=== PATIENT | female | born 1990 | race Caucasian/White ===

== ENCOUNTER 2023-12-28 07:05 | Inpatient (IN) ==
--- NOTE | 2023-12-26 11:31 | Anesthesiology Consultation ---
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 Chart Review Chart Review: diversified crops farmworker initiated History Surgery Operation Date: 12/28/23 08:50 Proposed Procedures p Primary Section - Andrew Chavez MD Height/Weight Height: 5 ft 5 in Weight: 122.47 kg Allergies Allergy/AdvReac Type Severity Reaction Status Date / Time azithromycin [From Zithromax] Allergy Unknown Difficulty Verified 12/26/23 10:53 Breathing Penicillins Allergy Unknown Difficulty Verified 12/26/23 10:53 Breathing Medications Home Medications Medication Instructions Recorded Confirmed Last Taken 1 tab PO QAM 12/26/23 12/26/23 Unknown Probiotic 1 tab PO QAM 12/26/23 12/26/23 Unknown aspirin 81 mg capsule 81 mg PO DAILY 12/26/23 12/26/23 Unknown docusate sodium 50 mg capsule 50 mg PO DAILY PRN Constipation 12/26/23 12/26/23 Unknown iron,carbonyl 65 mg-vitamin C 125 1 tab PO BID 12/26/23 12/26/23 Unknown mg tablet,delayed release (Vitron-C) magnesium 200 mg tablet 400 mg PO DAILY 12/26/23 12/26/23 Unknown propranolol 20 mg tablet 20 mg PO BID 12/26/23 12/26/23 Unknown riboflavin (vitamin B2) 400 mg 400 mg PO QAM 12/26/23 12/26/23 Unknown tablet sertraline 25 mg tablet 75 mg PO QAM 12/26/23 12/26/23 Unknown Past Medical History Medical History (Updated 12/26/23 @ 11:30 by Shantel Marie PA-C) ADHD Anxiety 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, sports induced Depression History of COVID-19 (05/2023) no hosp; resolved Migraines OCD (obsessive compulsive disorder) Sleep apnea CPAP Slow to wake up after anesthesia after D&C Past Family History Family History Other No family history of adverse response to anesthesia Past Surgical History Surgical History Hx of dilation and curettage polyp removed from uterus Hx of tonsillectomy Hx of wisdom tooth extraction Social History Smoking Status: Never smoker Do You Dip or Chew Tobacco: No Hx Alcohol Use: No Hx Substance Use: No substance use type: does not use
--- OUTSIDE RECORDS SUMMARY | 2023-12-28 07:13 | External Medical Summary | Summary of Care ---
Author Name Unknown Organization [facility] Address [address] [place] [address] Phone [phone] Care Team Providers Care Landscape Nurseryman Name Role Phone Ford Devine MD Primary Care Provider [phone] Encounter Details Date Type Department Care Team (Late st Contact Info) Description 12/19/2023 Telephone Gynecology/Obstetrics [facility] [address] [place] [address] Maria Esther Isbell, [facility] [address] [place] [address] Allergies Active Allergy Reactions Criticality Noted Date Comments Penicillins Edema face/lips/tongue High 08/29/2001 Azithromycin Dihydrate Edema airway,Othe r (Please comment) High 11/24/2013 Trouble breathing documented as of this encounter (statuses as of 12/19/2023) Medications Medication Sig Dispensed Refills Start Date End Date Status CPAP every night at bedtime. Auto 5-20 cm Active Magnesium 200 MG Oral Tablet Take 1 Tablet by mouth in the morning. Active Vitamin and Mineral 28-0.8 MG Oral TabletIndications :Inability to conceive, female Take by mouth. Acti ve Propranolol HCl 20 MG Oral Tablet (Inderal) Take 1 Tablet by mouth in the morning and 1 Tablet before bedtime. 60 Tablet 2 05/04/2023 Active Riboflavin 100 MG Oral Capsule Take 1 Capsule by mouth in the morning. Active Probiotic 250 MG Oral Capsule Take by mouth. Active Sertraline HCl 50 MG Oral Tablet (Zoloft)Indicatio ns:Anxiety state,Moderate episode of recurrent major depressive disorder (HCC) Take 1 Tablet by mouth in the morning. 30 Tablet 5 07/04/2023 Active Aspirin 81 MG Oral Tablet Delayed Release (Aspirin Adult Low Dose) Take 1 Tablet by mouth in the morning. Active Sertraline HCl 25 MG Oral Tablet (Zoloft)Indicatio ns:Depression affecting in first trimester, antepartum Take 1 Tablet by mouth in the morning. With 50 mg tablet for a total of 75 mg daily.. 30 Tablet 6 07/30/2023 Active ProAir HFA 108 (90 Base) MCG/ACT Inhalation Aerosol SolutionIndicatio ns:Mild intermittent asthma without complication Inhale 2 Puffs by mouth every 4 hours as needed for Shortness of Breath or Wheezing. 18 g 10/09/2023 Active Breast PumpIndications:B reast feeding status of mother Z39.1 status of mother CAROL: 01/03/2024 1 Each 10/11/2023 Active Iron-Vitamin C 65-125 MG Oral Tablet (Vitron C)Indications:Ant epartum anemia complicating Take 1 Tablet by mouth in the morning and 1 Tablet before bedtime. 60 Tablet 3 10/15/2023 Active Docusate Sodium 100 MG Oral Capsule (Colace)Indicatio ns:Antepartum anemia complicating Take 1 Capsule by mouth 2 times a day as needed for Constipation. 60 Capsule 5 10/15/2023 Active Hydrocortisone Acetate 25 MG Rectal Suppository (Anusol HC)Indications:He morrhoids without complication Administer 1 Suppository into the rectum 2 times a day in the morning and at bedtime as needed for Hemorrhoids. 28 Suppository 12/09/2023 Active documented as of this encounter (statuses as of 12/19/2023) Active Problems Problem Noted Date Diagnosed Date Excessive growth affec ting management of in third trimester 11/01/2023 Last Assessment & Plan: CONSIDERATIONS: Reviewed that weight greater than 90%ile is considered "large for gestational age" (LGA). LGA may be related to constitutional factors (e.g., male gender, ethnicity), environmental factors (maternal diabetes/obesity/weight gain), or genetic conditions. Discussed the limitations of ultrasound in predicting weight, especially at later gestational ages. RECOMMENDATIONS: Recommend delivery without trial of labor for estimated weight greater than 5000 gm (in the non-diabetic woman) OR greater than 4500 gm (in the diabetic woman). Concern for macrosomia/LGA is NOT an indication for induction of labor. The patient should discuss further management and delivery plan with her primary OB provider. Polyhydramnios in third trimester 11/01/2023 Last Assessment & Plan: CONSIDERATIONS: Polyhydramnios is the presence of elevated levels of amniotic fluid index (LUDMILA) greater than or equal to 24 cm or a maximum of vertical pocket (MVP) greater than or equal to 8 cm. Polyhydramnios is categorized as: Mild LUDMILA of 24.0-29.9 cm Moderate LUDMILA of 30.0-34.9 cm Severe LUDMILA of greater than or equal to 35 cm We discussed potential etiologies and complications associated with polyhydramnios. Mild polyhydramnios often resolves spontaneously without negative effects on the . The prevalence of an identifiable etiology increases with severity of polyhydramnios. RECOMMENDATIONS: Perform MFM (Maternal- Medicine) ultrasound in 4 weeks for assessment of growth and fluid. Recommend delivery at 39 weeks if findings persist. Amnioreduction is an option to decrease severe maternal discomfort, dyspnea, or both. It is not indicated at this time. Antepartum anemia complicating 024 Supervision of high-risk , unspecified trimester 06/28/2023 BMI 40.0-44.9, adult 06/28/2023 Anxiety during , antepartum 06/28/2023 Overview: Follows with Psychiatry for medication management for anxiety, depression, OCD and ADHD. Currently managing with sertraline 75 mg daily and propanolol 20 mg BID. No current counseling. Denies suicidal or homicidal ideation. Last Assessment & Plan: ANXIETY AND DEPRESSION CONSIDERATIONS: Untreated maternal anxiety and depression may be associated with an increased risk of multiple poor obstetrical outcomes including miscarriages, low weight, and delivery. Women with a history of anxiety or depression are at risk for recurrence both during and/or the period. Studies of first-trimester SSRI exposure do not demonstrate consistent data to support an increased risk for structural malformations. Anti-anxiety or depression medications have been associated with transient effects (withdrawal syndrome). RECOMMENDATIONS: Mental illness can and should be treated during when the benefits of treatment outweigh potential risks. Referral to behavioral health services as clinically indicated. Propranolol. Propranolol has been reported to cause intrauterine growth retardation and bradycardia and hypoglycemia, especially at daily doses greater than 160 mg. Additionally, small placentas and congenital abnormalities have occurred in neonates whose mothers received propranolol during . When administered during labor, respiratory depression has also been reported. Therefore, if propranolol must be used in a women, it is recommended that the infants be monitored for bradycardia, respiratory depression, and hypoglycemia. Fluoxetine (Prozac). Human studies linking the use of fluoxetine with defects are not available. Fluoxetine does cross the placenta. Although some isolated studies suggest an association between fluoxetine in the first trimester and cardiovascular malformations, meta-analysis reviews have not proven any relationship between fluoxetine use and congenital malformations. It is important for mothers to continue using their antidepressant medication since there seems to be an association between depression in and depression. Sertraline (Zoloft). Discussed that although there have been reports in the past regarding anti-depressant therapy and abnormalities or complications, research has not confirmed or supported this claim. Explained that anti- depressants such as the SSRI's and TCA's do not appear to increase the incidence of complications or malformations (with the exception of Paxil). Anti- depressants have been associated with transient effects (withdrawal syndrome). Use sertraline cautiously during , considering both the potential risk of taking sertraline, along with the established benefits of treating depression. Obstructive sleep apnea of adult 06/28/2023 Overview: NICA diagnosed in 2019. Patient reports compliance with CPAP; awaiting new mask to arrive from [employer]. Last Assessment & Plan: Considerations: Obstructive sleep apnea increases the risk of early loss, growth restriction, hypertensive disease of , pulmonary embolism, and maternal cardiomyopathy. Recommendations: Attend follow-up with Sleep Medicine; Continue and achieve consistent compliance with continuous positive airway (CPAP) pressure therapy. While sleeping, consider the lateral recumbent or head elevated position. Target weight gain in will be 11-20 lbs Consider an echocardiogram to screen for right heart pathology and refer to cardiology if indicated. Avoid Provigil (modafinil) in and in . Asthma during 06/28/2023 Overview: Patient reports exercise-induced asthma in childhood and adolescence. At time of initial MFM consult, she states that she has not required albuterol inhaler in years. Last Assessment & Plan: CONSIDERATIONS: Asthma symptoms may improve, worsen or remain unchanged in severity in . Asthma is generally managed the same in as in the non- patient, as asthma-control medications are considered safe in . If asthma is well-controlled with medications prior to , it is recommended to continue the same medication regimen during . A patient should seek medical care immediately if an asthma flare does not respond to therapy. Mild and well-controlled moderate asthma can be associated with excellent maternal and outcomes. Severe and poorly controlled asthma may be associated with increased morbidity and mortality. Asthma management includes monitoring of lung function with pulmonary function testing (when indicated), avoidance of triggers (such as tobacco smoke, mold, dust mite exposure, animal dander and cockroaches), and a step-care approach to pharmacologic therapy based on the severity of the patient's asthma. RECOMMENDATIONS: Inhaled corticosteroids are the mainstay of therapy for all patients except those with intermittent asthma. If patients are routinely requiring rescue inhaler (such as albuterol, Ventolin, ProAir, Atrovent, or Proventil) use more than twice weekly, we recommend adding a low-dose inhaled corticosteroid. [Pulmicort (budesonide) is preferred to use in .] If patients are routinely requiring rescue inhaler use daily, we recommend adding a combined low-dose inhaled corticosteroid/long-acting beta-agonist [such as Advair (fluticasone/salmeterol) or Symbicort (budesonide/formoterol)] or a medium dose inhaled corticosteroid. Patient should discuss these treatment options with her primary OB provider or PCP. Typically, patients do not need stress dose steroids as long as they continue their usual dose perioperatively (or during labor) and do not have primary renal failure or other problems with the pituitary axis. Medications such as prostaglandin F2a (including Hemabate), ergonovine, and indomethacin (in patients who are aspirin allergic) should be used with caution. Patients with moderate or severe persistent asthma should have Maternal- Medicine ultrasound for anatomy at 19-20 weeks. surveillance with growth ultrasounds and non-stress tests should be considered starting at 32 weeks. Elevated blood pressure read ing without diagnosis of hypertension 06/28/2023 Overview: Elevated blood pressures documented early in (April 2023). Patient states that her BP spiked after she was instructed by her psychiatrist to stop anxiety medication "cold turkey," including propanolol. Since that time, she was prescribed sertraline by her PCP and has also resumed propanolol. More recent blood pressures have been WNL. Several elevations noted in early 2022. Discussed potential for chronic hypertension in ; recommend continued monitoring of blood pressures. Recommend bASA 81 mg daily. BP Readings from Last 10 Encounters: 06/11/23 110/78 05/16/23 122/82 05/08/23 126/76 05/04/23 130/79 12/23/22 123/81 12/23/22 124/84 12/11/22 112/80 10/03/22 118/94 05/31/22 120/92 05/11/22 140/95 Baseline Preeclampsia Labs Lab Results Component Value Date/Time CREATININE - [facility] 0.6 06/11/2023 04:09 PM AST - [facility] 15 06/11/2023 04:09 PM ALT - [facility] 21 06/11/2023 04:09 PM PROTEIN/ CREATININE RATIO, URINE - [facility] 211 (H) 06/11/2023 04:09 PM Last Assessment & Plan: Continue routine monitoring of blood pressures. Obesity during 06/11/2023 Overview: Pre-gravid BMI 38.79 (#230, 5'4") Current BMI 40.37 Early 1 hour GCT 120 mg/dL Last Assessment & Plan: She presents for follow-up of growth secondary to class 2 obesity, anxiety and depression, asthma, and sleep apnea. LGA and mild polyhydramnios have been noted previously. Today's ultrasound notes the following: The estimated weight is appropriate for gestational age in the 87th percentile. The visualized anatomy is unremarkable in appearance. The LUDMILA is normal. Binge eating disorder 06/14/2022 Major depressive disorder, recurrent, unspecifie d 01/23/2019 Anxiety state 05/31/2014 Chronic migraine without aura 05/31/2014 Depression affecting pregnan cy in first trimester, antepartum 05/31/2014 Headache 05/31/2014 Overview: ICD-10 update of inactive term Hair loss 05/31/2014 Estimated Date of Delivery Comme nts Yes 01/03/2024 Based on last me nstrual period of 03/29/2023 (Exact Date) documented as of this encounter (statuses as of 12/19/2023) Resolved Problems Problem Noted Date Diagnosed Date Resolved Date Class 2 obesity 06/28/2023 10/31/2023 Encounter for supervision of normal first in first trimester 06/11/2023 10/31/2023 Abnormal uterine bleeding 05/13/2018 Status post hysteroscopy 05/13/2018 S/P dilatation and curettage 05/13/2018 06/11/2023 Endometrial polyp 05/13/2018 06/11/2023 documented as of this encounter (statuses as of 12/19/2023) Immunizations Name Administration Dates Next Due COVID-19 mRNA, LNP-s, No Pre serve, 2-Dose Series (uBank) 09/04/2020,08/14/2020 COVID-19, LNP-s, No Preserve , Mk-sucrose, Ages 12+ (uBank) 03/18/2021 DTaP Dipth/Tet/Acell Pertussis (Infanrix), Peds 11/21/1995,04/12/1992,01/24/1991,12/09,1990 HIB PRP-T, 4 Dose, PF, IM (H iberix, ActHib) 11/20/1991,01/24/1991,1990,09/30 HPV Vaccine, 4-Valent 04/29/2014,01/29/2012 HPV Vaccine, 9-Valent 01/26/2015 Hepatitis B, 0-19 yrs 11/22/1998,06/07/1998,04/17 IPV - Polio Virus Vaccine (Inact) 1995,04/12/1992,1990,09/30 MMR - Measles/Mumps/Rubella Vaccine 11/21/1995,0 11/20/1991 Meningococcal Conjugate Vacc ine (Menactra/Menveo) 04/02/2008 Seasonal Influenza, PF, 6 M & above, IM , (FluLaval or Fluzone) 07/13/2023,06/21/2021 Seasonal Influenza, Trivalen t, (IIV3), with Preserv, (Fluzone) 01/29/2012 TDAP (age 10 and older)(Boostrix) 10/11/2023 TDAP, Age 7 and older, IM (Adacel) 01/29/2012 Tetanus Toxid Adsorbed 07/27/2004 documented as of this encounter Social History Tobacco Use Types Packs/Day Years Used Date Smoking Tobacco: Never Smokeless Tobacco: Never Alcohol Use Standard Drinks/Week Comments Not Currently 0 (1 standard drink = 0.6 oz pur e alcohol) occasionally AUDIT-C Answer Date Recorded Frequency of Alcohol Consumption 2-4 times a sun01/23/2019 Average Number of Drinks 3 or 4 019 Frequency of Binge Drinking Less than monthly PHQ-2 Answer Date Recorded PHQ Adult Total Score 0 10/09/2023 Hunger Vital Sign Answer Date Recorded Within the past 12 months, y ou worried that your food would run out before you got the money to buy more. Never true 12/12/19 23 Within the past 12 months, t he food you bought just didn't last and you didn't have money to get more. Never true 12/11/2022 Melrose Depression Scale Answer Date Recorded Melrose Depression Scale Total 6 11/23/2023 The thought of harming myself has occurred to me . Never 11/23/2023 Childcare Answer Date Recorded Do you feel overwhelmed with taking care of a child, family member or friend? No 12/11/2022 Does your family need help f inding childcare? (Household - for ages 0-17 years) Not on file 12/11/2022 Clothing Answer Date Recorded Have you been unable to get clothing when it was really needed? No 12/11/2022 Is your family able to get c lothes or diapers when needed? (Household - for ages 0-17 years) Not on file 12/11/2022 Personal Safety Answer Date Recorded Do you feel unsafe or have concerns for your saf ety? No 12/11/2022 Do you have concerns for you r family's safety? (Household - for ages 0-17 years) Not on file 12/11/2022 Utilities Answer Date Recorded Do you have trouble paying y our heating, water, or electric bill? (Adult - for ages 18 years and over) Not on file 12/12/2023 Is your family able to pay t he heat, water, or electric bill? (Household - for ages 0-17 years) Not on file 12/12/2023 Does your family have access to good internet? (Household - for ages 0-17 years) Not on file 12/12/2023 Employment Status Answer Date Recorded Are you unemployed or without regular income? No 12/11/2022 Does the household have a re lar source of income? (Household - for ages 0-17 years) Not on file 12/11/2022 Social Connections Answer Date Recorded How often do you feel lonely or isolated from those around you? (Adult - for ages 18 years and over) Not on file 12/12/2023 Financial Resource Strain Answer Date R ecorded Do you have any trouble payi ng for your medications, or do you think you might in the future? No 12/11/2022 Does your family have troubl e paying for medicine? (Household - for ages 0-17 years) Not on file 12/11/2022 Transportation Needs Answer Date Record ed READ ONLY Do you have troubl e getting a ride to medical visits or work? Never True 12/11/2022 Does your family have a hard time getting a ride to doctors visits? (Household - for ages 0-17 years) Not on file 12/11/2022 Has lack of transportation k ept you from medical appointments, meetings, work, or from getting things needed for daily living? Check all that apply. (Adult - for ages 18 years and over) Not on file 12/11/2022 Do you (or your family) have trouble finding or paying for a ride (transportation)? (Household - for ages 0-17 years) Not on file 12/11/2022 Housing Stability Answer Date Recorded Do you currently live in a s helter or have no steady place to sleep at night? No 12/11/2022 READ ONLY Do you think you a re at risk of becoming homeless? No 12/11/2022 Does your family worry about paying for your home or becoming homeless? (Household - for ages 0-17 years) Not on file 0 12/11/2022 Are you homeless or worried that you might be in the future? (Adult - for ages 18 years and over) Not on file Are you (or your family) blake eless or worried that you might be in the future? (Household - for ages 0-17 years) Not on file Food Insecurity Answer Date Recorded Do you need food for this week? No 12/11/2022 Are you able to get enough f ood for your family? (Household - for ages 0-17 years) Not on file 12/11/2022 Does your family need food t his week? (Household - for ages 0-17 years) Not on file 12/11/2022 Do you always have enough fo od for your family? (Household - for ages 0-17 years) Not on file 12/11/2022 Estimated Date of Delivery Comme nts Yes 01/03/2024 Based on last me nstrual period of 03/29/2023 (Exact Date) Sex and Gender Information Value Date Recorded Sex Assigned at Female 01/23/2019 7:58 AM EDT Gender Identity Female 01/23/2019 7:58 AM EDT Sexual Orientation Straight 01/23/2019 7: 58 AM EDT Job Start Date Occupation Industry Not on file Not on file Not on file documented as of this encounter Miscellaneous Notes * Telephone Encounter - Olga Castelan LPN - 12/19/2023 4:50 PM EDT Pt aware. * Telephone Encounter - Petty Miranda RN - 12/19/2023 4:11 PM EDT Appt made for 12/23 at 10.30 via telemed. LM for pt to call office. * Telephone Encounter - Vicky Olvera LPN - 12/19/2023 2:49 PM EDT Jayden only in office Saturday 12/23 with a full schedule. Please advise. * Telephone Encounter - Vicky Olvera LPN - 12/19/2023 2:20 PM EDT TC from patient. Says she was to be scheduled with a delivering physician at but hasn't heard anything. Currently scheduled for elective 39w IOL dt size and SPD. Us 87% 11/29/23. Has repeat growth scheduled 12/20. Per dr pérez OV note she recommended vaginal delivery unless weight over 5000gmas macrosomia is not an indication for primary csection. Patient feels she would rather discuss this with a provider at [facility] who might actually deliver and would be willing to listen to her. Wants to just talk to a delivery physician in the office. advised she would need an appt for this regardless and currently there are no openings this week as jayden is not in the office again until next week. I advised to first have growth completed to see most recent efw and then go from there. She doesn'twant to see another physician in [facility] as she feels it is just a bunch of back and forth. Oriented ptto physician coverage at [facility]. Patient would be okay keeping KARLENE at [facility] next week but meeting with Dr Chavez for telemed early next week to discuss us and delivery plan. Advised we would have to look at his schedule as he is only in the office a very limited number of hours. Will reach back out to pt. documented in this encounter Plan of Treatment Upcoming Encounters Date Type Department Care Team (Late st Contact Info) Description 12/21/2023 3:00 PM EDT Office Visit Gynecology/Obstetrics, [place] [address] [address] Steffany Feliz PA-C [address] [address] Evy, Non Stress Test [address] [address] 12/21/2023 3:30 PM EDT Imaging Gynecology/Obstetrics [place] [facility] [address] [address] 12/24/2023 10:30 AM EDT Telemedicine Gynecology/Obstetrics [facility] [address] [id number] Andrew Chavez MD [address] [place] [address] 02/13/2024 8:40 AM EDT Office Visit [place]ology, [place] [address] [address] Luna New PA-C [address] [address] 10/20/2024 8:00 AM EDT Office Visit Family [facility] [place] [address] [phone] Ford Devine MD [address] [id number] Health Maintenance Due Date Last Done Comments Pneumococcal Vaccine: Pediat rics (0 to 5 Years) and At-Risk Patients (6 to 64 Years) (1 of 2 - PCV) 1996 HPV/Co-Test 2020 *SPIROMETRY ONCE FOR ASTHMA-ADULT 06/30/2023 COVID-19 Vaccine (2022-2 4 season) 2023 03/18/2021, 09/04/2020, 08/14/2020 Influenza Vaccine (FLU shot) (#1) 2023 07/13/2023, 06/21/2021, 01/29/2012 Depression Monitoring 10/08/2024 10/09/2023 Cervical Cancer Screening 03/25/2026 Pap Smear 03/25/2026 03/25/2021, 03/16, 01/29/2012, Additional history exists DTap/Tdap Vaccines (8 - Td o r Tdap) 10/10/2033 10/11/2023, 01/29/2012, 11/21/1995, Additional history exists Hepatitis B Vaccine Completed 11/22/1998, 06/07/1998, 05/10/1998 MENINGOCOCCAL (MENACTRA/MENVEO) Completed 8 HPV (Gardasil) Vaccine Completed , 04/29/2014, 01/29/2012 documented as of this encounter Medical Devices Not on filedocumented as of this encounter Advance Directives * Full Code (Latest Code Status on File) Date Activated Date Inactivated Comments 05/13/2018 8:55 AM 05/13/2018 2:15 PM This order r eflects the patients wishes and were consensually agreed upon. Care Teams Landscape Nurseryman Relationship Specialty Start Date End Date Ford Devine MD [address] [id number] PCP - General Family Medicine 10/03/22 documented as of this encounter
--- OUTSIDE RECORDS SUMMARY | 2023-12-28 07:13 | External Medical Summary | Summary of Care ---
Author Name Unknown Organization [facility] Address [address] [address] Phone [phone] Care Team Providers Care Seed District Sales Manager Name Role Phone Ford Devine MD Primary Care Provider [phone] [phone] Reason for Visit * Reason Onset Date Comments Advice 12/26/2023 Encounter Details Date Type Department Care Team (Late st Contact Info) Description 12/26/2023 Telephone Gynecology/Obstetrics [facility] [address] [place] [address] Andrew Chavez MD [address] [place] [address] Advice Allergies Active Allergy Reactions Criticality Noted Date Comments Penicillins Edema face/lips/tongue High 08/29/2001 Azithromycin Dihydrate Edema airway,Othe r (Please comment) High 11/24/2013 Trouble breathing documented as of this encounter (statuses as of 12/27/2023) Medications Medication Sig Dispensed Refills Start Date [...] MG Oral Capsule Take by mouth. Active Aspirin 81 MG Oral Tablet Delayed [...] Active Docusate Sodium 100 MG Oral Capsule (Colace)Nolatio ns:Antepartum anemia complicating Take 1 Capsule by mouth 2 times a day as needed for Constipation. 60 Capsule 5 10/15/2023 Active Hydrocortisone Acetate 25 MG Rectal Suppository (Anusol HC)Indications:He morrhoids without complication Administer 1 Suppository into the rectum 2 times a day in the morning and at bedtime as needed for Hemorrhoids. 28 Suppository 12/09/2023 Active Sertraline HCl 50 MG Oral Tablet (Zoloft)Carieo ns:Anxiety state,Moderate episode of recurrent major depressive disorder (HCC) Take 1 Tablet by mouth in the morning. 30 Tablet 5 12/23/2023 Active documented as of this encounter (statuses as of 12/27/2023) Active Problems Problem Noted Date Diagnosed Date [...] CPAP; awaiting new mask to arrive from [facility]. Last Assessment & Plan: Considerations: Obstructive sleep [...] as of this encounter (statuses as of 12/27/2023) Resolved Problems Problem Noted Date Diagnosed Date Resolved Date Class 2 obesity 06/28/2023 10/31/2023 Encounter for supervision of normal first in first trimester 06/11/2023 10/31/2023 Abnormal uterine bleeding 05/13/2018 Status post hysteroscopy 05/13/2018 S/P dilatation and curettage 05/13/2018 06/11/2023 Endometrial polyp 05/13/2018 06/11/2023 documented as of this encounter (statuses as of 12/27/2023) Immunizations Name Administration Dates Next Due COVID-19 mRNA, LNP-s, No Pre serve, 2-Dose Series ([employer]) 09/04/2020,08/14/2020 COVID-19, LNP-s, No Preserve , Mk-sucrose, Ages 12+ ([employer]) 03/18/2021 DTaP Dipth/Tet/Acell Pertussis ([employer]), Peds 11/21/1995,04/12/1992,01/24/1991,12/09,1990 [...] money to get more. Never true 12/11/2022 [place] Depression Scale Answer Date Recorded [place] Depression Scale Total 6 11/23/2023 The thought [...] No 12/11/2022 Does the household have a [facility] source [facility]? (Household - for ages [...] encounter Miscellaneous Notes * Telephone Encounter - Vandana Pascual LPN - 12/26/2023 3:38 PM EDT Patient notified to stop now * Telephone Encounter - Claudine Leary OSA - 12/26/2023 2:37 PM EDT Pt has c/section scheduled for 12/[address] Chavez. Pt was talking to preanesthesia from [facility] and they questioned her about when Dr Chavez would want her to stop taking her baby aspirin. Please advise. documented in this encounter Plan of Treatment Upcoming Encounters Date Type Department Care Team (Late st Contact Info) Description 02/13/2024 8:40 AM EDT Office Visit Dermatology, [place] [address] [place] [address] Luna New PA-C [address] [place] [place] [address] 10/20/2024 8:00 AM EDT Office Visit Family [facility] [place] [address] [phone] Ford Devine MD [address] [phone] Health Maintenance Due Date Last Done Comments Pneumococcal Vaccine: Pediat rics (0 to 5 Years) and At-Risk Patients (6 to 64 Years) (1 of 2 - PCV) 1996 HPV/Co-Test 2020 *SPIROMETRY ONCE FOR ASTHMA-ADULT 06/30/2023 COVID-19 Vaccine (4 - 2023-2 5 season) 2023 03/18/2021, 09/04/2020, 08/14/2020 Influenza Vaccine [...] and were consensually agreed upon. Care Teams Seed District Sales Manager Relationship Specialty Start Date End Date Ford Devine MD [address] [address] PCP - General Family Medicine 10/03/22 documented as of this encounter
--- OUTSIDE RECORDS SUMMARY | 2023-12-28 07:13 | External Medical Summary | Summary of Care ---
Author Name Unknown Organization [facility] Address [address] [facility] [place] [address] Phone [phone] Care Team Providers Care Senior Electrical Controls Engineer Name Role Phone Ford Devine MD Primary Care Provider [phone] [phone] Reason for Visit * Reason Comments Advice Encounter Details Date Type Department Care Team (Late st Contact Info) Description 12/24/2023 10:30 AM EDT Telemedicine [facility] [address] [place] [address] Andrew Chavez MD [address] [place] [address] Obesity in , antepartum* Allergies Active Allergy Reactions Criticality Noted Date Comments Penicillins Edema face/lips/tongue High 08/29/2001 Azithromycin Dihydrate Edema airway,Othe r (Please comment) High 11/24/2013 Trouble breathing documented as of this encounter (statuses as of 12/24/2023) Medications Medication Sig Dispensed Refills Start Date [...] Active Sertraline HCl 50 MG Oral Tablet (Zoloft)Nolatio ns:Anxiety state,Moderate episode of recurrent major depressive disorder (HCC) Take 1 Tablet by mouth in the morning. 30 Tablet 5 12/23/2023 Active documented as of this encounter (statuses as of 12/24/2023) Active Problems Problem Noted Date Diagnosed Date [...] CPAP; awaiting new mask to arrive from [facility]. Last Assessment & Plan: Considerations: Obstructive sleep [...] as of this encounter (statuses as of 12/24/2023) Resolved Problems Problem Noted Date Diagnosed Date Resolved Date Class 2 obesity 06/28/2023 10/31/2023 Encounter for supervision of normal first in first trimester 06/11/2023 10/31/2023 Abnormal uterine bleeding 05/13/2018 Status post hysteroscopy 05/13/2018 S/P dilatation and curettage 05/13/2018 06/11/2023 Endometrial polyp 05/13/2018 06/11/2023 documented as of this encounter (statuses as of 12/24/2023) Immunizations Name Administration Dates Next Due COVID-19 mRNA, LNP-s, No Pre serve, 2-Dose Series ([employer]) 09/04/2020,08/14/2020 COVID-19, LNP-s, No Preserve , Mk-sucrose, Ages 12+ ([employer]) 03/18/2021 DTaP Dipth/Tet/Acell Pertussis (Infanrix), Peds 11/21/1995,04/12/1992,01/24/1991,12/09,1990 [...] money to get more. Never true 12/11/2022 [place] Depression Scale Answer Date Recorded [place] Depression Scale Total 6 11/23/2023 The thought [...] on file documented as of this encounter Progress Notes * Andrew Chvaez MD - 12/24/2023 10:52 AM EDT Patient location: HOME. I was in a hospital or clinic location. After connecting through televideo,patient was verified with two unique identifiers. Patient (or authorized legal parts representative) was then informed that this was a Telemedicine visit and being conducted confidentially over secure lines. Methods to assure confidentiality were taken. Patient acknowledged consent and understanding of pr ivacy and security of the Telemedicine visit. The patient agreed to participate. Patient is a 33-year-old at 38 weeks gestation. Patient's has been unremarkable her ultrasound consistently showed fetus was in the 89th percentile. Last ultrasound done 12/21/2023 at 30 8+ weeks showed EFW of 37 100+ grams. Patient wants primary elective section because she is worried about worsening of her pubicsymphysis pain. Discussed risks of elective surgery versus section . I have made patient aware that it is true her pubic symphysis pain my worsen after vaginal delivery however the risks of including infection bleeding prolonged Wound Care and other complications has been discussed with patient. Patient wants to discuss it with the .My impression from the conversation is that she is considering section. Therefore sent paperwork [facility] Andrew Chavez MD 12/24/2023 10:58 AM documented in this encounter Plan of Treatment Upcoming Encounters Date Type Department Care Team (Late st Contact Info) Description 12/28/2023 2:15 PM EDT Office Visit Gynecology/Obstetrics [facility] [address] [address] Andrew Chavez MD [address] [place] [address] 02/13/2024 8:40 AM EDT Office Visit Dermatology, Evy Sales [address] [facility] [address] [place] [address] Luna New PA-C [address] [place] [address] 10/20/2024 8:00 AM EDT [facility] [address] [phone] Ford Devine MD [address] [address] Health Maintenance Due Date Last Done Comments Pneumococcal Vaccine: Pediat rics (0 to 5 Years) and At-Risk Patients (6 to 64 Years) (1 of 2 - PCV) 1996 HPV/Co-Test 2020 *SPIROMETRY ONCE FOR ASTHMA-ADULT 06/30/2023 COVID-19 Vaccine (4 - 2022-2 4 season) 2023 03/18/2021, 09/04/2020, 08/14/2020 Influenza [...] Not on filedocumented as of this encounter Visit Diagnoses Diagnosis Obesity in , antepartum- Primary Obesity complicating , childbirth, or the puerperium, antepartum condition or complication documented in this encounter Advance Directives * Full Code (Latest Code Status on File) Date Activated Date Inactivated Comments 05/13/2018 8:55 AM 05/13/2018 2:15 PM This order r eflects the patients wishes and were consensually agreed upon. Care Teams Senior Electrical Controls Engineer Relationship Specialty Start Date End Date Ford Devine MD [address] [place] [address] PCP - General Family Medicine 10/03/22 documented as of this encounter
--- OUTSIDE RECORDS SUMMARY | 2023-12-28 07:13 | External Medical Summary | Summary of Care ---
Author Name Unknown Organization [facility] Address [address] [facility] [address] Phone [phone] Care Team Providers Care Stage Hand Name Role Phone Ford Devine MD Primary Care Provider [phone] [phone] Reason for Visit * Reason Onset Date Comments Advice 12/26/2023 Encounter Details Date Type Department Care Team (Late st Contact Info) Description 12/26/2023 Telephone Gynecology/Obstetrics [facility] [address] [place] [address] Andrew Chavez MD [address] [place] [address] Advice Allergies Active Allergy Reactions Criticality Noted Date Comments Penicillins Edema face/lips/tongue High 08/29/2001 Azithromycin Dihydrate Edema airway,Othe r (Please comment) High 11/24/2013 Trouble breathing documented as of this encounter (statuses as of 12/26/2023) Medications Medication Sig Dispensed Refills Start Date [...] as of this encounter (statuses as of 12/26/2023) Active Problems Problem Noted Date Diagnosed Date [...] CPAP; awaiting new mask to arrive from [employer]. Last Assessment & Plan: Considerations: Obstructive sleep [...] as of this encounter (statuses as of 12/26/2023) Resolved Problems Problem Noted Date Diagnosed Date Resolved Date Class 2 obesity 06/28/2023 10/31/2023 Encounter for supervision of normal first in first trimester 06/11/2023 10/31/2023 Abnormal uterine bleeding 05/13/2018 Status post hysteroscopy 05/13/2018 S/P dilatation and curettage 05/13/2018 06/11/2023 Endometrial polyp 05/13/2018 06/11/2023 documented as of this encounter (statuses as of 12/26/2023) Immunizations Name Administration Dates Next Due COVID-19 mRNA, LNP-s, No Pre serve, 2-Dose Series ([employer]) 09/04/2020,08/14/2020 COVID-19, LNP-s, No Preserve , Mk-sucrose, Ages 12+ ([employer]) 03/18/2021 DTaP Dipth/Tet/Acell Pertussis (Infanrix), Peds 11/21/1995,04/12/1992,01/24/1991,12/09,1990 [...] money to get more. Never true 12/11/2022 [place] Depression Scale Answer Date Recorded [place] Depression Scale Total 6 11/23/2023 The thought [...] No 12/11/2022 Does the household have a [facility] source [facility] income? (Household - for [...] Chavez. Pt was talking to preanesthesia from [facility] and they questioned her about when Dr Chavez would want her to stop taking her baby aspirin. Please advise. documented in this encounter Plan of Treatment Upcoming Encounters Date Type Department Care Team (Late st Contact Info) Description 02/13/2024 8:40 AM EDT Office Visit Dermatology, [place] [address] [place] [address] Luna New PA-C [address] [place] [address] 10/20/2024 8:00 AM EDT Office Visit Family [facility] [place] [address] [phone] Ford Devine MD [address] [phone] Health Maintenance Due Date Last Done Comments [...] and were consensually agreed upon. Care Teams Stage Hand Relationship Specialty Start Date End Date Ford Devine MD [address] [address] PCP - General Family Medicine 10/03/22 documented as of this encounter
--- OUTSIDE RECORDS SUMMARY | 2023-12-28 07:13 | External Medical Summary | Summary of Care ---
Author Name Unknown Organization [facility] Address [address] [facility] [address] Phone [phone] Care Team Providers Care Scagliola Mechanic Name Role Phone Tanner Lauren MD Primary Care Provider [phone] [phone] Reason for Visit * Reason Comments eRx-Medication Refill Encounter Details Date Type Department Care Team (Late st Contact Info) Description 12/20/2023 Refill [facility] [address] [facility] [place] [phone] Tanner Lauren MD [address] [facility] [place] [phone] Anxiety state; Moderate episode of recurrent major depressive disorder (HCC) Allergies Active Allergy Reactions Criticality Noted Date Comments Penicillins Edema face/lips/tongue High 08/29/2001 Azithromycin Dihydrate Edema airway,Othe r (Please comment) High 11/24/2013 Trouble breathing documented as of this encounter (statuses as of 12/23/2023) Medications Medication Sig Dispensed Refills Start Date End Date Status CPAP every night at bedtime. Auto 5-20 cm Active Magnesium 200 MG Oral Tablet Take 1 Tablet by mouth in the morning. Active Vitamin and Mineral 28-0.8 MG Oral TabletIndication s:Inability to conceive, female Take by mouth. Acti ve Propranolol HCl 20 MG Oral Tablet (Inderal) Take 1 Tablet by mouth in the morning and 1 Tablet before bedtime. 60 Tablet 2 4 Active Riboflavin 100 MG Oral Capsule Take 1 Capsule by mouth in the morning. Active Probiotic 250 MG Oral Capsule Take by mouth. Active Aspirin 81 MG Oral Tablet Delayed Release (Aspirin Adult Low Dose) Take 1 Tablet by mouth in the morning. Active Sertraline HCl 25 MG Oral Tablet (Zoloft)Indicati ons:Depression affecting in first trimester, antepartum Take 1 Tablet by mouth in the morning. With 50 mg tablet for a total of 75 mg daily.. 30 Tablet 6 4 Active ProAir HFA 108 (90 Base) MCG/ACT Inhalation Aerosol SolutionIndicati ons:Mild intermittent asthma without complication Inhale 2 Puffs by mouth every 4 hours as needed for Shortness of Breath or Wheezing. 18 g 4 Active Breast PumpIndications: Breast feeding status of mother Z39.1 status of mother CAROL: 01/03/2024 1 Each 4 Active Iron-Vitamin C 65-125 MG Oral Tablet (Vitron C)Indications:An tepartum anemia complicating Take 1 Tablet by mouth in the morning and 1 Tablet before bedtime. 60 Tablet 3 4 Active Docusate Sodium 100 MG Oral Capsule (Colace)Indicati ons:Antepartum anemia complicating Take 1 Capsule by mouth 2 times a day as needed for Constipation. 60 Capsule 5 4 Active Hydrocortisone Acetate 25 MG Rectal Suppository (Anusol HC)Indications:H emorrhoids without complication Administer 1 Suppository into the rectum 2 times a day in the morning and at bedtime as needed for Hemorrhoids. 28 Suppository 4 Active Sertraline HCl 50 MG Oral Tablet (Zoloft)Indicati ons:Anxiety state,Moderate episode of recurrent major depressive disorder (HCC) Take 1 Tablet by mouth in the morning. 30 Tablet 5 4 Active Sertraline HCl 50 MG Oral Tablet (Zoloft)Indicati ons:Anxiety state,Moderate episode of recurrent major depressive disorder (HCC) Take 1 Tablet by mouth in the morning. 30 Tablet 5 4 024 Discontinued documented as of this encounter (statuses as of 12/23/2023) Active Problems Problem Noted Date Diagnosed Date [...] CPAP; awaiting new mask to arrive from [facility]. Last Assessment & Plan: Considerations: Obstructive sleep [...] as of this encounter (statuses as of 12/23/2023) Resolved Problems Problem Noted Date Diagnosed Date Resolved Date Class 2 obesity 06/28/2023 10/31/2023 Encounter for supervision of normal first in first trimester 06/11/2023 10/31/2023 Abnormal uterine bleeding 05/13/2018 Status post hysteroscopy 05/13/2018 S/P dilatation and curettage 05/13/2018 06/11/2023 Endometrial polyp 05/13/2018 06/11/2023 documented as of this encounter (statuses as of 12/23/2023) Immunizations Name Administration Dates Next Due COVID-19 mRNA, LNP-s, No Pre serve, 2-Dose Series ([employer]) 09/04/2020,08/14/2020 COVID-19, LNP-s, No Preserve , Mk-sucrose, Ages 12+ ([employer]) 03/18/2021 DTaP Dipth/Tet/Acell Pertussis (Infanrix), Peds [...] money to get more. Never true 12/11/2022 [place] Depression Scale Answer Date Recorded [place] Depression Scale Total 6 11/23/2023 The thought [...] No 12/11/2022 Does the household have a [facility] source [facility]? (Household - for ages [...] encounter Miscellaneous Notes * Telephone Encounter - Tanner Lauren MD - 12/23/2023 9:35 PM EDTSigned Prescriptions: Disp Refills Sertraline HCl 50 MG Oral Tablet (Zoloft) 30 Tab*5 Sig: Take 1 Tablet by mouth in the morning. Authorizing Provider: TANNER LAUREN * Telephone Encounter - Jose Antonio Fuller [facility] - 12/22/2023 10:45 AM EDT Pending Prescriptions: Disp Refills Sertraline HCl 50 MG Oral Tablet (Zoloft) 30 Tab*5 Sig: Take 1 Tablet by mouth in the morning. * Telephone Encounter - Jose Antonio Fuller [facility] - 12/22/2023 10:44 AM EDT Unable to authorize medication refills for pended medication(s) at this time. Part of the protocol criteria used for refill authorization was not satisfied. Patient is currently . Please approve if appropriate. Thanks, Jose Antonio Fuller, PharmD Clinical Pharmacist [facility]) [phone] 12/22/2023, 10:45 AM documented in this encounter Plan of Treatment Upcoming Encounters Date Type Department Care Team (Late st Contact Info) Description 12/24/2023 10:30 AM EDT Telemedicine Gynecology/Obstetrics [facility] [address] [address] Andrew Chavez MD [address] [place] [place] [address] 02/13/2024 8:40 AM EDT Office Visit Dermatology, [place] [address] [place] [address] Luna New PA-C [address] [place] [phone] 10/20/2024 8:00 AM EDT Office Visit Family Practice, [place] [address] [place] [phone] Tanner Lauren MD [address] [place] [phone] Health Maintenance Due Date Last Done Comments Pneumococcal Vaccine: Pediat rics (0 to 5 Years) and At-Risk Patients (6 to 64 Years) (1 of 2 - PCV) 1996 HPV/Co-Test 2020 *SPIROMETRY ONCE FOR ASTHMA-ADULT 06/30/2023 COVID-19 Vaccine ( - 2022-2 4 season) 2023 03/18/2021, 09/04/2020, [...] (MENACTRA/MENVEO) Completed 8 HPV (Gardasil) Vaccine Completed 5, 04/29/2014, 01/29/2012 documented as of this encounter [employer] Not on filedocumented as of this encounter Visit Diagnoses Diagnosis Anxiety state Anxiety state, unspecified Moderate episode of recurrent major depressive disorder (HCC) documented in this encounter Advance Directives * Full Code (Latest Code Status on File) Date Activated Date Inactivated Comments 05/13/2018 8:55 AM 05/13/2018 2:15 PM This order r eflects the patients wishes and were consensually agreed upon. Care Teams Scagliola Mechanic Relationship Specialty Start Date End Date Tanner Lauren MD [address] [place] [address] PCP - General Family Medicine 10/03/22 documented as of this encounter
--- OUTSIDE RECORDS SUMMARY | 2023-12-28 07:13 | External Medical Summary | Summary of Care ---
Author Name Unknown Organization [facility] Address [address] [place] [address] Phone [phone] Care Team Providers Care Animal Daycare Provider Name Role Phone Ford Devine MD Primary Care Provider [phone] [phone] Reason for Visit * Reason Comments Return Visit 38w1d Non Stress Test Encounter Details Date Type Department Care Team (Late st Contact Info) Description 12/21/2023 3:00 PM EDT Office Visit [facility]necology[facility] [place] [facility] [address] Steffany Feliz PA-C [address] [place] [address] Ev[place] Non Stress Test [facility] [address] Supervision of high-risk , unspecified trimester*; Obesity during ; Depression affecting in first trimester, antepartum; Anxiety during , antepartum; Obstructive sleep apnea of adult; Asthma during ; Antepartum anemia complicating ; Excessive growth affecting management of in third trimester, single or unspecified fetus; Polyhydramnios in third trimester complication, single or unspecified fetus Allergies Active Allergy Reactions Criticality Noted Date Comments Penicillins Edema face/lips/tongue High 08/29/2001 Azithromycin Dihydrate Edema airway,Othe r (Please comment) High 11/24/2013 Trouble breathing documented as of this encounter (statuses as of 12/21/2023) Medications Medication Sig Dispensed Refills Start Date [...] as of this encounter (statuses as of 12/21/2023) Active Problems Problem Noted Date Diagnosed Date [...] CPAP; awaiting new mask to arrive from [facility]. Last Assessment & Plan: Considerations: Obstructive [...] as of this encounter (statuses as of 12/21/2023) Resolved Problems Problem Noted Date Diagnosed Date Resolved Date Class 2 obesity 06/28/2023 10/31/2023 Encounter for supervision of normal first in first trimester 06/11/2023 10/31/2023 Abnormal uterine bleeding 05/13/2018 Status post hysteroscopy 05/13/2018 S/P dilatation and curettage 05/13/2018 06/11/2023 Endometrial polyp 05/13/2018 06/11/2023 documented as of this encounter (statuses as of 12/21/2023) Immunizations Name Administration Dates Next Due COVID-19 mRNA, LNP-s, No Pre serve, 2-Dose Series ([email or web address]) 09/04/2020,08/14/2020 COVID-19, LNP-s, No Preserve , Mk-sucrose, Ages 12+ (Pfizer) 03/18/2021 DTaP Dipth/Tet/Acell Pertussis (Infanrix), Peds 11/21/1995,04/12/1992,01/24/1991,12/09,1990 [...] Date Smoking Tobacco: Never Smokeless Tobacco: Never Tobacco Cessation:Counseling Given: Not Answered Alcohol Use Standard Drinks/Week Comments Not Currently [...] money to get more. Never true 12/11/2022 [place] Depression Scale Answer Date Recorded [place] Depression Scale Total 6 11/23/2023 The thought [...] on file documented as of this encounter Last Filed Vital Signs Vital Sign Reading Time Taken Comments Blood Pressure 128/82 12/21/2023 3:11 PM EDT Pulse - - Temperature 37 C (98.6 F) 12/21/2023 3:11 PM EDT Respiratory Rate - - Oxygen Saturation - - Inhaled Oxygen Concentration - - Weight 121.4 kg (267 lb 9.6 oz) 12/21/2023 3:11 PM EDT Height - - Body Mass Index 45.93 10/09/2023 7:53 AM EDT documented in this encounter Progress Notes * Steffany Feliz PA-C - 12/21/2023 3:15 PM EDT Amelia Millan is a 33 year old female here for her routine OB appointment at 38w1d Her Estimated Date of Delivery: 01/03/24 Has U/S for growth following appointment today. She is reporting some intermittent cramping, but denies any regular or timeable contractions. REVIEW OF SYSTEMS She affirms movement. Denies vaginal bleeding, LOF, regular contractions PHYSICAL EXAM Filed Vitals: 12/21/23 1511 BP: 128/82 Temp: 37 C (98.6 F) Weight: 121.4 kg (267 lb 9.6 oz) +FHT see NST result ASSESSMENT assessment with Non-stress Test completed on 12/21/2023 at 38w1d weeks gestation for indicationof Class 2 obesity. heart baseline: 130 bpm Variability: Moderate Decelerations: absent Accelerations: present Contractions: None NST start time: 1459 NST stop time: 1523 NST strip reviewed, interpreted, and approved by OB provider, Steffany Feliz PA-C. NST strip stored in clinic storage file ASSESSMENT/PLAN Supervision of high-risk , unspecified trimester (Primary) Obesity during Depression affecting in first trimester, antepartum Anxiety during , antepartum Obstructive sleep apnea of adult Asthma during Antepartum anemia complicating Excessive growth affecting management of in third trimester, single or unspecified fetus Polyhydramnios in third trimester complication, single or unspecified fetus Supervision of - labor precautions and kick counts reviewed. L&D phone numbers given. RTO for scheduled appointment 12/23. She is scheduled for IOL 12/29 Steffany Feliz PA-C 12/21/2023 documented in this encounter Nursing Notes * Aniya Tejada CMA - 12/21/2023 3:11 PM EDT Chief Complaint Patient presents with Return Visit 38w1d Non Stress Test documented in this encounter Plan of Treatment Upcoming Encounters Date Type Department Care Team (Late st Contact Info) Description 12/24/2023 10:30 AM EDT Telemedicine Gynecology/Obstetrics [facility] [address] [address] Andrew Chavez MD [address] [place] [place] [address] 02/13/2024 8:40 AM EDT Office Visit Dermatology, [place] [address] [facility] [address] [place] [address] Luna New PA-C [address] [place] [address] 10/20/2024 8:00 AM EDT Office Visit [facility] [place] [address] [phone] Ford Devine MD [address] [address] Health Maintenance Due Date Last Done Comments [...] as of this encounter Visit Diagnoses Diagnosis Supervision of high-risk , unspecified trimester- Primary Obesity during Depression affecting in first trimester, antepartum Anxiety during , antepartum Obstructive sleep apnea of adult Obstructive sleep apnea (adult) (pediatric) Asthma during Antepartum anemia complicating Anemia, antepartum Excessive growth affecting management of in third trimester, single or unspecified fetus Polyhydramnios in third trimester complication, single or unspecified fetus documented in this encounter Advance Directives * Full Code (Latest Code Status on File) Date Activated Date Inactivated Comments 05/13/2018 8:55 AM 05/13/2018 2:15 PM This order r eflects the patients wishes and were consensually agreed upon. Care Teams Animal Daycare Provider Relationship Specialty Start Date End Date Ford Devine MD [address] [phone] PCP - General Family Medicine 10/03/22 documented as of this encounter
--- OUTSIDE RECORDS SUMMARY | 2023-12-28 07:13 | External Medical Summary | Summary of Care ---
Author Name Unknown Organization [facility] Address [address] [place] [address] Phone [phone] Care Team Providers Care Thread Winder Name Role Phone Ford Devine MD Primary Care Provider [phone] [phone] Encounter Details Date Type Department Care Team (Late st Contact Info) Description 12/19/2023 Telephone Gynecology/Obstetrics [facility] [address] [place] [address] Maria Esther Isbell, [facility] [address] [place] [address] Allergies Active Allergy Reactions Criticality [...] CPAP; awaiting new mask to arrive from [facility]. Last Assessment & Plan: Considerations: Obstructive sleep [...] mRNA, LNP-s, No Pre serve, 2-Dose Series ([employer]uel[employer]) 09/04/2020,08/14/2020 COVID-19, LNP-s, No Preserve , Mk-sucrose, Ages 12+ (Venuelabs) 03/18/2021 DTaP Dipth/Tet/Acell Pertussis (Infanrix), Peds 11/21/1995,04/12/1992,01/24/1991,12/09,1990 [...] money to get more. Never true 12/11/2022 [place] Depression Scale Answer Date Recorded [place] Depression Scale Total 6 11/23/2023 The thought [...] encounter Miscellaneous Notes * Telephone Encounter - Petty Miranda RN - 12/19/2023 4:11 PM EDT Appt made for 12/23 at 10.30 via [employer]. for pt to call office. * Telephone [...] rather discuss this with a provider at [facility] who might actually deliver and would be [...] She doesn'twant to see another physician in [facility] as she feels it is just a bunch of back and forth. Oriented ptto physician coverage at [facility]. Patient would be okay keeping KARLENE at [facility] next week but meeting with Dr Chavez [...] 12/21/2023 3:00 PM EDT Office Visit Gynecology/Obstetrics, [place] [address] [address] Steffany Feliz PA-C [address] [address] Rowena [place] Stress Test [address] [place] [address] [place] [address] 12/21/2023 3:30 PM EDT Imaging Gynecology/Obstetrics [place] [address] [place] [address] [place] [place] [address] 12/24/2023 10:30 AM EDT Telemedicine Gynecology/Obstetrics [facility] [address] [place] [address] Andrew Chavez MD [address] [place] [place] [address] 02/13/2024 8:40 AM EDT Office Visit Dermatology, [place] [address] [facility] [place] [address] [place] [address] Luna New PA-C [address] [place] [place] [address] 10/20/2024 8:00 AM EDT Office Visit Family Practice, [place] [address] [phone] Ford Devine MD [address] [address] Health Maintenance Due Date Last Done Comments [...] and were consensually agreed upon. Care Teams Thread Winder Relationship Specialty Start Date End Date Ford Devine MD [address] [address] PCP - General Family Medicine 10/03/22 documented as of this encounter
--- OUTSIDE RECORDS SUMMARY | 2023-12-28 07:13 | External Medical Summary | Summary of Care ---
Author Name Unknown Organization [facility] Address [address] [place] [address] Phone [phone] Care Team Providers Care Rehabilitation Services Manager Name Role Phone Ford Devine MD Primary Care Provider [phone] [phone] Encounter Details Date Type Department Care Team (Late st Contact Info) Description 12/19/2023 Telephone Gynecology/Obstetrics [facility] [address] [place] [address] Maria Esther Isbell, [facility] [address] [place] [address] Allergies Active Allergy Reactions Criticality [...] CPAP; awaiting new mask to arrive from [employer]. Last Assessment & Plan: Considerations: Obstructive sleep [...] mRNA, LNP-s, No Pre serve, 2-Dose Series ([employer]) 09/04/2020,08/14/2020 COVID-19, LNP-s, No Preserve , Mk-sucrose, Ages 12+ ([employer]) 03/18/2021 DTaP Dipth/Tet/Acell Pertussis (Infanrix), Peds 11/21/1995,04/12/1992,01/24/1991,12/09,1990 [...] money to get more. Never true 12/11/2022 [place] Depression Scale Answer Date Recorded [place] Depression Scale Total 6 11/23/2023 The thought [...] encounter Miscellaneous Notes * Telephone Encounter - Vicky Olvera LPN [...] rather discuss this with a provider at [facility] who might actually deliver and would be [...] She doesn'twant to see another physician in [facility] as she feels it is just a bunch of back and forth. Oriented ptto physician coverage at [facility]. Patient would be okay keeping KARLENE at [facility] next week but meeting with Dr [...] 12/21/2023 3:00 PM EDT Office Visit Gynecology/Obstetrics, [place] [address] [address] Steffany Feliz PA-C [address] [address] Rowena [place] Stress Test [address] [address] 12/21/2023 3:30 PM EDT Imaging Gynecology/Obstetrics [place] [address] [address] 02/13/2024 8:40 AM EDT Office Visit Dermatology, [place] [address] [place] [address] [place] [address] Luna New PA-C [address] [place] [address] 10/20/2024 8:00 AM EDT Office Visit Family Practice, [place] [address] [phone] Ford Devine MD [address] [address] Health Maintenance Due Date Last Done Comments [...] and were consensually agreed upon. Care Teams Rehabilitation Services Manager Relationship Specialty Start Date End Date Ford Devine MD [address] [address] PCP - General Family Medicine 10/03/22 documented as of this encounter
--- OUTSIDE RECORDS SUMMARY | 2023-12-28 07:14 | External Medical Summary | Summary of Care ---
Author Name Unknown Organization [facility] Address [address] [place] [address] Phone [phone] Care Team Providers Care Manager Clinical Pharmacy Name Role Phone Ford Devine MD Primary Care Provider +1 [phone] Encounter Details Date Type Department Care Team (Late st Contact Info) Description 12/11/2023 Telephone Gynecology/Obstetrics [facility] [address] [place] [address] Alexa Arthur MD 400 [place] [address] Allergies Active Allergy Reactions Criticality Noted Date Comments Penicillins Edema face/lips/tongue High 08/29/2001 Azithromycin Dihydrate Edema airway,Othe r (Please comment) High 11/24/2013 Trouble breathing documented as of this encounter (statuses as of 12/14/2023) Medications Medication Sig Dispensed Refills Start Date [...] as of this encounter (statuses as of 12/14/2023) Active Problems Problem Noted Date Diagnosed Date [...] CPAP; awaiting new mask to arrive from [employer]. Last Assessment & Plan: Considerations: Obstructive sleep [...] as of this encounter (statuses as of 12/14/2023) Resolved Problems Problem Noted Date Diagnosed Date Resolved Date Class 2 obesity 06/28/2023 10/31/2023 Encounter for supervision of normal first in first trimester 06/11/2023 10/31/2023 Abnormal uterine bleeding 05/13/2018 Status post hysteroscopy 05/13/2018 S/P dilatation and curettage 05/13/2018 06/11/2023 Endometrial polyp 05/13/2018 06/11/2023 documented as of this encounter (statuses as of 12/14/2023) Immunizations Name Administration Dates Next Due COVID-19 mRNA, LNP-s, No Pre serve, 2-Dose Series ([employer]) 09/04/2020,08/14/2020 COVID-19, LNP-s, No Preserve , Mk-sucrose, Ages 12+ ([employer]) 03/18/2021 DTaP Dipth/Tet/Acell Pertussis (Infanrix), Peds 11/21/1995,04/12/1992,01/24/1991,12/09,1990 [...] money to get more. Never true 12/11/2022 [place] Depression Scale Answer Date Recorded [place] Depression Scale Total 6 11/23/2023 The thought [...] encounter Miscellaneous Notes * Telephone Encounter - Kaylie Rodriguez RN - 12/11/2023 10:11 AM EDT Pt returned call. Aware of results. Admits to urinary urgency and frequency. Dr. Arthur, please sign pended urine culture order. * Telephone Encounter - Kristi Escobedo LPN - 12/11/2023 9:12 AM EDT Called pt- left message for pt to return call- please advise pt of the following message from Alexa Arthur MD ----- Message from Alexa Arthur MD sent at 12/10/2023 2:23 PM EDT ----- Please kindly inform patient that her urinalysis showed bacteria. If she she is having UTI symptoms, we will order urine culture. Kristi Escobedo LPN 12/11/2023 9:13 AM documented in this encounter Plan of Treatment Upcoming Encounters Date Type Department Care Team (Late st Contact Info) Description 12/21/2023 8:30 AM EDT Appointment Radiology, [facility] [address] [facility] [place] [address] 02/13/2024 8:40 AM EDT Office Visit Dermatology, [place] [facility] [place] [address] [facility] [address] [place] [address] Luna New PA-C [address] [place] [place] [address] 10/20/2024 8:00 AM EDT Office Visit [facility] [place] [address] [place] [phone] Ford Devine MD 21 [facility] [place] [address] Health Maintenance Due Date Last Done Comments Pneumococcal Vaccine: Pediat rics (0 to 5 Years) and At-Risk Patients (6 to 64 Years) (1 of 2 - PCV) 1996 HPV/Co-Test 2020 COVID-19 Vaccine ( - 2022-2 4 season) 2022 03/18/2021, 09/04/2020, 08/14/2020 *SPIROMETRY ONCE FOR ASTHMA-ADULT 06/30/2023 Influenza Vaccine (FLU shot) (#1) 2023 07/13/2023, [...] Not on filedocumented as of this encounter Results * CULTURE, URINE, QUANTITATIVE (12/11/2023 1:33 PM EDT) Culture Growth No significant growth 12/12/2023 2:19 PM EDT [facility] Urine Urine specimen obtained by clean catch procedure / Unknown Non-blood Collection / Unknown 12/11/2023 1:33 PM EDT 12/11/2023 1:33 PM EDT Alexa Annita Arthur MD LAB MICRO - G ENERAL ORDERABLES [facility] [address] [facility] [place] [address] documented in this encounter Visit Diagnoses Diagnosis UTI symptoms- Primary Other symptoms involving urinary system documented in this encounter Advance Directives * Full Code (Latest Code Status on File) Date Activated Date Inactivated Comments 05/13/2018 8:55 AM 05/13/2018 2:15 PM This order r eflects the patients wishes and were consensually agreed upon. Care Teams Manager Clinical Pharmacy Relationship Specialty Start Date End Date Ford Devine MD [address] [phone] PCP - General Family Medicine 10/03/22 documented as of this encounter
--- OUTSIDE RECORDS SUMMARY | 2023-12-28 07:14 | External Medical Summary ---
Author Name Unknown Address Unknown Organization K01:LABORATORY [facility] - [address] [facility] [address] Laboratory Report Ordering Provider Test Date Status ALLYSON LARSON 12/18/2023 16:29:29 Final Observation Date Value Abnormality Reference (Units ) Status Bacterial vaginosis [Interpretation] in Vaginal fluid Qualitative 12/18/2023 16:29:29 Negative Negative Final Negative for Bacterial Vagin osis. Correlate results with other clinical findings. Sonia sp DNA [Presence] in Vaginal fluid by Probe 12/18/2023 16:29:29 Negative Negative Final No Sonia species group RNA detected. Correlate results with other clinical findings. Sonia glabrata RNA [Presen ce] in Vaginal fluid by JARAD with probe detection 12/18/2023 16:29:29 Negative Negative Final No Sonia glabrata RNA dete cted. Correlate results with other clinical findings. Trichomonas vaginalis DNA [P resence] in Vaginal fluid by Probe 12/18/2023 16:29:29 Negative Negative Final No Trichomonas vaginalis RNA detected. Performing Location LABORATORY [facility] - [address] [facility] [address]
--- OUTSIDE RECORDS SUMMARY | 2023-12-28 07:14 | External Medical Summary | Summary of Care ---
Author Name Unknown Organization [facility] Address [address] [place] [address] Phone [phone] Care Team Providers Care Powder Blender And Pourer Name Role Phone Ford Devine MD Primary Care Provider [phone] [phone] Encounter Details Date Type Department Care Team (Late st Contact Info) Description 12/14/2023 Telephone Gynecology/[facility]stetrics, [place] [facility] [address] Danielle [place] MD [address] [facility] [place] [address] Allergies Active Allergy Reactions Criticality Noted Date Comments Penicillins Edema face/lips/tongue High 08/29/2001 Azithromycin Dihydrate Edema airway,Othe r (Please comment) High 11/24/2013 Trouble breathing documented as of this encounter (statuses as of 12/18/2023) Medications Medication Sig Dispensed Refills Start Date [...] as of this encounter (statuses as of 12/18/2023) Active Problems Problem Noted Date Diagnosed Date [...] CPAP; awaiting new mask to arrive from [facility]. Last Assessment & Plan: Considerations: Obstructive sleep [...] as of this encounter (statuses as of 12/18/2023) Resolved Problems Problem Noted Date Diagnosed Date Resolved Date Class 2 obesity 06/28/2023 10/31/2023 Encounter for supervision of normal first in first trimester 06/11/2023 10/31/2023 Abnormal uterine bleeding 05/13/2018 Status post hysteroscopy 05/13/2018 S/P dilatation and curettage 05/13/2018 06/11/2023 Endometrial polyp 05/13/2018 06/11/2023 documented as of this encounter (statuses as of 12/18/2023) Immunizations Name Administration Dates Next Due COVID-19 mRNA, LNP-s, No Pre serve, 2-Dose Series ([employer]) 09/04/2020,08/14/2020 COVID-19, LNP-s, No Preserve , Mk-sucrose, Ages 12+ ([employer]) 03/18/2021 DTaP Dipth/Tet/Acell Pertussis (Infanrix), Peds 11/21/1995,04/12/1992,01/24/1991,12/09,1990 [...] money to get more. Never true 12/11/2022 [place] Depression Scale Answer Date Recorded [place] Depression Scale Total 6 11/23/2023 The thought [...] encounter Miscellaneous Notes * Telephone Encounter - Claudine Leary OSA - 12/18/2023 11:17 AM EDT Pt is surgery book and epic * Telephone Encounter - Petty Miranda RN - 12/14/2023 3:55 PM EDT Spoke with Kari at L&D at [facility]. Induction scheduled for 12/27 Message to Genny. GARCIA for pt to call office. Pt will need to plan to be at [facility] by 7 am on this day. She will need to call [phone] by 6 am to make sure her bed is available. * Telephone Encounter - Danielle [place] MD - 12/14/2023 10:33 AM EDT Please call Dave Jesús for scheduled induction at 39 weeks for class 2 obesity, patient preference CAROL is 01/03/2024 Thank you documented in this encounter Plan of Treatment Upcoming Encounters Date Type Department Care Team (Late st Contact Info) Description 12/21/2023 3:00 PM EDT Office Visit Gynecology/[facility] [address] [place] [address] Steffany Feliz PA-C [address] [place] [address] Rowena [place] Stress Test [address] [address] 12/21/2023 3:30 PM EDT Imaging Gynecology/Obstetrics [place] [address] [place] [address] 02/13/2024 8:40 AM EDT Office Visit [place] [address] [place] [address] [place] [address] Luna New PA-C [address] [place] [address] 10/20/2024 8:00 AM EDT [facility] [address] [place] [phone] Ford Devine MD [address] [address] Health Maintenance Due Date Last Done Comments [...] and were consensually agreed upon. Care Teams Powder Blender And Pourer Relationship Specialty Start Date End Date Ford Devine MD [address] [address] PCP - General Family Medicine 10/03/22 documented as of this encounter
--- OUTSIDE RECORDS SUMMARY | 2023-12-28 07:14 | External Medical Summary | Summary of Care ---
Author Name Unknown Organization [facility] Address [address] [place] [address] Phone [phone] Care Team Providers Care Etl Programmer Name Role Phone Ford Devine MD Primary Care Provider [phone] [phone] Encounter Details Date Type Department Care Team (Late st Contact Info) Description 12/14/2023 Telephone Gyne[facility]st[facility] [place] [facility] [address] Danielle Hamilton MD 400 [facility] [place] [address] Allergies Active Allergy Reactions Criticality Noted [...] CPAP; awaiting new mask to arrive from [employer]. Last Assessment & Plan: Considerations: Obstructive sleep [...] mRNA, LNP-s, No Pre serve, 2-Dose Series ([employer]) 09/04/2020,08/14/2020 COVID-19, LNP-s, No Preserve , Mk-sucrose, Ages 12+ ([employer]) 03/18/2021 DTaP Dipth/Tet/Acell Pertussis (Infanrix), Peds 11/21/1995,04/12/1992,01/24/1991,12/09,1990 [...] money to get more. Never true 12/11/2022 [place] Depression Scale Answer Date Recorded [place] Depression Scale Total 6 11/23/2023 The thought [...] EDT Spoke with Kari at L&D at [facility]. Induction scheduled for 12/27 Message to Genny. GARCIA for pt to call office. Pt will need to plan to be at [facility] by 7 am on this day. She will need to call [phone] by 6 am to make sure her bed is available. * Telephone Encounter - Danielle Hamilton MD - 12/14/2023 10:33 AM EDT Please call Dave Espinosa for scheduled induction at 39 weeks for class 2 obesity, patient preference CAROL is 01/03/2024 Thank you documented in this encounter Plan of Treatment Upcoming Encounters Date Type Department Care Team (Late st Contact Info) Description 12/21/2023 3:00 PM EDT Office Visit Gynecology/Obstetrics, [place] [address] [place] [address] Steffany Feliz PA-C [address] [place] [address] Rowena Horton Stress Test [address] [place] [address] 12/21/2023 3:30 PM EDT Imaging Gynecology/Obstetrics [place] Evy Trimble [address] [place] [address] 02/13/2024 8:40 AM EDT Office Visit Dermatology, [place] [address] [place] [address] Luna New PA-C 27 [place] [address] 10/20/2024 8:00 AM EDT Office Visit Family [facility], [place] [address] [place] [phone] Ford Devine MD 21 [place] [address] Health Maintenance Due Date Last Done Comments Pneumococcal Vaccine: Pediat rics (0 to 5 Years) and At-Risk Patients (6 to 64 Years) (1 of 2 - PCV) 1996 HPV/Co-Test 2020 COVID-19 Vaccine (4 - 2022-2 4 season) 2022 03/18/2021, 09/04/2020, [...] and were consensually agreed upon. Care Teams Etl Programmer Relationship Specialty Start Date End Date Ford Devine MD 21 [place] [address] PCP - General Family Medicine 10/03/22 documented as of this encounter
--- OUTSIDE RECORDS SUMMARY | 2023-12-28 07:14 | External Medical Summary | Summary of Care ---
Author Name Unknown Organization [facility] Address [address] [place] [address] Phone [phone] Care Team Providers Care Mechanical Artist Name Role Phone Ford Devine MD Primary Care Provider [phone] [phone] Encounter Details Date Type Department Care Team (Late st Contact Info) Description 12/18/2023 Telephone Gynecology/Obstetrics [facility] [address] [place] [address] Danielle Hamilton MD 400 [place] [address] Allergies Active Allergy Reactions Criticality [...] CPAP; awaiting new mask to arrive from [employer]. Last Assessment & Plan: Considerations: Obstructive sleep [...] mRNA, LNP-s, No Pre serve, 2-Dose Series ([employer]) 09/04/2020,08/14/2020 COVID-19, LNP-s, No Preserve , Mk-sucrose, Ages 12+ ([employer]J) 03/18/2021 DTaP Dipth/Tet/Acell Pertussis (Infanrix), Peds 11/21/1995,04/12/1992,01/24/1991,12/09,1990 [...] money to get more. Never true 12/11/2022 [place] Depression Scale Answer Date Recorded [place] Depression Scale Total 6 11/23/2023 The thought [...] encounter Miscellaneous Notes * Telephone Encounter - Maria Esther Isbell CNM - 12/18/2023 3:35 PM EDT Called patient back at 1535. She states she has been leaking urine for the majority of her . She has noticed more leaking over the last few days. She is uncertain if it is urine or dischargeor SROM. Affirms good movement. Denies KERN. Reports occasional vision changes, which is unchanged throughout her . Patient to come to the clinic for rule out rupture. Patient is 5-10 minutes away. Please add patient to my schedule. Thank you! Maria Esther Isbell CNM 12/18/23 3:41 PM * Telephone Encounter - Valerie Vasquez RN - 12/18/2023 3:16 PM EDT Patient is calling 37w5d c/o questioning ROM. Has had bladder leaking throughout but has Noticed increase in fluid leaking over the past couple days.Clear fluid, no large gush. Patient wearing pad today, has been wearing a pad for a couple hours and is wet but not soaked. Clear fluid, unsure if it is just urine or not. Denies regular contractions + FM Denies vaginal bleeding No appts in office today. Please review with oncall and contact patient with recommendations. Patient aware to call back with any changes. Valerie Vasquez RN documented in this encounter Plan of Treatment Upcoming Encounters Date Type Department Care Team (Late st Contact Info) Description 12/21/2023 3:00 PM EDT Office Visit Gynecology/ObstetricsEvy 400 [place] [address] Steffany Feliz PA-C 400 [place] [address] Rowena Ratliff Stress Test 400 [place] [address] 12/21/2023 3:30 PM EDT Imaging Gynecology/Obstetrics Evy Dos Santos 400 [place] [address] 02/13/2024 8:40 AM EDT Office Visit Dermatology, Evy Sales [address] [place] [address] Luna New PA-C [address] [place] [address] 10/20/2024 8:00 AM EDT Office Visit [facility] [place] [address] [place] [phone] Ford Devine MD [address] [place] [address] Health Maintenance Due Date Last Done Comments [...] and were consensually agreed upon. Care Teams Mechanical Artist Relationship Specialty Start Date End Date Ford Devine MD [address] [place] [phone] PCP - General Family Medicine 10/03/22 documented as of this encounter
--- OUTSIDE RECORDS SUMMARY | 2023-12-28 07:14 | External Medical Summary | Summary of Care ---
Author Name Unknown Organization [facility] Address [address] [place] [address] Phone [phone] Care Team Providers Care Geothermal Installer Name Role Phone Ford Devine MD Primary Care Provider +1 [phone] Reason for Visit * Reason Comments Return Visit 37w 5d Encounter Details Date Type Department Care Team (Late st Contact Info) Description 12/18/2023 3:45 PM EDT Office Visit Gynecology/Obstetric Evy lopez 400 [facility] [place] [address] Maria Esther Isbell, [facility] [address] [place] [address] High-risk , third trimester*; Depression affecting in first trimester, antepartum; Obesity during ; BMI 40.0-44.9, adult ([facility]); Anxiety during , antepartum; Obstructive sleep apnea of adult; Asthma during ; Antepartum anemia complicating Allergies Active Allergy Reactions Criticality Noted Date [...] CPAP; awaiting new mask to arrive from [facility]. Last Assessment & Plan: Considerations: Obstructive [...] mRNA, LNP-s, No Pre serve, 2-Dose Series ([employer]) 09/04/2020,08/14/2020 COVID-19, LNP-s, No Preserve , Mk-sucrose, Ages 12+ ([employer]) 03/18/2021 DTaP Dipth/Tet/Acell Pertussis (Infanrix), Peds 11/21/1995,04/12/1992,01/24/1991,12/09,1990 [...] money to get more. Never true 12/11/2022 [place] Depression Scale Answer Date Recorded [place] Depression Scale Total 6 11/23/2023 The thought [...] Sign Reading Time Taken Comments Blood Pressure 122/80 12/18/2023 3:59 PM EDT Pulse - - Temperature - - Respiratory Rate - - Oxygen Saturation - - Inhaled Oxygen Concentration - - Weight 122.6 kg (270 lb 3.2 oz) 12/18/2023 3:59 PM EDT Height - - Body Mass Index 46.38 10/09/2023 7:53 AM EDT documented in this encounter Progress Notes * Maria Esther Isbell CNM - 12/18/2023 3:55 PM EDT Amelia Millan is a 33 year old female here for her an acute OB appointment at 37w5d. Patient is concerned about leakage of fluid. Her Estimated Date of Delivery: 01/03/24 REVIEW OF SYSTEMS: She affirms movement. Denies vaginal bleeding, N/V, and RUQ pain. Has been struggling with leaking urine the entire . States "I think I am losing control ofmy bladder." Reports more leakage of fluid for the last 2 days, mostly yellow in color but sometimes clear. Started wearing a pad today. No odor. Denies concern for STIs. Last intercourse was at timeof conception. Feels cramps once a day. Has been getting headaches, saw some spots earlier today with position changes or rubbing her eyes.Takes propranolol for anxiety as well zoloft. Feels well on these medications. Feels that her feet have been swelling more in the last few days. Some pain on the bottom of her feet. Warmth or redness. PHYSICAL EXAM: Filed Vitals: 12/18/23 1559 BP: 122/80 Weight: 122.6 kg (270 lb 3.2 oz) +FHT 130-140bpm Fundal height: not assessed Sterile speculum exam: no pooling of fluid, small amount of white/yellow thick discharge Extremities: 2+ bilateral pitting edema. No redness, tenderness, or warmth. Vp Site Documentation Provider requested printer slotter operator. Name of printer slotter operator: Kamila Dyer MA ASSESSMENT/PLAN: Supervision of - Membranes appear to be intact -Urine culture collected -Reviewed warning signs of DVT and pre-eclampsia -Vaginosis swab collected - labor precautions and kick counts reviewed - RTO on Sunday Maria Esther Isbell CNM documented in this encounter Nursing Notes * Brandy Hussein LPN - 12/18/2023 4:01 PM EDT Chief Complaint Patient presents with Return Visit 37w 5d Pt reports leaking the past couple of days; more today. Not sure if it's urine or amniotic fluid. documented in this encounter Plan of Treatment Upcoming Encounters Date Type Department Care Team (Late st Contact Info) Description 12/21/2023 3:00 PM EDT Office Visit Gynecology/Obstetrics, [place] [address] [place] [address] Steffany Feliz PA-C [address] [place] [address] Rowena Ratliff Stress Test [address] [place] [place] [address] 12/21/2023 3:30 PM EDT Imaging Gynecology/Obstetrics [place] Evy Trimble [address] [place] [address] 02/13/2024 8:40 AM EDT Office Visit Dermatology, Evy Sales [address] [place] [address] [place] [address] Luna New PA-C [address] [place] [address] 10/20/2024 8:00 AM EDT Office Visit Family [facility], [place] 21 [place] [phone] Ford Devine MD [address] [place] [address] Pending Results Name Type Priority Associated Diagnoses Date /Time VAGINOSIS PANEL, PCR Lab Routine High-risk , third trimester 12/18/2023 4:29 PM EDT CULTURE, URINE, QUANTITATIVE Lab Routine High-risk , third trimester 12/18/2023 4:25 PM EDT Scheduled Orders Name Type Priority Associated Diagnoses Orde r Schedule VAGINOSIS PANEL, PCR Lab Routine High-risk , third trimester Expected: 12/18/2023, Expires: 12/17/2024 Health Maintenance Due Date Last Done Comments [...] as of this encounter Visit Diagnoses Diagnosis High-risk , third trimester- Primary Depression affecting in first trimester, antepartum Obesity during BMI 40.0-44.9, adult (HCC) Body Mass Index 40.0-44.9, adult Anxiety during , antepartum Obstructive sleep apnea of adult Obstructive sleep apnea (adult) (pediatric) Asthma during Antepartum anemia complicating Anemia, antepartum documented in this encounter Advance Directives * Full Code (Latest Code Status on File) Date Activated Date Inactivated Comments 05/13/2018 8:55 AM 05/13/2018 2:15 PM This order r eflects the patients wishes and were consensually agreed upon. Care Teams Geothermal Installer Relationship Specialty Start Date End Date Ford Devine MD [address] [place] [phone] PCP - General Family Medicine 10/03/22 documented as of this encounter
--- OUTSIDE RECORDS SUMMARY | 2023-12-28 07:14 | External Medical Summary | Summary of Care ---
Author Name Unknown Organization [facility] Address [address] [place] [address] Phone [phone] Care Team Providers Care Asset Protection Professional Name Role Phone Ford Devine MD Primary Care Provider [phone] [phone] Encounter Details Date Type Department Care Team (Late st Contact Info) Description 12/14/2023 Telephone Gynecology/Obstetrics, [place] [facility] [address] Danielle Hamilton MD 400 [facility] [place] [address] Allergies Active Allergy Reactions Criticality Noted [...] CPAP; awaiting new mask to arrive from [employer]. Last Assessment & Plan: Considerations: Obstructive sleep [...] mRNA, LNP-s, No Pre serve, 2-Dose Series ([employer]) 09/04/2020,08/14/2020 COVID-19, LNP-s, No Preserve , Mk-sucrose, Ages 12+ ([employer]) 03/18/2021 DTaP Dipth/Tet/Acell Pertussis (Infanrix), Peds 11/21/1995,04/12/1992,01/24/1991,12/09,1990 [...] money to get more. Never true 12/11/2022 [place] Depression Scale Answer Date Recorded [place] Depression Scale Total 6 11/23/2023 The [...] encounter Miscellaneous Notes * Telephone Encounter - Danielle Hamilton MD - 12/14/2023 10:33 AM EDT Please call Dave Espinosa for scheduled induction at 39 weeks for class 2 obesity, patient preference CAROL is 01/03/2024 Thank you documented in this encounter Plan of Treatment Upcoming Encounters Date Type Department Care Team (Late st Contact Info) Description 12/21/2023 8:30 AM EDT Appointment Radiology, [facility] [address] [place] [address] 02/13/2024 8:40 AM EDT Office Visit Dermatology, [place], [place] [address] [place] [address] Luna New PA-C [address] [place] [address] 10/20/2024 8:00 AM EDT Office Visit Family Practice, [place] 21 [facility] [place] [phone] Ford Devine MD 21 [facility] [place] [address] Health Maintenance Due Date Last Done Comments Pneumococcal Vaccine: Pediat rics (0 to 5 Years) and At-Risk Patients (6 to 64 Years) (1 of 2 - PCV) 1996 HPV/Co-Test 2020 COVID-19 Vaccine (2022-2 4 season) 2022 03/18/2021, 09/04/2020, 08/14/2020 *SPIROMETRY [...] and were consensually agreed upon. Care Teams Asset Protection Professional Relationship Specialty Start Date End Date Ford Devine MD [address] [place] [phone] PCP - General Family Medicine 10/03/22 documented as of this encounter
--- OUTSIDE RECORDS SUMMARY | 2023-12-28 07:14 | External Medical Summary | Summary of Care ---
Author Name Unknown Organization [facility] Address [address] [place] [address] Phone [phone] Care Team Providers Care Camera Storage Clerk Name Role Phone Ford Devine MD Primary Care Provider +1 [phone] Encounter Details Date Type Department Care Team (Late st Contact Info) Description 12/14/2023 Telephone Gynecology/Obstetrics, [place] [facility] [address] Danielle Hamilton MD 400 [facility] [place] [address] Allergies Active Allergy Reactions Criticality Noted [...] CPAP; awaiting new mask to arrive from [employer]. Last Assessment & Plan: Considerations: Obstructive sleep [...] mRNA, LNP-s, No Pre serve, 2-Dose Series ([employer]) 09/04/2020,08/14/2020 COVID-19, LNP-s, No Preserve , Mk-sucrose, Ages 12+ ([employer]) 03/18/2021 DTaP Dipth/Tet/Acell Pertussis (Infanrix), Peds 11/21/1995,04/12/1992,01/24/1991,12/09,1990 [...] money to get more. Never true 12/11/2022 [place] Depression Scale Answer Date Recorded [place] Depression Scale Total 6 11/23/2023 The thought [...] 12/21/2023 3:00 PM EDT Office Visit Gynecology/Obstetrics, [place] [address] [place] [address] Steffany Feliz PA-C [address] [place] [address] Evy, Non Stress Test [address] [place] [address] 12/21/2023 3:30 PM EDT Imaging Gynecology/Obstetrics [place] NaiEvy [address] [place] [address] 02/13/2024 8:40 AM EDT Office Visit Dermatology, [place] [address] [place] [address] Luna New PA-C [address] [place] [address] 10/20/2024 8:00 AM EDT Office Visit Family Practice, [place] 21 [place] [phone] Ford Devine MD [address] [place] [address] Health Maintenance Due Date Last Done Comments [...] and were consensually agreed upon. Care Teams Camera Storage Clerk Relationship Specialty Start Date End Date Ford Devine MD [address] [place] [phone] PCP - General Family Medicine 10/03/22 documented as of this encounter
--- OUTSIDE RECORDS SUMMARY | 2023-12-28 07:14 | External Medical Summary ---
Author Name Unknown Address Unknown Organization K01:[facility] - [address] [place] [id number] Laboratory Report Ordering Provider Test Date Status NANETTE LARSONY 12/18/2023 16:25:39 Final Observation Date Value Abnormality Reference (Units) Status Bacteria identified in Specimen by Culture 12/18/2023 16:25:39 No significant growth Final Test: Culture, Urine, Quant itative
Specimen Source: Urine, Clean Catch
Specimen Type: Urine
Specimen Date: 12/18/2023 1625
Result Date: 12/19/2023 1504
Result Status: Final result
Resulting Lab: [facility]
[address]
[place] [address]

CULTURE

No significant growth

null Performing Location [facility] - [address] [facility] [address]
--- OUTSIDE RECORDS SUMMARY | 2023-12-28 07:14 | External Medical Summary | Summary of Care ---
Author Name Unknown Organization [facility] Address [address] [place] [address] Phone [phone] Care Team Providers Care Cd Storage And Materials Make Up Helper Name Role Phone Ford Devine MD Primary Care Provider +1 -[phone] Encounter Details Date Type Department Care Team (Late st Contact Info) Description 12/18/2023 Telephone Gynecology/Obstetrics [facility] [address] [place] [address] Danielle Hamilton MD 400 [place] [address] Allergies Active Allergy Reactions Criticality [...] CPAP; awaiting new mask to arrive from [employer]. Last Assessment & Plan: Considerations: Obstructive sleep [...] mRNA, LNP-s, No Pre serve, 2-Dose Series ([employer]) 09/04/2020,08/14/2020 COVID-19, LNP-s, No Preserve , Mk-sucrose, Ages 12+ ([employer]) 03/18/2021 DTaP Dipth/Tet/Acell Pertussis (Infanrix), Peds 11/21/1995,04/12/1992,01/24/1991,12/09,1990 [...] money to get more. Never true 12/11/2022 [place] Depression Scale Answer Date Recorded [place] Depression Scale Total 6 11/23/2023 The thought [...] encounter Miscellaneous Notes * Telephone Encounter - Valerie Vasquez RN [...] 12/21/2023 3:00 PM EDT Office Visit Gynecology/Obstetrics, [place] [address] [place] [address] Steffany Feliz PA-C [address] [place] [address] Rowena Ratliff Stress Test [address] [place] [address] 12/21/2023 3:30 PM EDT Imaging Gynecology/Obstetrics [place] [address] [place] [address] 02/13/2024 8:40 AM EDT Office Visit Dermatology, Evy Sales [address] [facility] [address] [place] [address] Luna New PA-C [address] [place] [address] 10/20/2024 8:00 AM EDT Office Visit Family [facility], [place] [address] [place] [phone] Ford Devine MD [address] [place] [place] [address] Health Maintenance Due Date Last Done Comments [...] and were consensually agreed upon. Care Teams Cd Storage And Materials Make Up Helper Relationship Specialty Start Date End Date Ford Devine MD [address] [place] [phone] PCP - General Family Medicine 10/03/22 documented as of this encounter
--- OUTSIDE RECORDS SUMMARY | 2023-12-28 07:14 | External Medical Summary | Summary of Care ---
Author Name Unknown Organization [facility] Address [address] [place] [address] Phone [phone] Care Team Providers Care Purse Seiner Name Role Phone Ford Devine MD Primary Care Provider [phone] Reason for Visit * Reason Comments Return Visit 37w1d Non Stress Test Class 2 Encounter Details Date Type Department Care Team (Late st Contact Info) Description 12/14/2023 10:15 AM EDT Office Visit Gynecology/Obstetric [place] [address] [place] [address] Danielle Hamilton MD 400 [place] [address] [place], Non Stress Test [address] [facility] [place] [address] 37 weeks gestation of *; Depression affecting in third trimester, antepartum; Antepartum anemia complicating ; Obstructive sleep apnea of adult; Anxiety during , antepartum; Supervision of high-risk , unspecified trimester; Obesity during ; Asthma during ; Depression affecting in first trimester, antepartum; BMI 40.0-44.9, adult ([facility]); Elevated blood pressure reading without diagnosis of hypertension; Excessive growth affecting management of in third trimester, single or unspecified fetus; Non-reactive NST (non-stress test) Allergies Active Allergy Reactions Criticality Noted Date [...] CPAP; awaiting new mask to arrive from [facility]. Last Assessment & Plan: Considerations: [...] mRNA, LNP-s, No Pre serve, 2-Dose Series ([employer]) 09/04/2020,08/14/2020 COVID-19, LNP-s, No Preserve , Mk-sucrose, [...] money to get more. Never true 12/11/2022 Opal Depression Scale Answer Date Recorded Opal Depression Scale Total 6 11/23/2023 The thought [...] 12/11/2022 Does the household have a re gular source of income? (Household - for ages [...] Sign Reading Time Taken Comments Blood Pressure 128/80 12/14/2023 10:26 AM EDT Pulse - - Temperature - - Respiratory Rate - - Oxygen Saturation - - Inhaled Oxygen Concentration - - Weight 120 kg (264 lb 9.6 oz) 12/14/2023 10:26 A M EDT Height - - Body Mass Index 45.42 10/09/2023 7:53 AM EDT documented in this encounter Progress Notes * Danielle Hamilton MD - 12/14/2023 10:15 AM EDT Patient is 33 year old at 37 1/7 weeks who presents for KARLENE visit Denies contractions, leaking of fluid, or vaginal bleeding. Noted good movement. Has had cramping at time. Denies headache, blurry vision, RUQ or epigastric pain. GBS neg Patient would like to deliver at [facility], as asking for a primary C- section because she is worried about the size of her baby and ending up in a C- section. She voiced concern about distress or coning of baby's head. 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 Problem list reviewed BP 128/80 | Wt 120 kg (264 lb 9.6 oz) | LMP 03/29/2023 (Exact Date) | BMI 45.42 kg/m | BSA 2.33 m ASSESSMENT assessment with Non-stress test completed on 12/14/2023 at 37 1/7 gestation for indication of obesity heart baseline: 145-150 bpm Variability: Moderate Accelerations: absent Decelerations: absent Contractions: Present irritable NST strip reviewed, interpreted, and approved by OB provider, Keon Hamilton. NST strip stored in clinic storage file NST start time: 1020 NST stop time: 1056 Plan: Labor and preeclampsia warnings reviewed Discuss with length that would always attempt a vaginal delivery over a C- section if possible, if appropriate maternal and indications. Macrosomia is not indication for primary unlessestimated weight is over 5000 g. Patient is at increased risk of due to morbid obesity, and weight gain this . But additional risk of C-sections include infection, bleeding, future risk, etc. and due to her sleep apnea she has increased risk to be on the OR table as well. Offered patient induction at 39 weeks at [facility], patient is agreeable and would like to start there, will reach out to nurses to get us scheduled date at [facility] Sent to BPP for non reactive NST RTC 1 week with NST V Joy MALCOLM PhD documented in this encounter Nursing Notes * Karo Vargas LPN - 12/14/2023 10:26 AM EDT Chief Complaint Patient presents with Return Visit 37w1d Non Stress Test Class 2 Pt is with no concerns. GBS neg Karo Vargas LPN documented in this encounter Plan of Treatment Upcoming Encounters Date Type Department Care Team (Late st Contact Info) Description 12/21/2023 8:30 AM EDT Appointment Radiology, [facility] [address] [place] [address] 02/13/2024 8:40 AM EDT Office Visit Dermatology, [place] 27 [facility] [address] [place] [address] Luna New PA-C [address] [place] [address] 10/20/2024 8:00 AM EDT Office Visit [facility] [address] [place] [phone] Ford Devine MD 21 [facility] [place] [address] Pending Results Name Type Priority Associated Diagnoses Date /Time US BPP W/O NON-STRESS TEST Medical Imaging Routine 37 weeks gestation of Non-reactive NST (non-stress test) 12/14/2023 11:04 AM EDT Scheduled Orders Name Type Priority Associated Diagnoses Orde r Schedule US BPP W/O NON-STRESS TEST Medical Imaging Routine 37 weeks gestation of Non-reactive NST (non-stress test) Expected: 12/14/2023, Expires: 01/13/2025 Health Maintenance Due Date Last Done Comments [...] as of this encounter Visit Diagnoses Diagnosis 37 weeks gestation of - Primary state, incidental Depression affecting in third trimester, antepartum Antepartum anemia complicating Anemia, antepartum Obstructive sleep apnea of adult Obstructive sleep apnea (adult) (pediatric) Anxiety during , antepartum Supervision of high-risk , unspecified trimester Obesity during Asthma during Depression affecting in first trimester, antepartum BMI 40.0-44.9, adult (HCC) Body Mass Index 40.0-44.9, adult Elevated blood pressure reading without diagnosis of hypertension Excessive growth affecting management of in third trimester, single or unspecified fetus Non-reactive NST (non-stress test) Abnormal findings on screening documented in this encounter Advance Directives * Full Code (Latest Code Status on File) Date Activated Date Inactivated Comments 05/13/2018 8:55 AM 05/13/2018 2:15 PM This order r eflects the patients wishes and were consensually agreed upon. Care Teams Purse Seiner Relationship Specialty Start Date End Date Ford Devine MD 21 [place] [phone] PCP - General Family Medicine 10/03/22 documented as of this encounter
--- OUTSIDE RECORDS SUMMARY | 2023-12-28 07:14 | External Medical Summary | Summary of Care ---
Author Name Unknown Organization [facility] Address [address] [place] [address] Phone [phone] Care Team Providers Care Fixed Income Manager Name Role Phone Ford Devine MD Primary Care Provider [phone] Reason for Visit * Reason Comments Return Visit 37w 5d Encounter Details Date Type Department Care Team (Late st Contact Info) Description 12/18/2023 3:45 PM EDT Office Visit Gynecology/Obstetric [place] 400 [facility] [place] [address] Maria Esther Isbell, [facility] [address] [place] [address] High-risk , third trimester*; Depression affecting in first trimester, antepartum; Obesity during ; BMI 40.0-44.9, adult ([facility]); Anxiety during , antepartum; Obstructive sleep apnea [...] CPAP; awaiting new mask to arrive from [facility]. Last Assessment & Plan: Considerations: Obstructive sleep [...] mRNA, LNP-s, No Pre serve, 2-Dose Series ([employer]) 09/04/2020,08/14/2020 COVID-19, LNP-s, No Preserve , Mk-sucrose, Ages 12+ ([employer]) 03/18/2021 DTaP Dipth/Tet/Acell Pertussis (Infanrix), Peds 11/21/1995,04/12/1992,01/24/1991,12/09,1990 [...] money to get more. Never true 12/11/2022 [place] Depression Scale Answer Date Recorded [place] Depression Scale Total 6 11/23/2023 The thought [...] pitting edema. No redness, tenderness, or warmth. Director Of Vendor Management Documentation Provider requested physical therapy manager. Name of physical therapy manager: Kamila Dyer MA ASSESSMENT/PLAN: Supervision of - [...] 12/21/2023 3:00 PM EDT Office Visit Gynecology/Obstetrics, [place] [address] [place] [address] Steffany Feliz PA-C [address] [place] [address] Rowena [place] Stress Test [address] [place] [address] 12/21/2023 3:30 PM EDT Imaging Gynecology/Obstetrics [place] [address] [place] [address] 02/13/2024 8:40 AM EDT Office Visit Dermatology, [place] [address] [facility] [address] [place] [address] Luna New PA-C [address] [place] [address] 10/20/2024 8:00 AM EDT Office Visit Family [facility], [place] [address] [place] [phone] Ford Devine MD 21 [place] [address] Pending Results Name Type Priority Associated Diagnoses [...] and were consensually agreed upon. Care Teams Fixed Income Manager Relationship Specialty Start Date End Date Ford Devine MD 21 [place] [phone] PCP - General Family Medicine 10/03/22 documented as of this encounter
--- OUTSIDE RECORDS SUMMARY | 2023-12-28 07:14 | External Medical Summary | Summary of Care ---
Author Name Unknown Organization [facility] Address [address] [place] [address] Phone [phone] Care Team Providers Care Business Banker Name Role Phone Ford Devine MD Primary Care Provider [phone] Reason for Visit * Reason Comments Return Visit 37w 5d Encounter Details Date Type Department Care Team (Late st Contact Info) Description 12/18/2023 3:45 PM EDT Office Visit Gynecology/Obstetric [place] 400 [facility] [place] [address] Maria Esther Isbell, [facility] [address] [place] [address] High-risk , third trimester*; Depression affecting in first trimester, antepartum; Obesity during ; BMI 40.0-44.9, adult ([facility]); Anxiety during , antepartum; Obstructive sleep apnea [...] CPAP; awaiting new mask to arrive from [facility]. Last Assessment & Plan: Considerations: Obstructive sleep [...] mRNA, LNP-s, No Pre serve, 2-Dose Series ([employer]) 09/04/2020,08/14/2020 COVID-19, LNP-s, No Preserve , Mk-sucrose, Ages 12+ ([employer]) 03/18/2021 DTaP Dipth/Tet/Acell Pertussis (Infanrix), Peds 11/21/1995,04/12/1992,01/24/1991,12/09,1990 [...] money to get more. Never true 12/11/2022 Leola Depression Scale Answer Date Recorded [place] Depression Scale Total 6 11/23/2023 The thought [...] pitting edema. No redness, tenderness, or warmth. Educational Resource Coordinator Documentation Provider requested youth program director. Name of youth program director: Kamila Dyer MA ASSESSMENT/PLAN: Supervision of - [...] or amniotic fluid. documented in this encounter Miscellaneous Notes * Addendum Note - Sangita Neri TECH - 12/18/2023 5:17 PM EDTAddended by: SANGITA NERI on: 12/18/2023 05:17 PM Modules accepted: Orders documented in this encounter Plan of Treatment Upcoming Encounters Date Type Department Care Team (Late st Contact Info) Description 12/21/2023 3:00 PM EDT Office Visit Gynecology/ObstetricsEvy [address] [place] [address] Steffany Feliz PA-C [address] [place] [address] Rowena [place] Stress Test 400 [place] [address] 12/21/2023 3:30 PM EDT Imaging Gynecology/Obstetrics [place] [address] [place] [address] 02/13/2024 8:40 AM EDT Office Visit [place] [address] [place] [place] [address] Luna New PA-C 27 [place] [address] 10/20/2024 8:00 AM EDT Office Visit Family [facility], [place] 21 [place] [phone] Ford Cornell MD 21 [place] [address] Pending Results Name Type Priority Associated Diagnoses Date /Time VAGINOSIS PANEL, PCR Lab Routine High-risk , third trimester 12/18/2023 4:29 PM EDT CULTURE, URINE, QUANTITATIVE Lab Routine High-risk , third trimester 12/18/2023 4:25 PM EDT EXTRA TUBES Lab Routine 12/18/2023 4: 25 PM EDT EXTRA URINE Lab Routine 12/18/2023 4: 25 PM EDT Scheduled Orders Name Type Priority [...] and were consensually agreed upon. Care Teams Business Banker Relationship Specialty Start Date End Date Ford Devine MD [address] [place] [phone] PCP - General Family Medicine 10/03/22 documented as of this encounter
--- OUTSIDE RECORDS SUMMARY | 2023-12-28 07:15 | External Medical Summary | Summary of Care ---
Author Name Unknown Organization [facility] Address [address] [place] [address] Phone [phone] Care Team Providers Care Archeology Professor Name Role Phone Ford Devine MD Primary Care Provider [phone] Reason for Visit * Reason Comments Ultrasound Encounter Details Date Type Department Care Team (Late st Contact Info) Description 11/29/2023 9:45 AM EDT Office Visit [employer] Obstetrics Maternal Medicine, [place] [address], [place] [phone] Franck Muñoz, [address], [place] [phone] Obesity during *; Excessive growth affecting management of in third trimester, single or unspecified fetus; Polyhydramnios in third trimester complication, single or unspecified fetus Allergies Active Allergy Reactions Criticality Noted Date Comments Penicillins Edema face/lips/tongue High 08/29/2001 Azithromycin Dihydrate Edema airway,Othe r (Please comment) High 11/24/2013 Trouble breathing documented as of this encounter (statuses as of 11/29/2023) Medications Medication Sig Dispensed Refills Start Date End Date Status CPAP every night at bedtime. Auto 5-20 cm Active Magnesium 200 MG Oral Tablet Take 1 Tablet by mouth in the morning. Active Vitamin and Mineral 28-0.8 MG Oral TabletIndications: Inability to conceive, female Take by mouth. Acti ve Propranolol HCl 20 MG Oral Tablet (Inderal) Take 1 Tablet by mouth in the morning and 1 Tablet before bedtime. 60 Tablet 2 05/04/2023 Active Riboflavin 100 MG Oral Capsule Take 1 Capsule by mouth in the morning. Active Probiotic 250 MG Oral Capsule Take by mouth. Active Sertraline HCl 50 MG Oral Tablet (Zoloft)Indication s:Anxiety state,Moderate episode of recurrent major depressive disorder (HCC) Take 1 Tablet by mouth in the morning. 30 Tablet 5 07/04/2023 Active Aspirin 81 MG Oral Tablet Delayed Release (Aspirin Adult Low Dose) Take 1 Tablet by mouth in the morning. Active Sertraline HCl 25 MG Oral Tablet (Zoloft)Indication s:Depression affecting in first trimester, antepartum Take 1 Tablet by mouth in the morning. With 50 mg tablet for a total of 75 mg daily.. 30 Tablet 6 07/30/2023 Active ProAir HFA 108 (90 Base) MCG/ACT Inhalation Aerosol SolutionIndication s:Mild intermittent asthma without complication Inhale 2 Puffs by mouth every 4 hours as needed for Shortness of Breath or Wheezing. 18 g 10/09/2023 Active Breast PumpIndications:[facility] feeding status of mother Z39.1 status of mother CAROL: 01/03/2024 1 Each 10/11/2023 Active Iron-Vitamin C 65-125 MG Oral Tablet (Vitron C)Indications:Ante anemia complicating Take 1 Tablet by mouth in the morning and 1 Tablet before bedtime. 60 Tablet 3 10/15/2023 Active Docusate Sodium 100 MG Oral Capsule (Colace)Indication s:Antepartum anemia complicating Take 1 Capsule by mouth 2 times a day as needed for Constipation. 60 Capsule 5 10/15/2023 Active documented as of this encounter (statuses as of 11/29/2023) Active Problems Problem Noted Date Diagnosed Date [...] CPAP; awaiting new mask to arrive from [facility]. Last Assessment & Plan: Considerations: [...] as of this encounter (statuses as of 11/29/2023) Resolved Problems Problem Noted Date Diagnosed Date Resolved Date Class 2 obesity 06/28/2023 10/31/2023 Encounter for supervision of normal first in first trimester 06/11/2023 10/31/2023 Abnormal uterine bleeding 05/13/2018 Status post hysteroscopy 05/13/2018 S/P dilatation and curettage 05/13/2018 06/11/2023 Endometrial polyp 05/13/2018 06/11/2023 documented as of this encounter (statuses as of 11/29/2023) Immunizations Name Administration Dates Next Due COVID-19 mRNA, LNP-s, No Pre serve, 2-Dose Series ([employer]) 09/04/2020,08/14/2020 COVID-19, LNP-s, No Preserve , Mk-sucrose, Ages 12+ ([employer]) 03/18/2021 DTaP Dipth/Tet/Acell Pertussis (Infanrix), Peds 11/21/1995,04/12/1992,01/24/1991,12/09,1990 [...] , (FluLaval or Fluzone) 07/13/2023,06/21/2021 Seasonal Influenza, Split, I IV3, With Preserve, Inj 01/29/2012 TDAP (age 10 and older)([employer]) 10/11/2023 [...] money to get more. Never true 12/11/2022 Cumm[place] Depression Scale Answer Date Recorded Cummings Depression Scale Total 6 11/23/2023 The thought [...] y our heating, water, or electric bill? No 12/11/2022 Is your family able to pay t he heat, water, or electric bill? (Household - for ages 0-17 years) Not on file 12/11/2022 Does your family have access to good internet? (Household - for ages 0-17 years) Not on file 12/11/2022 Employment Status Answer Date Recorded Are you unemployed or without regular income? No 12/11/2022 Does the household have a [facility] source of income? (Household - for ages 0-17 years) Not on file 12/11/2022 Social Connections Answer Date Recorded How often do you feel lonely or isolated from th ose around you? Never 12/11/2022 Financial Resource Strain Answer Date R ecorded [...] as of this encounter Progress Notes * Franck Muñoz, DO - 11/29/2023 6:16 PM EDT MATERNAL MEDICINE VISIT Amelia Millan presented today at 35w0d to [facility] for an ultrasound. She is being seen today by Maternal- Medicine for the following reasons: Problem List Items Addressed This Visit Obesity during - Primary She presents for follow-up of growth secondary to class 2 obesity, anxiety and depression, asthma, and sleep apnea. LGA and mild polyhydramnios have been noted previously. Today's ultrasound notes the following: The estimated weight is appropriate for gestational age in the 87th percentile. The visualized anatomy is unremarkable in appearance. The LUDMILA is normal. Excessive growth affecting management of in third trimester Polyhydramnios in third trimester I reviewed the ultrasound images. Amelia Millan was given the opportunity to meet with me if she had any questions. Please refer to the ultrasound report for additional details about today's ultrasound examination. RECOMMENDATIONS: Recommend surveillance starting at 37 weeks secondary to class II obesity. No follow-up with Maternal Medicine is necessary unless further questions or indications arise. Thank you for allowing us to participate in the care of this patient. Please call with any questions. Franck Muñoz DO 11/29/2023 6:16 PM documented in this encounter Miscellaneous Notes * Assessment & Plan Note - Franck Muñoz DO - 11/29/2023 6:14 PM EDT Associated Problem(s): Obesity during She presents for follow-up of growth secondary to class 2 obesity, anxiety and depression, asthma, and sleep apnea. LGA and mild polyhydramnios have been noted previously. Today's ultrasound notes the following: The estimated weight is appropriate for gestational age in the 87th percentile. The visualized anatomy is unremarkable in appearance. The LUDMILA is normal. documented in this encounter Plan of Treatment Upcoming Encounters Date Type Department Care Team (Late st Contact Info) Description 12/07/2023 1:00 PM EDT Office Visit Gynecology/Obstetrics [place] [address] [address] María Salvador PA-C 400 [facility] [place] [address] 02/13/2024 8:40 AM EDT Office Visit [facility] [place] [address] [place] [phone] Luna New PA-C 27 [place] [address] 10/20/2024 8:00 AM EDT Office Visit Family [facility], [place] [address] [place] [phone] Ford Devine MD 21 [place] [phone] Health Maintenance Due Date Last Done Comments [...] 03/25/2026 03/25/2021, 03/16, 01/29/2012, Additional history exists DTaP,Tdap,and Td Vaccines (8 - Td or Tdap) 10/10/2033 10/11/2023, 01/29/2012, 11/21/1995, Additional history exists Hepatitis B Vaccine Completed 11/22/1998, 06/07/1998, 05/10/1998 MENINGOCOCCAL (MENACTRA/MENVEO) Completed 8 HPV (Gardasil) Vaccine Completed , 04/29/2014, 01/29/2012 documented as of this encounter Medical Devices Not on filedocumented as of this encounter Visit Diagnoses Diagnosis Obesity during - Primary Excessive growth affecting management of in third trimester, single or unspecified fetus Polyhydramnios in third trimester complication, single or unspecified fetus documented in this encounter Advance Directives * Full Code (Latest Code Status on File) Date Activated Date Inactivated Comments 05/13/2018 8:55 AM 05/13/2018 2:15 PM This order r eflects the patients wishes and were consensually agreed upon. Care Teams Archeology Professor Relationship Specialty Start Date End Date Ford Devine MD [address] [place] [phone] PCP - General Family Medicine 10/03/22 documented as of this encounter
--- OUTSIDE RECORDS SUMMARY | 2023-12-28 07:15 | External Medical Summary ---
Author Name Unknown Address Unknown Organization [id number][place] [place] [address] [place] [id number] Laboratory Report Ordering Provider Test Date Status ARLYN RUFF 12/11/2023 13:33:33 Final Observation Date Value Abnormality Reference (Units) Status Bacteria identified in Specimen by Culture 12/11/2023 13:33:33 No significant growth Final Test: Culture, Urine, Quanti tative
Specimen Source: Urine, Clean Catch
Specimen Type: Urine
Specimen Date: 12/11/2023 1333
Result Date: 12/12/2023 1419
Result Status: Final result
Resulting Lab: [facility]
[address]
[place] [address]

CULTURE

No significant growth

null Performing Location [facility] [place] [address] [facility] [id number]
--- OUTSIDE RECORDS SUMMARY | 2023-12-28 07:15 | External Medical Summary | Summary of Care ---
Author Name Unknown Organization [facility] Address [address] [place] [address] Phone [phone] Care Team Providers Care Agricultural Consultant Name Role Phone Ford Devine MD Primary Care Provider [phone] Encounter Details Date Type Department Care Team (Late st Contact Info) Description 11/29/2023 Telephone Gynecology/Obstetrics [facility] [address] [place] [address] Lesli Paz CNM [address] [place] [address] Allergies Active Allergy Reactions Criticality [...] or Wheezing. 18 g 10/09/2023 Active Breast PumpIndications:Br east feeding status of mother Z39.1 status of [...] CPAP; awaiting new mask to arrive from [facility] Last Assessment & Plan: Considerations: Obstructive sleep [...] anxiety and depression, asthma, and sleep apnea. Labs reviewed: - GCT normal 123 on 10/11/23 Today's ultrasound notes the following: The estimated weight is large for gestational age in the 94th percentile. The visualized anatomy is unremarkable in appearance. Mild polyhydramnios is noted. Binge eating disorder 06/14/2022 Major depressive disorder, [...] mRNA, LNP-s, No Pre serve, 2-Dose Series (Coupmon) 09/04/2020,08/14/2020 COVID-19, LNP-s, No Preserve , Mk-sucrose, [...] money to get more. Never true 12/11/2022 [place] Depression Scale Answer Date Recorded [place] Depression Scale Total 6 11/23/2023 The thought [...] No 12/11/2022 Does the household have a [facility] source of income? (Household - [...] 18 years and over) Not on file 3 Are you (or your family) blake eless [...] encounter Miscellaneous Notes * Telephone Encounter - Lesli Paz CNM - 11/29/2023 10:39 AM EDT Agree with advice. * Telephone Encounter - Reyna Aguilar LPN - 11/29/2023 10:29 AM EDT Phone call from pt. Pt calling wanting to let the office know she has been having intermittent cramping since Sunday . Rating this 06/23. Pt denies any LOF, vaginal bleeding or DFM. Pt reports generally drinking at least 1 gallon of water daily. Does feel she may have had less than that over the weekend. Pt currently 35 weeks gestation. Pt aware to continue to monitor for now and call office with any changesOscar Ballesteros. Please review and advise further Reyna Aguilar LPN 11/29/2023 10:33 AM documented in this encounter Plan of Treatment Upcoming Encounters Date Type Department Care Team (Late st Contact Info) Description 12/07/2023 1:00 PM EDT Office Visit Gynecology/Obstetrics, [place] [address] [place] [address] María Salvador PA-C [facility] [address] 02/13/2024 8:40 AM EDT Office Visit Dermatology, [place] 27 [facility] [address] [place] [address] Luna New PA-C [address] [place] [address] 10/20/2024 8:00 AM EDT Office Visit Family Practice, [place] [address] [phone] Ford Devine MD [facility] [place] [phone] Health Maintenance Due Date Last Done Comments [...] and were consensually agreed upon. Care Teams Agricultural Consultant Relationship Specialty Start Date End Date Ford Devine MD [address] [place] [place] [id number] PCP - General Family Medicine 10/03/22 documented as of this encounter
--- OUTSIDE RECORDS SUMMARY | 2023-12-28 07:15 | External Medical Summary | Summary of Care ---
Author Name Unknown Organization [facility] Address [address] [place] [address] Phone [phone] Care Team Providers Care Specimen Accessioner Name Role Phone Ford Devine MD Primary Care Provider [phone] Reason for Visit * Reason Comments Outpatient Testing Encounter Details Date Type Department Care Team (Late st Contact Info) Description 12/11/2023 1:40 PM EDT Laboratory Laboratory, [facility] [address] [place] [phone] [facility], Lab [address] [place] [address] UTI symptoms Allergies Active Allergy Reactions Criticality Noted Date Comments Penicillins Edema face/lips/tongue High 08/29/2001 Azithromycin Dihydrate Edema airway,Othe r (Please comment) High 11/24/2013 Trouble breathing documented as of this encounter (statuses as of 12/11/2023) Medications Medication Sig Dispensed Refills Start Date [...] as of this encounter (statuses as of 12/11/2023) Active Problems Problem Noted Date Diagnosed Date [...] CPAP; awaiting new mask to arrive from [facility]. Last Assessment & Plan: Considerations: Obstructive sleep [...] as of this encounter (statuses as of 12/11/2023) Resolved Problems Problem Noted Date Diagnosed Date Resolved Date Class 2 obesity 06/28/2023 10/31/2023 Encounter for supervision of normal first in first trimester 06/11/2023 10/31/2023 Abnormal uterine bleeding 05/13/2018 Status post hysteroscopy 05/13/2018 S/P dilatation and curettage 05/13/2018 06/11/2023 Endometrial polyp 05/13/2018 06/11/2023 documented as of this encounter (statuses as of 12/11/2023) Immunizations Name Administration Dates Next Due COVID-19 mRNA, LNP-s, No Pre serve, 2-Dose Series (Nexmo) 09/04/2020,08/14/2020 COVID-19, LNP-s, No Preserve , Mk-sucrose, Ages 12+ (Nexmo) 03/18/2021 DTaP Dipth/Tet/Acell Pertussis (Infanrix), Peds 11/21/1995,04/12/1992,01/24/1991,12/09,1990 [...] money to get more. Never true 12/11/2022 [place] Depression Scale Answer Date Recorded [place] Depression Scale Total 6 11/23/2023 The thought [...] on file documented as of this encounter Plan of Treatment Upcoming Encounters Date Type Department Care Team (Late st Contact Info) Description 12/14/2023 10:15 AM EDT Office Visit Gynecology/Obstetrics, [place] [address] [place] [address] Danielle Hamilton MD [address] [phone] Rowena [place] Stress Test [address] [place] [phone] 12/21/2023 8:30 AM EDT Appointment Radiology, [facility] [address] [place] [address] 02/13/2024 8:40 AM EDT Office Visit Dermatology, [place] [address] [place] [address] Luna New PA-C [address] [place] [address] 10/20/2024 8:00 AM EDT Office Visit Family Practice, [place] [address] [facility] [place] [phone] Ford Devine MD [address] [facility] [place] [address] Pending Results Name Type Priority Associated Diagnoses Date /Time CULTURE, URINE, QUANTITATIVE Lab Routine UTI symptoms 12/11/2023 1:33 PM EDT Health Maintenance Due Date Last Done Comments [...] as of this encounter Visit Diagnoses Diagnosis UTI symptoms Other symptoms involving urinary system documented in this encounter Advance Directives * Full Code (Latest Code Status on File) Date Activated Date Inactivated Comments 05/13/2018 8:55 AM 05/13/2018 2:15 PM This order r eflects the patients wishes and were consensually agreed upon. Care Teams Specimen Accessioner Relationship Specialty Start Date End Date Ford Devine MD [address] [place] [phone] PCP - General Family Medicine 10/03/22 documented as of this encounter
--- OUTSIDE RECORDS SUMMARY | 2023-12-28 07:15 | External Medical Summary | Summary of Care ---
Author Name Unknown Organization [facility] Address [address] [place] [address] Phone [phone] Care Team Providers Care Tool Supervisor Name Role Phone Ford Devine MD Primary Care Provider [phone] Reason for Visit * Reason Comments Return Visit 36w1d Encounter Details Date Type Department Care Team (Late st Contact Info) Description 12/07/2023 9:00 AM EDT Office Visit Gynecology/Obstetric [place] [address] [place] [address] Alexa Arthur MD 400 [facility] [place] [address] Hemorrhoids without complication*; 36 weeks gestation of ; Depression affecting in third trimester, antepartum; Antepartum anemia complicating ; Obstructive sleep apnea of adult; Anxiety during , antepartum; Obesity during ; Asthma during ; Supervision of high-risk , unspecified trimester; Elevated blood pressure reading without diagnosis of hypertension; Excessive growth affecting management of in third trimester, single or unspecified fetus; Pelvic pain affecting in third trimester, antepartum Allergies Active Allergy Reactions Criticality Noted Date Comments Penicillins Edema face/lips/tongue High 08/29/2001 Azithromycin Dihydrate Edema airway,Othe r (Please comment) High 11/24/2013 Trouble breathing documented as of this encounter (statuses as of 12/10/2023) Medications Medication Sig Dispensed Refills Start Date [...] as of this encounter (statuses as of 12/10/2023) Active Problems Problem Noted Date Diagnosed Date [...] CPAP; awaiting new mask to arrive from [facility]. Last Assessment & Plan: Considerations: Obstructive sleep [...] as of this encounter (statuses as of 12/10/2023) Resolved Problems Problem Noted Date Diagnosed Date Resolved Date Class 2 obesity 06/28/2023 10/31/2023 Encounter for supervision of normal first in first trimester 06/11/2023 10/31/2023 Abnormal uterine bleeding 05/13/2018 Status post hysteroscopy 05/13/2018 S/P dilatation and curettage 05/13/2018 06/11/2023 Endometrial polyp 05/13/2018 06/11/2023 documented as of this encounter (statuses as of 12/10/2023) Immunizations Name Administration Dates Next Due COVID-19 mRNA, LNP-s, No Pre serve, 2-Dose Series (Asker) 09/04/2020,08/14/2020 COVID-19, LNP-s, No Preserve , Mk-sucrose, Ages 12+ (Asker) 03/18/2021 DTaP Dipth/Tet/Acell Pertussis (Infanrix), Peds 11/21/1995,04/12/1992,01/24/1991,12/09,1990 [...] money to get more. Never true 12/11/2022 [place] Depression Scale Answer Date Recorded [place] Depression Scale Total 6 11/23/2023 The thought [...] Sign Reading Time Taken Comments Blood Pressure 128/78 12/07/2023 9:09 AM EDT Pulse - - Temperature 36.8 C (98.3 F) 12/07/2023 9:09 AM ED T Respiratory Rate - - Oxygen Saturation - - Inhaled Oxygen Concentration - - Weight 119.5 kg (263 lb 6.4 oz) 12/07/2023 9:09 AM EDT Height - - Body Mass Index 45.21 10/09/2023 7:53 AM EDT documented in this encounter Progress Notes * Alexa Arthur MD - 12/07/2023 9:16 AM EDT Amelia Millan is a 33 year old female here for her routine OB appointment at 36w1d. Patient complains of having cramping like a. . She has had pubic symphysis dysfunction. She refers that thinks getting worse. She rates the clamp as 6/7 of a 10 intensity. She denies dysuria. Her Estimated Date of Delivery: 01/03/24 REVIEW OF SYSTEMS: She affirms movement. Denies vaginal bleeding, LOF, regular contractions, N/V, headaches [place] Depression Scale: No data recorded [place] suicide question and score: Score of 3 = Yes, quite often. Score of 2 = Sometimes. Score of 1 = Hardly ever No data recorded PHYSICAL EXAM: Filed Vitals: 12/07/23 0909 BP: 128/78 Temp: 36.8 C (98.3 F) Weight: 119.5 kg (263 lb 6.4 oz) +FHT 141 cm Fundal height 46 cm ASSESSMENT/PLAN: (O26.893, R10.2) Pelvic pain affecting in third trimester, antepartum Plan: URINALYSIS WITH MICROSCOPIC EXAM (K64.9) Hemorrhoids without complication (primary encounter diagnosis) Plan: Hydrocortisone Acetate 25 MG Rectal Suppository (Anusol HC) (O99.343, F32.A) Depression affecting in third trimester, antepartum Plan: Patient denies being depressed. (O99.019) Antepartum anemia complicating Plan: Patient is taking Vitron C. (G47.33) Obstructive sleep apnea of adult Plan: Patient wears CPAP at night. (O99.340, F41.9) Anxiety during , antepartum Plan: Patient states that her mood is stable on Zoloft. (O99.210) Obesity during Plan: Weekly NST starting from next week. (O99.519, J45.909) Asthma during Plan: Asthma is sports induced. (O09.90) Supervision of high-risk , unspecified trimester Plan: Patient is being comanaged with MFM. (R03.0) Elevated blood pressure reading without diagnosis of hypertension Plan: Blood pressure is within normal limits today. (O36.63X0) Excessive growth affecting management of in third trimester Plan: OB ultrasound done on 11/29/23 shows that the fetus is at 87 percentile. The patient was advised that if the EFW was 5000g at time of delivery, section will be recommended. (Z3A.36) 36 weeks gestation of (primary encounter diagnosis) Plan: GROUP B STREP CULTURE/PCR - GBS swab collected today Loan Workout Officer Documentation Patient offered environmental health sanitarian and accepted. Name of environmental health sanitarian: Karo Vargas LPN - labor precautions and kick counts reviewed - RTO in 1 week Alexa Arthur MD documented in this encounter Nursing Notes * Karo Vargas LPN - 12/07/2023 9:07 AM EDT Chief Complaint Patient presents with Return Visit 36w1d Pt is with concerns of having period like cramping the last couple of weeks. States she has the pubic symphysis and the walking around and pressure in her vaginal area is getting really bad. States recently seems like things are getting worse. Rates this pain and cramping 6-7/10 and with the publicbone is more of 7-8/10. GBS today. Karo Vargas LPN documented in this encounter Plan of Treatment Upcoming Encounters Date Type Department Care Team (Late st Contact Info) Description 12/14/2023 10:15 AM EDT Office Visit Gynecology/Obstetrics, [place] [address] [address] Danielle Hamilton MD [address] [place] [place] [address] Evy, [place] [facility] [address] [facility] [place] [address] 12/21/2023 8:30 AM EDT Appointment Radiology, [facility] [address] [place] [address] 02/13/2024 8:40 AM EDT Office Visit Dermatology, [place] [address] [place] [address] Luna New PA-C [address] [place] [address] 10/20/2024 8:00 AM EDT Office Visit Family [facility], [place] [address] [facility] [place] [phone] Ford Devine MD [address] [facility] [place] [address] Scheduled Orders Name Type Priority Associated Diagnoses Orde r Schedule US PREG FOLLOW-UP EACH FETUS Medical Imaging Routine Excessive growth affecting management of in third trimester, single or unspecified fetus Expected: 12/21/2023, Expires: 01/06/2025 Health Maintenance Due Date Last Done Comments [...] Not on filedocumented as of this encounter Procedures Procedure Name Priority Date/Time Associated Diagnosis Comments URINALYSIS WITH MICROSCOPIC EXAM Routine 12/07/2023 9:53 AM EDT Pelvic pain affecting in third trimester, antepartum GROUP B STREP CULTURE/PCR Routine 12/07/2023 9:33 AM EDT 36 weeks gestation of documented in this encounter Results * (ABNORMAL) URINALYSIS WITH MICROSCOPIC EXAM (12/07/2023 9:53 AM EDT) Color, Urine Light Yellow Colorless, Light Yellow, Yellow, Dark Yellow 12/07/2023 5:26 PM EDT [facility] Clarity, Urine Clear Clear 12/07/2023 5:26 PM EDT [facility] Glucose, Urine Negative Negative mg/dL 12/07/2023 5:26 PM EDT [facility] Bilirubin, Urine Negative Negative 12/07/2023 5:26 PM EDT [facility] Ketone, Urine Negative Negative mg/dL 12/07/2023 5:26 PM EDT [facility] Specific [place], Urine 1.018 1.003 - 1.030 12/07/2023 5:26 PM EDT LABORATORY C Blood, Urine Negative Negative 12/07/2023 5:26 PM EDT [facility] pH, Urine 7.5 5.0 - 7.5 Units 12/07/2023 5:26 PM EDT [facility] Protein, Urine Trace(A) Negative mg/dL 12/07/2023 5:26 PM EDT [facility] Urobilinogen, Urine Normal Normal mg/dL 12/07/2023 5:26 PM EDT [facility] Nitrite, Urine Negative Negative 12/07/2023 5:26 PM EDT [facility] Esterase, Urine Negative Negative 12/07/2023 5:26 PM EDT [facility] RBC, Urine 0-2 0 - 2 /HPF 12/07/2023 5:26 PM EDT [facility] WBC, Urine 0-2 0 - 2 /HPF 12/07/2023 5:26 PM EDT [facility] Bacteria, Urine 51-100(A) 0 - 25 /HPF 12/07/2023 5:26 PM EDT LABORATORY C Urine Non-blood Collection / Unknown 12/07/2023 9:53 AM EDT 12/07/2023 9:53 AM EDT Alexa Arthur MD LAB URINE ORD ERABLES Performing Organization Address City/[facility]/ZIP Co de Phone Number LABORATORY [facility] [address] [place] [address] * GROUP B STREP CULTURE/PCR (12/07/2023 9:33 AM EDT) Group B Strep PCR Result Negative Negative 12/08/2023 9:00 PM EDT LAB[facility]ORY [facility] Comment:No Group B Streptoco ccus detected by culture-enhanced PCR (amplified probe). GBS GBSCt 0.0 12/08/2023 9:00 PM EDT LAB[facility]ATORY [facility] GBS SPCCt 30.5 12/08/2023 9:00 PM EDT LAB[facility]ORY [facility] Swab Rectum and vagina, CS / Unknown 12/07/2023 9:33 AM EDT 12/07/2023 9:33 AM EDT Alexa Arthur MD LAB MICRO - G ENERAL ORDERABLES Performing Organization Address City/[facility]/ZIP Co de Phone Number LABORATORY [facility] [address] [place] [address] documented in this encounter Visit Diagnoses Diagnosis Hemorrhoids without complication- Primary Unspecified hemorrhoids without mention of complication 36 weeks gestation of state, incidental Depression affecting in third trimester, antepartum Antepartum anemia complicating Anemia, antepartum Obstructive sleep apnea of adult Obstructive sleep apnea (adult) (pediatric) Anxiety during , antepartum Obesity during Asthma during Supervision of high-risk , unspecified trimester Elevated blood pressure reading without diagnosis of hypertension Excessive growth affecting management of in third trimester, single or unspecified fetus Pelvic pain affecting in third trimester, antepartum documented in this encounter Advance Directives * Full Code (Latest Code Status on File) Date Activated Date Inactivated Comments 05/13/2018 8:55 AM 05/13/2018 2:15 PM This order r eflects the patients wishes and were consensually agreed upon. Care Teams Tool Supervisor Relationship Specialty Start Date End Date Ford Devine MD 21 [facility] [place] [phone] PCP - General Family Medicine 10/03/22 documented as of this encounter
--- OUTSIDE RECORDS SUMMARY | 2023-12-28 07:15 | External Medical Summary ---
Author Name Unknown Address Unknown Organization [id number]:LABORATORY [facility] [place] - [address] [place] [address] Laboratory Report Ordering Provider Test Date Status GAGAN WISEMAN 11/14/2023 08:48:38 Final Observation Date Value Abnormality Reference (Units ) Status Folic Acid 11/14/2023 08:48:38 >20.0 >4.5 (ng/ mL) Final Performing Location [facility] - [address] [place] [address]
--- OUTSIDE RECORDS SUMMARY | 2023-12-28 07:15 | External Medical Summary | Summary of Care ---
Author Name Unknown Organization [facility] Address [address] [place] [address] Phone [phone] Care Team Providers Care Medical Clinic Manager Name Role Phone Ford Devine MD Primary Care Provider [phone] [phone] Reason for Visit * Reason Comments Return Visit 34 weeks 1 day Encounter Details Date Type Department Care Team (Late st Contact Info) Description 11/23/2023 1:15 PM EDT Office Visit [facility]necology[facility]st[facility] [place] [facility] [facility] [address] María Salvador PA-C [address] [facility] [place] [address] 34 weeks gestation of *; Polyhydramnios in third trimester complication, single or unspecified fetus; Excessive growth affecting management of in third trimester, single or unspecified fetus; Elevated blood pressure reading without diagnosis of hypertension; Asthma during ; Depression affecting in first trimester, antepartum; Obesity during ; Supervision of high-risk , unspecified trimester; BMI 40.0-44.9, adult ([facility]); Anxiety during , antepartum; Obstructive sleep apnea of adult; Antepartum anemia complicating Allergies Active Allergy Reactions Criticality Noted Date Comments Penicillins Edema face/lips/tongue High 08/29/2001 Azithromycin Dihydrate Edema airway,Othe r (Please comment) High 11/24/2013 Trouble breathing documented as of this encounter (statuses as of 11/23/2023) Medications Medication Sig Dispensed Refills Start Date [...] or Wheezing. 18 g 10/09/2023 Active Breast PumpIndications:[facility] feeding status of mother Z39.1 status [...] as of this encounter (statuses as of 11/23/2023) Active Problems Problem Noted Date Diagnosed Date [...] CPAP; awaiting new mask to arrive from [facility]. Last Assessment & Plan: Considerations: [...] as of this encounter (statuses as of 11/23/2023) Resolved Problems Problem Noted Date Diagnosed Date Resolved Date Class 2 obesity 06/28/2023 10/31/2023 Encounter for supervision of normal first in first trimester 06/11/2023 10/31/2023 Abnormal uterine bleeding 05/13/2018 Status post hysteroscopy 05/13/2018 S/P dilatation and curettage 05/13/2018 06/11/2023 Endometrial polyp 05/13/2018 06/11/2023 documented as of this encounter (statuses as of 11/23/2023) Immunizations Name Administration Dates Next Due COVID-19 mRNA, LNP-s, No Pre serve, 2-Dose Series (Chartboost) 09/04/2020,08/14/2020 COVID-19, LNP-s, No Preserve , Mk-sucrose, Ages 12+ (Chartboost) 03/18/2021 DTaP Dipth/Tet/Acell Pertussis (Infanrix), Peds 11/21/1995,04/12/1992,01/24/1991,12/09,1990 [...] money to get more. Never true 12/11/2022 [place] Depression Scale Answer Date Recorded [place] Depression Scale Total 7 06/11/2023 The thought of harming myself has occurred to me . Never 06/11/2023 Childcare Answer Date Recorded Do you feel [...] Sign Reading Time Taken Comments Blood Pressure 120/82 11/23/2023 1:01 PM EDT Pulse - - Temperature 37.2 C (98.9 F) 11/23/2023 1:01 PM ED T Respiratory Rate - - Oxygen Saturation - - Inhaled Oxygen Concentration - - Weight 118.8 kg (261 lb 12.8 oz) 11/23/2023 1:01 PM EDT Height - - Body Mass Index 44.94 10/09/2023 7:53 AM EDT documented in this encounter Progress Notes * María Salvador PA-C - 11/23/2023 1:15 PM EDT Amelia Millan is a 33 year old female here for her routine OB appointment at 34w1d. Her Estimated Date of Delivery: 01/03/24 REVIEW OF SYSTEMS: She affirms movement. Reports not as strong as kicks now Denies vaginal bleeding, LOF, contractions, N/V, headaches [place] Depression Scale: [place] Depression Scale Total: 6 The thought of harming myself has occurred to me.: 0 - Zoloft 75 mg PO daily PHYSICAL EXAM: Filed Vitals: 11/23/23 1301 BP: 120/82 Temp: 37.2 C (98.9 F) Weight: 118.8 kg (261 lb 12.8 oz) ASSESSMENT/PLAN: (O40.3XX0) Polyhydramnios in third trimester complication, single or unspecified fetus (O36.63X0) Excessive growth affecting management of in third trimester, single or unspecified fetus Plan: MFM follow up 11/29/23 Elevated blood pressure reading without diagnosis of hypertension Asthma during Depression affecting in first trimester, antepartum BMI 40.0-44.9, adult (HCC) Anxiety during , antepartum Obstructive sleep apnea of adult Antepartum anemia complicating -labs 11/13 showed improvement (Z3A.34) 34 weeks gestation of - discussed GBS and to expect swab to be complete at next visit - Reviewed labor precautions, painful contractions (4 contractions/hour or more), severe abdominal pain, loss of fluid, vaginal bleeding, round ligament pain, and encouraged hydration. - RTO in 2 weeks / NST at 37 weeks María Salvador PA-C documented in this encounter Nursing Notes * Reyna Aguilar LPN - 11/23/2023 1:01 PM EDT Chief Complaint Patient presents with Return Visit 34 weeks 1 day Reyna Aguilar LPN 11/23/2023 1:01 PM documented in this encounter Plan of Treatment Upcoming Encounters Date Type Department Care Team (Late st Contact Info) Description 11/29/2023 9:45 AM EDT Office Visit Feller Operator Obstetrics Maternal Medicine, [place] [address] [place] [address] Franck Muñoz, [address] [place] [address] 11/29/2023 9:45 AM EDT [facility] [place] [address] [place] [address] 12/07/2023 1:00 PM EDT Office Visit Gynecology/Obstetrics, [place] [address] [place] [address] María Salvador PA-C [address] [facility] [place] [address] 02/13/2024 8:40 AM EDT Office Visit Dermatology, [place] [address] [facility] [address] [place], [place] [phone] Luna New PA-C [address] [place] [address] 10/20/2024 8:00 AM EDT Office Visit Family Practice, [place] [address] [phone] Ford Devine MD [address] [address] Health Maintenance Due Date Last Done Comments [...] as of this encounter Visit Diagnoses Diagnosis 34 weeks gestation of - Primary state, incidental Polyhydramnios in third trimester complication, single or unspecified fetus Excessive growth affecting management of in third trimester, single or unspecified fetus Elevated blood pressure reading without diagnosis of hypertension Asthma during Depression affecting in first trimester, antepartum Obesity during Supervision of high-risk , unspecified trimester BMI 40.0-44.9, adult (HCC) Body Mass Index 40.0-44.9, adult Anxiety during , antepartum Obstructive sleep apnea of adult Obstructive sleep apnea (adult) (pediatric) Antepartum anemia complicating Anemia, antepartum documented in this encounter Advance Directives * Full Code (Latest Code Status on File) Date Activated Date Inactivated Comments 05/13/2018 8:55 AM 05/13/2018 2:15 PM This order r eflects the patients wishes and were consensually agreed upon. Care Teams Medical Clinic Manager Relationship Specialty Start Date End Date Ford Devine MD [address] [id number] PCP - General Family Medicine 10/03/22 documented as of this encounter
--- OUTSIDE RECORDS SUMMARY | 2023-12-28 07:15 | External Medical Summary ---
Author Name Unknown Address Unknown Organization [id number]:LABORATORY [facility] [place] - [address] [facility] [place] [address] Laboratory Report Ordering Provider Test Date Status GAGAN WISEMAN 11/14/2023 08:48:38 Final Observation Date Value Abnormality Reference (Units ) Status SYNC LEUKOCYTES IN BLOOD BY AUTOMATED COUNT 11/14/2023 08:48:38 8.68 4.00-10.80 (K/uL) Final Segs 11/14/2023 08:48:38 74.0 40.0-75.0 (%) Final Lymphs % 11/14/2023 08:48:38 16.6 Below low normal 18.0-42.0 (%) Final Monos 11/14/2023 08:48:38 7.1 1.0-11.0 (%) Final Eosinophils 11/14/2023 08:48:38 0.5 0.0-6.0 (%) Final Basos 11/14/2023 08:48:38 0.3 0.0-2.0 (%) Final Immature Granulocyte, Percent 11/14/2023 08:48:38 1.5 0.0-2.0 (%) Final Absolute Segs 11/14/2023 08:48:38 6.42 1.80-7.70 (K/uL) Final Lymphs, absolute 11/14/2023 08:48:38 1.44 1.00-4.80 (K/ul) Final Monos, Abs 11/14/2023 08:48:38 0.62 0.00-1.10 (K/uL) Final Eos, Abs 11/14/2023 08:48:38 0.04 0.00-0.70 (K/uL) Final Basos, Abs 11/14/2023 08:48:38 0.03 0.00-0.20 (K/uL) Final Immature Granulocytes, Number 11/14/2023 08:48:38 0.13 0.00-0.20 (K/uL) Final Performing Location LABORATORY [facility] [facility] - [address] [facility] [address]
--- OUTSIDE RECORDS SUMMARY | 2023-12-28 07:15 | External Medical Summary | Summary of Care ---
Author Name Unknown Organization [facility] Address [address] [place] [address] Phone [phone] Care Team Providers Care Window Display Designer Name Role Phone Ford Devine MD Primary Care Provider [phone] [phone] Reason for Visit * Reason Comments Outpatient Testing Encounter Details Date Type Department Care Team (Late st Contact Info) Description 12/07/2023 10:00 AM EDT Laboratory Laboratory, [facility] [address] [place] [phone] Ave, Specimen Drop Off [facility] [address] [place] [address] Arrived Allergies Active Allergy Reactions Criticality Noted Date Comments Penicillins Edema face/lips/tongue High 08/29/2001 Azithromycin Dihydrate Edema airway,Othe r (Please comment) High 11/24/2013 Trouble breathing documented as of this encounter (statuses as of 12/07/2023) Medications Medication Sig Dispensed Refills Start Date [...] or Wheezing. 18 g 10/09/2023 Active Breast PumpIndications: [place] feeding status of mother Z39.1 status [...] as of this encounter (statuses as of 12/07/2023) Active Problems Problem Noted Date Diagnosed Date [...] CPAP; awaiting new mask to arrive from [facility]. Last Assessment & Plan: Considerations: Obstructive [...] as of this encounter (statuses as of 12/07/2023) Resolved Problems Problem Noted Date Diagnosed Date Resolved Date Class 2 obesity 06/28/2023 10/31/2023 Encounter for supervision of normal first in first trimester 06/11/2023 10/31/2023 Abnormal uterine bleeding 05/13/2018 Status post hysteroscopy 05/13/2018 S/P dilatation and curettage 05/13/2018 06/11/2023 Endometrial polyp 05/13/2018 06/11/2023 documented as of this encounter (statuses as of 12/07/2023) Immunizations Name Administration Dates Next Due COVID-19 mRNA, LNP-s, No Pre serve, 2-Dose Series ([employer]) 09/04/2020,08/14/2020 COVID-19, LNP-s, No Preserve , Mk-sucrose, [...] money to get more. Never true 12/11/2022 [place] Depression Scale Answer Date Recorded [place] Depression Scale Total 6 11/23/2023 The thought [...] ages 0-17 years) Not on file 12/11/2022 Are you homeless or worried that [...] 12/14/2023 10:15 AM EDT Office Visit Gynecology/Obstetrics, [place] [address] [place] [address] Danielle Hamilton MD [address] [address] Rowena H[place] Stress Test [address] [address] 12/21/2023 8:30 AM EDT Appointment Radiology, [facility] [address] [place] [address] 02/13/2024 8:40 AM EDT Office Visit Dermatology, [place] [address] [place] [address] Luna New PA-C [address] [place] [address] 10/20/2024 8:00 AM EDT Office Visit Family [facility], [place] [address] [place] [phone] Ford Devine MD [address] [place] [address] Health Maintenance Due Date Last Done Comments [...] and were consensually agreed upon. Care Teams Window Display Designer Relationship Specialty Start Date End Date Ford Devien MD [address] [place] [address] PCP - General Family Medicine 10/03/22 documented as of this encounter
--- OUTSIDE RECORDS SUMMARY | 2023-12-28 07:15 | External Medical Summary | Summary of Care ---
Author Name Unknown Organization [facility] Address [address] [place] [address] Phone [phone] Care Team Providers Care Retail Cosmetics Sales Beauty Advisor Name Role Phone Ford Devine MD Primary Care Provider [phone] [phone] Reason for Visit * Reason Comments Outpatient Testing Encounter Details Date Type Department Care Team (Late st Contact Info) Description 12/11/2023 1:40 PM EDT Laboratory Laboratory, [facility] [address] [place] [phone] [facility], Lab [address] [place] [address] UTI symptoms Allergies Active Allergy [...] CPAP; awaiting new mask to arrive from [facility]. Last Assessment & Plan: Considerations: Obstructive sleep [...] mRNA, LNP-s, No Pre serve, 2-Dose Series ([email or web address]) 09/04/2020,08/14/2020 COVID-19, LNP-s, No Preserve , Mk-sucrose, Ages 12+ ([email or web address]) 03/18/2021 DTaP Dipth/Tet/Acell Pertussis (Infanrix), Peds 11/21/1995,04/12/1992,01/24/1991,12/09,1990 [...] money to get more. Never true 12/11/2022 [place] Depression Scale Answer Date Recorded [place] Depression Scale Total 6 11/23/2023 The thought [...] as of this encounter Miscellaneous Notes * Addendum Note - Sangita Neri TECH - 12/11/2023 2:07 PM EDTAddended by: SANGITA NERI on: 12/11/2023 02:07 PM Modules accepted: Orders documented in this encounter Plan of Treatment Upcoming Encounters Date Type Department Care Team (Late st Contact Info) Description 12/14/2023 10:15 AM EDT Office Visit Gynecology/Obstetrics, [place] [place] [address] Danielle Hamilton MD [address] [facility] [place] [address] [place], Non Stress Test [address] [facility] [place] [address] 12/21/2023 8:30 AM EDT Appointment Radiology, [facility] [address] [facility] [place] [address] 02/13/2024 8:40 AM EDT Office Visit Dermatology, [place] [address] [facility] [address] [place] [place] [address] Luna New PA-C [address] [place] [address] 10/20/2024 8:00 AM EDT Office Visit Family [facility], [place] [address] [facility] [place] [phone] Ford Devine MD [address] [facility] [place] [address] Pending Results Name Type Priority Associated Diagnoses Date /Time CULTURE, URINE, QUANTITATIVE Lab Routine UTI symptoms 12/11/2023 1:33 PM EDT EXTRA TUBES Lab Routine 12/11/2023 1: 33 PM EDT EXTRA URINE Lab Routine 12/11/2023 1: 33 PM EDT Health Maintenance Due Date Last [...] and were consensually agreed upon. Care Teams Retail Cosmetics Sales Beauty Advisor Relationship Specialty Start Date End Date Ford Devine MD [address] [phone] PCP - General Family Medicine 10/03/22 documented as of this encounter
--- OUTSIDE RECORDS SUMMARY | 2023-12-28 07:15 | External Medical Summary ---
Author Name Unknown Address Unknown Organization K01:[facility] [address] [place] [address] Laboratory Report Ordering Provider Test Date Status ARLYN RUFF 12/07/2023 09:33:47 Final Observation Date Value Abnormality Reference (Units ) Status Streptococcus agalactiae DNA [Presence] in Specimen by JARAD with probe detection 12/07/2023 09:33:47 Negative Negative Final No Group B Streptococcus det ected by culture-enhanced PCR (amplified probe). GBS GBSCT - [facility] 12/07/2023 09:33:47 0.0 Final GBS SPCCT - [facility] 12/07/2023 09:33:47 30.5 Final Performing Location [facility] - [address] [place] [address]
--- OUTSIDE RECORDS SUMMARY | 2023-12-28 07:15 | External Medical Summary | Summary of Care ---
Author Name Unknown Organization [facility] Address [address] [place] [address] Phone [phone] Care Team Providers Care Residential Manager Name Role Phone Ford Devine MD Primary Care Provider [phone] [phone] Reason for Visit * Reason Comments Ultrasound Encounter Details Date Type Department Care Team (Late st Contact Info) Description 11/29/2023 9:45 AM EDT Office Visit Truck Despatcher Obstetrics Maternal Medicine, [place] [address] [place], [place] [phone] Franck Muñoz, [address] [place], [place] [phone] Obesity during *; Excessive growth affecting management of in third trimester, single or unspecified fetus; Polyhydramnios in third trimester complication, single or unspecified fetus Allergies Active Allergy Reactions Criticality Noted Date Comments Penicillins Edema face/lips/tongue High 08/29/2001 Azithromycin Dihydrate Edema airway,Othe r (Please comment) High 11/24/2013 Trouble breathing documented as of this encounter (statuses as of 11/30/2023) Medications Medication Sig Dispensed Refills Start Date [...] or Wheezing. 18 g 10/09/2023 Active Breast PumpIndications:[facility] feeding status of mother Z39.1 status of [...] as of this encounter (statuses as of 11/30/2023) Active Problems Problem Noted Date Diagnosed Date [...] CPAP; awaiting new mask to arrive from [facility] [place] [facility]. Last Assessment & Plan: Considerations: Obstructive sleep [...] as of this encounter (statuses as of 11/30/2023) Resolved Problems Problem Noted Date Diagnosed Date Resolved Date Class 2 obesity 06/28/2023 10/31/2023 Encounter for supervision of normal first in first trimester 06/11/2023 10/31/2023 Abnormal uterine bleeding 05/13/2018 Status post hysteroscopy 05/13/2018 S/P dilatation and curettage 05/13/2018 06/11/2023 Endometrial polyp 05/13/2018 06/11/2023 documented as of this encounter (statuses as of 11/30/2023) Immunizations Name Administration Dates Next Due COVID-19 mRNA, LNP-s, No Pre serve, 2-Dose Series (GIGAS) 09/04/2020,08/14/2020 COVID-19, LNP-s, No Preserve , Mk-sucrose, Ages 12+ (GIGAS) 03/18/2021 DTaP Dipth/Tet/Acell Pertussis (Infanrix), Peds 11/21/1995,04/12/1992,01/24/1991,12/09,1990 [...] money to get more. Never true 12/11/2022 [place] Depression Scale Answer Date Recorded [place] Depression Scale Total 6 11/23/2023 The thought [...] No 12/11/2022 Does the household have a new [facility] source of income? (Household - for [...] Amelia Millan presented today at 35w0d to [facility] for an ultrasound. She is being seen [...] 12/07/2023 1:00 PM EDT Office Visit Gynecology/Obstetrics [place] [address] [place] [address] María Salvador PA-C [address] [facility] [place] [address] 02/13/2024 8:40 AM EDT Office Visit DermatologyQ[place]a [place] [address] [place] [phone] Luna New PA-C [address] [place] [address] 10/20/2024 8:00 AM EDT Office Visit Family [facility] [place] [address] [phone] Ford Devine MD [address] [phone] Health Maintenance Due Date Last Done Comments [...] and were consensually agreed upon. Care Teams Residential Manager Relationship Specialty Start Date End Date Ford Devine MD [address] [address] PCP - General Family Medicine 10/03/22 documented as of this encounter
--- OUTSIDE RECORDS SUMMARY | 2023-12-28 07:15 | External Medical Summary ---
Author Name Unknown Address Unknown Organization K01:LABORATORY [facility] - [address] [place] [address] Laboratory Report Ordering Provider Test Date Status GAGAN WISEMAN 11/14/2023 08:48:38 Final Observation Date Value Abnormality Reference (Units ) Status Ferritin 11/14/2023 08:48:38 14 13-150 (ng /mL) Final Performing Location LABORATORY [facility] - [address] [place] [address]
--- OUTSIDE RECORDS SUMMARY | 2023-12-28 07:15 | External Medical Summary ---
Author Name Unknown Address Unknown Organization K01:LABORATORY [facility] [place] - [address] [place] [address] Laboratory Report Ordering Provider Test Date Status GAGAN WISEMAN 11/14/2023 08:48:38 Final Observation Date Value Abnormality Reference (Units ) Status Vitamin B12 11/14/2023 08:48:38 [phone] (pg/mL) Final Performing Location LABORATORY [facility] - [address] [place] [address]
--- OUTSIDE RECORDS SUMMARY | 2023-12-28 07:15 | External Medical Summary ---
Author Name Unknown Address Unknown Organization K01:LABORATORY [facility] [place] - [address] [place] [address] Laboratory Report Ordering Provider Test Date Status GAGAN WISEMAN 11/14/2023 08:48:38 Final Observation Date Value Abnormality Reference (Units ) Status Retic, % (auto) 11/14/2023 08:48:38 2.59 Above high normal 0.80-1.90 (%) Final Reticulocytes, Absolute 11/14/2023 08:48:38 99.7 31.3-100.1 (K/uL) Final Reticulocyte fraction, immature 11/14/2023 08:48:38 27.7 Above high normal 2.5-20.6 (%) Final Reticulocyte HGB 11/14/2023 08:48:38 31.7 29.7-37.4 (pg) Final Performing Location LABORATORY [facility] [place] - [address] [facility] [place] [address]
--- OUTSIDE RECORDS SUMMARY | 2023-12-28 07:15 | External Medical Summary ---
Author Name Unknown Address Unknown Organization K01:LABORATORY [facility] [place] - [address] [place] [address] Laboratory Report Ordering Provider Test Date Status GAGAN WISEMAN 11/14/2023 08:48:38 Final Observation Date Value Abnormality Reference (Units ) Status Iron 11/14/2023 08:48:38 55 33-151 (ug/dL) Final Iron-binding capacity 11/14/2023 08:48:38 441 Above high normal 250-425 (ug/dL) Final Transferrin Sat % 11/14/2023 08:48:38 12 Below low normal 15-55 (%) Final Performing Location LABORATORY [facility] [place] - [address] [place] [address]
--- OUTSIDE RECORDS SUMMARY | 2023-12-28 07:15 | External Medical Summary ---
Author Name Unknown Address Unknown Organization K01:[facility] [place] [address] [facility] [address] Laboratory Report Ordering Provider Test Date Status ARLYN RUFF 12/07/2023 09:53:17 Final Observation Date Value Abnormality Reference (Units ) Status Color of Urine by Auto 12/07/2023 09:53:17 Light Yellow Colorless, Light Yellow, Yellow, Dark Yellow Final Clarity, Urine 12/07/2023 09:53:17 Clear Clear Final Glucose [Mass/volume] in Urine by Automated test strip 12/07/2023 09:53:17 Negative Negative (mg/dL) Final Bilirubin.total [Presence] in Urine by Automated test strip 12/07/2023 09:53:17 Negative Negative Final Ketones [Mass/volume] in Urine by Automated test strip 12/07/2023 09:53:17 Negative Negative (mg/dL) Final Specific gravity, Urine 12/07/2023 09:53:17 1.018 1.003-1.030 Final Hemoglobin [Presence] in Urine by Automated test strip 12/07/2023 09:53:17 Negative Negative Final pH, Urine 12/07/2023 09:53:17 7.5 5.0-7.5 (Units) Final Protein [Mass/volume] in Urine by Automated test strip 12/07/2023 09:53:17 Trace Abnormal Negative (mg/dL) Final Urobilinogen [Mass/volume] in Urine by Automated test strip 12/07/2023 09:53:17 Normal Normal (mg/dL) Final Nitrite [Presence] in Urine by Automated test strip 12/07/2023 09:53:17 Negative Negative Final Leukocyte esterase [Presence] in Urine by Automated test strip 12/07/2023 09:53:17 Negative Negative Final RBC, Urine 12/07/2023 09:53:17 0-2 0-2 (/HPF) Final WBC, Urine 12/07/2023 09:53:17 0-2 0-2 (/HPF) Final Bacteria [#/area] in Urine sediment by Microscopy high power field 12/07/2023 09:53:17 51-100 Abnormal 0-25 (/HPF) Final Performing Location [facility] [place] [address] [facility] [address]
--- OUTSIDE RECORDS SUMMARY | 2023-12-28 07:15 | External Medical Summary | Summary of Care ---
Author Name Unknown Organization [facility] Address [address] [place] [address] Phone [phone] Care Team Providers Care Earring Maker Name Role Phone Ford Devine MD Primary Care Provider [phone] Reason for Visit * Reason Comments Outpatient Testing Encounter Details Date Type Department Care Team (Late st Contact Info) Description 11/14/2023 8:50 AM EDT Laboratory Laboratory, [facility] [address] [place] [phone] [facility], Lab [address] [place] [address] Antepartum anemia complicating Allergies Active Allergy Reactions Criticality Noted Date Comments Penicillins Edema face/lips/tongue High 08/29/2001 Azithromycin Dihydrate Edema airway,Othe r (Please comment) High 11/24/2013 Trouble breathing documented as of this encounter (statuses as of 11/14/2023) Medications Medication Sig Dispensed Refills Start Date [...] as of this encounter (statuses as of 11/14/2023) Active Problems Problem Noted Date Diagnosed Date [...] CPAP; awaiting new mask to arrive from [facility]. Last Assessment & Plan: Considerations: Obstructive [...] as of this encounter (statuses as of 11/14/2023) Resolved Problems Problem Noted Date Diagnosed Date Resolved Date Class 2 obesity 06/28/2023 10/31/2023 Encounter for supervision of normal first in first trimester 06/11/2023 10/31/2023 Abnormal uterine bleeding 05/13/2018 Status post hysteroscopy 05/13/2018 S/P dilatation and curettage 05/13/2018 06/11/2023 Endometrial polyp 05/13/2018 06/11/2023 documented as of this encounter (statuses as of 11/14/2023) Immunizations Name Administration Dates Next Due COVID-19 mRNA, LNP-s, No Pre serve, 2-Dose Series (Nala) 09/04/2020,08/14/2020 COVID-19, LNP-s, No Preserve , Mk-sucrose, [...] money to get more. Never true 12/11/2022 Watkins Depression Scale Answer Date Recorded Watkins Depression Scale Total 7 06/11/2023 The thought [...] Description 11/23/2023 1:15 PM EDT Office Visit Gynecology/Obstetrics, [address] [place] [address] María Salvador PA-C [address] [place] [address] 11/29/2023 9:45 AM EDT Office Visit Administrative Professional Obstetrics Maternal Medicine, [address] [place] [address] Franck Muñoz DO [address] [place] [facility] [place] [address] 11/29/2023 9:45 AM EDT Imaging Radiology [facility], [place] [address] [address] [facility] [place] [address] 02/13/2024 8:40 AM EDT Office Visit Dermatology, [place] [address] [place] [phone] Luna New PA-C [address] [place] [phone] 10/20/2024 8:00 AM EDT Office Visit Family Practice, [place] [address] [phone] Ford Devine MD [address] [id number] Pending Results Name Type Priority Associated Diagnoses Date /Time CBC WITH WBC DIFFERENTIAL AND ANEMIA REFLEX WORKUP Lab Routine Antepartum anemia complicating 11/14/2023 8:48 AM EDT ANEMIA CBC Lab Routine Antepartum anemia complicating 11/14/2023 8:48 AM EDT DIFFERENTIAL, AUTOMATED Lab Routine Antepartum anemia complicating 11/14/2023 8:48 AM EDT ANEMIA REFLEX CHEMISTRY HOLD Lab Routine Antepartum anemia complicating 11/14/2023 8:48 AM EDT Health Maintenance Due Date Last Done [...] HPV (Gardasil) Vaccine Completed 5, 04/29/2014, 01/29/2012 HIV Screening Completed 06/11/2023, 06/21/2021 Hepatitis C Screening Completed 06/11/2023 , 06/11/2023, 06/11/2023, Additional history exists documented as of this encounter Medical Devices Not on filedocumented as of this encounter Visit Diagnoses Diagnosis Antepartum anemia complicating Anemia, antepartum documented in this encounter Advance Directives * Full Code (Latest Code Status on File) Date Activated Date Inactivated Comments 05/13/2018 8:55 AM 05/13/2018 2:15 PM This order r eflects the patients wishes and were consensually agreed upon. Care Teams Earring Maker Relationship Specialty Start Date End Date Ford Devine MD [address] [phone] PCP - General Family Medicine 10/03/22 documented as of this encounter
--- OUTSIDE RECORDS SUMMARY | 2023-12-28 07:16 | External Medical Summary | Summary of Care ---
Author Name Unknown Organization [facility] Address [address] [place] [address] Phone [phone] Care Team Providers Care Occupational Therapy Teacher Name Role Phone Ford Devine MD Primary Care Provider [phone] Encounter Details Date Type Department Care Team (Late st Contact Info) Description 10/15/2023 Orders Only Laboratory, [facility] [address] [facility] [place] [address] María Salvador PA-C [address] [place], [place] [phone] Antepartum anemia complicating * Allergies Active Allergy Reactions Criticality Noted Date Comments Penicillins Edema face/lips/tongue High 08/29/2001 Azithromycin Dihydrate Edema airway,Othe r (Please comment) High 11/24/2013 Trouble breathing documented as of this encounter (statuses as of 10/15/2023) Medications Medication Sig Dispensed Refills Start Date [...] or Wheezing. 18 g 10/09/2023 Active Breast PumpIndications:[facility] feeding status of mother Z39.1 status [...] as of this encounter (statuses as of 10/15/2023) Active Problems Problem Noted Date Diagnosed Date Supervision of high-risk , unspecified trimester 06/28/2023 [...] CPAP; awaiting new mask to arrive from [facility]. Last Assessment & Plan: Considerations: Obstructive sleep [...] Plan: Continue routine monitoring of blood pressures. Class 2 obesity 06/28/2023 Encounter for supervision of normal first in first trimester 06/11/2023 Obesity during 06/11/2023 Overview: Pre-gravid BMI 38.79 (#230, 5'4") Current BMI 40.37 Early 1 hour GCT 120 mg/dL Last Assessment & Plan: She presents for follow-up of growth secondary to class 2 obesity, anxiety and depression, asthma, and sleep apnea. Today's ultrasound notes the following: The estimated weight is appropriate for gestational age in the 77th percentile. The visualized anatomy is unremarkable in [...] as of this encounter (statuses as of 10/15/2023) Resolved Problems Problem Noted Date Diagnosed Date Resolved Date Abnormal uterine bleeding 05/13/2018 Status post hysteroscopy 05/13/2018 S/P dilatation and curettage 05/13/2018 06/11/2023 Endometrial polyp 05/13/2018 06/11/2023 documented as of this encounter (statuses as of 10/15/2023) Immunizations Name Administration Dates Next Due COVID-19 mRNA, LNP-s, No Pre serve, 2-Dose Series (Nexvet) 09/04/2020,08/14/2020 COVID-19, LNP-s, No Preserve , Mk-sucrose, Ages 12+ (Nexvet) 03/18/2021 DTaP Dipth/Tet/Acell Pertussis (Infanrix), Peds 11/21/1995,04/12/1992,01/24/1991,12/09,1990 HIB PRP-T, 4 Dose, PF, IM (Hiberix) 09/1991,01/24/1991,1990,09/30 HPV Vaccine, 4-Valent 04/29/2014,01/29/2012 HPV Vaccine, 9-Valent [...] money to get more. Never true 12/11/2022 [place] Depression Scale Answer Date Recorded [place] Depression Scale Total 7 06/11/2023 The thought [...] Care Team (Late st Contact Info) Description 10/23/2023 3:30 PM EDT Office Visit Gynecology/Obstetrics, [place] [address] [place] [address] María Salvador PA-C [address] [place] [address] 11/01/2023 9:30 AM EDT Office Visit Day Camp Counselor Obstetrics Maternal Medicine, [place] [address] [place] [address] Franck Muñoz, [address] [place] [address] 11/01/2023 9:30 AM EDT Imaging Radiology [address] [address] 11/29/2023 9:45 AM EDT Office Visit Day Camp Counselor Obstetrics Maternal Medicine, [address] [address] Franck Muñoz, [facility] [address] 11/29/2023 9:45 AM EDT Imaging Radiology [address] [address] 02/13/2024 8:40 AM EDT Office Visit Dermatology, [place] [address] [place], [place] [phone] Luna New PA-C [address] [place] [address] 10/20/2024 8:00 AM EDT Office Visit Family [facility], [place] [address] [phone] Ford Devine MD [address] [place] [address] Scheduled Orders Name Type Priority Associated Diagnoses Orde r Schedule CBC WITH WBC DIFFERENTIAL AND ANEMIA REFLEX WORKUP Lab Routine Antepartum anemia complicating Expected: 11/15/2023, Expires: 10/14/2024 Health Maintenance Due Date Last Done Comments [...] 01/29/2012, 11/21/1995, Additional history exists Hepatitis B Completed 11/22/1998, 05/18, 05/10/1998 MENINGOCOCCAL (MENACTRA/MENVEO) Completed 8 GARDASIL-HPV IMMUNIZATION SERIES Completed 01/26/2015, 04/29/2014, 01/29/2012 documented as of this encounter Medical Devices Not on filedocumented as of this encounter Visit Diagnoses Diagnosis Antepartum anemia complicating - Primary Anemia, antepartum documented in this encounter Advance Directives * Full Code (Latest Code Status on File) Date Activated Date Inactivated Comments 05/13/2018 8:55 AM 05/13/2018 2:15 PM This order r eflects the patients wishes and were consensually agreed upon. Care Teams Occupational Therapy Teacher Relationship Specialty Start Date End Date Ford Devine MD [address] [id number] PCP - General Family Medicine 10/03/22 documented as of this encounter
--- OUTSIDE RECORDS SUMMARY | 2023-12-28 07:16 | External Medical Summary | Summary of Care ---
Author Name Unknown Organization [facility] Address [address] [place] [address] Phone [phone] Care Team Providers Care Glass Breaker Name Role Phone Ford Devine MD Primary Care Provider [phone] Encounter Details Date Type Department Care Team (Latest Contact Info) Description 10/12/2023 8:47 AM EDT - 10/12/2023 10:00 AM EDT Hospital Encounter 6OB GL, Obstetrics, [facility] 6th Floor [address] [place] [id number] Danielle Hamilton MD [address] [place] [address] Discharge Disposition: Home - Self Care Allergies Active Allergy Reactions Criticality Noted Date Comments Penicillins Edema face/lips/tongue High 08/29/2001 Azithromycin Dihydrate Edema airway,Othe r (Please comment) High 11/24/2013 Trouble breathing documented as of this encounter (statuses as of 10/12/2023) Medications Medication Sig Dispensed Refills Start Date End Date Status CPAP every night at bedtime. Auto 5-20 cm Active Magnesium 200 MG Oral Tablet Take 1 Tablet by mouth in the morning. Active Vitamin and Mineral 28-0.8 MG Oral TabletIndications:I nability to conceive, female Take by mouth. Acti ve Propranolol HCl 20 MG Oral Tablet (Inderal) Take 1 Tablet by mouth in the morning and 1 Tablet before bedtime. 60 Tablet 2 05/04/2023 Active Riboflavin 100 MG Oral Capsule Take 1 Capsule by mouth in the morning. Active Probiotic 250 MG Oral Capsule Take by mouth. Active Sertraline HCl 50 MG Oral Tablet (Zoloft)Indications :Anxiety state,Moderate episode of recurrent major depressive disorder (HCC) Take 1 Tablet by mouth in the morning. 30 Tablet 5 07/04/2023 Active Aspirin 81 MG Oral Tablet Delayed Release (Aspirin Adult Low Dose) Take 1 Tablet by mouth in the morning. Active Sertraline HCl 25 MG Oral Tablet (Zoloft)Indications :Depression affecting in first trimester, antepartum Take 1 Tablet by mouth in the morning. With 50 mg tablet for a total of 75 mg daily.. 30 Tablet 6 07/30/2023 Active ProAir HFA 108 (90 Base) MCG/ACT Inhalation Aerosol SolutionIndications :Mild intermittent asthma without complication Inhale 2 Puffs by mouth every 4 hours as needed for Shortness of Breath or Wheezing. 18 g 10/09/2023 Active Breast PumpIndications:Aileen ast feeding status of mother Z39.1 status of mother CAROL: 01/03/2024 1 Each 10/11/2023 Active documented as of this encounter (statuses as of 10/12/2023) Active Problems Problem Noted Date Diagnosed Date [...] awaiting new mask to arrive from [facility]. Last Assessment & Plan: Considerations: Obstructive [...] as of this encounter (statuses as of 10/12/2023) Resolved Problems Problem Noted Date Diagnosed Date Resolved Date Abnormal uterine bleeding 05/13/2018 Status post hysteroscopy 05/13/2018 S/P dilatation and curettage 05/13/2018 06/11/2023 Endometrial polyp 05/13/2018 06/11/2023 documented as of this encounter (statuses as of 10/12/2023) Immunizations Name Administration Dates Next Due COVID-19 mRNA, LNP-s, No Pre serve, 2-Dose Series ([employer]) 09/04/2020,08/14/2020 COVID-19, LNP-s, No Preserve , Mk-sucrose, Ages 12+ ([employer]) 03/18/2021 DTaP Dipth/Tet/Acell Pertussis ([employer]), Peds [...] money to get more. Never true 12/11/2022 [place] Depression Scale Answer Date Recorded [place] Depression Scale Total 7 06/11/2023 The thought [...] Sign Reading Time Taken Comments Blood Pressure 132/79 10/12/2023 9:05 AM EDT Pulse 89 10/12/2023 9:05 AM EDT Temperature 37.2 C (99 F) 10/12/2023 9:44 AM EDT Respiratory Rate 18 10/12/2023 9:05 AM EDT Oxygen Saturation - - Inhaled Oxygen Concentration - - Weight - - Height - - Body Mass Index - - documented in this encounter Nursing Notes * Yoselyn Dupont, RN - 10/12/2023 9:38 AM EDT Images from the original note were not included. OB DISCHARGE INSTRUCTIONS [facility] [address] Patient Name: Amelia Millan Discharge Date: 10/12/2023 Check your patient education brochure for further information. You may call [phone] after 5:00P.M. or on the weekend and ask for the physician citrix consultant. The information below provides you with the instructions and the list of medications you need to betaking following discharge from the hospital. If you have any questions, please ask before leaving.Please carry this letter with you when you see your doctor in the clinic. If you have questions, you can reach us at the numbers above. You came to triage with complaint of: decreased movement Your treatment was: NST Allergies: Penicillins and Zithromax [azithromycin dihydrate] Diet: Normal diet Activity: No restrictions and As tolerated Return to triage if you have: 1. Painful contractions, greater than 6 to 8 per hour 2. Severe abdominal pain 3. Vaginal bleeding 4. Leaking of fluid 5. Decreased movement (fewer than 10 movements in a 2 hour period) Do not smoke or use tobacco products in any way! Quit Line: Medications: MEDICATION UPDATES AT DISCHARGE CONTINUE taking these medications but follow up with your Primary Care Physician (PCP). INSTRUCTIONS Aspirin Adult Low Dose 81 MG Tbec Generic drug: aspirin enteric coated Take 1 Tablet by mouth in the morning. Breast Pump [facility] Z39.1 status of mother CAROL: 01/03/2024 CPAP every night at bedtime. Auto 5-20 cm Magnesium 200 MG Tablet Take 1 Tablet by mouth in the morning. Vitamin and Mineral 28-0.8 MG Tabs Take by mouth. ProAir HFA 108 (90 Base) MCG/ACT Aers Inhale 2 Puffs by mouth every 4 hours as needed for Shortness of Breath or Wheezing. Probiotic 250 MG Caps Take by mouth. propranolol 20 MG Tablet Commonly known as: Inderal Take 1 Tablet by mouth in the morning and 1 Tablet before bedtime. Riboflavin 100 MG Capsule Take 1 Capsule by mouth in the morning. * sertraline 50 MG Tablet Commonly known as: Zoloft Take 1 Tablet by mouth in the morning. * sertraline 25 MG Tablet Commonly known as: Zoloft Take 1 Tablet by mouth in the morning. With 50 mg tablet for a total of 75 mg daily.. * This list has 2 medication(s) that are the same as other medications prescribed for you. Read thedirections carefully, and ask your doctor or other care provider to review them with you. Discharge Checklist: Do you have all of your prescriptions or know which pharmacy they have been sent to? Do you have all of your personal belongings? Do you have medications that you brought with you to the hospital (if applicable)? To understand how well we have prepared you (the Patient or Caregiver) for your discharge, can you answer the following teach-back questions? (Excludes patients being discharged to another facility). Why was I in the hospital? What do I need to do to care for myself after discharge? (Example: diet, activity, follow up appointments, medications, when to call the doctor, etc.) Why is this important to my health? Acknowledgement: These discharge instructions and any applicable medication instructions are an important part of your care. You have the right to have these instructions explained to you, to be given a copy, and have a chance to ask questions. If you have any further questions or concerns after these instructions are reviewed, please discuss with your nurse prior to discharge. Please take this form with you: when picking up your medications at the pharmacy to your next visit with your Primary Care Physician Do not smoke or use tobacco products in any way! Quit Line: * Yoselyn Dupont RN - 10/12/2023 9:37 AM EDT 0847 28+1 week patient arrived with c/o DFM since last night. Pt reports that she hasn't felt movements since yesterday. Pt denies any vaginal bleeding, leaking of fluid, or uterine contractions. Pt assisted into 6130 and changed into gown. documented in this encounter Miscellaneous Notes * Progress Notes - Non-Billable - Dakotah Adams CNM - 10/12/2023 9:49 AM EDT TRIAGE ASSESSMENT H&P - Obstetrics [facility] [address] Name: Amelia Millan Location: [facility] [id number] Date: 10/12/2023 Time: 9:50 AM CHIEF COMPLAINT: Decreased movement at 28.1wks gestation. HISTORY OF PRESENT ILLNESS: Amelia Millan is a 33 year old at 28w1d by LMP (03/29/23) and consistent with 1st trimester US (performed 05/28/23), which suggests Estimated Date of Delivery: 01/03/24. The patient called in with c/o decreased movement. She stated she had dried eating, drinking something cold, and laying on her left side. The patient was audibly tearful. She was encouraged to present to labor and delivery for evaluation. She denies VB, LOF and CXNs at this time. The patient denies complication. RISK FACTORS: Class 2- Obesity Anterior Placenta Past Medical History: Diagnosis Date Anxiety state, unspecified Asthma Exercise-induced, albuterol as needed. Obsessive-compulsive personality disorder (HCC) Sleep apnea 2018 CPAP Past Surgical History: Procedure Laterality Date DENTAL SURGERY PROCEDURE NEC Bilateral 2008 wisdom teeth extraction HYSTEROSCOPY W/BIOPSY AND/OR POLYPECTOMY W/WO D&C N/A 05/13/2018 HYSTEROSCOPY WITH BIOPSY AND/OR POLYPECTOMY WITH OR WITHOUT D&C performed by Gypsy Hall MD at OR [facility] REMOVE TONSILS & ADENOIDS, AGE 12+ 2011 Tonsillectomy/Adenoids,12+ Y/O Social History Socioeconomic History Marital status: Spouse name: Faraz Number of children: 1 Years of education: Not on file Highest education level: Not on file Occupational History Occupation: Works full-time at an [employer] Tobacco Use Smoking status: Never Smokeless tobacco: Never Vaping Use Vaping status: Never Used Substance and Sexual Activity Alcohol use: Not Currently Comment: occasionally Drug use: No Sexual activity: Yes Partners: Male Other Topics Concern Not on file Social History Narrative Not on file Social Determinants of Health Financial Resource Strain: Low Risk (12/11/2022) Financial Resource Strain Do you have any trouble paying for your medications, or do you think you might in the future? (Adult - for ages 18 years and over): No Does your family have trouble paying for medicine? (Household - for ages 0-17 years): Not on file Food Insecurity: No Food Insecurity (12/11/2022) Food Insecurity Do you need food for this week? (Adult - for ages 18 years and over): No Are you able to get enough food for your family? (Household - for ages 0-17 years): Not on file Does your family need food this week? (Household - for ages 0-17 years): Not on file Do you always have enough food for your family? (Household - for ages 0-17 years): Not on file Transportation Needs: No Transportation Needs (12/11/2022) Transportation Needs Do you have trouble getting a ride to medical visits or work? (Adult - for ages 18 years and over):Never True Does your family have a hard time getting a ride to doctors visits? (Household - for ages 0-17 years): Not on file Has lack of transportation kept you from medical appointments, meetings, work, or from getting things needed for daily living? Check all that apply. (Adult - for ages 18 years and over): Not on file Do you (or your family) have trouble finding or paying for a ride (transportation)? (Household - for ages 0-17 years): Not on file Social Connections: Socially Integrated (12/11/2022) Social Connections How often do you feel lonely or isolated from those around you? (Adult - for ages 18 years and over): Never Housing Stability: Low Risk (12/11/2022) Housing Stability Do you currently live in a mcfp or have no steady place to sleep at night? (Adult - for ages 18 years and over): No Do you think you are at risk of becoming homeless? (Adult - for ages 18 years and over): No Does your family worry about paying for your home or becoming homeless? (Household - for ages 0-17 years): Not on file Are you homeless or worried that you might be in the future? (Adult - for ages 18 years and over): Not on file Are you (or your family) homeless or worried that you might be in the future? (Household - for ages0-17 years): Not on file Penicillins and Zithromax [azithromycin dihydrate] Labs: HGB (g/dL) Date Value 10/11/2023 11.1 (L) HCT (%) Date Value 10/11/2023 34.9 (L) PLT (K/uL) Date Value 10/11/2023 254 ABO (no units) Date Value 06/11/2023 A Rh (no units) Date Value 06/11/2023 Positive Rubella IgG Antibody (no units) Date Value 06/11/2023 Positive (A) HIV Antigen & Antibody (no units) Date Value 06/11/2023 Negative Hepatitis B Surface Antigen (no units) Date Value 06/11/2023 Negative Hepatitis C Antibody (no units) Date Value 06/11/2023 Negative Syphilis Screen Interpretation (no units) Date Value 06/11/2023 Nonreactive 50-g Gestational Glucose, 1 Hour (mg/dL) Date Value 10/11/2023 123 Chlamydia Trachomatis Result (no units) Date Value 06/11/2023 Negative Neisseria Gonorrhoeae Result (no units) Date Value 06/11/2023 Negative Physical Exam: BP 132/79 | Pulse 89 | Temp 37.2 C (99 F) | Resp 18 | LMP 03/29/2023 (Exact Date) General: NAD, AAO x 3, pleasant Heart: RRR, no murmurs/rubs/gallops, no edema Lungs: CTAB no wheezes/rhonchi/rales. Normal nonlabored breathing. Abd: Soft, gravid, non-tender uterus and abdomen, normoactive bowel sounds MSK: Appropriate ROM, no erythema, or calf tenderness Psych: no acute depression or anxiety SSE: Deferred SVE: Deferred Identity Access Management Architect Documentation Identity Access Management Architect declined at this time. NST Review Indication: Decreased movement NST duration 20 minutes FHT: Baseline 150 bpm, Moderate variability, Positive accelerations, no decelerations. [place]: are no contractions noted Interpretation: reactive Labs: None IMPRESSION Amelia Millan is a 33 year old at 28w1d A + GBS unknown at this time due to gestational age Anterior Placenta Reassuring status at this time PLAN - Patient instructed on comfort measures in - Reactive NST x 20 min - KARLENE scheduled for 2 weeks and patient encouraged to keep this appointment. - Discharge to home --- Given return precautions: return to triage if painful contractions (4 contractions/hour or more), severe abdominal pain, vaginal bleeding, LOF, KERN, RUQ pain, vision changes, or decreased movement (fewer than 10 movements in 2hr period). This patient's history, physical exam, assessment and plan of care were reviewed and discussed withthe OB team. Dakotah Adams CNM 10/12/23 9:50 AM documented in this encounter Plan of Treatment Upcoming Encounters Date Type Department Care Team (Late st Contact Info) Description 10/23/2023 3:30 PM EDT Office Visit Gynecology/Obstetrics, [place] [address] [place] [address] María Salvador PA-C [address] [place] [address] 11/01/2023 9:30 AM EDT Office Visit Distributing Clerk Obstetrics Maternal Medicine, [place] [address] [place] [address] Franck Muñoz DO [address] [place] [address] 11/01/2023 9:30 AM EDT Imaging Radiology [facility] [address] [place] [address] 11/29/2023 9:45 AM EDT Office Visit Distributing Clerk Obstetrics Maternal Medicine, [place] [address] [place] [address] Franck Muñoz DO [address] [place] [address] 11/29/2023 9:45 AM EDT Imaging Radiology [facility], [place] [address] [place] [address] 02/13/2024 8:40 AM EDT Office Visit Dermatology, [place] [address] [place] [address] Luna New PA-C [address] [place] [address] 10/20/2024 8:00 AM EDT Office Visit [facility] [address] [phone] Ford Devine MD [address] [facility] [place] [place], [place] [phone] Scheduled Orders Name Type Priority Associated Diagnoses Orde r Schedule NON-STRESS TEST Procedures Routine One Time for 1 Occurrences starting 10/12/2023 until 10/12/2023 Health Maintenance Due Date Last Done Comments Pneumococcal Vaccine: Pediat rics (0 to 5 Years) and At-Risk Patients (6 to 64 Years) (1 of 2 - PCV) 1996 HPV/Co-Test 2020 COVID-19 Vaccine (4 - 2022-2 4 season) 2022 03/18/2021, 09/04/2020, 08/14/2020 *SPIROMETRY ONCE FOR ASTHMA-ADULT 06/30/2023 Depression Monitoring 10/08/2024 10/09/2023 Cervical Cancer Screening 03/25/2026 Pap Smear 03/25/2026 03/25/2021, 03/16, 01/29/2012, Additional history exists DTaP,Tdap,and Td Vaccines (8 - Td or Tdap) 10/10/2033 10/11/2023, 01/29/2012, 11/21/1995, Additional history exists Hepatitis B Completed 11/22/1998, 05/18, 05/10/1998 MENINGOCOCCAL (MENACTRA/MENVEO) Completed 8 GARDASIL-HPV IMMUNIZATION SERIES Completed 01/26/2015, 04/29/2014, 01/29/2012 Influenza Vaccine (FLU shot) Completed , 06/21/2021, 01/29/2012 documented as of this encounter Medical Devices Not on filedocumented as of this encounter Advance Directives * Full Code (Latest Code Status on File) Date Activated Date Inactivated Comments 05/13/2018 8:55 AM 05/13/2018 2:15 PM This order r eflects the patients wishes and were consensually agreed upon. Care Teams Glass Breaker Relationship Specialty Start Date End Date Ford Devine MD [address] [phone] PCP - General Family Medicine 10/03/22 documented as of this encounter
--- OUTSIDE RECORDS SUMMARY | 2023-12-28 07:16 | External Medical Summary | Summary of Care ---
Author Name Unknown Organization [facility] Address [address] [place] [address] Phone [phone] Care Team Providers Care Snowboard Instructor Name Role Phone Ford Devine MD Primary Care Provider [phone] Reason for Visit * Reason Comments Return Visit 28w0d Encounter Details Date Type Department Care Team (Late st Contact Info) Description 10/11/2023 3:30 PM EDT Office Visit Gynecology/Obstetric Evy lopez [address] [facility] [place] [address] Gale Cedeño [facility] [address] [place] [address] Supervision of high-risk , unspecified trimester*; Depression affecting in first trimester, antepartum; Anxiety during , antepartum; Obstructive sleep apnea of adult; Asthma during ; Elevated blood pressure reading without diagnosis of hypertension; Class 2 obesity; Breast feeding status of mother; Need for dvnwliatcu-siqmvjz-e ertussis (Tdap) vaccine Allergies Active Allergy Reactions Criticality Noted Date Comments Penicillins Edema face/lips/tongue High 08/29/2001 Azithromycin Dihydrate Edema airway,Othe r (Please comment) High 11/24/2013 Trouble breathing documented as of this encounter (statuses as of 10/11/2023) Medications Medication Sig Dispensed Refills Start Date [...] as of this encounter (statuses as of 10/11/2023) Active Problems Problem Noted Date Diagnosed Date [...] CPAP; awaiting new mask to arrive from [facility]. Last Assessment & Plan: Considerations: Obstructive sleep [...] as of this encounter (statuses as of 10/11/2023) Resolved Problems Problem Noted Date Diagnosed Date Resolved Date Abnormal uterine bleeding 05/13/2018 Status post hysteroscopy 05/13/2018 S/P dilatation and curettage 05/13/2018 06/11/2023 Endometrial polyp 05/13/2018 06/11/2023 documented as of this encounter (statuses as of 10/11/2023) Immunizations Name Administration Dates Next Due COVID-19 mRNA, LNP-s, No Pre serve, 2-Dose Series ([employer]) 09/04/2020,08/14/2020 COVID-19, LNP-s, No Preserve , Mk-sucrose, Ages 12+ ([employer]) 03/18/2021 DTaP Dipth/Tet/Acell Pertussis ([employer]), Peds [...] money to get more. Never true 12/11/2022 [place] Depression Scale Answer Date Recorded [place] Depression Scale Total 7 06/11/2023 The thought [...] Sign Reading Time Taken Comments Blood Pressure 118/68 10/11/2023 3:33 PM EDT Pulse - - Temperature 37 C (98.6 F) 10/11/2023 3:33 PM EDT Respiratory Rate - - Oxygen Saturation - - Inhaled Oxygen Concentration - - Weight 116 kg (255 lb 12.8 oz) 10/11/2023 3:33 P M EDT Height - - Body Mass Index 43.91 10/09/2023 7:53 AM EDT documented in this encounter Progress Notes * Aniya Tejada, STAIN MAKER - 10/11/2023 3:31 PM EDT Chief Complaint Patient presents with Return Visit 28w0d Pt reports that she has intermittent "quick" sharp pains bilaterally under her rib cage. Pt states this has happened about 3 times and never lasts long. No other concerns voiced. * Gale Cedeño CNM - 10/11/2023 3:31 PM EDT Amelia Millan is a 33 year old female here for her routine OB appointment at 28w0d Her Estimated Date of Delivery: 01/03/24 REVIEW OF SYSTEMS: She affirms movement. Denies vaginal bleeding, LOF, contractions, N/V, headaches Questions about delivery vs vaginal delivery secondary to her pubic bone issue PHYSICAL EXAM: Filed Vitals: 10/11/23 1533 BP: 118/68 Temp: 37 C (98.6 F) Weight: 116 kg (255 lb 12.8 oz) ASSESSMENT/PLAN: Supervision of high-risk , unspecified trimester (Primary) Depression affecting in first trimester, antepartum Anxiety during , antepartum Obstructive sleep apnea of adult Asthma during Elevated blood pressure reading without diagnosis of hypertension Class 2 obesity -Continue MFM growth scans, next one scheduled in 3 weeks Breast feeding status of mother - Breast Pump; Z39.1 status of mother CAROL: 01/03/2024 Need for rdhqhaoalj-kxztmny-mrtnlcwle (Tdap) vaccine - TDAP (AGE 10 AND OLDER)([employer]X) Supervision of - recommended tdap vaccine - patient agrees and received today - Completed CBC, GTT and other labs - she received her prescription for a breast pump - DWP comfort measures for symphysis diastasis - labor precautions and kick counts reviewed - RTO in 2 weeks Gale Cedeño CNM documented in this encounter Nursing Notes * Kaylie Rodriguez RN - 10/11/2023 4:07 PM EDT Pre-Administration Time Out Procedure Performed: Yes Patient Identified (Ask Name/Date of ): Yes Does the patient have a fever greater than 101 degrees today? No Patient allergic to latex? No Has the patient ever fainted after receiving an injection? No VFC Stock: No Immunization(s) verified: Yes, Immunization Name: Tdap (Boostrix), VIS Sheet(s) given: Yes Verified Side and Site: Yes Verified Shot(s) with Parent(s)/Patient: Yes Kaylie Rodriguez RN * Aniya Tejada CMA - 10/11/2023 3:36 PM EDT Chief Complaint Patient presents with Return Visit 28w0d Pt reports intermittent bilateral "quick" pain under rib cage. Has noticed this about 3 times and always quickly resolves. Pt also notes that she is sometimes getting SOB easier than normal but no struggle to breathe. documented in this encounter Plan of Treatment Upcoming Encounters Date Type Department Care Team (Late st Contact Info) Description 10/23/2023 3:30 PM EDT Office Visit Gynecology/Obstetrics, [place] [address] [place] [address] María Salvador PA-C [address] [place] [address] 11/01/2023 9:30 AM EDT Office Visit Dispatch Machine Runner Obstetrics Maternal Medicine, [address] [address] Franck Muñoz, [address] [place] [address] 11/01/2023 9:30 AM EDT Imaging [facility], [address] [phone] 11/29/2023 9:45 AM EDT Office Visit Dispatch Machine Runner Obstetrics Maternal Medicine, [address] [address] Franck Muñoz, [facility] [place] [address] 11/29/2023 9:45 AM EDT Imaging Radiology [facility], [facility] [address] [facility] [place] [address] 02/13/2024 8:40 AM EDT Office Visit Dermatology, [place] [address] [place] [phone] Luna New PA-C [address] [place] [address] 10/20/2024 8:00 AM EDT Office Visit Family Practice, [place] [address] [place] [phone] Ford Devine MD [address] [place] [phone] Health Maintenance Due Date Last Done Comments [...] Supervision of high-risk , unspecified trimester- Primary Depression affecting in first trimester, antepartum Anxiety during , antepartum Obstructive sleep apnea of adult Obstructive sleep apnea (adult) (pediatric) Asthma during Elevated blood pressure reading without diagnosis of hypertension Class 2 obesity Breast feeding status of mother care and examination of lactating mother Need for bzrhnldsec-mvxabgn-lsldnmfvf (Tdap) vaccine Need for prophylactic vaccination with combined olfzfpmvsx-sqijosn-okkqebljb (DTP) vaccine documented in this encounter Advance Directives * Full Code (Latest Code Status on File) Date Activated Date Inactivated Comments 05/13/2018 8:55 AM 05/13/2018 2:15 PM This order r eflects the patients wishes and were consensually agreed upon. Care Teams Snowboard Instructor Relationship Specialty Start Date End Date Ford Devine MD [address] [place] [address] PCP - General Family Medicine 10/03/22 documented as of this encounter
--- OUTSIDE RECORDS SUMMARY | 2023-12-28 07:16 | External Medical Summary | Summary of Care ---
Author Name Unknown Organization [facility] Address [address] [place] [address] Phone [phone] Care Team Providers Care Speech Language Pathologist Name Role Phone Ford Devine MD Primary Care Provider [phone] Reason for Visit * Reason Comments Return Visit 28w0d Encounter Details Date Type Department Care Team (Late st Contact Info) Description 10/11/2023 3:30 PM EDT Office Visit Gynecology/Obstetric Evy lopez [address] [place] [address] Gale Cedeño [facility] [address] [place] [address] Supervision of high-risk , unspecified trimester*; Depression affecting in first trimester, antepartum; Anxiety during , antepartum; Obstructive sleep apnea of adult; Asthma during ; Elevated blood pressure reading without diagnosis of hypertension; Class 2 obesity; Breast feeding status of mother; Need for pphiawlais-ojxbgwd-n ertussis (Tdap) vaccine Allergies Active Allergy Reactions [...] CPAP; awaiting new mask to arrive from [email or web address]. Last Assessment & Plan: Considerations: Obstructive sleep [...] mRNA, LNP-s, No Pre serve, 2-Dose Series ([employer]) 09/04/2020,08/14/2020 COVID-19, LNP-s, No Preserve , Mk-sucrose, Ages 12+ ([employer]) 03/18/2021 DTaP Dipth/Tet/Acell Pertussis (Infanrix), Peds 11/21/1995,04/12/1992,01/24/1991,12/09,1990 [...] money to get more. Never true 12/11/2022 [place] Depression Scale Answer Date Recorded [place] Depression Scale Total 7 06/11/2023 The thought [...] this encounter Progress Notes * Aniya Tejada, QUICK TECHNICIAN - 10/11/2023 3:31 PM EDT Chief Complaint [...] status of mother CAROL: 01/03/2024 Need for ctxutskorj-fzohrnl-lreymmulm (Tdap) vaccine - TDAP (AGE 10 AND [...] 10/23/2023 3:30 PM EDT Office Visit Gynecology/Obstetrics, [place] [address] [place] [address] María Salvador PA-C [address] [place] [address] 11/01/2023 9:30 AM EDT Office Visit Alignment Mechanic Obstetrics Maternal Medicine, [address] [address] Franck Muñoz, [address] [place] [address] 11/01/2023 9:30 AM EDT Imaging Radiology [facility], [address] [id number] 11/29/2023 9:45 AM EDT Office Visit Alignment Mechanic Obstetrics Maternal Medicine, [address] [address] Franck Muñoz, [facility] [place] [address] 11/29/2023 9:45 AM EDT Imaging Radiology [facility], [place] [address] [facility] [place] [address] 02/13/2024 8:40 AM EDT Office Visit Dermatology, [address] [place] [address] [place] [phone] Luna New PA-C [address] [place] [address] 10/20/2024 8:00 AM EDT Office Visit Family Practice, [place] [address] [place] [address] Ford Devine MD [address] [place] [phone] Health Maintenance Due Date Last Done Comments [...] and examination of lactating mother Need for zhohtjxhcw-biiexbu-aceypfhau (Tdap) vaccine Need for prophylactic vaccination with combined wafmanwmpa-jkvkxec-uhsfetpzy (DTP) vaccine documented in this encounter Advance Directives * Full Code (Latest Code Status on File) Date Activated Date Inactivated Comments 05/13/2018 8:55 AM 05/13/2018 2:15 PM This order r eflects the patients wishes and were consensually agreed upon. Care Teams Speech Language Pathologist Relationship Specialty Start Date End Date Ford Devine MD [address] [place] [address] PCP - General Family Medicine 10/03/22 documented as of this encounter
--- OUTSIDE RECORDS SUMMARY | 2023-12-28 07:16 | External Medical Summary | Summary of Care ---
Author Name Unknown Organization [facility] Address [address] [place] [address] Phone [phone] Care Team Providers Care Back Up Machine Operator Name Role Phone Ford Devine MD Primary Care Provider [phone] Reason for Visit * Reason Comments Return Visit 29w5d Encounter Details Date Type Department Care Team (Late st Contact Info) Description 10/23/2023 3:30 PM EDT Office [facility] [place] [address] María Salvador PA-C [address] [place] [address] 29 weeks gestation of *; Depression affecting in first trimester, antepartum; Obesity during ; Supervision of high-risk , unspecified trimester; Anxiety during , antepartum; Obstructive sleep apnea of adult; Asthma during ; Elevated blood pressure reading without diagnosis of hypertension; Antepartum anemia complicating Allergies Active Allergy Reactions Criticality Noted Date Comments Penicillins Edema face/lips/tongue High 08/29/2001 Azithromycin Dihydrate Edema airway,Othe r (Please comment) High 11/24/2013 Trouble breathing documented as of this encounter (statuses as of 10/23/2023) Medications Medication Sig Dispensed Refills Start Date [...] as of this encounter (statuses as of 10/23/2023) Active Problems Problem Noted Date Diagnosed Date Antepartum anemia complicating 024 Supervision of high-risk [...] awaiting new mask to arrive from [facility]. Last Assessment & Plan: Considerations: [...] as of this encounter (statuses as of 10/23/2023) Resolved Problems Problem Noted Date Diagnosed Date Resolved Date Abnormal uterine bleeding 05/13/2018 Status post hysteroscopy 05/13/2018 S/P dilatation and curettage 05/13/2018 06/11/2023 Endometrial polyp 05/13/2018 06/11/2023 documented as of this encounter (statuses as of 10/23/2023) Immunizations Name Administration Dates Next Due COVID-19 mRNA, LNP-s, No Pre serve, 2-Dose Series ([employer]) 09/04/2020,08/14/2020 COVID-19, LNP-s, No Preserve , Mk-sucrose, Ages 12+ ([employer]) 03/18/2021 DTaP Dipth/Tet/Acell Pertussis (Infanrix), Peds 11/21/1995,04/12/1992,01/24/1991,12/09,1990 [...] money to get more. Never true 12/11/2022 [place] Depression Scale Answer Date Recorded [place] Depression Scale Total 7 06/11/2023 The thought [...] No 12/11/2022 Does the household have a [facility] source [facility] income? (Household - [...] Sign Reading Time Taken Comments Blood Pressure 120/80 10/23/2023 3:28 PM EDT Pulse - - Temperature 36.7 C (98 F) 10/23/2023 3:28 PM EDT Respiratory Rate - - Oxygen Saturation - - Inhaled Oxygen Concentration - - Weight 116 kg (255 lb 12.8 oz) 10/23/2023 3:28 P M EDT Height - - Body Mass Index 43.91 10/09/2023 7:53 AM EDT documented in this encounter Progress Notes * María Salvador PA-C - 10/23/2023 3:30 PM EDT [place] Millan is a 33 year old female here for her routine OB appointment at 29w5d. Her Estimated Date of Delivery: 01/03/24 REVIEW OF SYSTEMS: She affirms movement. Denies vaginal bleeding, LOF, contractions, N/V, headaches On L&D 10/11 for DFM. Continues with pubic pain and low back pain, following with rn acute care,wearing support belt at home, not at work due to sitting most of the day PHYSICAL EXAM: Filed Vitals: 10/23/23 1528 BP: 120/80 Temp: 36.7 C (98 F) Weight: 116 kg (255 lb 12.8 oz) ASSESSMENT/PLAN: Depression affecting in first trimester, antepartum Obesity during - class 2, growth US q4w with MFM - NST weekly at 37 weeks Anxiety during , antepartum Obstructive sleep apnea of adult Asthma during - asthma as child, no recent concerns/use of inhaler Elevated blood pressure reading without diagnosis of hypertension Antepartum anemia complicating - vitron C BID , rechecking labs in 4 weeks 29 weeks gestation of (Primary) - 3rd tri labs reviewed - encouraged birthing classes - Reviewed labor precautions, painful contractions (4 contractions/hour or more), severe abdominal pain, loss of fluid, vaginal bleeding, round ligament pain, and encouraged hydration. - RTO in 2 weeks María Salvador PA-C documented in this encounter Nursing Notes * Karo Vargas LPN - 10/23/2023 3:25 PM EDT Chief Complaint Patient presents with Return Visit 29w5d Tdap given and labs done on 10/11/2023 Karo Vargas LPN documented in this encounter Plan of Treatment Upcoming Encounters Date Type Department Care Team (Late st Contact Info) Description 11/01/2023 9:30 AM EDT Office Visit Working Manager Obstetrics Maternal Medicine, [place] [address] [place] [address] Franck Muñoz, [address] [place] [address] 11/01/2023 9:30 AM EDT Imaging Radiology [address] [address] 11/29/2023 9:45 AM EDT Office Visit Working Manager Obstetrics Maternal Medicine, [place] [address] [place] [address] Franck Muñoz, [address] [place] [address] 11/29/2023 9:45 AM EDT Imaging Radiology [facility], [place] [address] [place] [address] 02/13/2024 8:40 AM EDT Office Visit Dermatology, Juan Alberto Sales[address] [facility] [address] [place], [place] [id number] Luna New PA-C [address] [place] [address] 10/20/2024 8:00 AM EDT Office Visit Family [facility], [place] [address] [place] [phone] Ford Devine MD [address] [phone] Health Maintenance Due Date Last Done Comments [...] as of this encounter Visit Diagnoses Diagnosis 29 weeks gestation of - Primary state, incidental Depression affecting in first trimester, antepartum Obesity during Supervision of high-risk , unspecified trimester Anxiety during , antepartum Obstructive sleep apnea of adult Obstructive sleep apnea (adult) (pediatric) Asthma during Elevated blood pressure reading without diagnosis of hypertension Antepartum anemia complicating Anemia, antepartum documented in this encounter Advance Directives * Full Code (Latest Code Status on File) Date Activated Date Inactivated Comments 05/13/2018 8:55 AM 05/13/2018 2:15 PM This order r eflects the patients wishes and were consensually agreed upon. Care Teams Back Up Machine Operator Relationship Specialty Start Date End Date Ford Devine MD [address] [place] [address] PCP - General Family Medicine 10/03/22 documented as of this encounter
--- OUTSIDE RECORDS SUMMARY | 2023-12-28 07:16 | External Medical Summary | Summary of Care ---
Author Name Unknown Organization [facility] Address [address] [place] [address] Phone [phone] Care Team Providers Care Food Beverage Server Name Role Phone Ford Devine MD Primary Care Provider [phone] Reason for Visit * Reason Comments Return Visit 32w0d Encounter Details Date Type Department Care Team (Late st Contact Info) Description 11/08/2023 9:00 AM EDT Office [facility] [address] María Salvador PA-C [address] [facility] [place] [address] 32 weeks gestation of *; Depression affecting in first trimester, antepartum; Obesity during ; Supervision of high-risk , unspecified trimester; BMI 40.0-44.9, adult ([facility]); Anxiety during , antepartum; Obstructive sleep apnea of adult; Asthma during ; Elevated blood pressure reading without diagnosis of hypertension; Excessive growth affecting management of in third trimester, single or unspecified fetus; Polyhydramnios in third trimester complication, single or unspecified fetus; Antepartum anemia complicating ; Right sided abdominal pain Allergies Active Allergy Reactions Criticality Noted Date Comments Penicillins Edema face/lips/tongue High 08/29/2001 Azithromycin Dihydrate Edema airway,Othe r (Please comment) High 11/24/2013 Trouble breathing documented as of this encounter (statuses as of 11/08/2023) Medications Medication Sig Dispensed Refills Start Date [...] or Wheezing. 18 g 10/09/2023 Active Breast PumpIndications:[facility] feeding status of mother Z39.1 status of [...] as of this encounter (statuses as of 11/08/2023) Active Problems Problem Noted Date Diagnosed Date [...] CPAP; awaiting new mask to arrive from [facility]. Last Assessment & Plan: Considerations: [...] as of this encounter (statuses as of 11/08/2023) Resolved Problems Problem Noted Date Diagnosed Date Resolved Date Class 2 obesity 06/28/2023 10/31/2023 Encounter for supervision of normal first in first trimester 06/11/2023 10/31/2023 Abnormal uterine bleeding 05/13/2018 Status post hysteroscopy 05/13/2018 S/P dilatation and curettage 05/13/2018 06/11/2023 Endometrial polyp 05/13/2018 06/11/2023 documented as of this encounter (statuses as of 11/08/2023) Immunizations Name Administration Dates Next Due COVID-19 mRNA, LNP-s, No Pre serve, 2-Dose Series ([email or web address]) 09/04/2020,08/14/2020 COVID-19, LNP-s, No Preserve , Mk-sucrose, Ages 12+ ([email or web address]) 03/18/2021 DTaP Dipth/Tet/Acell Pertussis (Infanrix), Peds 11/21/1995,04/12/1992,01/24/1991,12/09,1990 [...] money to get more. Never true 12/11/2022 [place] Depression Scale Answer Date Recorded [place] Depression Scale Total 7 06/11/2023 The thought [...] Sign Reading Time Taken Comments Blood Pressure 124/76 11/08/2023 9:09 AM EDT Pulse - - Temperature 36.4 C (97.6 F) 11/08/2023 9:09 AM ED T Respiratory Rate - - Oxygen Saturation - - Inhaled Oxygen Concentration - - Weight 118.5 kg (261 lb 3.2 oz) 024 9:09 AM EDT Height - - Body Mass Index 44.83 10/09/2023 7:53 AM EDT documented in this encounter Progress Notes * María Salvador PA-C - 11/08/2023 9:11 AM EDT [place] Millan is a 33 year old female here for her routine OB appointment at 32w0d. Her Estimated Date of Delivery: 01/03/24 REVIEW OF SYSTEMS: She affirms movement. Denies vaginal bleeding, LOF, contractions, N/V, headaches Sharp/ achy pain intermittently - on right/left ride, sometimes under ribs, some down pelvis and right back. No N/V/ D , pruritus of hands/feet, PHYSICAL EXAM: Filed Vitals: 11/08/23 0909 BP: 124/76 Temp: 36.4 C (97.6 F) Weight: 118.5 kg (261 lb 3.2 oz) ASSESSMENT/PLAN: (O99.341, F32.A) Depression affecting in first trimester, antepartum - zoloft 75 mg (O99.210) Obesity during Plan: 37 weeks NST , growth every 4 weeks (O99.340, F41.9) Anxiety during , antepartum (G47.33) Obstructive sleep apnea of adult (O99.519, J45.909) Asthma during (R03.0) Elevated blood pressure reading without diagnosis of hypertension (O36.63X0) Excessive growth affecting management of in third trimester Plan: US with MFM 10/31 EFW 94% (O40.3XX0) Polyhydramnios in third trimester Plan: mild poly 10/31 with LUDMILA 24.7 cm Antepartum anemia complicating - due for repeat labs next (Z3A.32) 32 weeks gestation of - Reviewed labor precautions, painful contractions (4 contractions/hour or more), severe abdominal pain, loss of fluid, vaginal bleeding, round ligament pain, and encouraged hydration. - RTO in 2 weeks María Salvador PA-C documented in this encounter Nursing Notes * Aniya Tejada CMA - 11/08/2023 9:11 AM EDT Chief Complaint Patient presents with Return Visit 32w0d Pt reports she has noticed intermittent R sided pain under her ribcage and on her side. States it can be sharp and achy, but doesn't last very long. Aniya Tejada CMA 11/08/2023 9:12 AM documented in this encounter Plan of Treatment Upcoming Encounters Date Type Department Care Team (Late st Contact Info) Description 11/23/2023 1:15 PM EDT Office Visit Gynecology/Obstetrics, [place] [address] [place] [place] [address] María Salvador PA-C [facility] [place] [address] 11/29/2023 9:45 AM EDT Office Visit Lye Boiler Obstetrics Maternal Medicine, [place] [address] [place] [address] Franck Muñoz, [address] [place] [address] 11/29/2023 9:45 AM EDT Imaging Radiology [facility] [place], [place] [address] [place] [address] 02/13/2024 8:40 AM EDT Office Visit DermatologyQuita [place] [address] [place] [address] Luna New PA-C [address] [place] [place] [address] 10/20/2024 8:00 AM EDT Office Visit Family [facility], [place] [address] [phone] Ford Devine MD [address] [address] Scheduled Orders Name Type Priority Associated Diagnoses Orde r Schedule COMPREHENSIVE METABOLIC PANEL Lab Routine 32 weeks gestation of Right sided abdominal pain Ordered: 11/08/2023 Health Maintenance Due Date Last Done Comments [...] as of this encounter Visit Diagnoses Diagnosis 32 weeks gestation of - Primary state, incidental [...] third trimester complication, single or unspecified fetus Antepartum anemia complicating Anemia, antepartum Right sided abdominal pain Abdominal pain, unspecified site documented in this encounter Advance Directives * Full Code (Latest Code Status on File) Date Activated Date Inactivated Comments 05/13/2018 8:55 AM 05/13/2018 2:15 PM This order r eflects the patients wishes and were consensually agreed upon. Care Teams Food Beverage Server Relationship Specialty Start Date End Date Ford Devine MD [address] [phone] PCP - General Family Medicine 10/03/22 documented as of this encounter
--- OUTSIDE RECORDS SUMMARY | 2023-12-28 07:16 | External Medical Summary ---
Author Name Unknown Address Unknown Organization K01:LABORATORY [facility] [place] - [address] [facility] [place] [id number] Laboratory Report Ordering Provider Test Date Status GAGAN WISEMAN 11/14/2023 08:48:38 Final Observation Date Value Abnormality Reference (Units ) Status BUN 11/14/2023 08:48:38 6 6-20 (mg/dL) Final Creatinine 11/14/2023 08:48:38 0.6 0.5-1.0 (mg/dL) Final Glomerular filtration rate/1.73 sq M.predicted [Volume Rate/Area] in Serum, Plasma or Blood by Creatinine-based formula (CKD-EPI) 11/14/2023 08:48:38 >90 >=60 (mL/min) Final eGFR is calculated based on the CKD-EPI 2020 equation. Sodium 11/14/2023 08:48:38 136 135-146 (m mol/L) Final Potassium 11/14/2023 08:48:38 4.5 3.5-5.1 (m mol/L) Final Cl 11/14/2023 08:48:38 104 98-107 (mm ol/L) Final CO2 11/14/2023 08:48:38 20 Below low normal 22- 32 (mmol/L) Final Anion gap 11/14/2023 08:48:38 12 7-15 (mmol /L) Final Glucose 11/14/2023 08:48:38 102 70-120 (mg /dL) Final Albumin 11/14/2023 08:48:38 3.5 Below low normal 3.8 -5.0 (g/dL) Final AST (Aspartate aminotransferase) 11/14/2023 08:48:38 16 10-35 (U/L) Fin al Alk Phos 11/14/2023 08:48:38 99 35-130 (U/ L) Final Bilirubin, Total 11/14/2023 08:48:38 <0.2 <=1 .2 (mg/dL) Final Calcium 11/14/2023 08:48:38 8.7 8.4-10.2 ( mg/dL) Final Protein 11/14/2023 08:48:38 5.6 Below low normal 6.0 -8.3 (g/dL) Final ALT (Alanine aminotransferase) 11/14/2023 08:48:38 14 10-35 (U/L) Markie dukes Performing Location LABORATORY [facility] [place] - [address] [facility] [address]
--- OUTSIDE RECORDS SUMMARY | 2023-12-28 07:16 | External Medical Summary | Summary of Care ---
Author Name Unknown Organization [facility] Address [address] [place] [address] Phone [phone] Care Team Providers Care Photoengraving Helper Name Role Phone Ford Devine MD Primary Care Provider [phone] [phone] Reason for Visit * Reason Onset Date Comments Decreased Movement 10/12/2023 Pt has tried hydration, nutrition, walking and resting. Anterior placenta noted. Pt encouraged to come to triage for evaluations Encounter Details Date Type Department Care Team (Late st Contact Info) Description 10/12/2023 Telephone Gynecology/Obstetrics, [place] [address] [place] [address] Danielle Hamilton MD [address] [place] [address] Decreased Movement (Pt has tried hyd... Allergies Active Allergy Reactions Criticality Noted Date [...] awaiting new mask to arrive from [facility]. Last Assessment & Plan: Considerations: Obstructive [...] mRNA, LNP-s, No Pre serve, 2-Dose Series ([employer]) 09/04/2020,08/14/2020 COVID-19, LNP-s, No Preserve , Mk-sucrose, [...] money to get more. Never true 12/11/2022 [place] Depression Scale Answer Date Recorded [place] Depression Scale Total 7 06/11/2023 The thought [...] No 12/11/2022 Does the household have a [facility] source of income? (Household - for [...] encounter Miscellaneous Notes * Telephone Encounter - Dakotah Adams CNM - 10/12/2023 10:28 AM EDT Pt is a G1 at 28w1d called stating that she has felt decreased movement this morning. Has tried hydration, nutrition, and movement/rest. Denies VB, LOF, CXNS. Pt encouraged to come to triage for monitoring. Dakotah Adams CNM * Telephone Encounter - Karo Vargas LPN - 10/12/2023 8:34 AM EDT Patient walked into clinic today (crying and worried) and is 28w1d c/o decreased movement . Patient counseled to lie on left side and drink a large glass of water and do FM count for one hour, pt states she has tried this as well as eating something sugary to see if that helped wake baby up. Pt states she felt baby very little last night and has only felt "gas bubbles" this morning (has been up since 630am) had eggs toast fruit and OJ for breakfast Denies any LOF or vaginal bleeding. Denies any pain at this time. Pt placed on schedule for NST/heart tones with a provider. Karo Vargas LPN documented in this encounter Plan of Treatment Upcoming Encounters Date Type Department Care Team (Late st Contact Info) Description 10/23/2023 3:30 PM EDT Office Visit Gynecology/Obstetrics, [place] [address] [place] [address] María Salvador PA-C [address] [place] [address] 11/01/2023 9:30 AM EDT Office Visit Director Sanitation Bureau Obstetrics Maternal Medicine, [place] [address] [place] [address] Franck Muñoz, [address] [place] [address] 11/01/2023 9:30 AM EDT Imaging Radiology [facility] [address] [place] [address] 11/29/2023 9:45 AM EDT Office Visit Director Sanitation Bureau Obstetrics Maternal Medicine, [place] [address] [place] [address] Franck Muñoz, [address] [place] [address] 11/29/2023 9:45 AM EDT Imaging Radiology [facility] [address] [place] [address] 02/13/2024 8:40 AM EDT Office Visit Dermatology, Evy Sales [address] [place] [address] Luna New PA-C [address] [place] [address] 10/20/2024 8:00 AM EDT Office Visit [facility] [place] [address] [phone] Ford Devine MD [address] [address] Health Maintenance Due Date Last Done Comments [...] and were consensually agreed upon. Care Teams Photoengraving Helper Relationship Specialty Start Date End Date Ford Devine MD [address] [address] PCP - General Family Medicine 10/03/22 documented as of this encounter
--- OUTSIDE RECORDS SUMMARY | 2023-12-28 07:16 | External Medical Summary ---
Author Name Unknown Address Unknown Organization K01:LABORATORY C - [address] [place] [address] Laboratory Report Ordering Provider Test Date Status GAGAN WISEMAN 11/14/2023 08:48:38 Final Observation Date Value Abnormality Reference (Units ) Status TSH 11/14/2023 08:48:38 1.95 0.27-4.20 (uIU/mL) Final Performing Location LABORATORY [facility] - [address] [place] [address]
--- OUTSIDE RECORDS SUMMARY | 2023-12-28 07:16 | External Medical Summary | Summary of Care ---
Author Name Unknown Organization [facility] Address [address] [place] [address] Phone [phone] Care Team Providers Care Eggs Inspector Name Role Phone Ford Devine MD Primary Care Provider [phone] Encounter Details Date Type Department Care Team (Late st Contact Info) Description 11/01/2023 9:30 AM EDT Office Visit Web Content Writer Obstetrics Maternal Medicine, [place] [address], [place] [id number] Franck Muñoz, DO [address] [place] [address] BMI 40.0-44.9, adult (HCC)*; Obesity during ; Supervision of high-risk , unspecified trimester; Encounter for ultrasound to assess growth; 31 weeks gestation of ; Excessive growth affecting management of in third trimester, single or unspecified fetus; Polyhydramnios in third trimester complication, single or unspecified fetus Allergies Active Allergy Reactions Criticality Noted Date Comments Penicillins Edema face/lips/tongue High 08/29/2001 Azithromycin Dihydrate Edema airway,Othe r (Please comment) High 11/24/2013 Trouble breathing documented as of this encounter (statuses as of 11/01/2023) Medications Medication Sig Dispensed Refills Start Date [...] or Wheezing. 18 g 10/09/2023 Active Breast PumpIndications:[facility] feeding status of mother Z39.1 status of mother CRAOL: 01/03/2024 1 Each 10/11/2023 Active Iron-Vitamin C [...] as of this encounter (statuses as of 11/01/2023) Active Problems Problem Noted Date Diagnosed Date [...] CPAP; awaiting new mask to arrive from [employer]. Last Assessment & Plan: Considerations: Obstructive sleep [...] as of this encounter (statuses as of 11/01/2023) Resolved Problems Problem Noted Date Diagnosed Date Resolved Date Class 2 obesity 06/28/2023 10/31/2023 Encounter for supervision of normal first in first trimester 06/11/2023 10/31/2023 Abnormal uterine bleeding 05/13/2018 Status post hysteroscopy 05/13/2018 S/P dilatation and curettage 05/13/2018 06/11/2023 Endometrial polyp 05/13/2018 06/11/2023 documented as of this encounter (statuses as of 11/01/2023) Immunizations Name Administration Dates Next Due COVID-19 mRNA, LNP-s, No Pre serve, 2-Dose Series ([employer]) 09/04/2020,08/14/2020 COVID-19, LNP-s, No Preserve , Mk-sucrose, Ages 12+ ([employer]) 03/18/2021 DTaP Dipth/Tet/Acell Pertussis ([employer]), Peds 11/21/1995,04/12/1992,01/24/1991,12/09,1990 [...] money to get more. Never true 12/11/2022 [place] Depression Scale Answer Date Recorded [place] Depression Scale Total 7 06/11/2023 The thought [...] this encounter Progress Notes * Franck Muñoz, - 11/01/2023 11:15 PM EDT MATERNAL MEDICINE VISIT Amelia Millan is at 31w0d who presents to [facility] for an ultrasound and follow-up of her high risk . She is being seen today by Maternal- Medicine for the following reasons: Problem List Items Addressed This Visit BMI 40.0-44.9, adult (HCC) - Primary (Chronic) Obesity during She presents for follow-up of growth secondary to class 2 obesity, anxiety and depression, asthma, and sleep apnea. Labs reviewed: - GCT normal 123 on 6/27/24 Today's ultrasound notes the following: The estimated weight is large for gestational age in the 94th percentile. The visualized anatomy is unremarkable in appearance. Mild polyhydramnios is noted. Supervision of high-risk , unspecified trimester Excessive growth affecting management of in third trimester CONSIDERATIONS: Reviewed that weight greater than 90%ile is considered "large for gestational age" (LGA). LGA may be related to constitutional factors (e.g., male gender, ethnicity), environmental factors (maternal diabetes/obesity/weight gain), or genetic conditions. Discussed the limitations of ultrasound in predicting weight, especially at later gestationalages. RECOMMENDATIONS: Recommend delivery without trial of labor for estimated weight greater than 5000 gm (in the non-diabetic woman) OR greater than 4500 gm (in the diabetic woman). Concern for macrosomia/LGA is NOT an indication for induction of labor. The patient should discuss further management and delivery plan with her primary OB provider. Polyhydramnios in third trimester CONSIDERATIONS: Polyhydramnios is the presence of elevated [...] It is not indicated at this time. Other Visit Diagnoses Encounter for ultrasound to assess growth 31 weeks gestation of We reviewed today's ultrasound findings. (For full report, please refer to ultrasound report provided separately). Ms. Millan's questions were answered to her satisfaction. RECOMMENDATIONS: Recommend surveillance starting at 37 weeks secondary to class II obesity. Recommend follow up ultrasound with MFM in 4 weeks for growth. Thank you for allowing us to participate in the care of this patient. Please call with any questions. After connecting to the patient via telephone, the patient was identified by name and date of . Patient was then informed that this was a telephone call only visit. The patient agreed to participate. Visit Disposition: Routine follow-up Total call duration was 10 minutes. Franck Muñoz DO 11/01/2023 11:15 PM documented in this encounter Miscellaneous Notes * Assessment & Plan Note - Franck Muñoz DO - 11/01/2023 11:15 PM EDT Associated Problem(s): Excessive growth affecting management of in third trimester CONSIDERATIONS: Reviewed that weight greater than 90%ile is considered "large for gestational age" (LGA). LGA may be related to constitutional factors (e.g., male gender, ethnicity), environmental factors (maternal diabetes/obesity/weight gain), or genetic conditions. Discussed the limitations of ultrasound in predicting weight, especially at later gestationalages. RECOMMENDATIONS: Recommend delivery without trial of labor for estimated weight greater than 5000 gm (in the non-diabetic woman) OR greater than 4500 gm (in the diabetic woman). Concern for macrosomia/LGA is NOT an indication for induction of labor. The patient should discuss further management and delivery plan with her primary OB provider. * Assessment & Plan Note - Franck Muñoz DO - 11/01/2023 11:14 PM EDT Associated Problem(s): Polyhydramnios in third trimester CONSIDERATIONS: Polyhydramnios is the presence of elevated [...] It is not indicated at this time. * Assessment & Plan Note - Antonio Almaguer MD - 10/31/2023 4:47 PM EDTAssociated Problem(s): Obesity during She presents for follow-up of growth secondary to class 2 obesity, anxiety and depression, asthma, and sleep apnea. Labs reviewed: - GCT normal 123 on 10/11/23 Today's ultrasound notes the following: The estimated weight is large for gestational age in the 94th percentile. The visualized anatomy is unremarkable in appearance. Mild polyhydramnios is noted. documented in this encounter Plan of Treatment Upcoming Encounters Date Type Department Care Team (Late st Contact Info) Description 11/08/2023 9:00 AM EDT Office Visit Gynecology/Obstetrics, [place] [address] [place] [address] María Salvador [facility]C [facility] [place] [address] 11/29/2023 9:45 AM EDT Office Visit Web Content Writer Obstetrics Maternal Medicine, [address] [address] Franck Muñoz DO [address] [place] [address] 11/29/2023 9:45 AM EDT [facility] [place] [address] [place] [address] 02/13/2024 8:40 AM EDT Office Visit Dermatology, [place] [address] [place] [address] Luna New PA-C [address] [place] [address] 10/20/2024 8:00 AM EDT Office Visit [facility] [place] [address] [place] [phone] Ford Devine MD [address] [place] [place] [id number] Health Maintenance Due Date Last Done Comments [...] as of this encounter Visit Diagnoses Diagnosis BMI 40.0-44.9, adult (HCC)- Primary Body Mass Index 40.0-44.9, adult Obesity during Supervision of high-risk , unspecified trimester Encounter for ultrasound to assess growth 31 weeks gestation of state, incidental Excessive growth affecting management of in third trimester, single or unspecified fetus Polyhydramnios in third trimester complication, single or unspecified fetus documented in this encounter Advance Directives * Full Code (Latest Code Status on File) Date Activated Date Inactivated Comments 05/13/2018 8:55 AM 05/13/2018 2:15 PM This order r eflects the patients wishes and were consensually agreed upon. Care Teams Eggs Inspector Relationship Specialty Start Date End Date Ford Devine MD [address] [place] [id number] PCP - General Family Medicine 10/03/22 documented as of this encounter
--- OUTSIDE RECORDS SUMMARY | 2023-12-28 07:16 | External Medical Summary ---
Author Name Unknown Address Unknown Organization K01:[facility] - [address] [place] [address] Laboratory Report Ordering Provider Test Date Status GAGAN WISEMAN 11/14/2023 08:48:38 Final Observation Date Value Abnormality Reference (Units ) Status WBC, Total 11/14/2023 08:48:38 8.68 4.00-10.8 0 (K/uL) Final RBC 11/14/2023 08:48:38 3.89 3.85-5.15 (M/uL) Final Hemoglobin 11/14/2023 08:48:38 11.4 Below low normal 12 .0-15.3 (g/dL) Final Anemia reflex testing trigge rs on a HGB < 12.0 for Females and HGB < 13.0 for Males in accordance with the WHO Anemia Guidelines
Anemia reflex testing triggers on a HGB < 12.0 for Females and HGB < 13.0 for Males in accordance with the WHO Anemia Guidelines HCT 11/14/2023 08:48:38 35.9 Below low normal 36. 0-45.2 (%) Final MCV 11/14/2023 08:48:38 92.3 81.5-97.5 (fL) Final MCH 11/14/2023 08:48:38 29.3 27.0-34.0 (pg) Final MCHC 11/14/2023 08:48:38 31.8 32.0-36.0 (g/dL) Final RDW 11/14/2023 08:48:38 13.6 11.5-15.5 (%) Final Platelets 11/14/2023 08:48:38 237 140-400 (K /uL) Final MPV 11/14/2023 08:48:38 9.9 6.6-11.1 ( fL) Final Nucleated erythrocytes/100 leukocytes [Ratio] in Blood by Automated count 11/14/2023 08:48:38 0 <=0 (/100 WBCs) Final Performing Location [facility] - [facility] [address]. [facility] [address]
--- OUTSIDE RECORDS SUMMARY | 2023-12-28 07:16 | External Medical Summary | Summary of Care ---
Author Name Unknown Organization [facility] Address [address] [place] [address] Phone [phone] Care Team Providers Care Workers Compensation Claims Adjuster Name Role Phone Ford Devine MD Primary Care Provider [phone] Encounter Details Date Type Department Care Team (Late st Contact Info) Description 10/15/2023 Telephone Gynecology/Obstetrics [facility] [address] [facility] [place] [address] María Salvador PA-C [address] [place] [address] Allergies Active Allergy Reactions Criticality [...] or Wheezing. 18 g 10/09/2023 Active Breast PumpIndications:[facility] feeding status of mother Z39.1 status of [...] CPAP; awaiting new mask to arrive from [employer]. Last Assessment & Plan: Considerations: Obstructive sleep [...] mRNA, LNP-s, No Pre serve, 2-Dose Series ([employer]) 09/04/2020,08/14/2020 COVID-19, LNP-s, No Preserve , Mk-sucrose, Ages 12+ ([employer]) 03/18/2021 DTaP Dipth/Tet/Acell Pertussis ([employer]), Peds [...] money to get more. Never true 12/11/2022 [place] Depression Scale Answer Date Recorded [place] Depression Scale Total 7 06/11/2023 The thought [...] encounter Miscellaneous Notes * Telephone Encounter - Jordan Way RN - 10/15/2023 1:30 PM EDT T/C to patient, patient aware and verbalizes understanding Jordan Way RN * Telephone Encounter - Jordan Way RN - 10/15/2023 1:21 PM EDT ----- Message from María Salvador sent at 10/15/2023 10:53 AM EDT ----- Please inform patient her CBC shows anemia, would recommend patient start Iron and Vit C BID, RX sent to pharmacy, please ensure she is taking this at least 3 hours away from any sources of calcium, including her vitamin( she may take PNV at HS). It is best taken on an empty stomach with orange juice, if she is able. This can cause dark stools and/or constipation. If she experiences constipation, she can use OTC Colace for relief. We will plan to repeat in 4 weeks (patient needs to fast overnight and hold all iron for 24 hours prior to repeat CBC) She passed her 1 hour glucose, she does not have GDM. Thyroid is normal limit Syphilis negative Vitb12 within normal range documented in this encounter Plan of Treatment Upcoming Encounters Date Type Department Care Team (Late st Contact Info) Description 10/23/2023 3:30 PM EDT Office Visit Gynecology/Obstetrics, [place] [address] [place] [address] María Salvador PA-C [address] [place] [address] 11/01/2023 9:30 AM EDT Office Visit Slab Conditioner Supervisor Obstetrics Maternal Medicine, [address] [address] Franck Muñoz DO [address] [place] [address] 11/01/2023 9:30 AM EDT Imaging Radiology [place] [address] [place] [address] 11/29/2023 9:45 AM EDT Office Visit Slab Conditioner Supervisor Obstetrics Maternal Medicine, [place] [address] [place] [address] Franck Muñoz [address] [place] [address] 11/29/2023 9:45 AM EDT Imaging Radiology [place] [address] [place] [address] 02/13/2024 8:40 AM EDT Office Visit [place] [address] [place] [phone] Luna New PA-C [address] [place] [address] 10/20/2024 8:00 AM EDT Office Visit Family [facility], [place] [address] [phone] Ford Devine MD [address] [place] [address] Health Maintenance Due Date Last Done Comments [...] and were consensually agreed upon. Care Teams Workers Compensation Claims Adjuster Relationship Specialty Start Date End Date Ford Devine MD [address] [place] [phone] PCP - General Family Medicine 10/03/22 documented as of this encounter
--- OUTSIDE RECORDS SUMMARY | 2023-12-28 07:16 | External Medical Summary | Summary of Care ---
Author Name Unknown Organization [facility] Address [address] [place] [address] Phone [phone] Care Team Providers Care [place] Machine Operator Name Role Phone Ford Devine MD Primary Care Provider [phone] Reason for Visit * Reason Comments Return Visit 29w5d Encounter Details Date Type Department Care Team (Late st Contact Info) Description 10/23/2023 3:30 PM EDT Office Visit Gynecology/Obstetric [place] [facility] [place] [address] María Salvador PA-C [address] [facility] [address] 29 weeks gestation of *; [...] CPAP; awaiting new mask to arrive from [facility]. Last Assessment & Plan: Considerations: [...] mRNA, LNP-s, No Pre serve, 2-Dose Series ([employer]) 09/04/2020,08/14/2020 COVID-19, LNP-s, No Preserve , Mk-sucrose, Ages 12+ ([employer]) 03/18/2021 DTaP Dipth/Tet/Acell Pertussis ([employer]), Peds 11/21/1995,04/12/1992,01/24/1991,12/09,1990 [...] money to get more. Never true 12/11/2022 [place] Depression Scale Answer Date Recorded [place] Depression Scale Total 7 06/11/2023 The thought [...] No 12/11/2022 Does the household have a [facility] services[facility] source of income? (Household - for ages [...] pain and low back pain, following with hospice spiritual care coordinator,wearing support belt at home, not at work [...] Description 11/01/2023 9:30 AM EDT Office Visit [place] [place] Obstetrics Maternal Medicine, [address] [address] Franck Muñoz, [facility] [place] [address] 11/01/2023 9:30 AM EDT Imaging Radiology [address] [address] 11/08/2023 9:00 AM EDT Office Visit Gynecology/Obstetrics, [place] [address] [place] [address] María Salvador PA-C [address] [place] [address] 11/29/2023 9:45 AM EDT Office Visit [place] [place] Obstetrics Maternal Medicine, [address] [address] Franck Muñoz, [facility] [place] [address] 11/29/2023 9:45 AM EDT Imaging Radiology [address] [address] 02/13/2024 8:40 AM EDT Office Visit Dermatology, [place] [address] [place], [place] [phone] Luna New PA-C [address] [place] [address] 10/20/2024 8:00 AM EDT Office Visit Family Practice, [place] [address] [place] [phone] Ford Devine MD [address] [place] [address] Health Maintenance Due Date Last Done Comments [...] and were consensually agreed upon. Care Teams [place] Machine Operator Relationship Specialty Start Date End Date Ford Devine MD [address] [place] [phone] PCP - General Family Medicine 10/03/22 documented as of this encounter
--- OUTSIDE RECORDS SUMMARY | 2023-12-28 07:17 | External Medical Summary | Summary of Care ---
Author Name Unknown Organization [facility] Address [address] [facility] [place] [address] Phone [phone] Care Team Providers Care Information Clerk [employer] Name Role Phone Ford Devine MD Primary Care Provider [phone] Reason for Visit * Reason Comments Return Visit 23w 5d Encounter Details Date Type Department Care Team (Late st Contact Info) Description 09/11/2023 3:45 PM EDT Office Visit Gynecology/Obstetric Evy lopez [address] [address] María Salvador PA-C [address] [facility] [place] [address] 23 weeks gestation of *; Depression affecting in first trimester, antepartum; Encounter for supervision of normal first in first trimester; Obesity during ; , supervision, high-risk, first trimester; BMI 40.0-44.9, adult ([facility]); Anxiety during , antepartum; Obstructive sleep apnea of adult; Asthma during ; Elevated blood pressure reading without diagnosis of hypertension; Class 2 obesity; Pubic bone pain; Folliculitis of left axilla Allergies Active Allergy Reactions Criticality Noted Date Comments Penicillins Edema face/lips/tongue High 08/29/2001 Azithromycin Dihydrate Edema airway,Othe r (Please comment) High 11/24/2013 Trouble breathing documented as of this encounter (statuses as of 09/11/2023) Medications Medication Sig Dispensed Refills Start Date End Date Status ProAir HFA 108 (90 Base) MCG/ACT Inhalation Aerosol SolutionIndications :Bronchitis, complicated Inhale by mouth 2 Puffs every 4 hours as needed for Shortness of Breath or Wheezing. 18 g 08/23/2021 Active Additional Information Patient not taking.Reported on 10/03/2022 CPAP every night at bedtime. Auto 5-20 [...] MG Oral Capsule Take by mouth. Active Vitamin B-6 25 MG Oral Tablet Take by mouth. Active Sertraline HCl 50 [...] mg daily.. 30 Tablet 6 07/30/2023 Active documented as of this encounter (statuses as of 09/11/2023) Active Problems Problem Noted Date Diagnosed Date , supervision, high-risk, first trimest er 06/28/2023 BMI 40.0-44.9, adult 06/28/2023 Anxiety during [...] CPAP; awaiting new mask to arrive from [employer]. Last Assessment & Plan: Considerations: Obstructive sleep [...] Plan: She presents for follow-up of growth and completion of anatomy secondary to class 2 obesity, anxiety and depression, asthma, and sleep apnea. Today's ultrasound notes the following: The estimated weight is borderline large for gestational age in the 92nd percentile. The visualized anatomy is unremarkable in appearance. Much of the prior missed anatomy is better visualized, with no abnormalities appreciated. The amniotic fluid amount appears normal. Binge eating disorder 06/14/2022 Major depressive [...] as of this encounter (statuses as of 09/11/2023) Resolved Problems Problem Noted Date Diagnosed Date Resolved Date Abnormal uterine bleeding 05/13/2018 Status post hysteroscopy 05/13/2018 S/P dilatation and curettage 05/13/2018 06/11/2023 Endometrial polyp 05/13/2018 06/11/2023 documented as of this encounter (statuses as of 09/11/2023) Immunizations Name Administration Dates Next Due COVID-19 mRNA, LNP-s, No Pre serve, 2-Dose Series (Mfuse) 09/04/2020,08/14/2020 COVID-19, LNP-s, No Preserve , Mk-sucrose, Ages 12+ (Mfuse) 03/18/2021 DTaP Dipth/Tet/Acell Pertussis (Infanrix), Peds 11/21/1995,04/12/1992,01/24/1991,12/09,1990 HIB PRP-T, 4 dose (ActHib) 11/20/1991,,1990,09/30 HPV Vaccine, 4-Valent 04/29/2014,01/29/2012 HPV Vaccine, 9-Valent 01/26/2015 Hepatitis B, 0-19 yrs 11/22/1998,06/07/1998,04/17 IPV - Polio Virus Vaccine (Inact) 1995,04/12/1992,1990,09/30 MMR - Measles/Mumps/Rubella Vaccine 11/21/1995,0 11/20/1991 Meningococcal Conjugate Vacc ine (Menactra/Menveo) 04/02/2008 Seasonal Influenza, PF, 6 M & above, IM , (FluLaval or Fluzone) 07/13/2023,06/21/2021 Seasonal Influenza, Split, I IV3, With Preserve, Inj 01/29/2012 TDAP (age 11 and older)(Adacel) 01/29/2012 Tetanus Toxid Adsorbed 07/27/2004 documented as [...] Answer Date Recorded PHQ Adult Total Score 12 07/05/2022 Hunger Vital Sign Answer Date Recorded Within the past 12 months, y ou worried that your food would run out before you got the money to buy more. Never true 12/12/19 23 Within the past 12 months, t he food you bought just didn't last and you didn't have money to get more. Never true 12/11/2022 Corning Depression Scale Answer Date Recorded Corning Depression Scale Total 7 06/11/2023 The thought of harming myself has occurred to me . Never 06/11/2023 Estimated Date of Delivery Comme nts Yes [...] Sign Reading Time Taken Comments Blood Pressure 120/76 09/11/2023 3:50 PM EDT Pulse - - Temperature - - Respiratory Rate - - Oxygen Saturation - - Inhaled Oxygen Concentration - - Weight 112.7 kg (248 lb 6.4 oz) 09/11/2023 3:50 PM EDT Height - - Body Mass Index 41.89 06/11/2023 2:47 PM EST documented in this encounter Patient Instructions * Patient Instructions* María Salvador PA-C - 09/11/2023 4:20 PM EDT General Considerations Surrounding Immunization During The [employer] recommends routine assessment of each womans immunization status and administration of indicated immunizations. Importantly, evolving data demonstrate maternal and protection against an increasing number of aggressive pathogens through the use of maternal immunization, suggesting is an optimal time to immunize for disease prevention in women and newborns. There is no evidence of adverse effects from vaccinating women with an inactivated virus or bacterial vaccines or toxoids, and a growing body of robust data demonstrate safety of such use. Concomitant administration of indicated ever ctivated vaccines during (ie, Tdap and influenza) is also acceptable, safe, and may optimize effectiveness of immunization efforts. Furthermore, no evidence exists that suggests that any vaccine is associated with an increased risk of autism or adverse effects due to exposure to traces ofthe mercury- containing preservative thimerosal 23 24 25 26. The Tdap vaccines do not contain thimerosal. The benefits of inactivated vaccines outweigh any unproven potential concerns. It is importantto remember that live attenuated vaccines (eg, mqhbecg-xcyyo-luiuibe [MMR], varicella, and live attenuated influenza vaccine) do pose a theoretical risk (although never documented or proved) to the fetus and generally should be avoided during . The [employer] (ACOG) makes the following recommendations: Obstetric care providers should administer the tetanus toxoid, reduced diphtheria toxoid, and acellular pertussis (Tdap) vaccine to all patients during each , as early in the 49-68-yimaf-of-gestation window as possible. women should be counseled that the administration of the Tdap vaccine during each is safe and important to make sure that each receives the highest possible protection against pertussis at . Partners, family members, and caregivers should be offered the Tdap vaccine if they have notpreviously been vaccinated. Ideally, all family members should be vaccinated at least 2 weeks before coming in contact with the . If not administered during , the Tdap vaccine should be given immediately if the woman has never received a prior dose of Tdap as an adolescent, adult, or during a previous . Adapted from ACOG https://www.acog.org/en/Clinical/Clinical%20Guidance/Committee%20Opinion/Article s//Update%20o n%20Immunization%20and%20Pregnancy%20Tetanus%20Diphtheria%20and%20Pertussis%20Va ccination documented in this encounter Progress Notes * María Salvador PA-C - 09/11/2023 3:57 PM EDT Amelia Millan is a 33 year old female here for her routine OB appointment at 23w5d . Her Estimated Date of Delivery: 01/03/24 REVIEW OF SYSTEMS: She affirms some movement. Denies vaginal bleeding, LOF, N/V, headaches Reports 2 days ago noticed, two painful lumps under her left armpit. Notes they are tender, last shaved today. She reports a lot of pubic bone pain, centralized and sometimes radiating to her vagina, worse whengoing from sitting to standing position. She denies any vaginal discharge, pruritus, irritation, dysuria or hematuria, constipation. Encouraged support belt Schedule with [facility] on Sunday. PHYSICAL EXAM: Filed Vitals: 09/11/23 1550 BP: 120/76 Weight: 112.7 kg (248 lb 6.4 oz) ASSESSMENT/PLAN: (O99.341, F32.A) Depression affecting in first trimester, antepartum (Z68.41) BMI 40.0-44.9, adult (HCC) Plan: following with MFM NST weekly at 37 weeks, growth every 4 weeks (O99.340, F41.9) Anxiety during , antepartum (G47.33) Obstructive sleep apnea of adult (O99.519, J45.909) Asthma during (R03.0) Elevated blood pressure reading without diagnosis of hypertension Pubic bone pain - CULTURE, URINE, QUANTITATIVE - likely pubic symphysis pain due to location , ice to area, encouraged to discuss at her appt Sunday to focus on this area as well as her sciatica Folliculitis of left axilla - encouraged to stop shaving, warm compresses. No concern for cellulitis today. (Z3A.23) 23 weeks gestation of - we reviewed and ordered GTT and CBC for patient to complete between now and her next visit - reviewed recommendation for tdap vaccine at next visit, information given - RTO in 4 weeks María Salvador PA-C documented in this encounter Nursing Notes * Brandy Hussein LPN - 09/11/2023 3:52 PM EDT Chief Complaint Patient presents with Return Visit 23w 5d Reports a lot of pubic bone pain/pressure. About 2 days ago started to notice a lump x 2 in her left axilla area. ? Infection/swollen lymph node. States painful. documented in this encounter Plan of Treatment Upcoming Encounters Date Type Department Care Team (Late st Contact Info) Description 09/27/2023 11:00 AM EDT Telemedicine Nutrition & Weight Management, [facility] [address] [address] Tamie Arriaga PA-C [address] [address] 10/05/2023 3:15 PM EDT Office Visit [facility], [place] [address] [place] [address] Franck Muñoz DO [address] [place] [address] 10/05/2023 3:15 PM EDT Imaging Radiology [address] [address] 10/09/2023 7:40 AM EDT Office Visit [facility] [address] [facility] [place] [address] Ford Devine MD [address] [place] [address] 10/11/2023 3:30 PM EDT Office Visit Gynecology/Obstetrics, [place] [address] [place] [address] María Salvador PA-C [address] [place] [address] 10/23/2023 3:30 PM EDT Office Visit Gynecology/Obstetrics, [place] [address] [place] [address] María Salvador PA-C [address] [place] [address] 11/01/2023 9:45 AM EDT Office Visit [facility], [address] [address] Franck Muñoz DO [facility] [place] [address] 11/01/2023 9:45 AM EDT Imaging Radiology [facility], [address] [address] 11/29/2023 9:45 AM EDT Office Visit [facility], [place] [address] [place] [address] Franck Muñoz DO [address] [place] [address] 11/29/2023 9:45 AM EDT Imaging [facility] [place] [place] [address] [place] [address] 02/13/2024 8:40 AM EDT Office Visit Dermatology, Torie Salesn [address] [place] [address] [address] Luna New PA-C [address] [place] [address] [place] [address] Pending Results Name Type Priority Associated Diagnoses Date /Time CULTURE, URINE, QUANTITATIVE Lab Routine Pubic bone pain 09/11/2023 4:51 PM EDT Scheduled Orders Name Type Priority Associated Diagnoses Order Schedule URINALYSIS OBSTETRICS, POINT OF CARE Point of Care Testing - Unsolicited Results Routine , supervision, high-risk, first trimester Ordered: 09/11/2023 50-G GESTATIONAL GLUCOSE, 1 HOUR Lab Routine , supervision, high-risk, first trimester Expected: 10/12/2023 (Approximate), Expires: 10/11/2024 SYPHILIS ANTIBODY SCREEN WITH REFLEX TO RPR Lab Routine , supervision, high-risk, first trimester Expected: 10/12/2023 (Approximate), Expires: 10/11/2024 CBC WITH WBC DIFFERENTIAL AND ANEMIA REFLEX WORKUP Lab Routine , supervision, high-risk, first trimester Expected: 10/12/2023 (Approximate), Expires: 10/11/2024 Health Maintenance Due Date Last Done Comments Pneumococcal Vaccine: Pediat rics (0 to 5 Years) and At-Risk Patients (6 to 64 Years) (1 of 2 - PCV) 1996 HPV/Co-Test 2020 DTaP,Tdap,and Td Vaccines (7 - Td or Tdap) 01/28/2022 01/29/2012, 11/21/1995, 04/12/1992, Additional history exists Depression, Most Recent Scor e >= 10 (will fire each visit until score < 10) 07/06/2022 07/05/2022 COVID-19 Vaccine (4 - 2022-2 4 season) 2022 03/18/2021, 09/04/2020, 08/14/2020 *SPIROMETRY ONCE FOR ASTHMA-ADULT 06/30/2023 Cervical Cancer Screening 03/25/2024 Pap Smear 03/25/2024 03/25/2021, 03/16, 01/29/2012, Additional history exists Hepatitis B Completed 11/22/1998, 05/18, 05/10/1998 MENINGOCOCCAL (MENACTRA/MENVEO) Completed 8 GARDASIL-HPV IMMUNIZATION SERIES Completed 01/26/2015, 04/29/2014, 01/29/2012 Influenza Vaccine (FLU shot) Completed , 06/21/2021, 01/29/2012 documented as of this encounter Medical Devices Not on filedocumented as of this encounter Visit Diagnoses Diagnosis 23 weeks gestation of - Primary state, incidental Depression affecting in first trimester, antepartum Encounter for supervision of normal first in first trimester Supervision of normal first Obesity during , supervision, high-risk, first trimester BMI 40.0-44.9, adult (HCC) Body Mass Index 40.0-44.9, adult Anxiety during , antepartum Obstructive sleep apnea of adult Obstructive sleep apnea (adult) (pediatric) Asthma during Elevated blood pressure reading without diagnosis of hypertension Class 2 obesity Pubic bone pain Disorder of bone and cartilage, unspecified Folliculitis of left axilla documented in this encounter Advance Directives * Full Code (Latest Code Status on File) Date Activated Date Inactivated Comments 05/13/2018 8:55 AM 05/13/2018 2:15 PM This order r eflects the patients wishes and were consensually agreed upon. Care Teams Information Clerk [employer] Relationship Specialty Start Date End Date Ford Devine MD [address] [address] PCP - General Family Medicine 10/03/22 documented as of this encounter
--- OUTSIDE RECORDS SUMMARY | 2023-12-28 07:17 | External Medical Summary ---
Author Name Unknown Address Unknown Organization [id number][facility] [place] [address] [place] [id number] Laboratory Report Ordering Provider Test Date Status BOWENGAGAN 09/11/2023 16:51:28 Final Observation Date Value Abnormality Reference (Units) Status Bacteria identified in Specimen by Culture 09/11/2023 16:51:28 No significant growth Final Test: Culture, Urine, Quanti tative
Specimen Source: Urine, Clean Catch
Specimen Type: Urine
Specimen Date: 09/11/2023 1651
Result Date: 09/12/2023 1443
Result Status: Final result
Resulting Lab: [facility]
[address]
[facility] [address]

CULTURE

No significant growth

null Performing Location [facility] [place] [address] [facility] [address]
--- OUTSIDE RECORDS SUMMARY | 2023-12-28 07:17 | External Medical Summary ---
Author Name Unknown Address Unknown Organization [id number]:[facility] [place] [address] [place] [address] Laboratory Report Ordering Provider Test Date Status GAGAN WISEMAN 10/11/2023 15:21:59 Final Observation Date Value Abnormality Reference (Units ) Status Folic Acid 10/11/2023 15:21:59 19.1 >4.5 (ng/ mL) Final Performing Location [facility] - [address] [place] [address]
--- OUTSIDE RECORDS SUMMARY | 2023-12-28 07:17 | External Medical Summary ---
Author Name Unknown Address Unknown Organization [id number][facility] [place] [facility] [address] [place] [address] Laboratory Report Ordering Provider Test Date Status GAGAN WISEMNA 10/11/2023 15:21:59 Final Observation Date Value Abnormality Reference (Units ) Status Creatinine 10/11/2023 15:21:59 0.5 0.5-1.0 (mg/dL) Final Glomerular filtration rate/1.73 sq M.predicted [Volume Rate/Area] in Serum, Plasma or Blood by Creatinine-based formula (CKD-EPI) 10/11/2023 15:21:59 >90 >=60 (mL/min) Final eGFR is calculated based on the CKD-EPI 2020 equation Performing Location [facility] [place] [facility] [address] [place] [address]
--- OUTSIDE RECORDS SUMMARY | 2023-12-28 07:17 | External Medical Summary ---
Author Name Unknown Address Unknown Organization K01:[facility] - [address] [place] [address] Laboratory Report Ordering Provider Test Date Status GAGAN WISEMAN 10/11/2023 15:21:59 Final Observation Date Value Abnormality Reference (Units ) Status Ferritin 10/11/2023 15:21:59 12 Below low normal 13- 150 (ng/mL) Final Performing Location [facility] - [address] [place] [address]
--- OUTSIDE RECORDS SUMMARY | 2023-12-28 07:17 | External Medical Summary | Summary of Care ---
Author Name Unknown Organization [facility] Address [address] [place] [facility] [place] [address] Phone [phone] Care Team Providers Care Housing Director Name Role Phone Ford Devine MD Primary Care Provider [phone] Reason for Visit * Reason Comments Return Visit 23w 5d Encounter Details Date Type Department Care Team (Late st Contact Info) Description 09/11/2023 3:45 PM EDT Office Visit Gynecology/Obstetric Evy lopez [address] [place] [address] María Salvador PA-C [address] [facility] [place] [address] 23 weeks gestation of *; Depression affecting in first trimester, antepartum; Encounter for supervision of normal first in first trimester; Obesity during ; , supervision, high-risk, first trimester; BMI 40.0-44.9, adult ([facility]); Anxiety during , antepartum; Obstructive sleep apnea [...] CPAP; awaiting new mask to arrive from [employer]. Last Assessment & Plan: Considerations: Obstructive sleep [...] mRNA, LNP-s, No Pre serve, 2-Dose Series ([place]) 09/04/2020,08/14/2020 COVID-19, LNP-s, No Preserve , Mk-sucrose, Ages 12+ ([employer]) 03/18/2021 DTaP Dipth/Tet/Acell Pertussis (Infanrix), Peds 11/21/1995,04/12/1992,01/24/1991,12/09,1990 [...] money to get more. Never true 12/11/2022 Welch Depression Scale Answer Date Recorded Welch Depression Scale Total 7 06/11/2023 The thought [...] EDT General Considerations Surrounding Immunization During The [employer] recommends routine [...] importantto remember that live attenuated vaccines (eg, svlzfim-uoorq-ccgxplz [MMR], varicella, and live attenuated influenza vaccine) do pose a theoretical risk (although never documented or proved) to the fetus and generally should be avoided during . The [employer] (ACOG) makes the following recommendations: Obstetric care providers should administer the tetanus toxoid, reduced diphtheria toxoid, and acellular pertussis (Tdap) vaccine to all patients during each , as early in the 38-48-qvxjd-of-gestation window as possible. women should be counseled [...] hematuria, constipation. Encouraged support belt Schedule with [facility] on Sunday. PHYSICAL EXAM: Filed Vitals: 09/11/23 [...] AM EDT Telemedicine Nutrition & Weight Management, [facility] [address] [address] Tamie Arriaga PA-C [address] [address] 10/05/2023 3:15 PM EDT Office Visit [facility], [place] [address] [place] [address] Franck Muñoz DO [address] [place] [address] 10/05/2023 3:15 PM EDT Imaging Radiology [address] [address] 10/09/2023 7:40 AM EDT Office Visit [facility] 21 [facility] [place] [place] [address] Ford Devine MD [address] [place] [address] 10/11/2023 3:30 PM EDT Office Visit Gynecology/Obstetrics, [place] [address] [place] [address] María Salvador PA-C [address] [place] [address] 10/23/2023 3:30 PM EDT Office Visit Gynecology/Obstetrics, [place] [address] [place] [address] María Salvador PA-C [address] [place] [address] 11/01/2023 9:45 AM EDT Office Visit [facility], [address] [address] Franck Muñoz DO [facility] [place] [address] 11/01/2023 9:45 AM EDT Imaging Radiology [facility], [address] [address] 11/29/2023 9:45 AM EDT Office Visit [facility], [place] [address] [place] [address] Franck Muñoz DO [address] [place] [address] 11/29/2023 9:45 AM EDT [facility], [place] [address] [place] [address] 02/13/2024 8:40 AM EDT Office Visit Dermatology, Torie Salesn [address] [place] [address] [place] [address] Luna New PA-C [address] [place] [address] [place] [address] Pending Results Name Type Priority Associated Diagnoses [...] and were consensually agreed upon. Care Teams Housing Director Relationship Specialty Start Date End Date Ford Devine MD [address] [address] PCP - General Family Medicine 10/03/22 documented as of this encounter
--- OUTSIDE RECORDS SUMMARY | 2023-12-28 07:17 | External Medical Summary | Summary of Care ---
Author Name Unknown Organization [facility] Address [address] [place] [address] Phone [phone] Care Team Providers Care Corn Sheller Name Role Phone Ford Devine MD Primary Care Provider [phone] Reason for Visit * Reason Onset Date Comments Referral 06/11/2023 Encounter Details Date Type Department Care Team (Late st Contact Info) Description 06/11/2023 Telephone Architectural Practice Manager Obstetrics Maternal Medicine, [place] [address] [place], [place] [phone] [place], Nurse Architectural Practice Manager [facility] [address] [place], [place] [phone] Referral Allergies Active Allergy Reactions Criticality Noted Date Comments Penicillins Edema face/lips/tongue High 08/29/2001 Azithromycin Dihydrate Edema airway,Othe r (Please comment) High 11/24/2013 Trouble breathing documented as of this encounter (statuses as of 09/10/2023) Medications Medication Sig Dispensed Refills Start Date End Date Status ProAir HFA 108 (90 Base) MCG/ACT Inhalation Aerosol SolutionIndicatio ns:Bronchitis, complicated Inhale by mouth 2 Puffs every [...] before bedtime. 60 Tablet 2 05/04/2023 Active Sertraline HCl 50 MG Oral Tablet (Zoloft)Indicatio ns:Anxiety state,Moderate episode of recurrent major depressive disorder (HCC) Take 1 Tablet by mouth in the morning. 30 Tablet 2 05/08/2023 4 Discontinue d(Refill) Sertraline HCl 25 MG Oral Tablet (Zoloft)Indicatio ns:Encounter for supervision of normal first in first trimester Take 1 Tablet by mouth in the morning. Take with (1) 50 mg tablet for a total of 75 mg daily. 30 Tablet 6 06/11/2023 4 Discontinue d(Medicatio n/Dose Changed) documented as of this encounter (statuses as of 09/10/2023) Active Problems Problem Noted Date Diagnosed Date [...] CPAP; awaiting new mask to arrive from [facility]. Last Assessment & Plan: Considerations: [...] as of this encounter (statuses as of 09/10/2023) Resolved Problems Problem Noted Date Diagnosed Date Resolved Date Abnormal uterine bleeding 05/13/2018 Status post hysteroscopy 05/13/2018 S/P dilatation and curettage 05/13/2018 06/11/2023 Endometrial polyp 05/13/2018 06/11/2023 documented as of this encounter (statuses as of 09/10/2023) Immunizations Name Administration Dates Next Due COVID-19 mRNA, LNP-s, No Pre serve, 2-Dose Series (Navendis) 09/04/2020,08/14/2020 COVID-19, LNP-s, No Preserve , Mk-sucrose, [...] & above, IM , (FluLaval or Fluzone) 06/21/2021 Seasonal Influenza, Split, I IV3, With Preserve, [...] money to get more. Never true 12/11/2022 Advance Depression Scale Answer Date Recorded Advance Depression Scale Total 7 06/11/2023 The thought [...] encounter Miscellaneous Notes * Telephone Encounter - Yvonne Villar OSA - 06/13/2023 11:59 AM EST Spoke with Amelia. Appointment scheduled. Patient aware of date, time and location of Maternal Medicine appointment. * Telephone Encounter - Yvonne Villar OSA - 06/12/2023 8:12 AM EST Phone call to patient. Left message on Amelia's voice mail. Encouraged patient to return call to [facility] to assist with scheduling. Sent MyG * Telephone Encounter - Petty Anguiano CCMA - 06/11/2023 4:22 PM EST Estimated Date of Delivery: 01/03/24 Please schedule for 45 MINUTE CONSULT SIMPLE MEDICAL WITH BASEBALL PITCHER, in time frame of next available or atpatient's earliest convenience at location [facility] with the indication of class III obesity. Please schedule anatomy between 19-21 weeks (08/10/23-08/24/23). Referring Provider: María Salvador PA-C documented in this encounter Plan of Treatment Upcoming Encounters Date Type Department Care Team (Late st Contact Info) Description 09/11/2023 3:45 PM EDT Office Visit Gynecology/Obst[facility]s, [place] [facility] [address] María Salvador PA-C [facility] [address] 09/27/2023 11:00 AM EDT Telemedicine Nutrition & Weight Management, [facility] [address] [facility] [place] [address] Tamie Arriaga PA-C [facility] [place] [address] 10/05/2023 3:15 PM EDT Office Visit Architectural Practice Manager Obstetrics Maternal Medicine, [address] [address] Franck Muñoz [address] [place] [address] 10/05/2023 3:15 PM EDT Imaging [facility], [place] [address] 10/09/2023 7:40 AM EDT Office Visit [facility], [place] [address] [place] [phone] Ford Devine MD [address] [place] [address] 10/11/2023 3:30 PM EDT Office Visit Gynecology/Obstetrics, [place] [address] [place] [address] María Salvador PA-C [address] [place] [address] 10/23/2023 3:30 PM EDT Office Visit Gynecology/Obstetrics, [place] [address] [place] [address] María Salvador PA-C [address] [place] [address] 11/01/2023 9:45 AM EDT Office Visit Architectural Practice Manager Obstetrics Maternal Medicine, [address] [address] Franck Muñoz [address] [place] [address] 11/01/2023 9:45 AM EDT Imaging Radiology [address] [address] 11/29/2023 9:45 AM EDT Office Visit Architectural Practice Manager Obstetrics Maternal Medicine, [address] [address] Franck Muñoz [facility] [address] 11/29/2023 9:45 AM EDT Imaging Radiology [address] [address] 02/13/2024 8:40 AM EDT Office Visit Dermatology, [place] [address] [place] [address] [place] [address] Luna New PA-C [address] [address] [place] [address] Health Maintenance Due Date Last Done Comments [...] score < 10) 07/06/2022 07/05/2022 COVID-19 Vaccine (2022-2 4 season) 2022 03/18/2021, [...] and were consensually agreed upon. Care Teams Corn Sheller Relationship Specialty Start Date End Date Ford Devine MD [address] [place] [address] PCP - General Family Medicine 10/03/22 documented as of this encounter
--- OUTSIDE RECORDS SUMMARY | 2023-12-28 07:17 | External Medical Summary ---
Author Name Unknown Address Unknown Organization [id number]:[facility] [place] [address] [facility] [place] [address] Laboratory Report Ordering Provider Test Date Status GAGAN WISEMAN 10/11/2023 15:21:59 Final Observation Date Value Abnormality Reference (Units ) Status WBC, Total 10/11/2023 15:21:59 11.97 Above high normal 4 .00-10.80 (K/uL) Final RBC 10/11/2023 15:21:59 3.74 3.85-5.15 (M/uL) Final Hemoglobin 10/11/2023 15:21:59 11.1 Below low normal 12 .0-15.3 (g/dL) Final Anemia reflex testing trigge rs on a HGB < 12.0 for Females and HGB < 13.0 for Males in accordance with the WHO Anemia Guidelines
Anemia reflex testing triggers on a HGB < 12.0 for Females and HGB < 13.0 for Males in accordance with the WHO Anemia Guidelines HCT 10/11/2023 15:21:59 34.9 Below low normal 36. 0-45.2 (%) Final MCV 10/11/2023 15:21:59 93.3 81.5-97.5 (fL) Final MCH 10/11/2023 15:21:59 29.7 27.0-34.0 (pg) Final MCHC 10/11/2023 15:21:59 31.8 32.0-36.0 (g/dL) Final RDW 10/11/2023 15:21:59 12.9 11.5-15.5 (%) Final Platelets 10/11/2023 15:21:59 254 140-400 (K /uL) Final MPV 10/11/2023 15:21:59 10.0 6.6-11.1 ( fL) Final Nucleated erythrocytes/100 leukocytes [Ratio] in Blood by Automated count 10/11/2023 15:21:59 0 <=0 (/100 WBCs) Final Performing Location [facility] [place] [address] [facility] [address]
--- OUTSIDE RECORDS SUMMARY | 2023-12-28 07:17 | External Medical Summary ---
Author Name Unknown Address Unknown Organization [id number]:[facility] [place] [address] [place] [address] Laboratory Report Ordering Provider Test Date Status GAGAN WISEMAN 10/11/2023 15:21:59 Final Observation Date Value Abnormality Reference (Units ) Status Treponema pallidum Ab [Presence] in Serum by Immunoassay 10/11/2023 15:21:59 Nonreactive Nonreactive Final No serologic evidence of syp hilis. No additional testing clinicially indicated at this time. Consider repeat testing in 2-4 weeks if acute or primary syphilis is suspected. Performing Location [facility] [place] [address] [place] [address]
--- OUTSIDE RECORDS SUMMARY | 2023-12-28 07:17 | External Medical Summary ---
Author Name Unknown Address Unknown Organization [id number]:[facility]ATORY [facility] [place] - [address] [place] [address] [place] [address] Laboratory Report Ordering Provider Test Date Status GAGAN WISEMAN 10/11/2023 15:21:59 Final Observation Date Value Abnormality Reference (Units ) Status Retic, % (auto) 10/11/2023 15:21:59 2.64 Above high normal 0.80-1.90 (%) Final Reticulocytes, Absolute 10/11/2023 15:21:59 100.3 Above high normal 31.3-100.1 (K/uL) Final Reticulocyte fraction, immature 10/11/2023 15:21:59 29.2 Above high normal 2.5-20.6 (%) Final Reticulocyte HGB 10/11/2023 15:21:59 30.7 29.7-37.4 (pg) Final Performing Location LAB[facility]ATORY [facility] [place] - [address] [place] [address]
--- OUTSIDE RECORDS SUMMARY | 2023-12-28 07:17 | External Medical Summary ---
Author Name Unknown Address Unknown Organization [id number]:[facility] [place] [address] [place] [address] Laboratory Report Ordering Provider Test Date Status GAGAN WISEMAN 10/11/2023 15:21:59 Final Observation Date Value Abnormality Reference (Units ) Status SYNC LEUKOCYTES IN BLOOD BY AUTOMATED COUNT 10/11/2023 15:21:59 11.97 Above high normal 4.00-10.80 (K/uL) Final Segs 10/11/2023 15:21:59 73.6 40.0-75.0 (%) Final Lymphs % 10/11/2023 15:21:59 16.0 Below low normal 18.0-42.0 (%) Final Monos 10/11/2023 15:21:59 7.7 1.0-11.0 (%) Final Eosinophils 10/11/2023 15:21:59 0.8 0.0-6.0 (%) Final Basos 10/11/2023 15:21:59 0.3 0.0-2.0 (%) Final Immature Granulocyte, Percent 10/11/2023 15:21:59 1.6 0.0-2.0 (%) Final Absolute Segs 10/11/2023 15:21:59 8.81 Above high normal 1.80-7.70 (K/uL) Final Lymphs, absolute 10/11/2023 15:21:59 1.91 1.00-4.80 (K/ul) Final Monos, Abs 10/11/2023 15:21:59 0.92 0.00-1.10 (K/uL) Final Eos, Abs 10/11/2023 15:21:59 0.10 0.00-0.70 (K/uL) Final Basos, Abs 10/11/2023 15:21:59 0.04 0.00-0.20 (K/uL) Final Immature Granulocytes, Number 10/11/2023 15:21:59 0.19 0.00-0.20 (K/uL) Final Performing Location [facility] [place] - [facility] [address] [facility] [address]
--- OUTSIDE RECORDS SUMMARY | 2023-12-28 07:17 | External Medical Summary ---
Author Name Unknown Address Unknown Organization [id number]:[facility] [place] [address] [place] [address] Laboratory Report Ordering Provider Test Date Status GAGAN WISEMAN 10/11/2023 15:21:59 Final Observation Date Value Abnormality Reference (Units ) Status Vitamin B12 10/11/2023 15:21:59 660 181-3007 (pg/mL) Final Performing Location LABORATORY [facility] - [address] [place] [address]
--- OUTSIDE RECORDS SUMMARY | 2023-12-28 07:17 | External Medical Summary | Summary of Care ---
Author Name Unknown Organization [facility] Address [address] [place] [address] Phone [phone] Care Team Providers Care Meal Miller Name Role Phone Ford Devine MD Primary Care Provider [phone] Reason for Visit * Reason Comments Ultrasound Encounter Details Date Type Department Care Team (Late st Contact Info) Description 10/05/2023 3:15 PM EDT Office Visit Livestock Dealer Obstetrics Maternal Medicine, [place] [address] [place], [place] [phone] Franck Muñoz, DO [address] [place], [place] [phone] Obesity during *; Class 2 obesity; Asthma during ; Obstructive sleep apnea of adult Allergies Active Allergy Reactions Criticality Noted Date Comments Penicillins Edema face/lips/tongue High 08/29/2001 Azithromycin Dihydrate Edema airway,Othe r (Please comment) High 11/24/2013 Trouble breathing documented as of this encounter (statuses as of 10/05/2023) Medications Medication Sig Dispensed Refills Start Date [...] as of this encounter (statuses as of 10/05/2023) Active Problems Problem Noted Date Diagnosed Date [...] CPAP; awaiting new mask to arrive from [facility]. Last Assessment & Plan: Considerations: Obstructive sleep [...] as of this encounter (statuses as of 10/05/2023) Resolved Problems Problem Noted Date Diagnosed Date Resolved Date Abnormal uterine bleeding 05/13/2018 Status post hysteroscopy 05/13/2018 S/P dilatation and curettage 05/13/2018 06/11/2023 Endometrial polyp 05/13/2018 06/11/2023 documented as of this encounter (statuses as of 10/05/2023) Immunizations Name Administration Dates Next Due COVID-19 mRNA, LNP-s, No Pre serve, 2-Dose Series (Wheelz) 09/04/2020,08/14/2020 COVID-19, LNP-s, No Preserve , Mk-sucrose, Ages 12+ (Wheelz) 03/18/2021 DTaP Dipth/Tet/Acell Pertussis (Infanrix), Peds 11/21/1995,04/12/1992,01/24/1991,12/09,1990 [...] Split, I IV3, With Preserve, Inj 01/29/2012 TDAP, Age 7 and older, IM (Adacel) [...] money to get more. Never true 12/11/2022 [place] Depression Scale Answer Date Recorded [place] Depression Scale Total 7 06/11/2023 The thought [...] of this encounter Progress Notes * Franck Muñoz DO - 10/05/2023 3:57 PM EDT MATERNAL MEDICINE VISIT Amelia Millan presented today at 27w1d to [facility] for an ultrasound. She is being seen [...] unremarkable in appearance. The LUDMILA is normal. Obstructive sleep apnea of adult Asthma during Class 2 obesity I reviewed the ultrasound images. Amelia Millan was given the opportunity to meet with me if she had any questions. Please refer to the ultrasound report for additional details about today's ultrasound examination. RECOMMENDATIONS: Recommend surveillance starting at 37 weeks secondary to class II obesity. Recommend follow up ultrasound with [facility] in 4 weeks for growth. Thank you for allowing us to participate in the care of this patient. Please call with any questions. Franck Muñoz DO 10/05/2023 3:57 PM documented in this encounter Miscellaneous Notes * Assessment & Plan Note - Franck Muñoz DO - 10/05/2023 3:49 PM EDT Associated Problem(s): Obesity during She [...] Care Team (Late st Contact Info) Description 10/09/2023 7:40 AM EDT Office Visit [facility] [place] [address] [facility] [place] [address] Ford Devine MD [address] [place] [address] 10/11/2023 3:30 PM EDT Office Visit Gynecology/Obstetrics, [place] [address] [place] [address] Gale Cedeño CNM [address] [place] [address] 10/23/2023 3:30 PM EDT Office Visit Gynecology/Obstetrics, [place] [address] [place] [address] María Salvador PA-C [address] [place], [place] [phone] 11/01/2023 9:30 AM EDT Office Visit Livestock Dealer Obstetrics Maternal Medicine, [place] [address] [place] [address] Franck Muñoz DO [address] [place] [address] 11/01/2023 9:30 AM EDT Imaging Radiology [facility], [place] [address] [place] [address] 11/29/2023 9:45 AM EDT Office Visit Livestock Dealer Obstetrics Maternal Medicine, [place] [address] [place] [address] Franck Muñoz, [address] [place] [address] 11/29/2023 9:45 AM EDT Imaging Radiology [facility], [place] [address] [place] [address] 02/13/2024 8:40 AM EDT Office Visit Dermatology, [place] [address] [place], [place] [phone] Luna New PA-C [address] [place], [place] [phone] Health Maintenance Due Date Last Done Comments Pneumococcal Vaccine: Pediat rics (0 to 5 Years) and At-Risk Patients (6 to 64 Years) (1 of 2 - PCV) 1996 HPV/Co-Test 2020 DTaP,Tdap,and Td Vaccines (7 - Td or Tdap) 01/28/2022 01/29/2012, 11/21/1995, 04/12/1992, Additional history exists COVID-19 Vaccine (4 - 2022-2 4 season) 2022 03/18/2021, 09/04/2020, 08/14/2020 *SPIROMETRY ONCE FOR ASTHMA-ADULT 06/30/2023 Depression Monitoring 07/06/2023 07/05/2022 Cervical Cancer Screening 03/25/2024 Pap Smear 03/25/2024 03/25/2021, 03/16, 01/29/2012, Additional history exists Hepatitis B Completed 11/22/1998, 05/18, 05/10/1998 MENINGOCOCCAL (MENACTRA/MENVEO) Completed 8 GARDASIL-HPV IMMUNIZATION SERIES Completed 01/26/2015, 04/29/2014, 01/29/2012 Influenza Vaccine (FLU shot) Completed , 06/21/2021, 01/29/2012 documented as of this encounter Medical Devices Not on filedocumented as of this encounter Visit Diagnoses Diagnosis Obesity during - Primary Class 2 obesity Asthma during Obstructive sleep apnea of adult Obstructive sleep apnea (adult) (pediatric) documented in this encounter Advance Directives * Full Code (Latest Code Status on File) Date Activated Date Inactivated Comments 05/13/2018 8:55 AM 05/13/2018 2:15 PM This order r eflects the patients wishes and were consensually agreed upon. Care Teams Meal Miller Relationship Specialty Start Date End Date Ford Devine MD [address] [place] [address] PCP - General Family Medicine 10/03/22 documented as of this encounter
--- OUTSIDE RECORDS SUMMARY | 2023-12-28 07:17 | External Medical Summary ---
Author Name Unknown Address Unknown Organization K01:LABORATORY [facility] - [address] [place] [address] Laboratory Report Ordering Provider Test Date Status GAGAN WISEMAN 10/11/2023 15:21:59 Final Observation Date Value Abnormality Reference (Units ) Status TSH 10/11/2023 15:21:59 1.51 0.27-4.20 (uIU/mL) Final Performing Location LABORATORY [facility] - [address] [place] [address]
--- OUTSIDE RECORDS SUMMARY | 2023-12-28 07:17 | External Medical Summary ---
Author Name Unknown Address Unknown Organization K01:[facility] [place] - [address] [place] [address] Laboratory Report Ordering Provider Test Date Status GAGAN WISEMAN 10/11/2023 15:21:59 Final Observation Date Value Abnormality Reference (Units ) Status Iron 10/11/2023 15:21:59 53 33-151 (ug/dL) Final Iron-binding capacity 10/11/2023 15:21:59 427 Above high normal 250-425 (ug/dL) Final Transferrin Sat % 10/11/2023 15:21:59 12 Below low normal 15-55 (%) Final Performing Location LAB[facility]ORY [facility] [place] - [address] [place] [address]
--- OUTSIDE RECORDS SUMMARY | 2023-12-28 07:17 | External Medical Summary | Summary of Care ---
Author Name Unknown Organization [facility] Address [address] [place] [address] Phone [phone] Care Team Providers Care Call Center Operations Manager Name Role Phone Ford Devine MD Primary Care Provider [phone] Reason for Visit * Reason Comments Outpatient Testing Encounter Details Date Type Department Care Team (Late st Contact Info) Description 10/11/2023 2:20 PM EDT Laboratory Laboratory, [facility] [address] [place] [phone] [facility], Lab [address] [place] [address] , supervision, high-risk, first trimester Allergies Active Allergy Reactions Criticality Noted Date [...] Active Vitamin and Mineral 28-0.8 MG Oral TabletIndications:Melba bility to conceive, female Take by mouth. Active Propranolol HCl 20 MG Oral Tablet (Inderal) Take 1 Tablet by mouth in the morning and 1 Tablet before bedtime. 60 Tablet 2 05/04/2023 Active Riboflavin 100 MG Oral Capsule Take 1 Capsule by mouth in the morning. Active Probiotic 250 MG Oral Capsule Take by mouth. Active Sertraline HCl 50 MG Oral Tablet (Zoloft)Indications:A nxiety state,Moderate episode of recurrent major depressive disorder (HCC) Take 1 Tablet by mouth in the morning. 30 Tablet 5 07/04/2023 Active Aspirin 81 MG Oral Tablet Delayed Release (Aspirin Adult Low Dose) Take 1 Tablet by mouth in the morning. Active Sertraline HCl 25 MG Oral Tablet (Zoloft)Indications:D epression affecting in first trimester, antepartum Take 1 Tablet by mouth in the morning. With 50 mg tablet for a total of 75 mg daily.. 30 Tablet 6 07/30/2023 Active ProAir HFA 108 (90 Base) MCG/ACT Inhalation Aerosol SolutionIndications:M ild intermittent asthma without complication Inhale 2 Puffs by mouth every 4 hours as needed for Shortness of Breath or Wheezing. 18 g 10/09/2023 Active documented as of this encounter (statuses [...] CPAP; awaiting new mask to arrive from [facility] [employer]. Last Assessment & Plan: Considerations: Obstructive sleep [...] mRNA, LNP-s, No Pre serve, 2-Dose Series (ADTELLIGENCE) 09/04/2020,08/14/2020 COVID-19, LNP-s, No Preserve , Mk-sucrose, Ages 12+ (ADTELLIGENCE) 03/18/2021 DTaP Dipth/Tet/Acell Pertussis (Infanrix), Peds 11/21/1995,04/12/1992,01/24/1991,12/09,1990 [...] money to get more. Never true 12/11/2022 [place] Depression Scale Answer Date Recorded [place] Depression Scale Total 7 06/11/2023 The thought [...] 10/23/2023 3:30 PM EDT Office Visit Gynecology/Obstetrics, [place] [address] [place] [address] María Salvador PA-C [address] [place] [address] 11/01/2023 9:30 AM EDT Office Visit [facility]of Tiler Obstetrics Maternal Medicine, [address] [address] Franck Muñoz DO [address] [place] [address] 11/01/2023 9:30 AM EDT [facility] [place] [address] [place] [address] 11/29/2023 9:45 AM EDT Office Visit [facility] Obstetrics Maternal Medicine, [place] [address] [place] [address] Franck Muñoz DO [address] [place] [address] 11/29/2023 9:45 AM EDT Imaging Radiology [facility] [place], [place] [address] [place] [facility] [place] [address] 02/13/2024 8:40 AM EDT Office Visit Dermatology, [place] Alberto Saleswn [address] [place] [address] Luna New PA-C [address] [place] [phone] 10/20/2024 8:00 AM EDT Office Visit Family Practice, [place] [address] [place] [address] Ford Devine MD [address] [place] [address] Pending Results Name Type Priority Associated Diagnoses Date /Time 50-G GESTATIONAL GLUCOSE, 1 HOUR Lab Routine , supervision, high-risk, first trimester 10/11/2023 3:21 PM EDT SYPHILIS ANTIBODY SCREEN WITH REFLEX TO RPR Lab Routine , supervision, high-risk, first trimester 10/11/2023 3:21 PM EDT CBC WITH WBC DIFFERENTIAL AND ANEMIA REFLEX WORKUP Lab Routine , supervision, high-risk, first trimester 10/11/2023 3:21 PM EDT SYPHILIS ANTIBODY SCREEN Lab Routine , supervision, high-risk, first trimester 10/11/2023 3:21 PM EDT ANEMIA CBC Lab Routine , supervision, high-risk, first trimester 10/11/2023 3:21 PM EDT DIFFERENTIAL, AUTOMATED Lab Routine , supervision, high-risk, first trimester 10/11/2023 3:21 PM EDT ANEMIA REFLEX CHEMISTRY HOLD Lab Routine , supervision, high-risk, first trimester 10/11/2023 3:21 PM EDT Health Maintenance Due Date Last Done Comments Pneumococcal Vaccine: Pediat rics (0 to 5 Years) and At-Risk Patients (6 to 64 Years) (1 of 2 - PCV) 1996 HPV/Co-Test 2020 DTaP,Tdap,and Td Vaccines (7 - Td or Tdap) 01/28/2022 01/29/2012, 11/21/1995, 04/12/1992, Additional history exists COVID-19 Vaccine ( - 2022-2 4 season) 2022 03/18/2021, 09/04/2020, 08/14/2020 *SPIROMETRY ONCE FOR ASTHMA-ADULT 06/30/2023 Depression Monitoring 10/08/2024 10/09/2023 Cervical Cancer Screening 03/25/2026 Pap Smear 03/25/2026 03/25/2021, 03/16, 01/29/2012, Additional history exists Hepatitis B Completed 11/22/1998, 05/18, 05/10/1998 MENINGOCOCCAL (MENACTRA/MENVEO) Completed GARDASIL-HPV IMMUNIZATION SERIES Completed 01/26/2015, 04/29/2014, 01/29/2012 Influenza Vaccine (FLU shot) Completed , 06/21/2021, 01/29/2012 documented as of this encounter Medical Devices Not on filedocumented as of this encounter Visit Diagnoses Diagnosis , supervision, high-risk, first trimester documented in this encounter Advance Directives * Full Code (Latest Code Status on File) Date Activated Date Inactivated Comments 05/13/2018 8:55 AM 05/13/2018 2:15 PM This order r eflects the patients wishes and were consensually agreed upon. Care Teams Call Center Operations Manager Relationship Specialty Start Date End Date Ford Devine MD [address] [place] [address] PCP - General Family Medicine 10/03/22 documented as of this encounter
--- OUTSIDE RECORDS SUMMARY | 2023-12-28 07:17 | External Medical Summary | Summary of Care ---
Author Name Unknown Organization [facility] Address [address] [facility] [address] Phone [phone] Care Team Providers Care Counter Pocket Trimmer Name Role Phone Ford Devine MD Primary Care Provider [phone] [phone] Reason for Visit * Reason Comments Return Visit 23w 5d Encounter Details Date Type Department Care Team (Late st Contact Info) Description 09/11/2023 3:45 PM EDT Office Visit Gynecology/Obstetric Evy lopez [address] [place] [address] María Salvador PA-C 400 [facility] [place] [address] 23 weeks gestation of *; Depression affecting in first trimester, antepartum; Encounter for supervision of normal first in first trimester; Obesity during ; , supervision, high-risk, first trimester; BMI 40.0-44.9, adult ([facility]); Anxiety during , antepartum; Obstructive sleep [...] CPAP; awaiting new mask to arrive from [employer]. Last Assessment & Plan: Considerations: Obstructive sleep [...] mRNA, LNP-s, No Pre serve, 2-Dose Series ([employer]) 09/04/2020,08/14/2020 COVID-19, LNP-s, No Preserve , Mk-sucrose, Ages 12+ ([employer]) 03/18/2021 DTaP Dipth/Tet/Acell Pertussis (Infanrix), Peds 11/21/1995,04/12/1992,01/24/1991,12/09,1990 [...] money to get more. Never true 12/11/2022 [place] Depression Scale Answer Date Recorded [place] Depression Scale Total 7 06/11/2023 The thought [...] EDT General Considerations Surrounding Immunization During The [employer] recommends routine [...] importantto remember that live attenuated vaccines (eg, wgvvvyx-prvqd-folraqz [MMR], varicella, and live attenuated influenza vaccine) do pose a theoretical risk (although never documented or proved) to the fetus and generally should be avoided during . The [employer] (ACOG) makes the following recommendations: Obstetric care providers should administer the tetanus toxoid, reduced diphtheria toxoid, and acellular pertussis (Tdap) vaccine to all patients during each , as early in the 71-28-xtdso-of-gestation window as possible. women should be counseled [...] hematuria, constipation. Encouraged support belt [facility] PHYSICAL EXAM: Filed Vitals: [...] AM EDT Telemedicine Nutrition & Weight Management, [facility] [address] [address] Tamie Arriaga PA-C [address] [address] 10/05/2023 3:15 PM EDT Office Visit Infrastructure Analyst Obstetrics Maternal Medicine, [place] [address] [place] [address] Franck Muñoz DO [address] [place] [address] 10/05/2023 3:15 PM EDT Imaging Radiology [address] [address] 10/09/2023 7:40 AM EDT Office Visit [facility] 21 [facility] [place] [address] Ford Devine MD [address] [place] [address] 10/11/2023 3:30 PM EDT Office Visit Gynecology/Obstetrics, [place] [address] [place] [address] María Salvador PA-C [address] [place] [address] 10/23/2023 3:30 PM EDT Office Visit Gynecology/Obstetrics, [place] [address] [place] [address] María Salvador PA-C [address] [place] [address] 11/01/2023 9:45 AM EDT Office Visit Infrastructure Analyst Obstetrics Maternal Medicine, [address] [address] Franck Muñoz DO [facility] [place] [address] 11/01/2023 9:45 AM EDT Imaging Radiology [facility], [address] [address] 11/29/2023 9:45 AM EDT Office Visit Infrastructure Analyst Obstetrics Maternal Medicine, [place] [address] [place] [address] Franck Muñoz DO [address] [place] [address] 11/29/2023 9:45 AM EDT [facility], [place] [address] [place] [address] 02/13/2024 8:40 AM EDT Office Visit Dermatology, Torie Salesn [address] [place] [address] [place] [address] Luna New PA-C [address] [place] [address] [place] [address] Pending Results Name Type Priority Associated Diagnoses [...] and were consensually agreed upon. Care Teams Counter Pocket Trimmer Relationship Specialty Start Date End Date Ford Devine MD [address] [address] PCP - General Family Medicine 10/03/22 documented as of this encounter
--- OUTSIDE RECORDS SUMMARY | 2023-12-28 07:17 | External Medical Summary | Summary of Care ---
Author Name Unknown Organization [facility] Address [address] [place] [address] Phone [phone] Care Team Providers Care Non Emergency Services Ambulance Driver Name Role Phone Ford Devine MD Primary Care Provider [phone] [phone] Reason for Visit * Reason Comments Physical-Exam Encounter Details Date Type Department Care Team (Late st Contact Info) Description 10/09/2023 7:40 AM EDT Office Visit [facility] [address] [address] Ford Devine MD 21 [facility] [place] [address] Physical exam, routine*; Bronchitis, complicated; BMI 40.0-44.9, adult (HCC); Mild intermittent asthma without complication Allergies Active Allergy Reactions Criticality Noted Date Comments Penicillins Edema face/lips/tongue High 08/29/2001 Azithromycin Dihydrate Edema airway,Othe r (Please comment) High 11/24/2013 Trouble breathing documented as of this encounter (statuses as of 10/09/2023) Medications Medication Sig Dispensed Refills Start Date [...] Breath or Wheezing. 18 g 10/09/2023 Active ProAir HFA 108 (90 Base) MCG/ACT Inhalation Aerosol SolutionIndication s:Bronchitis, complicated Inhale by mouth 2 Puffs every 4 hours as needed for Shortness of Breath or Wheezing. 18 g 08/23/2021 10/09/2023 Discontinue d(Refill) Vitamin B-6 25 MG Oral Tablet Take by mouth. 10/09/2023 Discontin ue d(Medicatio n/Dose Changed) documented as of this encounter (statuses as of 10/09/2023) Active Problems Problem Noted Date Diagnosed Date [...] CPAP; awaiting new mask to arrive from [email or web address]. Last Assessment & Plan: Considerations: Obstructive sleep [...] as of this encounter (statuses as of 10/09/2023) Resolved Problems Problem Noted Date Diagnosed Date Resolved Date Abnormal uterine bleeding 05/13/2018 Status post hysteroscopy 05/13/2018 S/P dilatation and curettage 05/13/2018 06/11/2023 Endometrial polyp 05/13/2018 06/11/2023 documented as of this encounter (statuses as of 10/09/2023) Immunizations Name Administration Dates Next Due COVID-19 mRNA, LNP-s, No Pre serve, 2-Dose Series ([employer]) 09/04/2020,08/14/2020 COVID-19, LNP-s, No Preserve , Mk-sucrose, Ages 12+ ([employer]) 03/18/2021 DTaP Dipth/Tet/Acell Pertussis ([employer]an[employer]), Peds 11/21/1995,04/12/1992,01/24/1991,12/09,1990 [...] money to get more. Never true 12/11/2022 [place] Depression Scale Answer Date Recorded [place] Depression Scale Total 7 06/11/2023 The thought [...] No 12/11/2022 Does the household have a [facility] source of income? (Household - for [...] Sign Reading Time Taken Comments Blood Pressure 118/84 10/09/2023 7:53 AM EDT Pulse 92 10/09/2023 7:53 AM EDT Temperature 36.9 C (98.5 F) 10/09/2023 7:53 AM ED T Respiratory Rate 16 10/09/2023 7:53 AM EDT Oxygen Saturation 98% 10/09/2023 7:53 AM EDT Inhaled Oxygen Concentration - - Weight 114.7 kg (252 lb 12.8 oz) 10/09/2023 7:53 AM EDT Height 162.6 cm (5' 4") 10/09/2023 7:53 AM EDT Body Mass Index 43.39 10/09/2023 7:53 AM EDT documented in this encounter Progress Notes * Ford Devine MD - 10/09/2023 7:59 AM EDT Images from the original note were not included. History of Present Illness Amelia Millan is a 33 year old female that presents for Physical-Exam She is currently 27w5d . Reports all going well, he's growing well. 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 Going to chiropractor for maternal care which has helped. Also doing exercises at home. Exercise: has been trying to walk regularly. Using compression stockings, ice when getting home. Limited due to back pain regularly. Diet: feels diet is better than at baseline. Craving fruits and veggies. Now likes tomatoes for first time. Health maintenance due: Last dentist: no dental concerns, sees dentist regularly. Pneumococcal Vaccine: Pediatrics (0 to 5 Years) and At-Risk Patients (6 to 64 Years)(1 of 2 - PCV) Never done DTaP,Tdap,and Td Vaccines(7 - Td or Tdap) due on 01/28/2022- will get after 28 weeks. COVID-19 Vaccine(2022- season) due on 12/15/2022 Asthma just as kid, not issue during so far, but last week with heat did help some. Weight: up 34 lbs so far during . Not aware of weight goal given. Physical Exam Vitals: 10/09/23 0753 Temp: 36.9 C (98.5 F) Pulse: 92 Resp: 16 SpO2: 98% BP: 118/84 BMI: 43.37 Physical Exam Vitals and nursing note reviewed. Constitutional: Appearance: Normal appearance. She is obese. HENT: Head: Normocephalic and atraumatic. Right Ear: External ear normal. Left Ear: External ear normal. Eyes: Extraocular Movements: Extraocular movements intact. Pupils: Pupils are equal, round, and reactive to light. Cardiovascular: Rate and Rhythm: Normal rate and regular rhythm. Heart sounds: Normal heart sounds. Pulmonary: Effort: Pulmonary effort is normal. No respiratory distress. Breath sounds: Normal breath sounds. No stridor. No wheezing, rhonchi or rales. Abdominal: Comments: Gravid abdomen Musculoskeletal: General: Normal range of motion. Cervical back: Normal range of motion. Right lower leg: Edema (trace) present. Left lower leg: Edema (trace) present. Comments: Ambulates independently Wearing ankle compression sleves Skin: General: Skin is warm and dry. Neurological: General: No focal deficit present. Mental Status: She is alert and oriented to person, place, and time. Cranial Nerves: No cranial nerve deficit. Psychiatric: Mood and Affect: Mood normal. Behavior: Behavior normal. Thought Content: Thought content normal. I have reviewed the following results: cbc, urine studies Assessment and Plan Physical exam, routine Encouraged to establish with dentist for q6-12 month cleanings, 150 minutes cardiovascular exerciseweekly, limiting fats and carbohydrates in diet. Encouraged cancer screening and vaccines, ordered per below. BMI 40.0-44.9, adult (HCC) Discussed increased physical activity to 150 minutes weekly, reducing portion sizes, low/no carb diet, and cutting out "emtpy calories". Encouraged that she does not need to gain further weight in her , and should eat healthy. Encouraged after delivery. Mild intermittent asthma without complication Refilled albuterol for prn use. Heat and are trigger. Wrap-Up Time: I spent a total of 20-29 minutes (exact time 25 mins) on the date of service in preparation, delivery, and documentation of the care provided to Amelia Millan excluding any time spent in the performance of separately billed services. * Jaky Resendiz MED ASSIST - 10/09/2023 7:51 AM EDT Chief Complaint Patient presents with Physical-Exam Pt here for physical today. Pt denies any new concerns. Patient has been verbally educated on the need or importance of Immunizations: TDAP, Prevnar and has declined topic(s). documented in this encounter Plan of Treatment Upcoming Encounters Date Type Department Care Team (Late st Contact Info) Description 10/11/2023 3:30 PM EDT Office Visit Gynecology/Obstetrics, [place] [id number] Gale Cedeño CNM [address] [place] [address] 10/23/2023 3:30 PM EDT Office Visit Gynecology/Obstetrics, [place] [address] [place] [address] María Salvador PA-C [address] [place] [address] 11/01/2023 9:30 AM EDT Office Visit Shellfish Shucker Obstetrics Maternal Medicine, [place] [address] [place] [address] Franck Muñoz, [address] [place] [address] 11/01/2023 9:30 AM EDT Imaging Radiology [facility], [place] [address] [place] [address] 11/29/2023 9:45 AM EDT Office Visit Shellfish Shucker Obstetrics Maternal Medicine, [place] [address] [place] [address] Franck Muñoz, [address] [place] [address] 11/29/2023 9:45 AM EDT Imaging Radiology [place] [address] [place] [address] 02/13/2024 8:40 AM EDT Office Visit Dermatology, Q[address] [place] 27 [facility] 140 [place] [address] Luna New PA-C [facility] [address] [place] [place] [address] 10/20/2024 8:00 AM EDT Office Visit Family [facility], [place] [address] [phone] Ford Devine MD [address] [address] Health Maintenance Due Date Last Done Comments [...] as of this encounter Visit Diagnoses Diagnosis Physical exam, routine- Primary Routine general medical examination at a health care facility Bronchitis, complicated Bronchitis, not specified as acute or chronic BMI 40.0-44.9, adult (HCC) Body Mass Index 40.0-44.9, adult Mild intermittent asthma without complication Unspecified asthma documented in this encounter Advance Directives * Full Code (Latest Code Status on File) Date Activated Date Inactivated Comments 05/13/2018 8:55 AM 05/13/2018 2:15 PM This order r eflects the patients wishes and were consensually agreed upon. Care Teams Non Emergency Services Ambulance Driver Relationship Specialty Start Date End Date Ford Devine MD [address] [phone] PCP - General Family Medicine 10/03/22 documented as of this encounter
--- OUTSIDE RECORDS SUMMARY | 2023-12-28 07:17 | External Medical Summary ---
Author Name Unknown Address Unknown Organization K01:[facility] [place] [address] [address] Laboratory Report Ordering Provider Test Date Status GAGAN WISEMAN 10/11/2023 15:21:59 Final Observation Date Value Abnormality Reference (Units ) Status Glucose [Moles/volume] in Serum or Plasma --1 hour post 50 g glucose PO 10/11/2023 15:21:59 123 70-129 (mg/dL) Final Performing Location [facility] [place] [address] [place] [address]
--- OUTSIDE RECORDS SUMMARY | 2023-12-28 07:17 | External Medical Summary ---
Author Name Unknown Address Unknown Organization : Laboratory Report Ordering Provider Test Date Status GAGAN WISEMAN 09/11/2023 16:54:00 Final Observation Date Value Abnormality Reference (Units ) Status Color of Urine by Auto 09/11/2023 16:54:00 Yellow Light Yellow, Yellow Final Clarity, Urine 09/11/2023 16:54:00 Clear Clear Final Glucose [Mass/volume] in Urine by Automated test strip 09/11/2023 16:54:00 Negative Negative (mg/dL) Final Bilirubin.total [Presence] in Urine by Automated test strip 09/11/2023 16:54:00 Negative Negative Final Ketones [Mass/volume] in Urine by Automated test strip 09/11/2023 16:54:00 Negative Negative (mg/dL) Final Specific gravity, Urine 09/11/2023 16:54:00 1.010 1.003-1.030 Final Hemoglobin [Presence] in Urine by Automated test strip 09/11/2023 16:54:00 Negative Negative Final pH, Urine 09/11/2023 16:54:00 7.0 5.0, 5.5, 6.0, 6.5, 7.0, 7.5 (units) Final Protein [Mass/volume] in Urine by Automated test strip 09/11/2023 16:54:00 Negative Negative (mg/dL) Final Urobilinogen, Urine 09/11/2023 16:54:00 0.2 0.2, 1.0 (mg/dL) Final Nitrite [Presence] in Urine by Automated test strip 09/11/2023 16:54:00 Negative Negative Final Leukocyte esterase [Presence] in Urine by Automated test strip 09/11/2023 16:54:00 Negative Negative Final Performing Location
--- OUTSIDE RECORDS SUMMARY | 2023-12-28 07:18 | External Medical Summary | Summary of Care ---
Author Name Unknown Organization [facility] Address [address] [place] [address] Phone [phone] Care Team Providers Care Gluten Settling Tender Name Role Phone Ford Devine MD Primary Care Provider [phone] Reason for Visit * Reason Comments Outpatient Testing Encounter Details Date Type Department Care Team (Late st Contact Info) Description 08/30/2023 10:10 AM EDT Laboratory Laboratory, [facility] [address] [place] [phone] [facility], Lab [address] [place], [place] [id number] Gestational edema w/o hypertension complicating , antepartum; Pre-eclampsia, antepartum Allergies Active Allergy Reactions Criticality Noted Date Comments Penicillins Edema face/lips/tongue High 08/29/2001 Azithromycin Dihydrate Edema airway,Othe r (Please comment) High 11/24/2013 Trouble breathing documented as of this encounter (statuses as of 08/30/2023) Medications Medication Sig Dispensed Refills Start Date End Date Status ProAir HFA 108 (90 Base) MCG/ACT Inhalation Aerosol SolutionIndications :Bronchitis, complicated Inhale by mouth 2 Puffs every 4 hours as needed for Shortness of Breath or Wheezing. 18 g 0 08/23/2021 Active Additional Information Patient not taking.Reported on 10/03/2022 CPAP every night at bedtime. Auto 5-20 cm 0 Active Magnesium 200 MG Oral Tablet Take 1 Tablet by mouth in the morning. 0 Active Vitamin and Mineral 28-0.8 MG Oral TabletIndications:I nability to conceive, female Take by mouth. 0 Acti ve Propranolol HCl 20 MG Oral Tablet (Inderal) Take 1 Tablet by mouth in the morning and 1 Tablet before bedtime. 60 Tablet 2 05/04/2023 Active Riboflavin 100 MG Oral Capsule Take 1 Capsule by mouth in the morning. 0 Active Probiotic 250 MG Oral Capsule Take by mouth. 0 Active Vitamin B-6 25 MG Oral Tablet Take by mouth. 0 Active Sertraline HCl 50 MG Oral Tablet (Zoloft)Indications :Anxiety state,Moderate episode of recurrent major depressive disorder (HCC) Take 1 Tablet by mouth in the morning. 30 Tablet 5 07/04/2023 Active Aspirin 81 MG Oral Tablet Delayed Release (Aspirin Adult Low Dose) Take 1 Tablet by mouth in the morning. 0 Active Sertraline HCl 25 MG Oral Tablet (Zoloft)Indications :Depression affecting in first trimester, antepartum Take 1 Tablet by mouth in the morning. With 50 mg tablet for a total of 75 mg daily.. 30 Tablet 6 07/30/2023 Active documented as of this encounter (statuses as of 08/30/2023) Active Problems Problem Noted Date Diagnosed Date [...] awaiting new mask to arrive from [facility]. Last Assessment & Plan: Considerations: Obstructive [...] Last Assessment & Plan: She presents for a anatomy survey secondary to class 2 obesity, anxiety and depression, asthma, and sleep apnea. Labs reviewed: -- early 1 hour GCT normal -- cffDNA pending We reviewed the results of today's ultrasound. The estimated weight is appropriate for gestational age. The visualized anatomy is unremarkable in appearance. Some structures are suboptimally imaged secondary to position and poor acoustic windows. The amniotic fluid amount appears normal. We discussed that ultrasound is not able to identify all anomalies, but it is reassuring that no anomalies were seen today. Binge eating disorder 06/14/2022 Major depressive disorder, [...] as of this encounter (statuses as of 08/30/2023) Resolved Problems Problem Noted Date Diagnosed Date Resolved Date Abnormal uterine bleeding 05/13/2018 Status post hysteroscopy 05/13/2018 S/P dilatation and curettage 05/13/2018 06/11/2023 Endometrial polyp 05/13/2018 06/11/2023 documented as of this encounter (statuses as of 08/30/2023) Immunizations Name Administration Dates Next Due COVID-19 mRNA, LNP-s, No Pre serve, 2-Dose Series ([employer]) 09/04/2020,08/14/2020 COVID-19, LNP-s, No Preserve , Mk-sucrose, Ages 12+ ([employer]) 03/18/2021 DTaP Dipth/Tet/Acell Pertussis ([employer]), Peds 11/21/1995,04/12/1992,01/24/1991,12/09,1990 HIB PRP-T, 4 dose ([employer]) 11/20/1991,,1990,09/30 HPV Vaccine, 4-Valent 04/29/2014,01/29/2012 HPV Vaccine, 9-Valent 01/26/2015 Hepatitis B, 0-19 yrs 11/22/1998,06/07/1998, IPV - Polio Virus Vaccine ([employer]) 1995,04/12/1992,1990,09/30 [...] money to get more. Never true 12/11/2022 [place] Depression Scale Answer Date Recorded [place] Depression Scale Total 7 06/11/2023 The thought [...] Care Team (Late st Contact Info) Description 09/07/2023 7:45 AM EDT Office Visit Vmware Systems Administrator Obstetrics Maternal Medicine, [address] [place] [address] Franck Muñoz, DO [address] [facility] [place] [address] 09/07/2023 7:45 AM EDT Imaging Radiology [place] [address] [place] [address] 09/11/2023 3:45 PM EDT Office Visit Gynecology/Obstetrics, [place] [facility] [address] María Salvador PA-C 400 [facility] [place] [address] 09/27/2023 11:00 AM EDT Telemedicine Nutrition & Weight Management, [facility] [place] [address] Tamie Arriaga PA-C 132 [facility] [place] [address] 10/05/2023 3:15 PM EDT Office Visit [employer] Systems Administrator Obstetrics Maternal Medicine, [address] [address] Franck Muñoz, DO [address] [place] [address] 10/05/2023 3:15 PM EDT Imaging Radiology [place] [address] [place] [address] 10/09/2023 7:40 AM EDT Office Visit Family Practice, [place] [address] [phone] Ford Devine MD [address] [address] 10/11/2023 3:30 PM EDT Office Visit Gynecology/Obstetrics, [place] [address] [facility] [address] María Salvador PA-C 400 [facility] [place] [address] 10/23/2023 3:30 PM EDT Office Visit Gynecology/Obstetrics, [place] 400 [facility] [place] [place] [address] María Salvador PA-C [address] [place] [address] 11/01/2023 9:45 AM EDT Office Visit [employer] Systems Administrator Obstetrics Maternal Medicine, [address] [address] Franck Muñoz, [address] [place] [address] 11/01/2023 9:45 AM EDT Imaging Radiology [place] [address] [place] [address] 11/29/2023 9:45 AM EDT Office Visit Vmware Systems Administrator Obstetrics Maternal Medicine, [place] [address] [place] [address] Franck Muñoz, [address] [place] [address] 11/29/2023 9:45 AM EDT Imaging Radiology [place] [address] [place] [address] 02/13/2024 8:40 AM EDT Office Visit Dermatology, [address] [place] [address] [place] [phone] Luna New PA-C [address] [place] [place] [address] Pending Results Name Type Priority Associated Diagnoses Date /Time PLT Lab Routine Gestational edema w/o hypertension complicating , antepartum 08/30/2023 9:59 AM EDT URIC ACID Lab Routine Pre-eclampsia, antepartum 08/30/2023 9:59 AM EDT BILIRUBIN, DIRECT Lab Routine Pre-eclampsia, antepartum 08/30/2023 9:59 AM EDT Health Maintenance Due Date Last [...] as of this encounter Visit Diagnoses Diagnosis Gestational edema w/o hypertension complicating , antepartum Edema or excessive weight gain, antepartum Pre-eclampsia, antepartum documented in this encounter Advance Directives Latest Code Status on File Code Status Date Activated Date Inactivated Comments Full Code 05/13/2018 8:55 AM 05/13/2018 2:15 PM This order reflects the patients wishes and were consensually agreed upon. Care Teams Gluten Settling Tender Relationship Specialty Start Date End Date Ford Devine MD [address] [phone] PCP - General Family Medicine 10/03/22 documented as of this encounter
--- OUTSIDE RECORDS SUMMARY | 2023-12-28 07:18 | External Medical Summary | Summary of Care ---
Author Name Unknown Organization [facility] Address [address] [place] [address] Phone [phone] Care Team Providers Care Psychological Operations Officer Name Role Phone Ford Devine MD Primary Care Provider [phone] [phone] Reason for Visit * Reason Comments Ultrasound Encounter Details Date Type Department Care Team (Late st Contact Info) Description 08/17/2023 1:30 PM EDT Office Visit Train Operator Obstetrics Maternal Medicine, [place] [address], [place] [phone] Franck Muñoz, DO [address], [place] [phone] Obesity during *; Class 2 obesity; Asthma during ; Anxiety during , antepartum; Obstructive sleep apnea of adult; 20 weeks gestation of Allergies Active Allergy Reactions Criticality Noted Date Comments Penicillins Edema face/lips/tongue High 08/29/2001 Azithromycin Dihydrate Edema airway,Othe r (Please comment) High 11/24/2013 Trouble breathing documented as of this encounter (statuses as of 08/20/2023) Medications Medication Sig Dispensed Refills Start Date [...] as of this encounter (statuses as of 08/20/2023) Active Problems Problem Noted Date Diagnosed Date [...] CPAP; awaiting new mask to arrive from [facility]. Last Assessment & Plan: Considerations: Obstructive [...] as of this encounter (statuses as of 08/20/2023) Resolved Problems Problem Noted Date Diagnosed Date Resolved Date Abnormal uterine bleeding 05/13/2018 Status post hysteroscopy 05/13/2018 S/P dilatation and curettage 05/13/2018 06/11/2023 Endometrial polyp 05/13/2018 06/11/2023 documented as of this encounter (statuses as of 08/20/2023) Immunizations Name Administration Dates Next Due COVID-19 mRNA, LNP-s, No Pre serve, 2-Dose Series ([employer]) 09/04/2020,08/14/2020 COVID-19, LNP-s, No Preserve , Mk-sucrose, Ages 12+ ([employer]) 03/18/2021 DTaP Dipth/Tet/Acell Pertussis ([employer]), Peds 11/21/1995,04/12/1992,01/24/1991,12/09,1990 [...] money to get more. Never true 12/11/2022 [place]ea Depression Scale Answer Date Recorded [place] Depression Scale Total 7 06/11/2023 The thought [...] encounter Progress Notes * Franck Muñoz, - 08/17/2023 5:45 PM EDT MATERNAL MEDICINE VISIT Amelia Millan is at 20w1d who presents to [facility] for an ultrasound and follow-up of her high risk . PHYSICAL EXAM: General: pleasant, alert and oriented, no acute distress She is being seen today by Maternal- Medicine for the following reasons: Problem List Items Addressed This Visit Obesity during - Primary She presents for a anatomy survey secondary [...] identify all anomalies, but it is reassuring thatno anomalies were seen today. Anxiety during , antepartum Obstructive sleep apnea of adult Asthma during Class 2 obesity We reviewed today's ultrasound findings. (For full report, please refer to ultrasound report provided separately). Ms. Millan's questions were answered to her satisfaction. RECOMMENDATIONS: Recommend surveillance starting at 37 weeks secondary to class II obesity. Recommend follow up ultrasound with [facility] in 2-3 weeks for completion of anatomy. Thank you for allowing us to participate in the care of this patient. Please call with any questions. Franck Muñoz DO 08/17/2023 5:45 PM documented in this encounter Miscellaneous Notes * Assessment & Plan Note - Franck Muñoz DO - 08/17/2023 2:57 PM EDT Associated Problem(s): Obesity during She presents for a anatomy survey secondary [...] identify all anomalies, but it is reassuring thatno anomalies were seen today. documented in this encounter Plan of Treatment Upcoming Encounters Date Type Department Care Team (Late st Contact Info) Description 09/07/2023 7:45 AM EDT Office Visit Train Operator Obstetrics Maternal Medicine, [address] [address] Franck Muñoz DO [address] [place] [address] 09/07/2023 7:45 AM EDT Imaging Radiology [address] [address] 09/11/2023 3:45 PM EDT Office Visit Gynecology/Obstetrics, [place] [address] [place] [address] María Salvador PA-C [address] [place] [address] 09/27/2023 11:00 AM EDT Telemedicine Nutrition & Weight Management, [facility] [place] [address] Tamie Arriaga PA-C [facility] [place] [address] 10/05/2023 3:15 PM EDT Office Visit Train Operator Obstetrics Maternal Medicine, [address] [address] Franck Muñoz, [address] [place] [address] 10/05/2023 3:15 PM EDT Imaging Radiology [address] [address] 10/09/2023 7:40 AM EDT Office Visit Family [facility], [place] [address] [place] [phone] Ford Devine MD [address] [address] 10/11/2023 3:30 PM EDT Office Visit Gynecology/Obstetrics, [place] [address] [place] [address] María Salvador PA-C [address] [place] [address] 10/23/2023 3:30 PM EDT Office Visit Gynecology/Obstetrics, [place] [address] [place] [address] María Salvador PA-C [address] [place] [address] 11/01/2023 9:45 AM EDT Office Visit Train Operator Obstetrics Maternal Medicine, [address] [address] Franck Muñoz, [address] [place] [address] 11/01/2023 9:45 AM EDT Imaging Radiology [address] [address] 11/29/2023 9:45 AM EDT Office Visit Train Operator Obstetrics Maternal Medicine, [address] [address] Franck Muñoz, [facility] [place] [address] 11/29/2023 9:45 AM EDT Imaging Radiology [address] [address] 02/13/2024 8:40 AM EDT Office Visit Dermatology, [place] [address] [place] [address] [place], [place] [phone] Luna New PA-C [address] [place] [phone] Scheduled Orders Name Type Priority Associated Diagnoses Orde r Schedule MFM US PREG FOLLOW UP EACH FETUS Medical Imaging Routine Obesity during Class 2 obesity Expected: 08/17/2023, Expires: 09/16/2024 Health Maintenance Due Date Last Done Comments [...] - Primary Class 2 obesity Asthma during Anxiety during , antepartum Obstructive sleep apnea of adult Obstructive sleep apnea (adult) (pediatric) 20 weeks gestation of state, incidental documented in this encounter Advance Directives Latest Code Status on File Code Status Date Activated Date Inactivated Comments Full Code 05/13/2018 8:55 AM 05/13/2018 2:15 PM This order reflects the patients wishes and were consensually agreed upon. Care Teams Psychological Operations Officer Relationship Specialty Start Date End Date Ford Devine MD [address] [id number] PCP - General Family Medicine 10/03/22 documented as of this encounter
--- OUTSIDE RECORDS SUMMARY | 2023-12-28 07:18 | External Medical Summary | Summary of Care ---
Author Name Unknown Organization [facility] Address [address] [place] [address] Phone [phone] Care Team Providers Care Rail Grinder Name Role Phone Ford Devine MD Primary Care Provider [phone] Reason for Visit * Reason Comments Ultrasound Encounter Details Date Type Department Care Team (Late st Contact Info) Description 08/17/2023 1:30 PM EDT Office Visit Collet Maker Obstetrics Maternal Medicine, [place] [address] [place], [place] [phone] Franck Muñoz, DO [address] [place], [place] [phone] Obesity during *; Class 2 obesity; Asthma during ; Anxiety during , antepartum; Obstructive sleep apnea of adult; 20 weeks gestation of Allergies Active Allergy Reactions Criticality Noted Date Comments Penicillins Edema face/lips/tongue High 08/29/2001 Azithromycin Dihydrate Edema airway,Othe r (Please comment) High 11/24/2013 Trouble breathing documented as of this encounter (statuses as of 08/17/2023) Medications Medication Sig Dispensed Refills Start Date [...] as of this encounter (statuses as of 08/17/2023) Active Problems Problem Noted Date Diagnosed Date [...] CPAP; awaiting new mask to arrive from [facility]. Last Assessment & Plan: Considerations: Obstructive [...] as of this encounter (statuses as of 08/17/2023) Resolved Problems Problem Noted Date Diagnosed Date Resolved Date Abnormal uterine bleeding 05/13/2018 Status post hysteroscopy 05/13/2018 S/P dilatation and curettage 05/13/2018 06/11/2023 Endometrial polyp 05/13/2018 06/11/2023 documented as of this encounter (statuses as of 08/17/2023) Immunizations Name Administration Dates Next Due COVID-19 mRNA, LNP-s, No Pre serve, 2-Dose Series ([employer]) 09/04/2020,08/14/2020 COVID-19, LNP-s, No Preserve , Mk-sucrose, Ages 12+ ([employer]) 03/18/2021 DTaP Dipth/Tet/Acell Pertussis (Infanrix), Peds 11/21/1995,04/12/1992,01/24/1991,12/09,1990 [...] money to get more. Never true 12/11/2022 M[place]dy Depression Scale Answer Date Recorded [place] Depression Scale Total 7 06/11/2023 The thought [...] Millan is at 20w1d who presents to [facility] for an ultrasound and follow-up of her [...] II obesity. Recommend follow up ultrasound with [facility] in 2-3 weeks for completion of anatomy. [...] Description 09/07/2023 7:45 AM EDT Office Visit Collet Maker Obstetrics Maternal Medicine, [address] [address] Franck Muñoz DO [address] [place] [address] 09/07/2023 7:45 AM EDT Imaging Radiology [address] [address] 09/11/2023 3:45 PM EDT Office Visit Gynecology/Obstetrics, [place] 400 [place] [address] María Salvador PA-C [address] [place] [address] 09/27/2023 11:00 AM EDT Telemedicine Nutrition & Weight Management, [facility] [place] [address] Tamie Arriaga PA-C [facility] [place] [address] 10/05/2023 3:15 PM EDT Office Visit Collet Maker Obstetrics Maternal Medicine, [address] [address] Franck Muñoz, [address] [place] [address] 10/05/2023 3:15 PM EDT Imaging Radiology [address] [address] 10/09/2023 7:40 AM EDT Office Visit Family [facility], [place] [address] [phone] Ford Devine MD [address] [address] 10/11/2023 3:30 PM EDT Office Visit Gynecology/Obstetrics, [place] [address] [place] [address] María Salvador PA-C [address] [place] [address] 10/23/2023 3:30 PM EDT Office Visit Gynecology/Obstetrics, [place] [address] [place] [address] María Salvador PA-C [address] [place] [address] 11/01/2023 9:45 AM EDT Office Visit Collet Maker Obstetrics Maternal Medicine, [address] [address] Franck Muñoz, [address] [place] [address] 11/01/2023 9:45 AM EDT Imaging Radiology [address] [address] 11/29/2023 9:45 AM EDT Office Visit Collet Maker Obstetrics Maternal Medicine, [address] [address] Franck Muñoz, [place] [address] 11/29/2023 9:45 AM EDT Imaging Radiology [address] [address] 02/13/2024 8:40 AM EDT Office Visit Dermatology, [place] [address] [place] [address] [place], [place] [phone] Luna New PA-C [address] [place] [phone] Scheduled Orders Name Type Priority Associated Diagnoses [...] and were consensually agreed upon. Care Teams Rail Grinder Relationship Specialty Start Date End Date Ford Devine MD [address] [place] [place] [phone] PCP - General Family Medicine 10/03/22 documented as of this encounter
--- OUTSIDE RECORDS SUMMARY | 2023-12-28 07:18 | External Medical Summary ---
Author Name Unknown Address Unknown Organization [id number]:[facility] - [address] [place] [address] Laboratory Report Ordering Provider Test Date Status ESTEFANÍA ELISE 08/30/2023 09:59:48 Final Observation Date Value Abnormality Reference (Units ) Status Bilirubin, Direct 08/30/2023 09:59:48 <0.2 0. 0-0.3 (mg/dL) Final Performing Location [facility] - [address] [place] [address]
--- OUTSIDE RECORDS SUMMARY | 2023-12-28 07:18 | External Medical Summary | Summary of Care ---
Author Name Unknown Organization [facility] Address [address] [place] [address] Phone [phone] Care Team Providers Care Cementing Bulk Material Operator Name Role Phone Ford Devine MD Primary Care Provider [phone] Reason for Visit * Reason Comments Ultrasound Encounter Details Date Type Department Care Team (Late st Contact Info) Description 09/07/2023 7:45 AM EDT Office Visit Instructional Design Specialist Obstetrics Maternal Medicine, [place] [address] [place], [place] [phone] Franck Muñoz, DO [address], [place] [phone] Obesity during * Allergies Active Allergy Reactions Criticality Noted Date Comments Penicillins Edema face/lips/tongue High 08/29/2001 Azithromycin Dihydrate Edema airway,Othe r (Please comment) High 11/24/2013 Trouble breathing documented as of this encounter (statuses as of 09/07/2023) Medications Medication Sig Dispensed Refills Start Date [...] as of this encounter (statuses as of 09/07/2023) Active Problems Problem Noted Date Diagnosed Date [...] as of this encounter (statuses as of 09/07/2023) Resolved Problems Problem Noted Date Diagnosed Date Resolved Date Abnormal uterine bleeding 05/13/2018 Status post hysteroscopy 05/13/2018 S/P dilatation and curettage 05/13/2018 06/11/2023 Endometrial polyp 05/13/2018 06/11/2023 documented as of this encounter (statuses as of 09/07/2023) Immunizations Name Administration Dates Next Due COVID-19 mRNA, LNP-s, No Pre serve, 2-Dose Series ([employer]) 09/04/2020,08/14/2020 COVID-19, LNP-s, No Preserve , Mk-sucrose, [...] money to get more. Never true 12/11/2022 [place] Depression Scale Answer Date Recorded [place] Depression Scale Total 7 06/11/2023 The thought [...] encounter Progress Notes * Franck Muñoz, - 09/07/2023 8:48 AM EDT MATERNAL MEDICINE VISIT Amelia Millan presented today at 23w1d to [facility] for an ultrasound. She is being seen today by Maternal- Medicine for the following reasons: Problem List Items Addressed This Visit Obesity during - Primary She presents for follow-up of growth and completion of anatomy secondary to class 2 obesity, anxiety and depression, asthma, and sleep apnea. Today's ultrasound notes the following: The estimated weight is borderline large for gestational age in the 91st percentile. The visualized anatomy is unremarkable in appearance. Much of the prior missed anatomy is better visualized, with no abnormalities appreciated. The amniotic fluid amount appears normal. I reviewed the ultrasound images. Amelia Millan [...] call with any questions. Franck Muñoz DO 09/07/2023 8:48 AM documented in this encounter Miscellaneous Notes * Assessment & Plan Note - Franck Muñoz DO - 09/07/2023 8:33 AM EDT Associated Problem(s): Obesity during She presents for follow-up of growth and [...] appreciated. The amniotic fluid amount appears normal. documented in this encounter Plan of Treatment Upcoming Encounters Date Type Department Care Team (Late st Contact Info) Description 09/11/2023 3:45 PM EDT Office Visit Gynecology/Obstetrics, [place] [address] [address] María Salvador PA-C [address] [place] [address] 09/27/2023 11:00 AM EDT Telemedicine Nutrition & Weight Management, [address] [place] [address] Tamie Arriaga PA-C 132 [facility] [place] [address] 10/05/2023 3:15 PM EDT Office Visit Instructional Design Specialist Obstetrics Maternal Medicine, [place] [address] [place] [address] Franck Muñoz, [address] [place] [address] 10/05/2023 3:15 PM EDT [facility], [address] [address] 10/09/2023 7:40 AM EDT Office Visit [facility] [address] [place] [phone] Ford Devine MD [address] [place] [address] 10/11/2023 3:30 PM EDT Office Visit Gynecology/Obstetrics, [place] [address] [place] [address] María Salvador PA-C [address] [place] [address] 10/23/2023 3:30 PM EDT Office Visit Gynecology/Obstetrics, [place] 400 [place] [address] María Salvador PA-C [address] [place] [address] 11/01/2023 9:45 AM EDT Office Visit Instructional Design Specialist Obstetrics Maternal Medicine, [address] [address] Franck Muñoz, [address] [place] [address] 11/01/2023 9:45 AM EDT Imaging Radiology [facility], [place] [address] [place] [facility] [place] [address] 11/29/2023 9:45 AM EDT Office Visit Instructional Design Specialist Obstetrics Maternal Medicine, [place] [address] [place] [address] Franck Muñoz, [address] [place] [facility] [address] 11/29/2023 9:45 AM EDT Imaging Radiology [facility], [place] [address] [place] [facility] [place] [address] 02/13/2024 8:40 AM EDT Office Visit Dermatology, Evy Sales [address] [place], [place] [phone] Luna New PA-C [address] [place] [phone] Scheduled Orders Name Type Priority Associated Diagnoses Orde r Schedule MFM US PREG FOLLOW UP EACH FETUS Medical Imaging Routine Obesity during 6 Occurrences starting 09/07/2023 until 03/09/2024 Health Maintenance Due Date Last Done Comments [...] Visit Diagnoses Diagnosis Obesity during - Primary documented in this encounter Advance Directives * Full Code (Latest Code Status on File) Date Activated Date Inactivated Comments 05/13/2018 8:55 AM 05/13/2018 2:15 PM This order r eflects the patients wishes and were consensually agreed upon. Care Teams Cementing Bulk Material Operator Relationship Specialty Start Date End Date Ford Devine MD [address] [id number] PCP - General Family Medicine 10/03/22 documented as of this encounter
--- OUTSIDE RECORDS SUMMARY | 2023-12-28 07:18 | External Medical Summary ---
Author Name Unknown Address Unknown Organization K01:[facility] - [address] [place] [address] Laboratory Report Ordering Provider Test Date Status BOWENGAGAN 08/30/2023 09:59:48 Final Normal: <150 mg/ g creatinine
High: 150-500 mg/g creatinine
Very High: >500 mg/g creatinine
Nephrotic: >3000 mg/g creatinine Observation Date Value Abnormality Reference (Units ) Status Protein/Creatinine [Ratio] in Urine 08/30/2023 09:59:48 <143 <150 (mg/g ) Final Protein, Urine 08/30/2023 09:59:48 <4 (mg/dL) Final Creatinine, Urine 08/30/2023 09:59:48 28 (mg/dL) Final Performing Location [facility] - [address] [place] [address]
--- OUTSIDE RECORDS SUMMARY | 2023-12-28 07:18 | External Medical Summary | Summary of Care ---
Author Name Unknown Organization [facility] Address [address] [facility] [place] [address] Phone [phone] Care Team Providers Care Customer Development Manager Name Role Phone Ford Devine MD Primary Care Provider [phone] Encounter Details Date Type Department Care Team (Late st Contact Info) Description 08/29/2023 Telephone [facility] Gynecology and Obstetrics [address] [place] [address] Conchita Armstrong MD [address] [place] [address] Allergies Active Allergy Reactions Criticality Noted Date Comments Penicillins Edema face/lips/tongue High 08/29/2001 Azithromycin Dihydrate Edema airway,Othe r (Please comment) High 11/24/2013 Trouble breathing documented as of this encounter (statuses as of 08/29/2023) Medications Medication Sig Dispensed Refills Start Date [...] as of this encounter (statuses as of 08/29/2023) Active Problems Problem Noted Date Diagnosed Date [...] CPAP; awaiting new mask to arrive from [facility]. Last Assessment & Plan: Considerations: Obstructive sleep [...] as of this encounter (statuses as of 08/29/2023) Resolved Problems Problem Noted Date Diagnosed Date Resolved Date Abnormal uterine bleeding 05/13/2018 Status post hysteroscopy 05/13/2018 S/P dilatation and curettage 05/13/2018 06/11/2023 Endometrial polyp 05/13/2018 06/11/2023 documented as of this encounter (statuses as of 08/29/2023) Immunizations Name Administration Dates Next Due COVID-19 mRNA, LNP-s, No Pre serve, 2-Dose Series ([employer]) 09/04/2020,08/14/2020 COVID-19, LNP-s, No Preserve , Mk-sucrose, [...] money to get more. Never true 12/11/2022 [place] Depression Scale Answer Date Recorded [place] Depression Scale Total 7 06/11/2023 The thought [...] encounter Miscellaneous Notes * Telephone Encounter - Radha Tyler RN - 08/29/2023 3:57 PM EDT I spoke with pt on the phone is she is aware to monitor her BP and vision changes. Pt stated she isplanning to complete lab work tomorrow. Would you please order those additional labs for her? (LFTs and Uric Acid) Thank you! * Telephone Encounter - Conchita Armstrong MD - 08/29/2023 3:37 PM EDT Please tell the pt to keep monitoring her blood pressures, if vision issues continues the pt shouldbe checked. Total pr /cr ratio still pending. Pt should also get LFTs and uric acid etc. Few labs still pending, done today. documented in this encounter Plan of Treatment Upcoming Encounters Date Type Department Care Team (Late st Contact Info) Description 09/07/2023 7:45 AM EDT Office Visit Charge Account Identification Clerk Obstetrics Maternal Medicine, [address] [address] Franck Muñoz, [address] [place] [address] 09/07/2023 7:45 AM EDT Imaging Radiology [facility], [address] [address] 09/11/2023 3:45 PM EDT Office Visit Gynecology/Obstetrics, [place] [address] [place] [address] María Salvador PA-C [address] [place] [address] 09/27/2023 11:00 AM EDT Telemedicine Nutrition & Weight Management, [facility] [address] [place] [address] Tamie Arriaga PA-C [address] [place] [address] 10/05/2023 3:15 PM EDT Office Visit Charge Account Identification Clerk Obstetrics Maternal Medicine, [address] [address] Franck Muñoz, [address] [place] [address] 10/05/2023 3:15 PM EDT Imaging Radiology [facility] [address] [place] [address] 10/09/2023 7:40 AM EDT Office Visit [facility] [address] [place] [address] Ford Devine MD [address] [place] [address] 10/11/2023 3:30 PM EDT Office Visit Gynecology/Obstetrics, [place] [address] [place] [address] María Salvador PA-C [address] [place] [address] 10/23/2023 3:30 PM EDT Office Visit Gynecology/Obstetrics, [place] [address] [place] [address] María Salvador PA-C [address] [place] [address] 11/01/2023 9:45 AM EDT Office Visit Charge Account Identification Clerk Obstetrics Maternal Medicine, [place] [address] [place] [address] Franck Muñoz, [address] [place] [address] 11/01/2023 9:45 AM EDT Imaging Radiology [facility], [place] [address] [place] [address] 11/29/2023 9:45 AM EDT Office Visit Charge Account Identification Clerk Obstetrics Maternal Medicine, [place] [address] [place] [address] Franck Muñoz DO [address] [place] [address] 11/29/2023 9:45 AM EDT Imaging Radiology [facility], [place] [address] [place] [address] 02/13/2024 8:40 AM EDT Office Visit Dermatology, Evy Sales [address] [place] [phone] Luna New PA-C [address] [place] [address] Health Maintenance Due Date Last Done Comments [...] filedocumented as of this encounter Advance Directives Latest Code Status on File Code Status Date Activated Date Inactivated Comments Full Code 05/13/2018 8:55 AM 05/13/2018 2:15 PM This order reflects the patients wishes and were consensually agreed upon. Care Teams Customer Development Manager Relationship Specialty Start Date End Date Ford Devine MD [address] [id number] PCP - General Family Medicine 10/03/22 documented as of this encounter
--- OUTSIDE RECORDS SUMMARY | 2023-12-28 07:18 | External Medical Summary | Summary of Care ---
Author Name Unknown Organization [facility] Address [address] [place] [address] Phone [phone] Care Team Providers Care Surgical Specialist Name Role Phone Ford Devine MD Primary Care Provider [phone] [phone] Reason for Visit * Reason Comments Outpatient Testing Encounter Details Date Type Department Care Team (Late st Contact Info) Description 08/23/2023 10:00 AM EDT Laboratory Laboratory, [facility] [address] [place] [phone] [facility], Lab [address] [place] [address] Arrived Allergies Active Allergy Reactions Criticality Noted Date Comments Penicillins Edema face/lips/tongue High 08/29/2001 Azithromycin Dihydrate Edema airway,Othe r (Please comment) High 11/24/2013 Trouble breathing documented as of this encounter (statuses as of 08/23/2023) Medications Medication Sig Dispensed Refills Start Date [...] as of this encounter (statuses as of 08/23/2023) Active Problems Problem Noted Date Diagnosed Date [...] CPAP; awaiting new mask to arrive from [facility]. Last Assessment & Plan: Considerations: Obstructive sleep [...] as of this encounter (statuses as of 08/23/2023) Resolved Problems Problem Noted Date Diagnosed Date Resolved Date Abnormal uterine bleeding 05/13/2018 Status post hysteroscopy 05/13/2018 S/P dilatation and curettage 05/13/2018 06/11/2023 Endometrial polyp 05/13/2018 06/11/2023 documented as of this encounter (statuses as of 08/23/2023) Immunizations Name Administration Dates Next Due COVID-19 mRNA, LNP-s, No Pre serve, 2-Dose Series ([employer]) 09/04/2020,08/14/2020 COVID-19, LNP-s, No Preserve , Mk-sucrose, [...] money to get more. Never true 12/11/2022 Cartwright Depression Scale Answer Date Recorded Cartwright Depression Scale Total 7 06/11/2023 The thought [...] Description 09/07/2023 7:45 AM EDT Office Visit Software Development Project Manager Obstetrics Maternal Medicine, [place] [address] [facility] [place] [address] Franck Muñoz, DO [address] [place] [address] 09/07/2023 7:45 AM EDT Imaging Radiology [place] [address] [place] [address] 09/11/2023 3:45 PM EDT Office Visit Gynecology/Obstetrics, [place] [address] [facility] [place] [address] María Salvador PA-C [address] [facility] [place] [address] 09/27/2023 11:00 AM EDT Telemedicine Nutrition & Weight Management, [facility] [place] [address] Tamie Arriaga PA-C 132 [place] [address] 10/05/2023 3:15 PM EDT Office Visit Software Development Project Manager Obstetrics Maternal Medicine, [address] [address] Franck Muñoz, [address] [place] [address] 10/05/2023 3:15 PM EDT Imaging Radiology [address] [address] 10/09/2023 7:40 AM EDT Office Visit [facility], [place] [address] [place] [phone] Ford Devine MD [address] [place] [address] 10/11/2023 3:30 PM EDT Office Visit Gynecology/Obstetrics, [place] [facility] [place] [address] María Salvador PA-C [address] [place] [address] 10/23/2023 3:30 PM EDT Office Visit Gynecology/Obstetrics, [place] [address] [place] [address] María Salvador PA-C [address] [place] [address] 11/01/2023 9:45 AM EDT Office Visit Software Development Project Manager Obstetrics Maternal Medicine, [place] [address] [place] [address] Franck Muñoz, [address] [place] [address] 11/01/2023 9:45 AM EDT Imaging Radiology [place] [address] [place] [address] 11/29/2023 9:45 AM EDT Office Visit Software Development Project Manager Obstetrics Maternal Medicine, [place] [address] [place] [address] Franck Muñoz, [address] [place] [address] 11/29/2023 9:45 AM EDT Imaging Radiology [place] [address] [place] [address] 02/13/2024 8:40 AM EDT Office Visit Dermatology, [place] [address] [place] [address] [place] [phone] Luna New PA-C [address] [place] [address] Health Maintenance Due Date Last Done Comments [...] and were consensually agreed upon. Care Teams Surgical Specialist Relationship Specialty Start Date End Date Ford Devine MD [address] [place] [phone] PCP - General Family Medicine 10/03/22 documented as of this encounter
--- OUTSIDE RECORDS SUMMARY | 2023-12-28 07:18 | External Medical Summary ---
Author Name Unknown Address Unknown Organization : Laboratory Report Ordering Provider Test Date Status GAGAN WISEMAN 08/23/2023 10:00:16 Final Observation Date Value Abnormality Reference (Units ) Status INTERPRETATION 08/23/2023 10:00:16 SEE BELOW Final Screen negative for open NTD . RISK FOR ONTD 08/23/2023 10:00:16 1:1130 Final CALC'D GESTATIONAL AGE 0508/23/2023 10:00:16 21 Final AFP, SERUM 08/23/2023 10:00:16 73.8 (ng/mL) Final AFP MOM 08/23/2023 10:00:16 1.49 Final Reference Range:
NTD <2 .50
IDD <1.90
TWINS <4.00
TWINS IDD <3.50
TRIPLETS <4.50
The AFP test result indicates that this patient is
screen negative for open NTD. It should be noted
that normal test results can never guarantee the
of a normal baby and that 2-3% of newborns
have some type of physical or mental defect, many
of which are undetectable through any known
diagnostic technique.
This is a screening test, not a diagnostic test.
This risk assessment report is based in part on
demographic data provided by the ordering
physician. Please notify the laboratory promptly
if any data are incorrect. For assistance with
recalculations, please call your local [facility] laboratory. For assistance with
interpretation of these results, please contact
your Local [facility] genetic counselor or
call [phone] ([phone]).
Interpretive Cutoffs
Screen Positive for Open NTD:
> or = 2.50 adjusted MOM
> or = 1.90 adjusted MOM for insulin-dependent diabetics
> or = 4.00 adjusted MOM for twins
> or = 3.50 adjusted MOM for twins insulin-dependent diabetics
> or = 4.50 adjusted MOM for triplets
For additional information, please refer to
[email or web address]
(This link is being provided for
informational/educational purposes only.) DATE OF 08/23/2023 10:00:16 1990 Final COLLECTION DATE 08/23/2023 10:00:16 08/23/2023 Final MATERNAL WEIGHT 08/23/2023 10:00:16 244 (lbs ) Final EST'D DATE OF DELIVERY 08/23/2023 10:00:16 01/03/2024 Final CAROL DETERMINED BY 08/23/2023 10:00:16 LMP Final MOTHER'S ETHNIC ORIGIN 08/23/2023 10:00:16 WHITE Final NUMBER OF FETUSES 08/23/2023 10:00:16 1 Final INSULIN DEPEND DIABETIC 08/23/2023 10:00:16 NO Final REPEAT SPECIMEN 08/23/2023 10:00:16 NO Final HX OF NEURAL TUBE DEFECTS 08/23/2023 10:00:16 NO Final PREV DOWN SYND 08/23/2023 10:00:16 NO Final DONOR EGG 08/23/2023 10:00:16 NO Final DONOR AGE: EGG RETRIEVAL 08/23/2023 10:00:16 NOT GIVEN Final Test performed by [facility]
[address],
[place] [address]

Lithograph Designer: Viji Moralez MD,PHD,MADELINE
Test Reported by [facility],
[facility],
[address] [place], [place]
Waqas Jay M.D., Ph.D., Director of Laboratories
, CLIA [id number] Performing Location
--- OUTSIDE RECORDS SUMMARY | 2023-12-28 07:18 | External Medical Summary | Summary of Care ---
Author Name Unknown Organization [facility] Address [address] [place] [place] [place] [address] Phone [phone] Care Team Providers Care Fireworks Assembly Supervisor Name Role Phone Ford Devine MD Primary Care Provider [phone] Encounter Details Date Type Department Care Team (Late st Contact Info) Description 08/29/2023 Telephone [facility] Gynecology and Obstetrics [address] [place] [address] Conchita Armstrong MD [address] [place] [address] Allergies Active Allergy Reactions Criticality Noted Date [...] CPAP; awaiting new mask to arrive from [facility]. Last Assessment & Plan: Considerations: Obstructive sleep [...] mRNA, LNP-s, No Pre serve, 2-Dose Series ([employer]) 09/04/2020,08/14/2020 COVID-19, LNP-s, No Preserve , Mk-sucrose, [...] money to get more. Never true 12/11/2022 [place] Depression Scale Answer Date Recorded [place] Depression Scale Total 7 06/11/2023 The thought [...] encounter Miscellaneous Notes * Telephone Encounter - Conchita Armstrong MD - 08/29/2023 6:52 PM EDT Uric acid, LFTs ordered documented in this encounter Plan of Treatment Upcoming Encounters Date Type Department Care Team (Late st Contact Info) Description 09/07/2023 7:45 AM EDT Office Visit [employer] Obstetrics Maternal Medicine, [address] [address] Franck Muñoz, [address] [address] 09/07/2023 7:45 AM EDT Imaging Radiology [address] [address] 09/11/2023 3:45 PM EDT Office Visit Gynecology/Obstetrics, [place] 400 [facility] [place] [address] María Salvador PA-C [address] [place] [address] 09/27/2023 11:00 AM EDT Telemedicine Nutrition & Weight Management, [facility] [address] [facility] [address] Tamie Arriaga PA-C 132 [place] [address] 10/05/2023 3:15 PM EDT Office Visit [employer] Obstetrics Maternal Medicine, [address] [address] Franck Muñoz, [address] [address] 10/05/2023 3:15 PM EDT Imaging Radiology [facility], [address] [address] 10/09/2023 7:40 AM EDT Office Visit Family [facility], [place] [address] [place] [phone] Ford Devine MD [address] [place] [address] 10/11/2023 3:30 PM EDT Office Visit Gynecology/Obstetrics, [place] [address] [place] [address] María Salvador PA-C [address] [place] [address] 10/23/2023 3:30 PM EDT Office Visit Gynecology/Obstetrics, [place] [address] [place] [address] María Salvador PA-C [address] [place] [address] 11/01/2023 9:45 AM EDT Office Visit [employer] Obstetrics Maternal Medicine, [place] [address] [place] [address] Franck Muñoz, [address] [place] [address] 11/01/2023 9:45 AM EDT Imaging Radiology [place] [address] [place] [address] 11/29/2023 9:45 AM EDT Office Visit [employer] Obstetrics Maternal Medicine, [place] [address] [place] [address] Franck Muñoz, [address] [place] [address] 11/29/2023 9:45 AM EDT Imaging Radiology [facility] [address] [place] [address] 02/13/2024 8:40 AM EDT Office Visit [place] [address] [place] [address] [place] [phone] Luna New PA-C [address] [place] [address] [place] [phone] Scheduled Orders Name Type Priority Associated Diagnoses Orde r Schedule HEPATIC FUNCTION PANEL Lab Routine Pre-eclampsia, antepartum Expected: 08/29/2023, Expires: 09/29/2023 URIC ACID Lab Routine Pre-eclampsia, antepartum Expected: 08/29/2023, Expires: 09/29/2023 Health Maintenance Due Date Last Done Comments [...] as of this encounter Visit Diagnoses Diagnosis Pre-eclampsia, antepartum- Primary documented in this encounter Advance Directives Latest Code Status on File Code Status Date Activated Date Inactivated Comments Full Code 05/13/2018 8:55 AM 05/13/2018 2:15 PM This order reflects the patients wishes and were consensually agreed upon. Care Teams Fireworks Assembly Supervisor Relationship Specialty Start Date End Date Ford Devine MD [address] [place] [phone] PCP - General Family Medicine 10/03/22 documented as of this encounter
--- OUTSIDE RECORDS SUMMARY | 2023-12-28 07:18 | External Medical Summary ---
Author Name Unknown Address Unknown Organization K01:LABORATORY [facility] - [address] [place] [address] Laboratory Report Ordering Provider Test Date Status ESTEFANÍA ELISE 08/30/2023 09:59:48 Final Observation Date Value Abnormality Reference (Units ) Status Uric Acid 08/30/2023 09:59:48 3.3 2.4-5.7 (m g/dL) Final Performing Location LABORATORY [facility] - [address] [place] [address]
--- OUTSIDE RECORDS SUMMARY | 2023-12-28 07:18 | External Medical Summary | Summary of Care ---
Author Name Unknown Organization [facility] Address [address] [place] [address] Phone [phone] Care Team Providers Care Patcher Wood Welder Name Role Phone Ford Devine MD Primary Care Provider [phone] Reason for Visit * Reason Comments Return Visit 19w4d Encounter Details Date Type Department Care Team (Late st Contact Info) Description 08/13/2023 3:30 PM EDT Office Visit Gynecology/Obstetric [place] [facility] [place] [address] María Salvador PA-C 400 [place] [address] Encounter for supervision of normal first in first trimester*; Depression affecting in first trimester, antepartum; Obesity during ; , supervision, high-risk, first trimester; BMI 40.0-44.9, adult ([facility]); Anxiety during in first trimester, antepartum; Obstructive sleep apnea of adult; Asthma affecting in first trimester; Elevated blood pressure reading without diagnosis of hypertension; Class 2 obesity Allergies Active Allergy Reactions Criticality Noted Date Comments Penicillins Edema face/lips/tongue High 08/29/2001 Azithromycin Dihydrate Edema airway,Othe r (Please comment) High 11/24/2013 Trouble breathing documented as of this encounter (statuses as of 08/13/2023) Medications Medication Sig Dispensed Refills Start Date [...] as of this encounter (statuses as of 08/13/2023) Active Problems Problem Noted Date Diagnosed Date , supervision, high-risk, first trimest er 06/28/2023 BMI 40.0-44.9, adult 06/28/2023 Anxiety during in first trimester, ant epartum 06/28/2023 Overview: Follows with Psychiatry for medication [...] CPAP; awaiting new mask to arrive from [facility]. Last Assessment & Plan: Considerations: Obstructive sleep [...] Provigil (modafinil) in and in . Asthma affecting in first trimester Overview: Patient reports exercise-induced asthma in childhood [...] GCT 120 mg/dL Last Assessment & Plan: CONSIDERATIONS: Discussed obstetrical risks associated with class II obesity (pre- BMI of 35 to 39.9) Reviewed that the accuracy of ultrasound at diagnosing anomalies is significantly decreased for women with an increased BMI. RECOMMENDATIONS: Recommend restricting weight gain during to 11-20 pounds. Patient should be referred for a nutrition consult. Recommend evaluation for signs and symptoms (snoring, excessive daytime sleepiness witnessed apnea or unexplained hypoxia) of obstructive sleep apnea. If any of these are present, referral to Sleep Medicine specialist for further evaluation should be considered. Recommend repeating gestational diabetes mellitus screen again at 26-28 weeks. Recommend Maternal- Medicine ultrasound for anatomy at 20 weeks and for growth every 4 weeks thereafter. For patients with Class 2 obesity, we recommend weekly surveillance starting at 37 weeks. Binge eating disorder 06/14/2022 Major depressive disorder, [...] as of this encounter (statuses as of 08/13/2023) Resolved Problems Problem Noted Date Diagnosed Date Resolved Date Abnormal uterine bleeding 05/13/2018 Status post hysteroscopy 05/13/2018 S/P dilatation and curettage 05/13/2018 06/11/2023 Endometrial polyp 05/13/2018 06/11/2023 documented as of this encounter (statuses as of 08/13/2023) Immunizations Name Administration Dates Next Due COVID-19 mRNA, LNP-s, No Pre serve, 2-Dose Series ([employer]) 09/04/2020,08/14/2020 COVID-19, LNP-s, No Preserve , Mk-sucrose, Ages 12+ ([employer]) 03/18/2021 DTaP Dipth/Tet/Acell Pertussis ([employer]), Peds 11/21/1995,04/12/1992,01/24/1991,12/09,1990 [...] money to get more. Never true 12/11/2022 Wyatt Depression Scale Answer Date Recorded Wyatt Depression Scale Total 7 06/11/2023 The thought [...] Sign Reading Time Taken Comments Blood Pressure 116/62 08/13/2023 3:39 PM EDT Pulse - - Temperature 37.2 C (99 F) 08/13/2023 3:39 PM EDT Respiratory Rate - - Oxygen Saturation - - Inhaled Oxygen Concentration - - Weight 111.1 kg (245 lb) 08/13/2023 3:39 PM EDT Height - - Body Mass Index 41.32 06/11/2023 2:47 PM EST documented in this encounter Patient Instructions * Patient Instructions* María Salvador PA-C - 08/13/2023 3:51 PM EDT Pelvic Floor Therapy [facility] [address] [facility] [address] [facility] [address] [facility] [place] [address] [facility] [address] [facility], [address] [facility] [place] Pelvic Ml ; Prudence Mercado [facility] [address] [facility] , [address] [facility] [email or web address] Eulalio Mac ; Steffany Hannon [address] [facility] [place]O [place] [facility] [address] [facility], [place] [address] [facility] Physical Therapy [address] [place] [address] [facility] [address] [place] [address] [facility] [address] [facility] [address] [place], [place] *chiropractor who are trained in techniques (Rosales Protocol) to help with pelvic, hip and lower back discomfort. Headaches in : - eat small frequent meals and drink plenty of water - daily supplementation with: Magnesium 400 mg once daily, Coenzyme Q10 100mg three times daily, Vit B2 (ribofalvin) 400mg daily may decrease the frequency of migraine headaches. These can be obtained over the counter at any pharmacy and are not contraindicated in . The three must be takendaily to prevent migraines. Once a migraine starts, they are not effective. If you experience migraines in spite of taking all three medications, please increase the dosing of each to twice daily: once in the morning with breakfast, and again in the evening with dinner. - In case of migraine, Tylenol with a caffeinated beverage or Excedrin Tension Headache as needed. Advise limiting Tylenol to 1-2 doses per day. documented in this encounter Progress Notes * María Salvador PA-C - 08/13/2023 3:48 PM EDT Amelia Millan is a 33 year old female here for her routine OB appointment at 19w4d. Her Estimated Date of Delivery: 01/03/24 REVIEW OF SYSTEMS: She does not feel movement at this time Denies vaginal bleeding, N/V + headaches, not typically taking anything OTC. Taking riboflavin and magnesium daily for prevention. But has not improved. She does work with computers daily, encouraged blue light glasses, up to date with eye appt. Low back and hip pain, sciatic pain mostly on the right side ongoing for months. Reports trouble walking for first [address] Crowe once weekly but has not really improved PHYSICAL EXAM: Filed Vitals: 08/13/23 1539 BP: 116/62 Temp: 37.2 C (99 F) Weight: 111.1 kg (245 lb) Total weight gain # 6.804 kg (15 lb) ASSESSMENT/PLAN: (O99.341, F32.A) Depression affecting in first trimester, antepartum (O09.91) , supervision, high-risk, first trimester (O99.341, F41.9) Anxiety during in first trimester, antepartum (G47.33) Obstructive sleep apnea of adult (O99.511, J45.909) Asthma affecting in first trimester (R03.0) Elevated blood pressure reading without diagnosis of hypertension (E66.9) Class 2 obesity Supervision of - anatomy u/s scheduled with MFM 08/16 - ANDREA in process - discussed MSAFP and role in detecting open neural tube defects. Patient agreeable, order placed - RTO in 4 weeks María Salvador PA-C documented in this encounter Nursing Notes * Kristi Escobedo LPN - 08/13/2023 3:40 PM EDT Chief Complaint Patient presents with Return Visit 19w4d documented in this encounter Plan of Treatment Upcoming Encounters Date Type Department Care Team (Late st Contact Info) Description 08/17/2023 1:30 PM EDT Office Visit Highway Maintenance Worker Obstetrics Maternal Medicine, [place] [address] [place] [address] Franck Muñoz DO [address] [place] [address] 08/17/2023 1:30 PM EDT Imaging Radiology [facility], [place] [address] [place] [address] 09/11/2023 3:45 PM EDT Office Visit Gynecology/Obstetrics, [place] [address] [place] [address] María Salvador PA-C [address] [place] [address] 09/27/2023 11:00 AM EDT Telemedicine Nutrition & Weight Management, [facility] [address] [place] [place] [address] Tamie Arriaga PA-C [address] [place] [address] 10/09/2023 7:40 AM EDT Office Visit [facility], [place] [address] [facility] [place] [phone] Ford Devine MD 21 [facility] [place] [address] 10/11/2023 3:30 PM EDT Office Visit Gynecology/Obstetrics, [place] [address] [facility] [place] [address] María Salvador PA-C 400 [facility] [place] [address] 10/23/2023 3:30 PM EDT Office Visit Gynecology/Obstetrics, [place] [address] [facility] [place] [address] María Salvador PA-C 400 [facility] [place] [address] 02/13/2024 8:40 AM EDT [facility] [address] [facility] 140 [place] [address] Luna New PA-C [address] [facility] 140 [place] [address] Scheduled Orders Name Type Priority Associated Diagnoses Orde r Schedule MATERNAL SERUM AFP Lab Routine Encounter for supervision of normal first in first trimester Ordered: 08/13/2023 Health Maintenance Due Date Last Done Comments [...] as of this encounter Visit Diagnoses Diagnosis Encounter for supervision of normal first in first trimester- Primary Supervision of normal first Depression affecting in first trimester, antepartum Obesity during , supervision, high-risk, first trimester BMI 40.0-44.9, adult (HCC) Body Mass Index 40.0-44.9, adult Anxiety during in first trimester, antepartum Obstructive sleep apnea of adult Obstructive sleep apnea (adult) (pediatric) Asthma affecting in first trimester Elevated blood pressure reading without diagnosis of hypertension Class 2 obesity documented in this encounter Advance Directives Latest Code Status on File Code Status Date Activated Date Inactivated Comments Full Code 05/13/2018 8:55 AM 05/13/2018 2:15 PM This order reflects the patients wishes and were consensually agreed upon. Care Teams Patcher Wood Welder Relationship Specialty Start Date End Date Ford Devine MD [address] [place] [address] PCP - General Family Medicine 10/03/22 documented as of this encounter
--- OUTSIDE RECORDS SUMMARY | 2023-12-28 07:18 | External Medical Summary ---
Author Name Unknown Address Unknown Organization K01:LABORATORY [facility] - [address] [facility] [place] [address] Laboratory Report Ordering Provider Test Date Status GAGAN WISEMAN 08/30/2023 09:59:48 Final Observation Date Value Abnormality Reference (Units ) Status BUN 08/30/2023 09:59:48 7 6-20 (mg/dL) Final Creatinine 08/30/2023 09:59:48 0.6 0.5-1.0 (mg/dL) Final Glomerular filtration rate/1.73 sq M.predicted [Volume Rate/Area] in Serum, Plasma or Blood by Creatinine-based formula (CKD-EPI) 08/30/2023 09:59:48 >90 >=60 (mL/min) Final eGFR is calculated based on the CKD-EPI 2020 equation Sodium 08/30/2023 09:59:48 139 135-146 (m mol/L) Final Potassium 08/30/2023 09:59:48 4.7 3.5-5.1 (m mol/L) Final Cl 08/30/2023 09:59:48 104 98-107 (mm ol/L) Final CO2 08/30/2023 09:59:48 23 22-32 (mmo l/L) Final Anion gap 08/30/2023 09:59:48 12 7-15 (mmol /L) Final Glucose 08/30/2023 09:59:48 74 70-120 (mg /dL) Final Albumin 08/30/2023 09:59:48 4.0 3.8-5.0 (g /dL) Final AST (Aspartate aminotransferase) 08/30/2023 09:59:48 17 10-35 (U/L) Final Alk Phos 08/30/2023 09:59:48 64 35-130 (U/ L) Final Bilirubin, Total 08/30/2023 09:59:48 <0.2 <=1 .2 (mg/dL) Final Calcium 08/30/2023 09:59:48 9.3 8.4-10.2 ( mg/dL) Final Protein 08/30/2023 09:59:48 6.1 6.0-8.3 (g /dL) Final ALT (Alanine aminotransferase) 08/30/2023 09:59:48 16 10-35 (U/L) Final Performing Location LABORATORY [facility] - [facility] [address] [facility] [address]
--- OUTSIDE RECORDS SUMMARY | 2023-12-28 07:18 | External Medical Summary ---
Author Name Unknown Address Unknown Organization K01:[facility] [address] [place] [address] Laboratory Report Ordering Provider Test Date Status GAGAN WISEMAN 08/30/2023 09:59:48 Final Observation Date Value Abnormality Reference (Units ) Status Platelets 08/30/2023 09:59:48 271 140-400 (K /uL) Final Performing Location [facility] [address] [place] [address]
--- OUTSIDE RECORDS SUMMARY | 2023-12-28 07:18 | External Medical Summary | Summary of Care ---
Author Name Unknown Organization [facility] Address [address] [facility] [place] [address] Phone [phone] Care Team Providers Care Software Clerk Name Role Phone Ford Devine MD Primary Care Provider [phone] Encounter Details Date Type Department Care Team (Late st Contact Info) Description 08/29/2023 Telephone [facility] Gynecology and Obstetrics [address] [place] [address] Conchita Armstrong MD [address] [place] [address] Allergies Active Allergy Reactions Criticality Noted Date [...] CPAP; awaiting new mask to arrive from [employer]. Last Assessment & Plan: Considerations: Obstructive sleep [...] mRNA, LNP-s, No Pre serve, 2-Dose Series ([employer]) 09/04/2020,08/14/2020 COVID-19, LNP-s, No Preserve , Mk-sucrose, [...] money to get more. Never true 12/11/2022 Boss Depression Scale Answer Date Recorded Boss Depression Scale Total 7 06/11/2023 The thought [...] Description 09/07/2023 7:45 AM EDT Office Visit Cashier Checker Obstetrics Maternal Medicine, [address] [address] Franck Muñoz DO [facility] [place] [address] 09/07/2023 7:45 AM EDT Imaging Radiology [address] [address] 09/11/2023 3:45 PM EDT Office Visit Gynecology/Obstetrics, [place] [address] [place] [address] María Salvador PA-C [address] [place] [address] 09/27/2023 11:00 AM EDT Telemedicine Nutrition & Weight Management, [facility] [address] [facility] [place] [address] Tamie Arriaga PA-C 132 [facility] [place] [address] 10/05/2023 3:15 PM EDT Office Visit Cashier Checker Obstetrics Maternal Medicine, [address] [address] Franck Muñoz DO [address] [place] [address] 10/05/2023 3:15 PM EDT Imaging Radiology [address] [address] 10/09/2023 7:40 AM EDT Office Visit Family [facility], [place] 21 [place] [address] Ford Devine MD [address] [place] [address] 10/11/2023 3:30 PM EDT Office Visit Gynecology/Obstetrics, [place] [address] [place] [address] María Salvador PA-C [address] [place] [address] 10/23/2023 3:30 PM EDT Office Visit Gynecology/Obstetrics, [place] [address] [place] [address] María Salvador PA-C [address] [place] [address] 11/01/2023 9:45 AM EDT Office Visit Cashier Checker Obstetrics Maternal Medicine, [place] [address] [place] [address] Franck Muñoz, DO [address] [place] [address] 11/01/2023 9:45 AM EDT Imaging Radiology [facility] [address] [place] [address] 11/29/2023 9:45 AM EDT Office Visit Cashier Checker Obstetrics Maternal Medicine, [place] [address] [place] [address] Franck Muñoz, [address] [place] [address] 11/29/2023 9:45 AM EDT Imaging Radiology [facility] [address] [place] [address] 02/13/2024 8:40 AM EDT Office Visit Dermatology, [place] [address] [place] [address] Luna New PA-C [address] [place] [address] Health Maintenance Due Date Last Done Comments [...] and were consensually agreed upon. Care Teams Software Clerk Relationship Specialty Start Date End Date Ford Devine MD [address] [place] [address] PCP - General Family Medicine 10/03/22 documented as of this encounter
--- OUTSIDE RECORDS SUMMARY | 2023-12-28 07:18 | External Medical Summary ---
Author Name Unknown Address Unknown Organization : Laboratory Report Ordering Provider Test Date Status GAGAN WISEMAN 08/10/2023 12:41:38 Final Observation Date Value Abnormality Reference (Units ) Status NUMBER OF FETUSES? 08/10/2023 12:41:38 1 Final ADVANCED MATERNAL AGE? 08/10/2023 12:41:38 NO Final ABNORMAL KEKE? 08/10/2023 12:41:38 NO Final ABNORMAL US? 08/10/2023 12:41:38 NOT GIVEN Final PERSONAL/FAM HISTORY? 08/10/2023 12:41:38 NOT GIVEN Final INTERPRETATION 08/10/2023 12:41:38 SEE BELOW Final This specimen showed an expe cted representation of
chromosome 21, 18, and 13 material. Results were
not analyzed or reported for microdeletions. See
'Limitations' below. TRISOMY 21 (T21) 08/10/2023 12:41:38 Negative Final TRISOMY 18 (T18) 08/10/2023 12:41:38 Negative Final TRISOMY 13 (T13) 08/10/2023 12:41:38 Negative Final Y CHROMOSOME 08/10/2023 12:41:38 Opted Out Final Y CHR. INTERPRETATION 08/10/2023 12:41:38 SEE BELOW Final sex determination was not included in this
testing. SEX CHROMOSOME 08/10/2023 12:41:38 No aneuploidy Final SEX CHROMOSOME INTERP 08/10/2023 12:41:38 SEE BELOW Final No apparent abnormality was detected. See
'Limitations' below. MICRODELETION 08/10/2023 12:41:38 Opted Out Final MICRODELETION INTERP 08/10/2023 12:41:38 SEE BELOW Final Results were not analyzed or reported for
microdeletions. GESTATIONAL AGE (IN WEEKS) 08/10/2023 12:41:38 19 Final GESTATIONAL AGE (IN DAYS) 08/10/2023 12:41:38 1 Final FRACTION 08/10/2023 12:41:38 9.20% Final LABORATORY COMMENTS 08/10/2023 12:41:38 SEE BELOW Final Laboratory testing supervise d and results
monitored by Dariela Reeves, Ph.D., [facility],
[facility]. LIMITATIONS 08/10/2023 12:41:38 SEE BELOW Final QNatal(R) Advanced is a cell -free DNA screening
test that screens for increased risk of certain
chromosomal abnormalities that may cause
defects, including Trisomy 21 (Down
syndrome), Trisomy 18, Trisomy 13, and certain sex
chromosome abnormalities (i.e., 45,X, 47,XXY,
47,XXX, and 47,XYY), as well as sex. In
addition, if selected as an option, QNatal(R)
Advanced can screen for certain microdeletions
(i.e., 22q, 5p, 1p36, 15q, 11q, 8q, and 4p) that
may cause defects. This test does not assess
the risk of abnormalities such as neural
tube defects or ventral wall defects and should
not be considered in isolation from other clinical
findings and laboratory test results.
QNatal(R) Advanced has been validated in johnson
pregnancies for the trisomies and sex chromosome
abnormalities listed above, as well as for
microdeletions, and for the determination of
sex. Sex chromosome aneuploidy analysis is only
performed in johnson pregnancies. This screening
test has also been validated in twin pregnancies
for the trisomies listed above and for
microdeletions, but not for the sex chromosome
abnormalities due to limited data. This screening
test has not been validated in higher order
pregnancies (more than two) because limited data
is available. Sex chromosomal aneuploidy results
issued for pregnancies confirmed to be of multiple
gestations are not valid and should be
disregarded.
Microdeletion screening is limited to the
specified microdeletion regions (see
'Methodology'). The Y chromosome is analyzed for
the determination of sex. The sensitivity
and specificity of sex determination
analysis may be less than that of the Trisomy 21,
18, and 13 analysis and this determination can be
confounded by vanishing twin syndrome in
pregnancies that were originally multiple
gestation pregnancies. It should be noted that
QNatal(R) Advanced is a quantitative analysis of
maternal and placental cfDNA. As a result, the
accuracy of screening results may be affected by
the presence of chromosome abnormalities or
microdeletions that are maternal or confined
placental in origin. SPECIFICATIONS 08/10/2023 12:41:38 SEE BELOW Final Sensitivity Specificity
T21 >99.9% >99.9%
T18 >99.9% >99.9%
T13 >99.9% >99.9%
Accuracy
Y >99.9%
Performance of the QNatal Advanced
laboratory-developed test (LDT) has been
determined based on internal analytical
assessment. METHODOLOGY 08/10/2023 12:41:38 SEE BELOW Final Circulating cell-free (cf) D NA was isolated from
plasma followed by detection on a massively
parallel sequencing platform. Bioinformatic
analysis was performed to determine the
representation of chromosomes 21, 18, 13, X and Y
in circulating cell-free DNA. The representation
of sequences from the critical regions involved in
1p36 microdeletion syndrome (1p36),
Simeon-Hirschhorn syndrome (4p), Cri-du-chat
syndrome (5p), Jameel-Giedion syndrome (8q),
Grzegorz syndrome (11q), Prader Willi
syndrome/Angelman syndrome (15q), and DiGeorge
syndrome (22q) is evaluated for the detection of
microdeletions if requested. Performance
characteristics refer to the analytical
performance of this screening test. This screening
test is performed pursuant to a license agreement
with [employer].
QNatal Advanced is a laboratory developed test
that has been developed and validated, pursuant to
the Clinical Laboratory Improvements Amendments of
1988 (CLIA), and as such it has not been reviewed
by FDA.
Test performed by [facility]
[address],
[place] [address]

Ankle Patch Molder: Viji Moralez MD,PHD,MADELINE
Test Reported by Prosetta Vladislav,
[facility] [place],
[address] [place], [place]
Waqas Jay M.D., Ph.D., Director of Laboratories
, CLIA [id number] Performing Location
--- OUTSIDE RECORDS SUMMARY | 2023-12-28 07:18 | External Medical Summary | Summary of Care ---
Author Name Unknown Organization [facility] Address [address] [place] [address] Phone [phone] Care Team Providers Care Alcohol Law Enforcement Agent Name Role Phone Ford Devine MD Primary Care Provider [phone] Reason for Visit * Reason Comments Outpatient Testing Encounter Details Date Type Department Care Team (Late st Contact Info) Description 08/10/2023 12:40 PM EDT Laboratory Laboratory, [facility] [address] [place] [phone] [facility], Lab [address] [place] [address] Encounter for supervision of normal first in first trimester Allergies Active Allergy Reactions Criticality Noted Date Comments Penicillins Edema face/lips/tongue High 08/29/2001 Azithromycin Dihydrate Edema airway,Othe r (Please comment) High 11/24/2013 Trouble breathing documented as of this encounter (statuses as of 08/10/2023) Medications Medication Sig Dispensed Refills Start Date [...] as of this encounter (statuses as of 08/10/2023) Active Problems Problem Noted Date Diagnosed Date [...] CPAP; awaiting new mask to arrive from [facility]. Last Assessment & Plan: Considerations: Obstructive [...] as of this encounter (statuses as of 08/10/2023) Resolved Problems Problem Noted Date Diagnosed Date Resolved Date Abnormal uterine bleeding 05/13/2018 Status post hysteroscopy 05/13/2018 S/P dilatation and curettage 05/13/2018 06/11/2023 Endometrial polyp 05/13/2018 06/11/2023 documented as of this encounter (statuses as of 08/10/2023) Immunizations Name Administration Dates Next Due COVID-19 mRNA, LNP-s, No Pre serve, 2-Dose Series ([facility]) 09/04/2020,08/14/2020 COVID-19, LNP-s, No Preserve , Mk-sucrose, Ages 12+ ([facility]) 03/18/2021 DTaP Dipth/Tet/Acell Pertussis ([employer]), Peds 11/21/1995,04/12/1992,01/24/1991,12/09,1990 [...] money to get more. Never true 12/11/2022 [place] Depression Scale Answer Date Recorded [place] Depression Scale Total 7 06/11/2023 The thought [...] Description 08/13/2023 3:30 PM EDT Office Visit Gynecology/Obstetrics, [place] [address] [place] [address] María Salvador PA-C [address] [facility] [place] [address] 08/17/2023 1:30 PM EDT Office Visit Buckshot Swage Operator Obstetrics Maternal Medicine, [place] [address] [place] [address] Franck Muñoz, [address] [place] [address] 08/17/2023 1:30 PM EDT [facility], [place] [address] [place] [address] 09/27/2023 11:00 AM EDT Telemedicine Nutrition & Weight Management, [facility] [address] [place] [address] Tamie Arriaga PA-C [address] [place] [address] 10/09/2023 7:40 AM EDT Office Visit Family [facility], [place] [address] [place] [phone] Ford Devine MD [address] [place] [address] 02/13/2024 8:40 AM EDT Office Visit Dermatology, [place] [address] [place] [id number] Luna New PA-C [address] [place] [address] Pending Results Name Type Priority Associated Diagnoses Date /Time QNATAL ADVANCED ([facility]) Lab Routine Encounter for supervision of normal first in first trimester 08/10/2023 12:41 PM EDT Health Maintenance Due Date Last [...] in first trimester Supervision of normal first documented in this encounter Advance Directives Latest Code Status on File Code Status Date Activated Date Inactivated Comments Full Code 05/13/2018 8:55 AM 05/13/2018 2:15 PM This order reflects the patients wishes and were consensually agreed upon. Care Teams Alcohol Law Enforcement Agent Relationship Specialty Start Date End Date Ford Devine MD [address] [place] [address] PCP - General Family Medicine 10/03/22 documented as of this encounter
--- OUTSIDE RECORDS SUMMARY | 2023-12-28 07:19 | External Medical Summary | Summary of Care ---
Author Name Unknown Organization [facility] Address [address] [place] [address] Phone [phone] Care Team Providers Care Senior Underwriter Name Role Phone Ford Devine MD Primary Care Provider [phone] Reason for Visit * Reason Onset Date Comments Return Visit 15w 1d Medication Administration 07/13/2023 Flu an d/or Pneumo Inj Encounter Details Date Type Department Care Team (Late st Contact Info) Description 07/13/2023 3:30 PM EDT Office Visit Gynecology/Obstetric [place] [address] [place] [address] María Salvador PA-C 400 [facility] [place] [address] 15 weeks gestation of *; Depression affecting in first trimester, antepartum; Encounter for supervision of normal first in first trimester; Obesity during ; , supervision, high-risk, first trimester; BMI 40.0-44.9, adult ([facility]); Anxiety during in first trimester, antepartum; Obstructive sleep apnea of adult; Asthma affecting in first trimester; Elevated blood pressure reading without diagnosis of hypertension; Class 2 obesity; Need for prophylactic vaccination and inoculation against influenza; Acute vaginitis Allergies Active Allergy Reactions Criticality Noted Date Comments Penicillins Edema face/lips/tongue High 08/29/2001 Azithromycin Dihydrate Edema airway,Othe r (Please comment) High 11/24/2013 Trouble breathing documented as of this encounter (statuses as of 07/13/2023) Medications Medication Sig Dispensed Refills Start Date [...] by mouth in the morning. 0 Active documented as of this encounter (statuses as of 07/13/2023) Active Problems Problem Noted Date Diagnosed Date [...] CPAP; awaiting new mask to arrive from [employer]. Last Assessment & Plan: Considerations: Obstructive sleep [...] as of this encounter (statuses as of 07/13/2023) Resolved Problems Problem Noted Date Diagnosed Date Resolved Date Abnormal uterine bleeding 05/13/2018 Status post hysteroscopy 05/13/2018 S/P dilatation and curettage 05/13/2018 06/11/2023 Endometrial polyp 05/13/2018 06/11/2023 documented as of this encounter (statuses as of 07/13/2023) Immunizations Name Administration Dates Next Due COVID-19 mRNA, LNP-s, No Pre serve, 2-Dose Series ([employer]) 09/04/2020,08/14/2020 COVID-19, LNP-s, No Preserve , Mk-sucrose, [...] money to get more. Never true 12/11/2022 [place] Depression Scale Answer Date Recorded [place] Depression Scale Total 7 06/11/2023 The thought [...] Reading Time Taken Comments Blood Pressure 120/80 07/13/2023 3:26 PM EDT Pulse - - Temperature - - Respiratory Rate - - Oxygen Saturation - - Inhaled Oxygen Concentration - - Weight 110.8 kg (244 lb 3.2 oz) 07/13/2023 3:26 PM EDT Height - - Body Mass Index 41.18 06/11/2023 2:47 PM EST documented in this encounter Patient Instructions * Patient Instructions* María Salvador PA-C - 07/13/2023 3:48 PM EDT [facility] [place] [address] [facility] [address] [place], [place] *chiropractor who are trained in techniques (Rosales Protocol) to help with pelvic, hip and lower back discomfort. documented in this encounter Progress Notes * María Salvador PA-C - 07/13/2023 3:36 PM EDT Amelia Millan is a 32 year old female here for her routine OB appointment at 15w1d. Her Estimated Date of Delivery: 01/03/24 REVIEW OF SYSTEMS: She denies movement. Denies vaginal bleeding, LOF, contractions, N/V, headaches Concerned may be developing BV, increase vaginal pruritus over the last couple of weeks Having a lot of back pain; using Tyenol and heating pad. Right side into buttock. Would like to discuss elevated 24 hr urine protein PHYSICAL EXAM: Filed Vitals: 07/13/23 1526 BP: 120/80 Weight: 110.8 kg (244 lb 3.2 oz) Shipfitter Apprentice Documentation Provider requested export packer. Name of export packer: David yDer CMA Exam (Female): external genitalia and vagina anatomy within normal limits, no vaginal discharge,(+) vaginal discharge: creamy white discharge, (+) gravid uterus ASSESSMENT/PLAN: Depression affecting in first trimester, antepartum Obesity during , supervision, high-risk, first trimester Anxiety during in first trimester, antepartum Obstructive sleep apnea of adult Asthma affecting in first trimester Elevated blood pressure reading without diagnosis of hypertension Class 2 obesity Need for prophylactic vaccination and inoculation against influenza - INFLUENZA VACC, QUAD, PF, 6 MONTHS & UP, 0.5 ML, IM Acute vaginitis - VAGINOSIS PANEL, PCR 15 weeks gestation of (Primary) - reviewed NOB labs were WNLs - discussed elevated 24 hour urine , CMP WNLs, plan to repeat this week, discussed if still elevated recommend nephrology referral - recommended flu vaccine - patient agreeable today - discussed genetic screening. Patient thinks she would like QNATAL , will check with insurance andlet us know, unsure if she wants gender reported but will let us know - discussed MSAFP and role in detecting open neural tube defects. - RTO in 4 weeks María Salvador PA-C documented in this encounter Nursing Notes * Karo Vargas LPN - 07/13/2023 4:09 PM EDT Pre-Administration Time Out Procedure Performed: Yes Patient Identified (Ask Name/Date of ): Yes Does the patient have a fever greater than 101 degrees today? No Patient allergic to latex? No Has the patient ever fainted after receiving an injection? No VFC Stock: No Immunization(s) verified: Yes, Immunization Name: Flu, VIS Sheet(s) given: Yes Verified Side and Site: Yes Verified Shot(s) with Parent(s)/Patient: Yes Karo Vargas LPN * Brandy Hussein LPN - 07/13/2023 3:28 PM EDT Chief Complaint Patient presents with Return Visit 15w 1d Medication Administration Flu and/or Pneumo Inj Concerned may be developing BV. Having a lot of back pain; using Tyenol and heating pad. Right side into buttock. Would like to discuss elevated 24 hr urine protein documented in this encounter Plan of Treatment Upcoming Encounters Date Type Department Care Team (Late st Contact Info) Description 08/13/2023 3:30 PM EDT Office Visit Gynecology/Obstetrics, [place] [address] [facility] [place] [address] María Salvador PA-C 400 [place] [address] 08/17/2023 1:30 PM EDT Office Visit Urology Physician Assistant Obstetrics Maternal Medicine, [place] [address] [place] [address] Franck Muñoz DO [address] [place] [address] 08/17/2023 1:30 PM EDT Imaging Radiology [facility], [place] [address] [place] [address] 09/27/2023 11:00 AM EDT Telemedicine Nutrition & Weight Management, [facility] [address] [place] [place] [address] Tamie Arriaga PA-C [address] [place] [address] 10/09/2023 7:40 AM EDT Office Visit Family [facility], [place] [address] [place] [phone] Ford Devine MD [address] [place] [place] [address] 02/13/2024 8:40 AM EDT Office Visit Dermatology, [place] [address] [place] [address] Luna New PA-C [address] [place] [address] Scheduled Orders Name Type Priority Associated Diagnoses Orde r Schedule VAGINOSIS PANEL, PCR Lab Routine Acute vaginitis Ordered: 07/13/2023 Health Maintenance Due Date Last Done Comments [...] as of this encounter Visit Diagnoses Diagnosis 15 weeks gestation of - Primary state, incidental [...] without diagnosis of hypertension Class 2 obesity Need for prophylactic vaccination and inoculation against influenza Acute vaginitis Vaginitis and vulvovaginitis, unspecified documented in this encounter Advance Directives Latest Code Status on File Code Status Date Activated Date Inactivated Comments Full Code 05/13/2018 8:55 AM 05/13/2018 2:15 PM This order reflects the patients wishes and were consensually agreed upon. Care Teams Senior Underwriter Relationship Specialty Start Date End Date Ford Devine MD [address] [place] [address] PCP - General Family Medicine 10/03/22 documented as of this encounter
--- OUTSIDE RECORDS SUMMARY | 2023-12-28 07:19 | External Medical Summary | Summary of Care ---
Author Name Unknown Organization [facility] Address [address] [place] [address] Phone [phone] Care Team Providers Care Dinkey Engine Firer/Fireman Name Role Phone Ford Devine MD Primary Care Provider [phone] Reason for Visit * Reason Comments Outpatient Testing Encounter Details Date Type Department Care Team (Late st Contact Info) Description 08/03/2023 8:40 AM EDT Laboratory Laboratory, [facility] [address] [place] [phone] [facility], Lab [address] [place] [address] Encounter for supervision of normal first in first trimester Allergies Active Allergy Reactions Criticality Noted Date Comments Penicillins Edema face/lips/tongue High 08/29/2001 Azithromycin Dihydrate Edema airway,Othe r (Please comment) High 11/24/2013 Trouble breathing documented as of this encounter (statuses as of 08/03/2023) Medications Medication Sig Dispensed Refills Start Date [...] as of this encounter (statuses as of 08/03/2023) Active Problems Problem Noted Date Diagnosed Date [...] awaiting new mask to arrive from [facility]. Last Assessment & Plan: Considerations: Obstructive sleep [...] as of this encounter (statuses as of 08/03/2023) Resolved Problems Problem Noted Date Diagnosed Date Resolved Date Abnormal uterine bleeding 05/13/2018 Status post hysteroscopy 05/13/2018 S/P dilatation and curettage 05/13/2018 06/11/2023 Endometrial polyp 05/13/2018 06/11/2023 documented as of this encounter (statuses as of 08/03/2023) Immunizations Name Administration Dates Next Due COVID-19 mRNA, LNP-s, No Pre serve, 2-Dose Series ([employer]) 09/04/2020,08/14/2020 COVID-19, LNP-s, No Preserve , Mk-sucrose, Ages 12+ ([employer]) 03/18/2021 DTaP Dipth/Tet/Acell Pertussis ([employer]), Peds 11/21/1995,04/12/1992,01/24/1991,12/09,1990 [...] money to get more. Never true 12/11/2022 [place] Depression Scale Answer Date Recorded [place] Depression Scale Total 7 06/11/2023 The thought [...] 08/13/2023 3:30 PM EDT Office Visit Gynecology/Obstetrics, [place] [address] [place] [address] María Salvador PA-C 400 [facility] [place] [address] 08/17/2023 1:30 PM EDT Office Visit School Resource Officer Obstetrics Maternal Medicine, [place] [address] [place] [address] Franck Muñoz, [address] [place] [address] 08/17/2023 1:30 PM EDT Imaging Rad[facility], [place] [address] [place] [address] 09/27/2023 11:00 AM EDT Telemedicine Nutrition & Weight Management, [facility] [address] [address] Tamie Arriaga PA-C [address] [address] 10/09/2023 7:40 AM EDT Office Visit Family Psychiatric, [place] [address] [phone] Ford Devine MD [address] [address] 02/13/2024 8:40 AM EDT Office Visit Dermatology, [place] [address] [place] [phone] Luna New PA-C [address] [place] [place] [address] Pending Results Name Type Priority Associated Diagnoses Date /Time URINE PROTEIN, 24 HOUR Lab Routine Encounter for supervision of normal first in first trimester 08/03/2023 8:39 AM EDT Health Maintenance Due Date Last [...] score < 10) 07/06/2022 07/05/2022 COVID-19 Vaccine ( - 2022-2 4 season) [...] and were consensually agreed upon. Care Teams Dinkey Engine Firer/Fireman Relationship Specialty Start Date End Date Ford Devine MD [address] [address] PCP - General Family Medicine 10/03/22 documented as of this encounter
--- OUTSIDE RECORDS SUMMARY | 2023-12-28 07:19 | External Medical Summary ---
Author Name Unknown Address Unknown Organization [id number]:[facility] - [address] [place] [address] Laboratory Report Ordering Provider Test Date Status GAGAN WISEMAN 08/03/2023 08:39:21 Final Normal: <150 mg/24 hours<br/ >High: 150-500 mg/24 hours
Very High: >500 mg/24 hours
Nephrotic: >3000 mg/24 hours Observation Date Value Abnormality Reference (Units ) Status Protein, 24-hr Urine 08/03/2023 08:39:21 6 (mg/dL) Final Urine Volume 08/03/2023 08:39:21 2950 (mL) Final Protein, 24-hr Urine 08/03/2023 08:39:21 177 Above high normal <150 (mg/24 hours) Final Performing Location [facility] - [address] [place] [address]
--- OUTSIDE RECORDS SUMMARY | 2023-12-28 07:19 | External Medical Summary | Summary of Care ---
Author Name Unknown Organization [facility] Address [address] [place] [address] Phone [phone] Care Team Providers Care Therapy Technician Name Role Phone Ford Devine MD Primary Care Provider [phone] Reason for Visit * Reason Onset Date Comments Return Visit 15w 1d Medication Administration 07/13/2023 Flu an d/or Pneumo Inj Encounter Details Date Type Department Care Team (Late st Contact Info) Description 07/13/2023 3:30 PM EDT Office Visit Gynecology/Obstetric [place] [address] [place] [place] [address] María Salvador PA-C 400 [facility] [place] [address] 15 weeks gestation of *; Depression affecting in first trimester, antepartum; Encounter for supervision of normal first in first trimester; Obesity during ; , supervision, high-risk, first trimester; BMI 40.0-44.9, adult ([facility]); Anxiety during in first trimester, [...] awaiting new mask to arrive from [employer]. Last Assessment & Plan: Considerations: Obstructive [...] mRNA, LNP-s, No Pre serve, 2-Dose Series ([employer]) 09/04/2020,08/14/2020 COVID-19, LNP-s, No Preserve , Mk-sucrose, [...] money to get more. Never true 12/11/2022 [place] Depression Scale Answer Date Recorded [place] Depression Scale Total 7 06/11/2023 The thought [...] Salvador PA-C - 07/13/2023 3:48 PM EDT [facility] [place] [address] [facility] [address] [place], [place] *chiropractor who are trained in techniques [...] Weight: 110.8 kg (244 lb 3.2 oz) Optician Manager Documentation Provider requested soil and plant scientist. Name of soil and plant scientist: David Dyer CMA Exam (Female): external genitalia and vagina [...] 08/13/2023 3:30 PM EDT Office Visit Gynecology/Obstetrics, [place] [address] [place] [address] María Salvador PA-C 400 [facility] [address] 08/17/2023 1:30 PM EDT Office Visit Toll Mechanic Obstetrics Maternal Medicine, [place] [address] [place] [address] Franck Muñoz DO [address] [place] [address] 08/17/2023 1:30 PM EDT Imaging Radiology [facility] [place], [place] [address] [place] [address] 09/27/2023 11:00 AM EDT Telemedicine Nutrition & Weight Management, [facility] [address] [address] Tamie Arriaga PA-C [address] [address] 10/09/2023 7:40 AM EDT Office Visit Family [facility], [place] [address] [phone] Ford Devine MD [address] [address] 02/13/2024 8:40 AM EDT Office Visit Dermatology, [place] [address] [place] [place] [address] Luna New PA-C [address] [place] [place] [address] Pending Results Name Type Priority Associated Diagnoses Date /Time VAGINOSIS PANEL, PCR Lab Routine Acute vaginitis 07/13/2023 4:34 PM EDT Health Maintenance Due Date Last [...] and were consensually agreed upon. Care Teams Therapy Technician Relationship Specialty Start Date End Date Ford Devine MD [address] [address] PCP - General Family Medicine 10/03/22 documented as of this encounter
--- OUTSIDE RECORDS SUMMARY | 2023-12-28 07:19 | External Medical Summary | Summary of Care ---
Author Name Unknown Organization [facility] Address [address] [place] [facility] [place] [address] Phone [phone] Care Team Providers Care Photoengraving Helper Name Role Phone Tanner Lauren MD Primary Care Provider [phone] Reason for Visit * Reason Onset Date Comments Medication Refill 07/03/2023 Encounter Details Date Type Department Care Team (Late st Contact Info) Description 07/03/2023 Refill [facility] [address] [phone] Tanner Lauren MD 21 [facility] [place] [address] Anxiety state; Moderate episode of recurrent major depressive disorder (HCC) Allergies Active Allergy Reactions Criticality Noted Date Comments Penicillins Edema face/lips/tongue High 08/29/2001 Azithromycin Dihydrate Edema airway,Othe r (Please comment) High 11/24/2013 Trouble breathing documented as of this encounter (statuses as of 07/04/2023) Medications Medication Sig Dispensed Refills Start Date [...] :Inability to conceive, female Take by mouth. 0 [...] the morning. 30 Tablet 5 07/04/2023 Active Sertraline HCl 50 MG Oral Tablet [...] as of this encounter (statuses as of 07/04/2023) Active Problems Problem Noted Date Diagnosed Date [...] CPAP; awaiting new mask to arrive from [employer]. Last Assessment & Plan: Considerations: Obstructive sleep [...] as of this encounter (statuses as of 07/04/2023) Resolved Problems Problem Noted Date Diagnosed Date Resolved Date Abnormal uterine bleeding 05/13/2018 Status post hysteroscopy 05/13/2018 S/P dilatation and curettage 05/13/2018 06/11/2023 Endometrial polyp 05/13/2018 06/11/2023 documented as of this encounter (statuses as of 07/04/2023) Immunizations Name Administration Dates Next Due COVID-19 mRNA, LNP-s, No Pre serve, 2-Dose Series ([employer]) 09/04/2020,08/14/2020 COVID-19, LNP-s, No Preserve , Mk-sucrose, [...] money to get more. Never true 12/11/2022 [place] Depression Scale Answer Date Recorded [place] Depression Scale Total 7 06/11/2023 The thought [...] Telephone Encounter - Tanner Lauren MD - 07/04/2023 8:44 AM EDTSigned Prescriptions: Disp Refills Sertraline HCl 50 MG Oral Tablet (Zoloft) 30 Tab*5 Sig: Take 1 Tablet by mouth in the morning. Authorizing Provider: TANNER LAUREN * Telephone Encounter - Dawson Zimmer LPN - 07/03/2023 7:35 AM EDT Did you pend patient's preferred pharmacy and medication before forwarding?yes Pharmacy: [facility] Pending Prescriptions: Disp Refills Sertraline HCl 50 MG Oral Tablet (Zoloft) 30 Tab*5 Sig: Take 1 Tablet by mouth in the morning. Last Visit: 05/08/2023 (in office), Visit date not found (telemedicine) Next Visit: 10/09/2023 If no future appointments scheduled, and last appointment is greater than a year ago, please schedule patient for a follow-up appointment Last date the medication was ordered: 05/08/2023 Is this request for a controlled substance?No Urine Drug Screen:No results found for this or any previous visit. Patient Phone Numbers Labs: Lab Results Component Value Date/Time CREAT 0.6 06/11/2023 04:09 PM CREAT 0.7 04/23/2018 11:32 AM POTASSIUM 4.2 06/11/2023 04:09 PM POTASSIUM 4.9 04/23/2018 11:32 AM TSH 2.49 12/14/2022 08:25 AM TSH 3.85 05/30/2018 09:04 AM ALT 21 06/11/2023 04:09 PM ALT 21 08/30/2015 09:11 AM HGBA1C 5.4 12/14/2022 08:25 AM documented in this encounter Plan of Treatment Upcoming Encounters Date Type Department Care Team (Late st Contact Info) Description 07/13/2023 3:30 PM EDT Office Visit Gynecology/Obst[facility], [place] [address] [facility] [address] María Salvador PA-C 400 [facility] [place] [address] 08/17/2023 1:30 PM EDT Office Visit Sock Lining Examiner Obstetrics Maternal Medicine, [place] [address] [place] [address] Franck Muñoz, [address] [place] [address] 08/17/2023 1:30 PM EDT Imaging Radiology Women[facility] [place] [address] [place] [address] 09/27/2023 11:00 AM EDT Telemedicine Nutrition & Weight Management, [facility] [place] [address] Tamie Arriaga PA-C [address] [place] [address] 10/09/2023 7:40 AM EDT Office Visit Family Practice, [place] [address] [phone] Tanner Lauren MD [address] [address] 02/13/2024 8:40 AM EDT Office Visit Dermatology, [place] [address] [place] [address] Luna New PA-C [address] [place] [place] [place] [address] Health Maintenance Due Date Last Done Comments [...] 2022-2 4 season) 2022 03/18/2021, 09/04/2020, 08/14/2020 Influenza Vaccine (FLU shot) (#1) 2022 022, 01/29/2012 *SPIROMETRY ONCE FOR ASTHMA-ADULT 06/30/2023 Cervical Cancer [...] (HCC) documented in this encounter Advance Directives Latest Code Status on File Code Status Date Activated Date Inactivated Comments Full Code 05/13/2018 8:55 AM 05/13/2018 2:15 PM This order reflects the patients wishes and were consensually agreed upon. Care Teams Photoengraving Helper Relationship Specialty Start Date End Date Tanner Lauren MD [address] [phone] PCP - General Family Medicine 10/03/22 documented as of this encounter
--- OUTSIDE RECORDS SUMMARY | 2023-12-28 07:19 | External Medical Summary ---
Author Name Unknown Address Unknown Organization K01:[facility] - [address] [facility] [address] [facility] [place] [address] Laboratory Report Ordering Provider Test Date Status GAGAN WISEMAN 07/13/2023 16:34:18 Final Observation Date Value Abnormality Reference (Units ) Status Bacterial vaginosis [Interpretation] in Vaginal fluid Qualitative 07/13/2023 16:34:18 Negative Negative Final Negative for Bacterial Vagin osis. Correlate results with other clinical findings. Sonia sp DNA [Presence] in Vaginal fluid by Probe 07/13/2023 16:34:18 Negative Negative Final No Sonia species group RNA detected. Correlate results with other clinical findings. Sonia glabrata RNA [Presen ce] in Vaginal fluid by JARAD with probe detection 07/13/2023 16:34:18 Negative Negative Final No Sonia glabrata RNA dete cted. Correlate results with other clinical findings. Trichomonas vaginalis DNA [P resence] in Vaginal fluid by Probe 07/13/2023 16:34:18 Negative Negative Final No Trichomonas vaginalis RNA detected. Performing Location [facility] - [address] [address]
[2023-12-28] MEDS: LACTATED RINGER'S 1,000 ML IV SCH (08:05)
[2023-12-28] MEDS ORDERED: MoRPHine SULFATE PF 1 MG/ML 10 ML AMP/VIAL ONE (08:11)
[2023-12-28] MEDS ORDERED: fentaNYL citrate PF 100 MCG/2 ML VIAL ONE (08:11)
[2023-12-28] MEDS ORDERED: GENTAMICIN CONSULT ACTIVE PRN (08:41)
[2023-12-28] MEDS ORDERED: LACTATED RINGER'S 1,000 ML IV SCH ×4 (08:45→11:00)
[2023-12-28] MEDS: ACETAMINOPHEN 500 MG TAB PO SCH (09:08)
[2023-12-28] MEDS: CLINDAMYCIN/D5W 900 MG/50 ML BAG IV ONE (09:09)
[2023-12-28] MEDS: CITRIC ACID/SODIUM CITRATE 15 ML UDC PO ONE (09:09)
--- NOTE | 2023-12-28 09:09 | History & Physical Report ---
Date of Service December 28, 2023 Assessment & Plan (1) Macrosomia: Plan Proceed with c/sec Admission and Anticipated Discharge Date Admission Date: December 28, 2023 History of Present Illness Chief Complaint: at term Primary Care Provider: NO PCP Pt is a 33yo G1 at term. Pt has hx of pelvis symphysis pain and pending macrosomia. Wishes to have elective c.sec risk and alternatives discussed with Allergies Allergy/AdvReac Type Severity Reaction Status Date / Time azithromycin [From Zithromax] Allergy Unknown Difficulty Verified 12/26/23 10:53 Breathing Penicillins Allergy Unknown Difficulty Verified 12/26/23 10:53 Breathing Home Medications Medication Instructions Recorded Confirmed Type 1 tab PO QAM 12/26/23 12/26/23 History Probiotic 1 tab PO QAM 12/26/23 12/26/23 History aspirin 81 mg capsule 81 mg PO DAILY 12/26/23 12/26/23 History docusate sodium 50 mg capsule 50 mg PO DAILY PRN Constipation 12/26/23 12/26/23 History iron,carbonyl 65 mg-vitamin C 125 1 tab PO BID 12/26/23 12/26/23 History mg tablet,delayed release (Vitron-C) magnesium 200 mg tablet 400 mg PO DAILY 12/26/23 12/26/23 History propranolol 20 mg tablet 20 mg PO BID 12/26/23 12/26/23 History riboflavin (vitamin B2) 400 mg 400 mg PO QAM 12/26/23 12/26/23 History tablet sertraline 25 mg tablet 75 mg PO QAM 12/26/23 12/26/23 History Past Med/Surg History Problem List (Updated 12/28/23 @ 09:05 by Andrew Chavez MD) Macrosomia Encounter for pre-operative examination Medical History (Updated 12/28/23 @ 09:05 by Andrew Chavez MD) SOB (shortness of breath) on exertion ongoing throughout without change or worsening per PAT RN Anemia Slow to wake up after anesthesia after D&C ADHD Depression OCD (obsessive compulsive disorder) Migraines Anxiety History of COVID-19 (05/2023) no hosp; resolved 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, sports induced Sleep apnea CPAP Surgical History Hx of wisdom tooth extraction Hx of dilation and curettage polyp removed from uterus Hx of tonsillectomy Family History Other No family history of adverse response to anesthesia Social History Smoking Status: Never smoker Second Hand Exposure: No; Do You Dip or Chew Tobacco: No; Tobacco Cessation Education Requested by Patient: No Hx Alcohol Use: No Hx Substance Use: No Preferred Language: Belarusian Communication Ability: Effective Order Expediter Required: No Beliefs That Will Affect Care: None marital status: Current Living Situation: Spouse Other Information That Helps Us Care for You: No Feels Safe at Home: Yes Safety Concerns: Afraid for Self Assistive Devices: Contacts, CPAP and Glasses Results & Data Results & Data Vital Signs (Past 12 Hours) Vital Signs Temp Pulse Resp BP 12/28/23 07:25 76 135/86 12/28/23 07:18 36.6 C 18
[2023-12-28 09:14] LABS: Hematocrit (blood only) 36.3 % (37.0-47.0); Hemoglobin 11.9 g/dl (12.0-16.0); Mean Corpuscular Hgb Conc 32.8 g/dL (32.0-36.0); Mean Corpuscular Volume 88.5 fL (80.0-100.0); Mean Platelet Volume 10.2 fL (9.4-12.4); Platelet Count 222 K/uL (130-400); RDW Coefficient of Variation 13.9 % (11.5-14.5); RDW Standard Deviation 44.9 fL (36.4-46.3); White Blood Count 9.76 K/ul (4.8-10.8)
[2023-12-28] MEDS: GENTAMICIN SULFATE 600 MG in DEXTROSE 5% 100 ML IV ONE (09:18)
[2023-12-28 09:35] LABS: Alanine Aminotransferase 12 U/L (7-52); Albumin Globulin Ratio 1.3 (0.9-2); Albumin Level 3.3 gm/dl (3.4-5.0); Alkaline Phosphatase 134 U/L (34-104); Anion Gap 8 (3-11); Aspartate Aminotransferase 14 U/L (13-39); BUN Creatinine Ratio 17.8 (10-20); Bilirubin,Total 0.2 mg/dl (0.2-1.0); Blood Urea Nitrogen 8 mg/dl (6-23); Calcium 8.4 mg/dl (8.6-10.3); Carbon Dioxide 20 mmol/L (21-32); Chloride 108 mmol/L (98-107); Est GFR (African American) > 150.0 ml/min; Est GFR (Non-African American) 131.7 ml/min; Globulin 2.5 gm/dl (2.5-4.0); Glucose 95 mg/dl (70-99(Fasting)); Potassium 3.9 mmol/L (3.5-5.1); Sodium 136 mmol/L (136-145); Total Protein 5.8 gm/dl (6.0-8.3)
[2023-12-28] MEDS: ceFAZolin 3000MG 3,000 MG/72.5 ML BAG IV SCH (10:08)
[2023-12-28] MEDS ORDERED: NALOXONE HCL 1 MG in SODIUM CHLORIDE 0.9% 1,000 ML IV PRN (10:17)
[2023-12-28] MEDS ORDERED: LACTATED RINGER'S 500 ML IV PRN (10:17)
[2023-12-28] MEDS ORDERED: NALBUPHINE HCL INJ 10 MG/ML AMP IV PRN (10:17)
[2023-12-28] MEDS ORDERED: MoRPHine SULFATE PF 1 MG/ML 10 ML AMP/VIAL INT SPINAL ONE (10:17)
[2023-12-28] MEDS ORDERED: NALOXONE HCL 0.08 MG in SYRINGE 1.8 ML IV PRN (10:17)
[2023-12-28] MEDS ORDERED: NALOXONE HCL 0.4 MG/1 ML VIAL/CARP IV PRN (10:17)
[2023-12-28] MEDS ORDERED: ePHEDrine sulfate 50 MG/ML AMP IV PRN (10:17)
[2023-12-28] MEDS ORDERED: ONDANSETRON INJ 2 MG/ML 2 ML VIAL IV PRN (10:17)
[2023-12-28] MEDS ORDERED: OXYTOCIN 10 UNITS/ML VIAL ONE (10:25)
[2023-12-28] MEDS ORDERED: SODIUM CHLORIDE 0.9% 1,000 ML IV SCH (10:30)
[2023-12-28] MEDS ORDERED: NO NARCOTICS OR SEDATIVES SCH (10:30)
[2023-12-28] MEDS ORDERED: DC INTRASPINAL MORPHINE SCH (10:30)
[2023-12-28] MEDS ORDERED: ONDANSETRON INJ 2 MG/ML 2 ML VIAL ONE (10:33)
[2023-12-28] MEDS ORDERED: SENNA 8.6 MG TAB PO PRN (10:56)
[2023-12-28] MEDS ORDERED: MAGNESIUM HYDROXIDE SUSP 30 ML UDC PO PRN (10:56)
[2023-12-28] MEDS ORDERED: HYDROCORTISONE ACETATE 25 MG SUPP PR PRN (10:56)
[2023-12-28] MEDS ORDERED: CALCIUM CARBONATE 500 MG CHEWABLE TAB PO PRN (10:56)
[2023-12-28] MEDS ORDERED: BENZOCAINE 20% SPRY 85 APPLN/85 GM CAN EXT PRN (10:56)
--- NOTE | 2023-12-28 11:03 | Operative Report ---
Post Operative Report Pre & Post Diagnosis Operation Date: 12/28/23 09:00 Pre-Op Diagnosis: 1. Term 2. Patient desire primary c/section Post-Op Diagnosis: Same I identified the patient and participated in the time-out.: Yes Procedure Operation Date: 12/28/23 09:00 Actual Procedures p Primary Section with the of a live male child at 1001. - Andrew Chavez MD Surgeon Andrew Chavez MD Care Partner dr verdin Quantitative Blood Loss (QBL) 669ml Findings Consistent with Post-Op Diagnosis male in cephalic presentation. uterus, tubes and ovaries normal Unremarkable pelvic and abdomial exam Fluids IVF; 800ml Uirne 100ml Specimens male infant Placenta Drains none Anesthesia Type Spinal Complications none Indications at term pending macrosomia Description of Procedure Patient brought to the operating room Prepped and draped in normal sterile fashion in dorsal supine position with a leftward tilt. Time out is performed. Patient is identified by name and date of . Allergy and antibiotics and reviewed and confirmed. Skin check is performed to see if anesthesia is adequate A Pfannenstiel incision is made and carried out to the fascia with a scalpel. Fascia is incised in the midline extended laterally on both sides with Dawson scissors. Louie's were used to grab the superior part of the fascial incision and the rectus abdominis muscle dissected with Dawson scissors.. Same procedure was performed on the lower section of the fascia. The rectus muscle is then in the midline and the peritoneum identified, tented up and entered sharply with the Metzenbaum scissors. The peritoneal incision was then extended superiorly and inferiorly with good visualization of the bladder. An Matthieu retractor was then inserted to provide better visualization and retraction. Vesicouterine peritoneum was identified, grasped with pickups and entered sharply with Metzenbaum scissors. The incision was then extended laterally and the bladder flap created with Metzenbaum scissors. The lower uterine segment incision was performed in a transverse fashion with a scalpel. Uterine incision was then extended laterally with the bandage scissors. Amniotomy is performed. Amniotic fluid was clear The infant's head was delivered atraumatically. There is no nuchal cord. Nose and mouth suctioned with the bulb suction. Delayed cord clamping performed and cord is then clamped and cut and is handed over to the waiting pediatric team. Cord blood and gases obtained The placenta is then removed manually the uterus is exteriorized and cleared of all clots and debris. Uterine incision it repaired with 0-Vicryl in a locking fashion. A second layer of 0-Vicryl is used to obtain excellent hemostasis. Uterus is placed back into the abdominal cavity. The bladder flap was repaired in a running fashion with plain suture. Copious amount of irrigation was used to irrigate the abdomen. Gutters were cleared of all clots and debris . Hemostasis was obtained. The Matthieu retractor is removed as well as sponges or instruments in the abdomen. The peritoneum was identified and closed in a running fashion using plain suture. The rectus abdominis muscle was examined to ensure there no bleeding. The rectus abdominis muscle was approximated loosely using plain suture in a [id number] manner. Once again hemostasis is confirmed. The fascia was grasped with [place]'s and closed in a running fashion. Both fascial layers are closed together using 0-Vicryl suture. Subcutaneous space is irrigated and hemostasis was confirmed. Subcutaneous space is approximated with plain suture. Skin is closed with bessie. DEREK blayne ssing is applied over incision The patient tolerated procedure well sponge just labs needle counts were correct x2 patient is sent to recovery in stable condition I attest to the content of the Intraoperative Record and any orders documented therein. Any exceptions are noted below. Care Partner was necessary for retraction and manipulation of instruments in order to provide for a safe operation
[2023-12-28] MEDS: OXYTOCIN 10 UNITS/ML 10ML VIAL IM ONE (11:16)
[2023-12-28] MEDS: miSOPROStoL 200 MCG TAB ONE (11:17)
[2023-12-28] MEDS ORDERED: ACETAMINOPHEN 325 MG TAB PO SCH (12:00)
[2023-12-28] MEDS: OXYTOCIN 20 UNITS/LR 1,002 ML IV SCH (12:02)
[2023-12-28] MEDS: IBUPROFEN 600 MG TAB PO SCH (12:20)
[2023-12-28] MEDS: SIMETHICONE 80 MG CHEW PO SCH (12:21)
[2023-12-28] MEDS ORDERED: Nursing to Pharmacy Communication SCH ×2 (12:30→14:45)
[2023-12-28] MEDS: HYDROmorphone INJ 0.5 MG/0.5 ML SYR IV PRN (12:58)
[2023-12-28] MEDS ORDERED: SODIUM CHLORIDE 0.9% 250 ML IV PRN (13:09)
[2023-12-28] MEDS: ACETAMINOPHEN 325 MG TAB PO SCH (16:22)
[2023-12-28] MEDS: DOCUSATE SODIUM 100 MG CAP PO SCH (20:51)
[2023-12-28] MEDS: PROPRANOLOL HCL 20 MG TAB PO SCH (22:26)
[2023-12-28] MEDS: diphenhydrAMINE 50 MG/ML VIAL IV PRN (23:53)
[2023-12-29] MEDS ORDERED: PROMETHAZINE 12.5 MG/50.5 ML BAG IV PRN (04:20)
[2023-12-29] MEDS ORDERED: diphenhydrAMINE 50 MG/ML VIAL IV PRN (04:20)
[2023-12-29] MEDS ORDERED: diphenhydrAMINE Capsule 25 MG CAP PO PRN (04:20)
[2023-12-29] MEDS ORDERED: ONDANSETRON INJ 2 MG/ML 2 ML VIAL IV PRN (04:20)
[2023-12-29] MEDS ORDERED: ACETAMINOPHEN 500 MG TAB PO SCH (06:00)
[2023-12-29] MEDS ORDERED: CITRIC ACID/SODIUM CITRATE 15 ML UDC PO SCH (06:00)
[2023-12-29 07:26] LABS: Basophils # (auto) 0.02 K/uL (0.00-0.20); Basophils % (auto) 0.2 %; Eosinophils # (auto) 0.05 K/uL (0.00-0.50); Eosinophils % (auto) 0.6 %; Hematocrit (blood only) 28.7 % (37.0-47.0); Hemoglobin 9.6 g/dl (12.0-16.0); Immature Granulocytes # (auto) 0.05 K/uL (0.01-0.20); Immature Granulocytes % (auto) 0.6 %; Lymphocytes # (auto) 1.29 K/uL (1.20-3.40); Lymphocytes % (auto) 14.8 %; Mean Corpuscular Hemoglobin 29.6 pg (25.0-34.0); Mean Corpuscular Hgb Conc 33.4 g/dL (32.0-36.0); Mean Corpuscular Volume 88.6 fL (80.0-100.0); Mean Platelet Volume 10.3 fL (9.4-12.4); Monocytes # (auto) 0.72 K/uL (0.11-0.59); Monocytes % (auto) 8.3 %; Neutrophils # (auto) 6.58 K/uL (1.40-6.50); Neutrophils % (auto) 75.5 %; Platelet Count 153 K/uL (130-400); RDW Standard Deviation 45.4 fL (36.4-46.3); Red Blood Count 3.24 M/uL (4.20-5.40); White Blood Count 8.71 K/ul (4.8-10.8)
[2023-12-29] MEDS: oxyCODONE HCL IR 5 MG TAB (IMMEDIATE RELEASE) PO PRN (08:16)
[2023-12-29] MEDS: PRENATAL VITAMIN 1 TAB PO SCH (08:16)
[2023-12-29] MEDS: FERROUS SULFATE 325 MG TAB PO SCH (08:16)
[2023-12-29] MEDS: ADVANCED PROBIOTIC 625 MG CAPSULE PO SCH (08:17)
[2023-12-29] MEDS: SERTRALINE HCL 50 MG TABLET PO SCH (08:17)
[2023-12-29] MEDS: MAGNESIUM OXIDE 400 MG TAB PO SCH (08:17)
[2023-12-29] MEDS ORDERED: NON-FORMULARY MEDICATION (Riboflavin (Vitamin B2) 400 mg Tablet) PO SCH (09:00)
--- NOTE | 2023-12-29 09:56 | Obstetrical Progress Note ---
Date of Service December 29, 2023 Assessment & Plan Admission and Anticipated Discharge Date Admission Date: December 28, 2023 Subjective Patient is seen and examined. She feels well, no complaints. Pain is under control with oral meds. Ambulating without dizziness Voiding without difficulty Tolerating regular diet with out N&V Flatus + BM neg Bleeding is minimal No fever/ chills/ CP/ SOB/ N&V/ Leg pain Bottle feeding for now, baby is on IV dextrose Vital Signs Temp Pulse Resp BP Pulse Ox O2 Del Method 12/29/23 09:02 36.4 C L 76 14 127/85 98 Room Air 12/29/23 08:02 36.5 C 64 18 118/80 99 Room Air 12/29/23 04:47 36.5 C 71 16 123/78 99 Room Air 12/29/23 04:00 16 99 12/29/23 03:00 16 99 12/29/23 02:00 18 100 12/29/23 01:00 16 99 12/29/23 00:03 16 99 12/28/23 23:08 36.6 C 72 16 136/84 99 Room Air 12/28/23 23:00 16 99 12/28/23 22:00 18 99 Lab Results 12/28/23 12/28/23 12/28/23 Range/Units 07:45 07:48 08:54 WBC 9.76 (4.8-10.8) K/ul RBC 4.10 L (4.20-5.40) M/uL Hgb 11.9 L (12.0-16.0) g/dl Hct 36.3 L (37.0-47.0) % MCV 88.5 (80.0-100.0) fL MCH 29.0 (25.0-34.0) pg MCHC 32.8 (32.0-36.0) g/dL RDW Std Deviation 44.9 (36.4-46.3) fL RDW Coeff of Attila 13.9 (11.5-14.5) % Plt Count 222 (130-400) K/uL MPV 10.2 (9.4-12.4) fL Immature Gran % (Auto) % Neut % (Auto) % Lymph % (Auto) % [place] % (Auto) % Eos % (Auto) % Baso % (Auto) % Neut # (Auto) (1.40-6.50) K/uL Lymph # (Auto) (1.20-3.40) K/uL [place] # (Auto) (0.11-0.59) K/uL Eos # (Auto) (0.00-0.50) K/uL Baso # (Auto) (0.00-0.20) K/uL Immature Gran # (Auto) (0.01-0.20) K/uL Sodium 136 (136-145) mmol/L Potassium 3.9 (3.5-5.1) mmol/L Chloride 108 H (98-107) mmol/L Carbon Dioxide 20 L (21-32) mmol/L Anion Gap 8 (3-11) BUN 8 (6-23) mg/dl Creatinine 0.45 L (0.6-1.2) mg/dl Est Cr Clr Drug Dosing 232.0 ml/min Est GFR ( Amer) > 150.0 ml/min Est GFR (Non-Af Amer) 131.7 ml/min BUN/Creatinine Ratio 17.8 (10-20) Glucose 95 (70-99(Fasting)) mg/dl Calcium 8.4 L (8.6-10.3) mg/dl Total Bilirubin 0.2 (0.2-1.0) mg/dl AST 14 (13-39) U/L ALT 12 (7-52) U/L Alkaline Phosphatase 134 H (34-104) U/L Total Protein 5.8 L (6.0-8.3) gm/dl Albumin 3.3 L (3.4-5.0) gm/dl Globulin 2.5 (2.5-4.0) gm/dl Albumin/Globulin Ratio 1.3 (0.9-2) Treponema pallidum Ab Negative (Negative) Blood Type A Positive Antibody Screen NEGATIVE 12/29/23 Range/Units 06:36 WBC 8.71 (4.8-10.8) K/ul RBC 3.24 L (4.20-5.40) M/uL Hgb 9.6 L (12.0-16.0) g/dl Hct 28.7 L (37.0-47.0) % MCV 88.6 (80.0-100.0) fL MCH 29.6 (25.0-34.0) pg MCHC 33.4 (32.0-36.0) g/dL RDW Std Deviation 45.4 (36.4-46.3) fL RDW Coeff of Attila 14.0 (11.5-14.5) % Plt Count 153 (130-400) K/uL MPV 10.3 (9.4-12.4) fL Immature Gran % (Auto) 0.6 % Neut % (Auto) 75.5 % Lymph % (Auto) 14.8 % [place] % (Auto) 8.3 % Eos % (Auto) 0.6 % Baso % (Auto) 0.2 % Neut # (Auto) 6.58 H (1.40-6.50) K/uL Lymph # (Auto) 1.29 (1.20-3.40) K/uL [place] # (Auto) 0.72 H (0.11-0.59) K/uL Eos # (Auto) 0.05 (0.00-0.50) K/uL Baso # (Auto) 0.02 (0.00-0.20) K/uL Immature Gran # (Auto) 0.05 (0.01-0.20) K/uL Sodium (136-145) mmol/L Potassium (3.5-5.1) mmol/L Chloride (98-107) mmol/L Carbon Dioxide (21-32) mmol/L Anion Gap (3-11) BUN (6-23) mg/dl Creatinine (0.6-1.2) mg/dl Est Cr Clr Drug Dosing ml/min Est GFR ( Amer) ml/min Est GFR (Non-Af Amer) ml/min BUN/Creatinine Ratio (10-20) Glucose (70-99(Fasting)) mg/dl Calcium (8.6-10.3) mg/dl Total Bilirubin (0.2-1.0) mg/dl AST (13-39) U/L ALT (7-52) U/L Alkaline Phosphatase (34-104) U/L Total Protein (6.0-8.3) gm/dl Albumin (3.4-5.0) gm/dl Globulin (2.5-4.0) gm/dl Albumin/Globulin Ratio (0.9-2) Treponema pallidum Ab (Negative) Blood Type Antibody Screen PE: General: Alert, orientedx3, NAD CVS: S1S2 RRR Lungs; CTAB Abd: soft, NT, ND, BS+, fundus firm, below Umbilicus Incision/ DEREK Dressing: Clean, dry, intact Perineum intact, Lochia rubra minimal Ext; NT, dorsum of feet edema AP: 33 yo s/p C Section, pod# 1 VSS Afebrile doing well Continue routine postop care Encourage ambulation, PO intake All questions were answered Results & Data Vital Signs (Past 12 Hours) Vital Signs Temp Pulse Resp BP Pulse Ox O2 Del Method 12/29/23 09:02 36.4 C L 76 14 127/85 98 Room Air 12/29/23 08:02 36.5 C 64 18 118/80 99 Room Air 12/29/23 04:47 36.5 C 71 16 123/78 99 Room Air 12/29/23 04:00 16 99 12/29/23 03:00 16 99 12/29/23 02:00 18 100 12/29/23 01:00 16 99 12/29/23 00:03 16 99 12/28/23 23:08 36.6 C 72 16 136/84 99 Room Air 12/28/23 23:00 16 99 12/28/23 22:00 18 99
[2023-12-29] MEDS: HYDROmorphone INJ 0.5 MG/0.5 ML SYR IV PRN (16:03)
[2023-12-29] MEDS: DIPHTHER/TETAN/PERTUS Vaccine (Tdap, Adol/Adult) 0.5mL IM ONE (21:18)
[2023-12-29] MEDS: bisacodyL 5 MG TABEC PO SCH (21:21)
--- NOTE | 2023-12-30 08:29 | Obstetrical Progress Note ---
Date of Service December 30, 2023 Assessment & Plan Admission and Anticipated Discharge Date Admission Date: December 28, 2023 Subjective Patient is seen and in nursery breast feeding. She feels well, no complaints. Pain is under control with oral meds. Ambulating without dizziness Voiding without difficulty Tolerating regular diet with out N&V Flatus + BM neg Bleeding is minimal No fever/ chills/ CP/ SOB/ N&V/ Leg pain Starting to Breast feed Vital Signs Temp Pulse Resp BP Pulse Ox O2 Del Method 12/30/23 07:29 36.4 C L 87 19 137/88 99 Room Air 12/30/23 02:25 36.6 C 69 18 135/86 100 Room Air 12/29/23 21:20 36.6 C 86 18 134/89 96 Room Air 12/29/23 15:55 36.6 C 82 19 132/88 98 Room Air 12/29/23 09:02 36.4 C L 76 14 127/85 98 Room Air Lab Results 12/28/23 12/28/23 12/28/23 Range/Units 07:45 07:48 08:54 WBC 9.76 (4.8-10.8) K/ul RBC 4.10 L (4.20-5.40) M/uL Hgb 11.9 L (12.0-16.0) g/dl Hct 36.3 L (37.0-47.0) % MCV 88.5 (80.0-100.0) fL MCH 29.0 (25.0-34.0) pg MCHC 32.8 (32.0-36.0) g/dL RDW Std Deviation 44.9 (36.4-46.3) fL RDW Coeff of Attila 13.9 (11.5-14.5) % Plt Count 222 (130-400) K/uL MPV 10.2 (9.4-12.4) fL Immature Gran % (Auto) % Neut % (Auto) % Lymph % (Auto) % [place] % (Auto) % Eos % (Auto) % Baso % (Auto) % Neut # (Auto) (1.40-6.50) K/uL Lymph # (Auto) (1.20-3.40) K/uL [place] # (Auto) (0.11-0.59) K/uL Eos # (Auto) (0.00-0.50) K/uL Baso # (Auto) (0.00-0.20) K/uL Immature Gran # (Auto) (0.01-0.20) K/uL Sodium 136 (136-145) mmol/L Potassium 3.9 (3.5-5.1) mmol/L Chloride 108 H (98-107) mmol/L Carbon Dioxide 20 L (21-32) mmol/L Anion Gap 8 (3-11) BUN 8 (6-23) mg/dl Creatinine 0.45 L (0.6-1.2) mg/dl Est Cr Clr Drug Dosing 232.0 ml/min Est GFR ( Amer) > 150.0 ml/min Est GFR (Non-Af Amer) 131.7 ml/min BUN/Creatinine Ratio 17.8 (10-20) Glucose 95 (70-99(Fasting)) mg/dl Calcium 8.4 L (8.6-10.3) mg/dl Total Bilirubin 0.2 (0.2-1.0) mg/dl AST 14 (13-39) U/L ALT 12 (7-52) U/L Alkaline Phosphatase 134 H (34-104) U/L Total Protein 5.8 L (6.0-8.3) gm/dl Albumin 3.3 L (3.4-5.0) gm/dl Globulin 2.5 (2.5-4.0) gm/dl Albumin/Globulin Ratio 1.3 (0.9-2) Treponema pallidum Ab Negative (Negative) Blood Type A Positive Antibody Screen NEGATIVE Crossmatch See Detail 12/29/23 Range/Units 06:36 WBC 8.71 (4.8-10.8) K/ul RBC 3.24 L (4.20-5.40) M/uL Hgb 9.6 L (12.0-16.0) g/dl Hct 28.7 L (37.0-47.0) % MCV 88.6 (80.0-100.0) fL MCH 29.6 (25.0-34.0) pg MCHC 33.4 (32.0-36.0) g/dL RDW Std Deviation 45.4 (36.4-46.3) fL RDW Coeff of Attila 14.0 (11.5-14.5) % Plt Count 153 (130-400) K/uL MPV 10.3 (9.4-12.4) fL Immature Gran % (Auto) 0.6 % Neut % (Auto) 75.5 % Lymph % (Auto) 14.8 % [place] % (Auto) 8.3 % Eos % (Auto) 0.6 % Baso % (Auto) 0.2 % Neut # (Auto) 6.58 H (1.40-6.50) K/uL Lymph # (Auto) 1.29 (1.20-3.40) K/uL [place] # (Auto) 0.72 H (0.11-0.59) K/uL Eos # (Auto) 0.05 (0.00-0.50) K/uL Baso # (Auto) 0.02 (0.00-0.20) K/uL Immature Gran # (Auto) 0.05 (0.01-0.20) K/uL Sodium (136-145) mmol/L Potassium (3.5-5.1) mmol/L Chloride (98-107) mmol/L Carbon Dioxide (21-32) mmol/L Anion Gap (3-11) BUN (6-23) mg/dl Creatinine (0.6-1.2) mg/dl Est Cr Clr Drug Dosing ml/min Est GFR ( Amer) ml/min Est GFR (Non-Af Amer) ml/min BUN/Creatinine Ratio (10-20) Glucose (70-99(Fasting)) mg/dl Calcium (8.6-10.3) mg/dl Total Bilirubin (0.2-1.0) mg/dl AST (13-39) U/L ALT (7-52) U/L Alkaline Phosphatase (34-104) U/L Total Protein (6.0-8.3) gm/dl Albumin (3.4-5.0) gm/dl Globulin (2.5-4.0) gm/dl Albumin/Globulin Ratio (0.9-2) Treponema pallidum Ab (Negative) Blood Type Antibody Screen Crossmatch PE: General: Alert, orientedx3, NAD Nursing AP: 33 yo s/p C Section, pod# 2 VSS Afebrile doing well Continue routine postop care Encourage ambulation, PO intake All questions were answered D/C home tomorrow Results & Data Vital Signs (Past 12 Hours) Vital Signs Temp Pulse Resp BP Pulse Ox O2 Del Method 12/30/23 07:29 36.4 C L 87 19 137/88 99 Room Air 12/30/23 02:25 36.6 C 69 18 135/86 100 Room Air 12/29/23 21:20 36.6 C 86 18 134/89 96 Room Air
[2023-12-30 08:35] LABS: Hematocrit (blood only) 31.2 % (37.0-47.0); Hemoglobin 10.2 g/dl (12.0-16.0)
[2023-12-30] MEDS: MAGNESIUM HYDROXIDE SUSP 30 ML UDC PO SCH (10:50)
[2023-12-30] MEDS ORDERED: bisacodyL 10 MG SUPP PR PRN (10:56)
[2023-12-30] MEDS: IBUPROFEN 600 MG TAB PO PRN (12:31)
[2023-12-30] MEDS: ACETAMINOPHEN 325 MG TAB PO PRN (16:27)
[2023-12-30 21:57] VITALS: RESP 18
[2023-12-31 08:52] VITALS: BP 138/89; PULSE 89; TEMP 97.7; O2SAT 99
--- NOTE | 2023-12-31 09:17 | Obstetrical Progress Note ---
Date of Service December 31, 2023 Assessment & Plan Admission and Anticipated Discharge Date Admission Date: December 28, 2023 Subjective Patient is seen and examined. She feels well, no complaints. Pain is under control with oral meds. Ambulating without dizziness Voiding without difficulty Tolerating regular diet with out N&V Flatus + BM neg, Bleeding is minimal No fever/ chills/ CP/ SOB/ N&V/ Leg pain Breast and bottle feeding without problems, baby is with her now Lab Results 12/28/23 12/28/23 12/28/23 Range/Units 07:45 07:48 08:54 WBC 9.76 (4.8-10.8) K/ul RBC 4.10 L (4.20-5.40) M/uL Hgb 11.9 L (12.0-16.0) g/dl Hct 36.3 L (37.0-47.0) % MCV 88.5 (80.0-100.0) fL MCH 29.0 (25.0-34.0) pg MCHC 32.8 (32.0-36.0) g/dL RDW Std Deviation 44.9 (36.4-46.3) fL RDW Coeff of Attila 13.9 (11.5-14.5) % Plt Count 222 (130-400) K/uL MPV 10.2 (9.4-12.4) fL Immature Gran % (Auto) % Neut % (Auto) % Lymph % (Auto) % [place] % (Auto) % Eos % (Auto) % Baso % (Auto) % Neut # (Auto) (1.40-6.50) K/uL Lymph # (Auto) (1.20-3.40) K/uL [place] # (Auto) (0.11-0.59) K/uL Eos # (Auto) (0.00-0.50) K/uL Baso # (Auto) (0.00-0.20) K/uL Immature Gran # (Auto) (0.01-0.20) K/uL Sodium 136 (136-145) mmol/L Potassium 3.9 (3.5-5.1) mmol/L Chloride 108 H (98-107) mmol/L Carbon Dioxide 20 L (21-32) mmol/L Anion Gap 8 (3-11) BUN 8 (6-23) mg/dl Creatinine 0.45 L (0.6-1.2) mg/dl Est Cr Clr Drug Dosing 232.0 ml/min Est GFR ( Amer) > 150.0 ml/min Est GFR (Non-Af Amer) 131.7 ml/min BUN/Creatinine Ratio 17.8 (10-20) Glucose 95 (70-99(Fasting)) mg/dl Calcium 8.4 L (8.6-10.3) mg/dl Total Bilirubin 0.2 (0.2-1.0) mg/dl AST 14 (13-39) U/L ALT 12 (7-52) U/L Alkaline Phosphatase 134 H (34-104) U/L Total Protein 5.8 L (6.0-8.3) gm/dl Albumin 3.3 L (3.4-5.0) gm/dl Globulin 2.5 (2.5-4.0) gm/dl Albumin/Globulin Ratio 1.3 (0.9-2) Treponema pallidum Ab Negative (Negative) Blood Type A Positive Antibody Screen NEGATIVE Crossmatch See Detail 12/29/23 12/30/23 Range/Units 06:36 07:48 WBC 8.71 (4.8-10.8) K/ul RBC 3.24 L (4.20-5.40) M/uL Hgb 9.6 L 10.2 L (12.0-16.0) g/dl Hct 28.7 L 31.2 L (37.0-47.0) % MCV 88.6 (80.0-100.0) fL MCH 29.6 (25.0-34.0) pg MCHC 33.4 (32.0-36.0) g/dL RDW Std Deviation 45.4 (36.4-46.3) fL RDW Coeff of Attila 14.0 (11.5-14.5) % Plt Count 153 (130-400) K/uL MPV 10.3 (9.4-12.4) fL Immature Gran % (Auto) 0.6 % Neut % (Auto) 75.5 % Lymph % (Auto) 14.8 % [place] % (Auto) 8.3 % Eos % (Auto) 0.6 % Baso % (Auto) 0.2 % Neut # (Auto) 6.58 H (1.40-6.50) K/uL Lymph # (Auto) 1.29 (1.20-3.40) K/uL [place] # (Auto) 0.72 H (0.11-0.59) K/uL Eos # (Auto) 0.05 (0.00-0.50) K/uL Baso # (Auto) 0.02 (0.00-0.20) K/uL Immature Gran # (Auto) 0.05 (0.01-0.20) K/uL Sodium (136-145) mmol/L Potassium (3.5-5.1) mmol/L Chloride (98-107) mmol/L Carbon Dioxide (21-32) mmol/L Anion Gap (3-11) BUN (6-23) mg/dl Creatinine (0.6-1.2) mg/dl Est Cr Clr Drug Dosing ml/min Est GFR ( Amer) ml/min Est GFR (Non-Af Amer) ml/min BUN/Creatinine Ratio (10-20) Glucose (70-99(Fasting)) mg/dl Calcium (8.6-10.3) mg/dl Total Bilirubin (0.2-1.0) mg/dl AST (13-39) U/L ALT (7-52) U/L Alkaline Phosphatase (34-104) U/L Total Protein (6.0-8.3) gm/dl Albumin (3.4-5.0) gm/dl Globulin (2.5-4.0) gm/dl Albumin/Globulin Ratio (0.9-2) Treponema pallidum Ab (Negative) Blood Type Antibody Screen Crossmatch Vital Signs Temp Pulse Resp BP Pulse Ox O2 Del Method 12/31/23 08:20 36.5 C 89 18 138/89 99 Room Air 12/30/23 23:10 36.9 C 84 18 128/80 97 Room Air 12/30/23 19:30 36.8 C 102 H 18 142/89 H 96 Room Air 12/30/23 16:15 36.3 C L 80 17 121/82 98 Room Air PE: General: Alert, orientedx3, NAD CVS: S1S2 RRR Lungs; CTAB Abd: soft, NT, ND, BS+, fundus firm, below Umbilicus Incision: Clean, dry, intact Perineum intact, Lochia rubra minimal Ext; NT, no edema AP: 33 yo s/p C Section, pod# 3 VSS Afebrile doing well Continue routine postop care Encourage ambulation, PO intake All questions were answered D/C home , f/u in office Results & Data Vital Signs (Past 12 Hours) Vital Signs Temp Pulse Resp BP Pulse Ox O2 Del Method 12/31/23 08:20 36.5 C 89 18 138/89 99 Room Air 12/30/23 23:10 36.9 C 84 18 128/80 97 Room Air
[2023-12-31] MEDS: bisacodyL 5 MG TABEC PO ONE (10:14)
--- NOTE | 2024-01-01 07:09 | Coding Query ---
CODING QUERY To promote full compliance with coding requirements relating to patient care, provider participation is requested in all cases of sleep lab technician uncertainty. Please assist us with the question(s) below: Coding Question(s): Pt weeks of gestation was not listed throughout reports. Please document completed WOG so that we may code properly. Physician's Response(s): 38W 4 days Thank you Luz Maria Kalin Principal Diagnosis: "that condition established after study, to be chiefly responsible for occasioning the admission of the patient to the hospital for care." Co-Existing Principal Diagnosis: "when two or more diagnoses equally meet the criteria for principal diagnosis as determined by the circumstances of admission, diagnostic work up, and/or therapy provided, and the Alphabetic Index, Tabular List, or another coding guideline does not provide sequencing direction, any one of the diagnoses may be sequenced first." "When the physician has documented what appears to be a current diagnosis in the body of the record, but has not included the diagnosis in the final diagnostic statement, the physician should be asked whether the diagnosis should be added." (Source [facility] 2 QTR90. p3-4) JACKIE
--- NOTE | 2024-01-02 17:24 | Anesthesiology Progress Note ---
Date of Service December 28, 2023 Anesthesia Post Procedure Pain Intensity Bilateral Abdomen: Pain Intensity: 4 Notes Mental Status: alert / awake / arousable Patient Amnestic to Procedure: Yes Nausea / Vomiting: adequately controlled Pain: adequately controlled Airway Patency, RR, SpO2: stable & adequate BP & HR: stable & adequate Hydration State: stable & adequate Neuraxial Anesthesia: was administered and sensory block is resolving Anesthetic Complications: no major complications apparent
--- NOTE | 2024-01-05 10:15 | Discharge Summary ---
Date of Service January 05, 2024 Admission HPI Per Admitting Provider Pt is a 33yo G1 at term. Pt has hx of pelvis symphysis pain and pending macrosomia. Wishes to have elective c.sec risk and alternatives discussed with Discharge Data Consultations 12/28/23 08:41 Consult Anesthesiology Stat Procedures Performed Operation Date: 12/28/23 09:00 Actual Procedures p Primary Section with the of a live male child at 1001. - Andrew Chavez MD Hospital Course (1) delivery delivered: Post op course was unremarkable and pt is discharges home in stable condition. Discharge instructions including medications,diet, activity and follow up appointments are reviewed with pt. Plan Post op course was unremarkable and pt is discharges home in stable condition. Discharge instructions including medications,diet, activity and follow up appointments are reviewed with pt. Discharge Instructions Post op course was unremarkable and pt is discharges home in stable condition. Discharge instructions including medications,diet, activity and follow up appointments are reviewed with pt.
== END 2023-12-31 17:25 | disposition home or self-care (01) | DRG 788 ==
LOC: 4S1 07:05 → MERGE 08:50 → EDSTATUS 08:50 → 4E2 13:31